=== PATIENT | female | born 1935 | race Caucasian/White ===

== ENCOUNTER 2024-06-08 15:41 | Inpatient (IN) | payer MEDICARE, SELFPAY ==
[2024-06-08] VITALS (7 sets, daily range): BP systolic 89–151; BP diastolic 61–70; PULSE 65–142; RESP 18–26; TEMP 36.2–37.3; O2SAT 91–96; BMI 24.5; BMI 26.3
--- NOTE | ~2024-06-08 | CT_ITS ---
CLINICAL HISTORY: tachycardia, fatigue, weakness CT angiography chest with contrast. 3D Postprocessing. Comparison: CR/SR - XR CHEST 2V - 06/08/24 16:29 EST Findings: There is motion artifact within the lungs, limiting evaluation. The heart size is normal. RV/LV ratio is normal. Coronary artery calcifications are present. The thoracic aorta is normal caliber. No pulmonary artery filling defects. The visualized thyroid and mediastinum are unremarkable. There is a background centrilobular emphysema. In the superior segment of the left lower lobe there is a 8 mm pulmonary nodule. Within the right upper lobe right lower lobe there are small foci of ground-glass opacity. There is complete collapse of the right middle lobe with obscuration of the right middle lobe bronchi by soft tissue. There is a masslike structure in the right hilum surrounding the right middle lobe bronchus and extending into the mediastinum measuring 3.5 x 3.5 cm, series 8, image 213. No mediastinal lymphadenopathy or axillary lymphadenopathy. In the upper abdomen is enlargement of the left adrenal gland measuring 1.7 cm in diameter, is indeterminate. Incidentally noted 3 cm cyst in the left kidney. Multiple low-attenuation lesions within the liver, likely cysts. Degenerative changes of the thoracic spine. No lytic or blastic bone lesions. The bones are intact. IMPRESSION: 1. No pulmonary emboli. 2. Right middle lobe mass extending into the mediastinum measuring 3.5 x 3 5 cm, occluding the right middle lobe bronchus. 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 3. 8 mm nodule in the left lower lobe, attention recommended on follow-up. 4. Multiple small ground-glass foci in the right upper lobe. Differential includes areas of infection, inflammation or small pulmonary nodules. This document has been electronically signed by: Omi Woo MD on 06/08/2024 19:55:17
--- NOTE | ~2024-06-08 | XR_ITS ---
EXAMINATION: XR CHEST CLINICAL INFORMATION: cough, shortness of breath COMPARISON: None available. TECHNIQUE: 2 views of the chest were obtained. FINDINGS: The lungs are well-expanded and clear of acute pneumonic process. There is a prominent right hilar soft tissue density. Heart size and pulmonary vascularity is normal. There is mild dextroscoliosis no aggressive lytic or sclerotic process seen. XR/XR chest 2V IMPRESSION: Mild prominent right hilar density question enlarged ovary artery versus parahilar lesion. There are no previous exam available for comparison. Mild dextroscoliosis mid dorsal spine. Electronically signed by: Vahid Moreno MD 06/08/2024 05:06 PM EST
--- NOTE | 2024-06-08 15:48 | ED.GENADULT ---
HPI - General Adult General Chief complaint: Arrhythmia/Palpitations Stated complaint: Weakness Time Seen by Provider: 06/08/24 16:47 Source: patient and family Mode of arrival: ambulatory Limitations: no limitations History of Present Illness ED Provider: ALEXA HERZOG narrative: 88 yo female not any medications has not seen a doctor in 30+ years notes URI that seemed to improve starting last week but now very tired, sob, poor eating, gets sweaty at times. She is with family who notes she has not wanted to come. Family member was around her and ill. She denies n/v/d, travel/procedures/fevers, GIB symptoms. She is not happy she is here and tells me she is not staying. She does get fully vaccinated at [facility] complaint: weakness, fatigue Onset (ago): week(s) (1) Severity: moderate Quality: dull Pain Consistency: constant Relieving factors: rest Associated symptoms: cough, loss of appetite, malaise, weakness and other (sweats) Treatments prior to arrival: none Related Data Allergies Allergy/AdvReac Type Severity Reaction Status Date / Time No Known Allergies Allergy Verified 06/08/24 15:52 Review of Systems Review of Systems: Constitutional : No Fever, No Chills, pos Fatigue, pos sweats ENT/Mouth : No sore throat, No Rhinorrhea Eyes: No Eye Pain, No Swelling, No Redness Cardiovascular : No Chest Pain, No SOB, No Dyspnea on Exertion Respiratory : pos Cough, No Sputum Gastrointestinal : No Nausea, No Vomiting, No Diarrhea, No abdominal Pain Genitourinary : No Dysuria, No Urinary Frequency, No Hematuria, Musculoskeletal : No joint pain, No Myalgias, No Joint Swelling Skin : No Skin Lesions, No rash Neuro : pos Weakness, No Numbness, No Dizziness, no Headache Psych : No Anxiety/Panic, No Depression Heme/Lymph: No Bruising, No Bleeding,No Lymphadenopathy Endocrine : No Polyuria, No Polydipsia All other systems reviewed and are negative [facility] Past Medical History Attestation statement: The following information was validated with the patient. Source: old records reviewed Medical History No pertinent past medical history Social History Social History (Updated 06/08/24 @ 19:50 by Andie Fairchild DO) Patient Tobacco Use Status: Current everyday Tobacco user Advance Directives: No Advance Directives Information Provided: Yes Do you have a plan to hurt others: No Plan Physical Exam ED Vital Signs: Vital Signs - 24 hr 06/08/24 15:51 06/08/24 17:09 06/08/24 19:03 Temperature 97.1 F 98.0 F Pulse Rate 142 H 142 H 89 Respiratory Rate 18 18 23 H Blood Pressure 89/65 L 136/70 Pulse Oximetry 96 94 Oxygen Delivery Method Room Air Room Air 06/08/24 19:51 06/08/24 20:13 Temperature 99.1 F 98.2 F Pulse Rate 84 81 Respiratory Rate 24 H 26 H Blood Pressure 151/61 H 146/70 H Pulse Oximetry 91 L 92 Oxygen Delivery Method Room Air Room Air BMI result Body Mass Index 24.5 Appearance: Alert. Oriented X3. No acute distress. Eyes: Pupils equal, round and reactive to light. ENT: Pharynx dry MM. Neck: Normal inspection. Neck supple. CVS: tachycardic heart rate and rhythm. Pulses normal. Respiratory: No respiratory distress. Breath sounds crackles and diminished RLL Abdomen: Soft and nontender. Skin: Skin warm and dry. Normal skin color. Extremities: No lower extremity edema. Neuro: Oriented X 3. No motor deficit. No sensory deficit. Course Course Course Narrative: This is a rapid medical exam performed by Raisa Driver NP: Additional HPI, ROS, PE not included below will be deferred to primary provider. Patient is an 88-year-old female presenting to the ED with complaint of cough, shortness of breath, diaphoresis, wheezing. Nausea without vomiting. Decreased appetite. Has not smoked in two weeks, typically smokes a pack per day. Patient tachycardic and hypotensive in triage. Family states patient has not seen a PCP in 30 years. Plan: EKG, labs including cultures and lactic, CXR Reevaluation(s) Reevaluation #1: HR still up at this time I am going to give very low dose lopressor BP has come up she is on fluids Reevaluation #2: HR broke P waves noted Reevaluation #3: no CP/SOB suspect demand will admit for further workup Additional Reevaluation(s): focused exam for sepsis performed at 802pm Medications Administered Discontinued Medications Generic Name Dose Route Start Last Admin Trade Name Freq PRN Reason Stop Dose Admin Ceftriaxone Sodium 1 gm 06/08/24 16:48 06/08/24 17:50 Ceftriaxone Sodium 1 Gm Vial IVPUSH 06/08/24 16:49 1 gm ONCE ONE Administration Levalbuterol HCl 2.5 mg/ 0 mg 06/08/24 17:09 06/08/24 17:10 Ipratropium [place] 0.5 mg INHALE 06/08/24 17:10 1 dose ONCE ONE Administration Lactated Ringer's 1,000 mls @ 999 mls/hr 06/08/24 16:48 06/08/24 19:03 Lr IV 06/08/24 17:48 Infused .Q1H1M ONE Infusion Albumin Human 100 mls @ 133.333 mls/hr 06/08/24 17:00 06/08/24 19:06 Kedbumin 25 % IV 06/08/24 18:44 133.33 mls/hr Q1H JAYSHREE Administration Acetaminophen 1,000 mg in 100 mls @ 400 mls/hr 06/08/24 16:58 06/08/24 19:07 Ofirmev IV 06/08/24 17:12 Infused ONCE ONE Infusion Iohexol 65 ml 06/08/24 18:55 06/08/24 18:55 Iohexol 350 Mg/Ml 100 Ml Infus..Btl IV 06/08/24 18:56 65 ml ONCE ONE Administration Procedures EJ/Peripheral Line Arm R: Time Out Performed: Yes Skin Cleansed in Sterile Fashion: Yes Size (gauge): 20 IV Secured and Dressing Applied: Yes Patient Tolerated Procedure: well and no complications Medical Decision Making Medical Decision Making MDM Narrative: 88 yo female with no PMH and doesn't see a doctor for 30 years at this time basic labs, cultures, CXR, possible CTA given tachycardia, IVF and start on empiric abx. She has mild JVD but no rales on exam and has no peripheral edema will be careful with the IVF given concern for possible fluid overload. Anticipate admit though she seems hesitant. Differential Diagnosis Differential Diagnoses: The differential diagnosis associated with the presentation includes URI, viral syndrome, tachycardia Admission/Observation Consideration of admission/observation: Escalation of care including admission/observation considered admit for further work up Consult Healthcare Provider Management of the patient was discussed with: Hospitalist (will admit) and [employer] message sent to Cardiology reccs pending hospitalist aware Lab Data MDM Lab Attestation statement: I reviewed the patient's lab results. 06/08/24 16:40 06/08/24 16:06 Labs: Lab Results 06/08/24 06/08/24 06/08/24 Range/Units 16:06 16:40 18:29 WBC 11.4 H (4.8-10.8) X10*3/uL RBC 5.56 H (4.20-5.50) X10*6/uL Hgb 15.6 (12.0-16.0) g/dl Hct 47.5 H (37.0-47.0) % MCV 85.4 (80.0-98.0) fL MCH 28.1 (27.0-33.0) pg MCHC 32.8 (31.0-35.0) g/dl RDW 13.4 (11.0-16.0) % Plt Count 304 (160-400) X10*3/uL MPV 10.9 (9.4-12.3) fL Immature Gran % (Auto) 0.6 H (0.0-0.4) % Neut % (Auto) 71.2 (45-73) % Lymph % (Auto) 19.7 L (20-40) % [place] % (Auto) 7.6 (2-11) % Eos % (Auto) 0.6 (0-4) % Baso % (Auto) 0.3 (0-2) % Lymph # (Auto) 2.3 (1.2-4.9) X10*3/uL [place] # (Auto) 0.9 (0.1-1.2) X10*3/uL Eos # (Auto) 0.1 (0.0-0.4) X10*3/uL Baso # (Auto) 0.0 (0.0-0.2) X10*3/uL Abs Immat Gran (auto) 0.07 H (0.00-0.03) X10*3/uL Absolute Neuts (auto) 8.1 (2.0-8.3) x10*3/uL Absolute Nucleated RBC 0.000 (0.0-0.012) X10*3/uL Nucleated RBC % (auto) 0.0 (0.0-0.2) /100WBC PT 11.3 (10.9-12.4) SEC INR 1.0 (0.9-1.1) Sodium 141 (135-145) mmol/L Potassium 4.3 (3.3-5.1) mmol/L Chloride 108 (96-108) mmol/L Carbon Dioxide 26 (22-29) mmol/L Anion Gap 11 L (12-20) BUN 22 H (9-16) mg/dL Creatinine 0.94 (0.5-1.4) mg/dL Estim Creat Clear Calc 33.9 Estimated GFR 56 Random Glucose 115 (60-115) mg/dL Lactic Acid 2.4 H* (0.5-2.0) mmol/L Lactic Acid F/U @ 2Hr (0.5-2.0) mmol/L Calcium 9.6 (8.4-10.2) mg/dL Magnesium 2.1 (1.6-2.6) mg/dL Total Bilirubin 0.4 (0.0-1.0) mg/dL Direct Bilirubin 0.1 (0.0-0.5) mg/dL AST 27 (5-31) U/L ALT 17 (0-31) U/L Alkaline Phosphatase 93 (39-117) U/L Troponin I High Sens 35.7 H 66.1 H* D (<3.5-17.0) ng/L B-Natriuretic Peptide 593 H (<100) pg/mL Total Protein 8.0 (6.5-8.0) g/dL Albumin 3.9 (3.5-5.0) g/dL TSH 0.73 (0.32-4.0) uIU/mL Influenza Type A (PCR) POSITIVE A (Negative) Influenza Type B (PCR) NEGATIVE (Negative) RSV RNA Qual (PCR) NEGATIVE (Negative) SARS-CoV-2 RNA (RT-PCR) NEGATIVE (Negative) 06/08/24 Range/Units 19:53 WBC (4.8-10.8) X10*3/uL RBC (4.20-5.50) X10*6/uL Hgb (12.0-16.0) g/dl Hct (37.0-47.0) % MCV (80.0-98.0) fL MCH (27.0-33.0) pg MCHC (31.0-35.0) g/dl RDW (11.0-16.0) % Plt Count (160-400) X10*3/uL MPV (9.4-12.3) fL Immature Gran % (Auto) (0.0-0.4) % Neut % (Auto) (45-73) % Lymph % (Auto) (20-40) % [place] % (Auto) (2-11) % Eos % (Auto) (0-4) % Baso % (Auto) (0-2) % Lymph # (Auto) (1.2-4.9) X10*3/uL [place] # (Auto) (0.1-1.2) X10*3/uL Eos # (Auto) (0.0-0.4) X10*3/uL Baso # (Auto) (0.0-0.2) X10*3/uL Abs Immat Gran (auto) (0.00-0.03) X10*3/uL Absolute Neuts (auto) (2.0-8.3) x10*3/uL Absolute Nucleated RBC (0.0-0.012) X10*3/uL Nucleated RBC % (auto) (0.0-0.2) /100WBC PT (10.9-12.4) SEC INR (0.9-1.1) Sodium (135-145) mmol/L Potassium (3.3-5.1) mmol/L Chloride (96-108) mmol/L Carbon Dioxide (22-29) mmol/L Anion Gap (12-20) BUN (9-16) mg/dL Creatinine (0.5-1.4) mg/dL Estim Creat Clear Calc Estimated GFR Random Glucose (60-115) mg/dL Lactic Acid (0.5-2.0) mmol/L Lactic Acid F/U @ 2Hr 1.9 (0.5-2.0) mmol/L Calcium (8.4-10.2) mg/dL Magnesium (1.6-2.6) mg/dL Total Bilirubin (0.0-1.0) mg/dL Direct Bilirubin (0.0-0.5) mg/dL AST (5-31) U/L ALT (0-31) U/L Alkaline Phosphatase (39-117) U/L Troponin I High Sens (<3.5-17.0) ng/L B-Natriuretic Peptide (<100) pg/mL Total Protein (6.5-8.0) g/dL Albumin (3.5-5.0) g/dL TSH (0.32-4.0) uIU/mL Influenza Type A (PCR) (Negative) Influenza Type B (PCR) (Negative) RSV RNA Qual (PCR) (Negative) SARS-CoV-2 RNA (RT-PCR) (Negative) Independent Interpretation I performed an independent interpretation of an: EKG, Plain X-Ray (RLL opacity) and CT Scan (r lung mass) Interpretation: Rate: 137 Rhythm: regular tachycardic [place]: normal Normal QRS complex. ST T wave : inverted t waves II, III, aVF, I, V3-V6, no LUIS qTC: 492 prior studies: no prior The study has been interpreted contemporaneously by me. Rate: 128 Rhythm: tachycardic and slightly more irregular [place]: normal , LVH Normal QRS complex. ST T wave : inverted t waves II, III, aVF, I, V3-V6, no LUIS qTC: 499 prior studies: no prior The study has been interpreted contemporaneously by me. Rate: 81 Rhythm: NSR [place]: normal Normal P waves. Normal DILIA. Normal QRS complex. ST T wave : inverted t waves II, III, aVF, I, V3-V6, no LUIS qTC: 480 prior studies: no sig change ?wellens syndrome The study has been interpreted contemporaneously by me. . Radiology Impression Discussion of test interpretation with radiology: I have reviewed the radiologist's reading. Independent Historian Clinical information obtained from an independent historian. History obtained from or confirmed by: Other (family) Critical Care Time Critical Care Time Critical Care Time: Yes Total Critical Care Time: 60 Attestation: repeat labs, IVF resuscitation, consult, admission, family discussions I attest to this time spent taking care of the patient Discharge Plan Discharge Clinical Impression: Influenza A, Tachycardia, Acute hypotension, Elevated troponin, Mass of lung, Abnormal ECG Patient Disposition: Admitted As Inpatient Print Language: [place] Sepsis Bolus Exclusion Sepsis Bolus Exclusion CHF/Renal Failure This patient met severe sepsis criteria due to the following condition(s):: Hypotension In my clinical judgement the administration of 30 ml/kg of crystalloid would be detrimental to this patient due to the patient's following conditions:: Concern for fluid overload Replace the 30 mls/kg with (Zero amount not acceptable and all fluids for severe sepsis must be given at GREATER than 125 mls/hr) Crystalloids amount given in mls: (rate must be at least 150cc/hr): 1,000 Colloids amount given in mls:: 200
--- NOTE | 2024-06-08 15:50 | ECG_ITS ---
Test Reason : TACHY Blood Pressure : / mmHG Vent. Rate : 137 BPM Atrial Rate : 137 BPM P-R Int : 148 ms QRS Dur : 110 ms QT Int : 326 ms P-R-T Axes : 057 053 223 degrees QTc Int : [address] & T wave abnormality, consider inferior ischemia ST & T wave abnormality, consider anterolateral ischemia Abnormal ECG No previous ECGs available Referred By: Radha Driver Electronically Signed By:JULIO CÉSAR OCHOA MD
[2024-06-08 16:21] LABS: Prothrombin Time 11.3 SEC (10.9-12.4)
[2024-06-08 16:32] LABS: Alanine Aminotransferase 17 U/L (0-31); Albumin Level 3.9 g/dL (3.5-5.0); Alkaline Phosphatase 93 U/L (39-117); Anion Gap 11 (12-20); Aspartate Amino Transferase 27 U/L (5-31); Bilirubin Total 0.4 mg/dL (0.0-1.0); Blood Urea Nitrogen 22 mg/dL (9-16); Calcium 9.6 mg/dL (8.4-10.2); Carbon Dioxide 26 mmol/L (22-29); Chloride 108 mmol/L (96-108); Creatinine Clr Calc Pharmacy 33.9; Estimated Glomerular Filt Rate 56; Glucose Random 115 mg/dL (60-115); Magnesium 2.1 mg/dL (1.6-2.6); Potassium 4.3 mmol/L (3.3-5.1); Sodium 141 mmol/L (135-145)
[2024-06-08 16:37] LABS: B Type Natriuretic Peptide 593 pg/mL (<100); Troponin-I High Sensitivity 35.7 ng/L (<3.5-17.0)
[2024-06-08 16:53] LABS: Influenza A PCR POSITIVE (Negative); Influenza B PCR NEGATIVE (Negative); Resp Syncy Virus RNA Qual PCR NEGATIVE (Negative); SARS COV2 PCR INHOUSE NEGATIVE (Negative)
[2024-06-08 17:01] LABS: Basophils Percent Auto 0.3 % (0-2); Eosinophils Absolute Auto 0.1 X10*3/uL (0.0-0.4); Eosinophils Percent Auto 0.6 % (0-4); Hematocrit 47.5 % (37.0-47.0); Hemoglobin 15.6 g/dl (12.0-16.0); Imm Gran Abs Auto 0.07 X10*3/uL (0.00-0.03); Imm Gran Pct Auto 0.6 % (0.0-0.4); Lymphocytes Absolute Auto 2.3 X10*3/uL (1.2-4.9); Lymphocytes Percent Auto 19.7 % (20-40); Mean Corpuscular HGB Conc 32.8 g/dl (31.0-35.0); Mean Corpuscular Hemoglobin 28.1 pg (27.0-33.0); Mean Corpuscular Volume 85.4 fL (80.0-98.0); Mean Platelet Volume 10.9 fL (9.4-12.3); Monocytes Absolute Auto 0.9 X10*3/uL (0.1-1.2); Monocytes Percent Auto 7.6 % (2-11); Neutrophils Absolute Auto 8.1 x10*3/uL (2.0-8.3); Neutrophils Percent Auto 71.2 % (45-73); Platelet Count 304 X10*3/uL (160-400); Red Blood Count 5.56 X10*6/uL (4.20-5.50); Red Cell Distribution Width 13.4 % (11.0-16.0); White Blood Count 11.4 X10*3/uL (4.8-10.8)
[2024-06-08] MEDS: levalbuterol HCL 2.5 MG, Ipratropium Bromide 0.5 MG INHALE (17:10)
[2024-06-08 17:39] LABS: Lactic Acid 2.4 mmol/L (0.5-2.0)
[2024-06-08 17:42] LABS: Bilirubin Direct 0.1 mg/dL (0.0-0.5)
[2024-06-08] MEDS: Lactated Ringers 1,000 ML 999 ML IV (17:50)
[2024-06-08] MEDS: cefTRIAXone sodium 1 GM VIAL IVPUSH (17:50)
[2024-06-08] MEDS: Acetaminophen 1,000 MG/100 ML PIGGYBACK 400 MG IV (17:54)
--- NOTE | 2024-06-08 18:08 | ECG_ITS ---
Test Reason : tachycardia Blood Pressure : / mmHG Vent. Rate : 128 BPM Atrial Rate : 000 BPM P-R Int : 000 ms QRS Dur : 102 ms QT Int : 342 ms P-R-T Axes : 000 037 218 degrees QTc Int : 499 ms Accelerated Junctional rhythm with retrograde conduction ST & T wave abnormality, consider inferior ischemia ST & T wave abnormality, consider anterolateral ischemia Abnormal ECG When compared with ECG of 08-JUN-2024 15:59, Junctional rhythm has replaced Sinus rhythm Referred By: Andie Fairchild Electronically Signed By:JULIO CÉSAR OCHOA MD
[2024-06-08] MEDS: Albumin Human 25 % 100 ML 133.33 ML IV ×2 (18:14→19:06)
[2024-06-08 18:20] LABS: TSH reflex Free T4 0.73 uIU/mL (0.32-4.0)
[2024-06-08] MEDS: iohexoL 350 MG/ML 100 ML INFUS..BTL 65 ML IV (18:55)
[2024-06-08 18:58] LABS: Reflex Lactate? Lactic Acid Added
[2024-06-08 19:19] LABS: Troponin-I High Sensitivity 66.1 ng/L (<3.5-17.0)
[2024-06-08 19:50] LABS: MANUAL DIFF FLAG NO
--- NOTE | 2024-06-08 19:52 | ECG_ITS ---
Test Reason : ELEVATED TROP Blood Pressure : / mmHG Vent. Rate : 081 BPM Atrial Rate : 081 BPM P-R Int : 132 ms QRS Dur : 098 ms QT Int : 414 ms P-R-T Axes : 072 029 173 degrees QTc Int : 480 ms Normal sinus rhythm Possible Left atrial enlargement ST & Marked T wave abnormality, consider anterolateral ischemia Prolonged QT Abnormal ECG When compared with ECG of 08-JUN-2024 18:20, Sinus rhythm has replaced Junctional rhythm Vent. rate has decreased BY 47 BPM T wave inversion less evident in Inferior leads Referred By: Andie Fairchild Electronically Signed By:JULIO CÉSAR OCHOA MD
--- NOTE | 2024-06-08 19:58 | MHC.EDTECH ---
This tech took over care of patient at 1935,rounded and introduced self to pt,vitals taken,repeat lactic drawn at this time,patient is sitting up watching TV,eating soup,family at bedside,pt appears comfortable ,call sarmiento in reach
[2024-06-08 20:20] LABS: ~Lactic Acid-LAB USE ONLY 1.9 mmol/L (0.5-2.0)
--- NOTE | 2024-06-08 20:20 | MHC.EDTECH ---
EKG completed per order and signed by provider,vitals taken,patient ambulated to the bathroom with a steady gait,
--- NOTE | 2024-06-08 20:25 | MHC.EDTECH ---
Patient gave a urine sample,collected and sent to lab
[2024-06-08 20:33] LABS: Appearance Urine Clear; Color Urine Yellow; Glucose Urine UA Negative (Negative); Leukocyte Esterase Urine Negative (Negative); Nitrite Urine Negative (Negative); PH 5.5 (5.0-9.0); Specific Gravity - Urine >= 1.030 (1.005-1.025); UMIC TRIGGER UACC YES; Urine Blood Moderate (2+) (Negative); Urine Ketones Negative (Negative); Urine Protein Negative (Neg-Trace)
[2024-06-08 20:38] LABS: Bacteria Urine None Seen (None Seen); Hyaline Casts Urine 0-2 /LPF (0-2); RBC Urine >20 /HPF (0-2); Squamous Epithelial Cell Urine 0-2 /HPF (0-2); WBC Urine 0-5 /HPF (0-5)
--- NOTE | 2024-06-08 20:38 | PHA.MEDREC ---
Pharmacy Consult ? Medication Reconciliation Pharmacy has completed the medication reconciliation.
--- NOTE | 2024-06-08 20:55 | PM.IMHP ---
History of Present Illness Date of Service: 06/08/24 Chief Complaint: Dyspnea, malaise, cough This is a 88-year-old female with pertinent history of tobacco use disorder who presents to the emergency department for evaluation of malaise, dyspnea and nonproductive cough. Patient states her daughter prompted her to come to the ER. As per the daughter at bedside, patient has been unwell for the last 1 week. She has been having malaise, easy fatigability and dyspnea on exertion. Also has been having nonproductive cough and upper respiratory symptoms. No sick contacts. No pertinent known past medical history as patient has not seen a PCP in over 40 years. Patient has more than 40 pack-year smoking history but did not smoke for the last 1 week. Denies orthopnea or PND. No chest pain, palpitations, fever, chills, abdominal pain, changes in urinary or bowel habits. In the emergency department, troponin found to be elevated. Imaging with right middle lobe mass and patient tested positive for influenza A. Review of Systems Constitutional: Constitutional: Reports fatigue, Reports lethargy, Reports malaise and Reports weakness Cardiovascular: Cardiovascular: Reports dyspnea on exertion Respiratory: Respiratory: Reports cough and Reports dyspnea on exertion Gastrointestinal: Gastrointestinal: Reports no additional gastrointestinal complaints Genitourinary: Genitourinary: Reports no additional female genitourinary complaints Neurologic: Reports weakness Endocrine: Endocrine: Reports fatigue [facility] Medical History No pertinent past medical history Pertinent family history: No family history of lung cancer Social History Patient Tobacco Use Status: Current everyday Tobacco user Advance Directives: No Advance Directives Information Provided: Yes Do you have a plan to hurt others: No Plan Meds Allergies Allergy/AdvReac Type Severity Reaction Status Date / Time No Known Allergies Allergy Verified 06/08/24 15:52 Active Medications: Current Medications Acetaminophen (Acetaminophen 325 Mg Tablet) 650 mg PO Q6H PRN PRN Reason: Pain, Mild 1-3,fever,headache Albuterol/Ipratropium (Albuterol/Iprat 2.5/0.5mg 3 Ml Ampul.Neb) 3 ml INHALE Q4H PRN PRN Reason: Shortness of Breath/Wheezing Benzonatate (Benzonatate 100 Mg Capsule) 100 mg PO TID PRN PRN Reason: Cough Calcium Carbonate (Calcium Carbonate 750 Mg Tab.Chew) 750 mg PO Q4H PRN PRN Reason: Heartburn Enoxaparin Sodium (Enoxaparin Sodium 40 Mg/0.4 Ml Syringe) 40 mg SUBCUT Q24H JAYSHREE Magnesium Hydroxide (Milk Of Magnesia 30 Ml Oral.Susp) 30 ml PO DAILY PRN PRN Reason: Constipation Melatonin (Melatonin 3 Mg Tablet) 6 mg PO BEDTIME PRN PRN Reason: Insomnia Ondansetron HCl (Ondansetron Hcl 4 Mg/2 Ml Vial) 4 mg IVPUSH Q8H PRN PRN Reason: Nausea and Vomiting Sodium Chloride (0.9 % Sodium Chloride Flush 3 Ml Syringe) 3 ml IVFLUSH QSHIFT [facility] Home Medications ?Medication ?Instructions ?Recorded ?Confirmed ?Last Taken ?Type No Known Home Meds 06/08/24 06/08/24 Unknown History Physical Exam Vital Signs and Narrative: Vital Signs: Last Vital Signs Temp 98.2 F 06/08/24 20:13 Pulse 81 06/08/24 20:13 Resp 26 H 06/08/24 20:13 BP 146/70 H 06/08/24 20:13 Pulse Ox 92 06/08/24 20:13 O2 Del Method Room Air 06/08/24 20:13 BMI result Body Mass Index 24.5 Middle-aged female lying in bed in no distress Neck supple, no JVD Regular rate and rhythm, S1-S2 heard Tachypnea with right-sided crackles Abdomen soft nontender, no guarding, no rigidity Patient is awake, alert and oriented to self, place, time and person ; no focal motor deficit Psych: Normal mood No pedal edema Results Labs 06/08/24 16:40 06/08/24 16:06 Labs: Laboratory Results - last 24 hr 06/08/24 06/08/24 06/08/24 16:06 16:40 18:29 MCV 85.4 MCH 28.1 MCHC 32.8 RDW 13.4 Plt Count 304 MPV 10.9 Immature Gran % (Auto) 0.6 H Neut % (Auto) 71.2 Lymph % (Auto) 19.7 L [place] % (Auto) 7.6 Eos % (Auto) 0.6 Baso % (Auto) 0.3 Lymph # (Auto) 2.3 [place] # (Auto) 0.9 Eos # (Auto) 0.1 Baso # (Auto) 0.0 Abs Immat Gran (auto) 0.07 H Absolute Neuts (auto) 8.1 Absolute Nucleated RBC 0.000 Nucleated RBC % (auto) 0.0 PT 11.3 INR 1.0 Anion Gap 11 L Estim Creat Clear Calc 33.9 Estimated GFR 56 Random Glucose 115 Lactic Acid 2.4 H* Lactic Acid F/U @ 2Hr Calcium 9.6 Magnesium 2.1 Total Bilirubin 0.4 Direct Bilirubin 0.1 AST 27 ALT 17 Alkaline Phosphatase 93 Troponin I High Sens 35.7 H 66.1 H* D B-Natriuretic Peptide 593 H Total Protein 8.0 Albumin 3.9 TSH 0.73 Urine Color Urine Appearance Urine pH Ur Specific [place] Urine Protein Urine Glucose (UA) Urine Ketones Urine Blood Urine Nitrite Ur Leukocyte Esterase Urine RBC Urine WBC Ur Squamous Epith Cells Urine Bacteria Hyaline Casts Influenza Type A (PCR) POSITIVE A Influenza Type B (PCR) NEGATIVE RSV RNA Qual (PCR) NEGATIVE SARS-CoV-2 RNA (RT-PCR) NEGATIVE 06/08/24 06/08/24 19:53 20:26 MCV MCH MCHC RDW Plt Count MPV Immature Gran % (Auto) Neut % (Auto) Lymph % (Auto) [place] % (Auto) Eos % (Auto) Baso % (Auto) Lymph # (Auto) [place] # (Auto) Eos # (Auto) Baso # (Auto) Abs Immat Gran (auto) Absolute Neuts (auto) Absolute Nucleated RBC Nucleated RBC % (auto) PT INR Anion Gap Estim Creat Clear Calc Estimated GFR Random Glucose Lactic Acid Lactic Acid F/U @ 2Hr 1.9 Calcium Magnesium Total Bilirubin Direct Bilirubin AST ALT Alkaline Phosphatase Troponin I High Sens B-Natriuretic Peptide Total Protein Albumin TSH Urine Color Yellow Urine Appearance Clear Urine pH 5.5 Ur Specific [place] >= 1.030 H Urine Protein Negative Urine Glucose (UA) Negative Urine Ketones Negative Urine Blood Moderate (2+) H Urine Nitrite Negative Ur Leukocyte Esterase Negative Urine RBC >20 H Urine WBC 0-5 Ur Squamous Epith Cells 0-2 Urine Bacteria None Seen Hyaline Casts 0-2 Influenza Type A (PCR) Influenza Type B (PCR) RSV RNA Qual (PCR) SARS-CoV-2 RNA (RT-PCR) Imaging Radiologist's Impressions: Impressions Chest X-Ray 06/08/24 16:15 IMPRESSION: Mild prominent right hilar density question enlarged ovary artery versus parahilar lesion. There are no previous exam available for comparison. Mild dextroscoliosis mid dorsal spine. Electronically signed by: Vahid Moreno MD 06/08/2024 05:06 PM [facility] [place] Assessment and Plan (1) Mass of lung: Status: Acute (2) Elevated troponin: Status: Acute (3) Influenza A: Status: Acute Plan This is a 88-year-old female with pertinent history of tobacco use disorder who presents to the emergency department for evaluation of malaise, dyspnea and nonproductive cough. #. 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 Consulting pulmonology and Oncology. #. Influenza a infection: Defer Tamiflu as symptom onset more than a week ago and no severe symptoms #. Elevated troponin likely type 2 in the setting of above. Patient without chest pain. Repeat troponin. Obtaining echocardiogram #. Tobacco use disorder: Refused nicotine patch in the hospital. Counseled regarding cessation #. Acute lactic acidosis due to albuterol use. No sepsis DVT prophylaxis: Lovenox Full code Quality Stroke Does the patient have a stroke diagnosis?: No VTE Prior VTE?: No VTE Risk Level:: Medical - moderate - high VTE Device Contraindication: Treatment Not Indicated VTE Drug Contraindication: N/A - Med Ordered
[2024-06-08] MEDS: Enoxaparin Sodium 40 MG/0.4 ML SYRINGE SUBCUT (21:32)
--- NOTE | 2024-06-08 21:37 | MHC.EDTECH ---
Rounds and vitals completed,belongings list completed,copy placed in chart,call sarmiento in reach
[2024-06-08] MEDS: 0.9 % Sodium Chloride Flush 3 ML SYRINGE IVFLUSH (23:28)
[2024-06-09] VITALS (8 sets, daily range): BP systolic 137–166; BP diastolic 60–73; PULSE 52–73; RESP 14–20; TEMP 36.3–37.1; O2SAT 91–95
[2024-06-09 08:19] LABS: MANUAL DIFF FLAG NO
[2024-06-09 08:21] LABS: Basophils Percent Auto 0.2 % (0-2); Eosinophils Absolute Auto 0.1 X10*3/uL (0.0-0.4); Hematocrit 37.7 % (37.0-47.0); Hemoglobin 12.7 g/dl (12.0-16.0); Imm Gran Abs Auto 0.04 X10*3/uL (0.00-0.03); Imm Gran Pct Auto 0.4 % (0.0-0.4); Lymphocytes Percent Auto 29.1 % (20-40); Mean Corpuscular HGB Conc 33.7 g/dl (31.0-35.0); Mean Corpuscular Hemoglobin 28.2 pg (27.0-33.0); Mean Corpuscular Volume 83.6 fL (80.0-98.0); Mean Platelet Volume 10.7 fL (9.4-12.3); Monocytes Absolute Auto 0.9 X10*3/uL (0.1-1.2); Monocytes Percent Auto 8.4 % (2-11); Neutrophils Absolute Auto 6.2 x10*3/uL (2.0-8.3); Neutrophils Percent Auto 60.9 % (45-73); Platelet Count 283 X10*3/uL (160-400); Red Blood Count 4.51 X10*6/uL (4.20-5.50); Red Cell Distribution Width 13.4 % (11.0-16.0); White Blood Count 10.2 X10*3/uL (4.8-10.8)
[2024-06-09 08:35] LABS: Anion Gap 14 (12-20); Blood Urea Nitrogen 16 mg/dL (9-16); Calcium 9.4 mg/dL (8.4-10.2); Carbon Dioxide 24 mmol/L (22-29); Chloride 109 mmol/L (96-108); Creatinine Clr Calc Pharmacy 42.2; Estimated Glomerular Filt Rate > 60; Glucose Random 96 mg/dL (60-115); Potassium 4.5 mmol/L (3.3-5.1); Sodium 142 mmol/L (135-145)
[2024-06-09 08:48] LABS: Troponin-I High Sensitivity 412.3 ng/L (<3.5-17.0)
[2024-06-09] MEDS: Enoxaparin Sodium 40 MG/0.4 ML SYRINGE 60 MG SUBCUT ×2 (09:25→20:30)
[2024-06-09] MEDS: 0.9 % Sodium Chloride Flush 3 ML SYRINGE IVFLUSH ×3 (09:25→23:44)
[2024-06-09] MEDS: Aspirin Enteric Coated 81 MG TABLET.DR PO (09:25)
--- NOTE | 2024-06-09 10:57 | P.CONCA_ITS ---
History of Present Illness History of Present Illness Date of Service: 06/09/24 Requesting physician: Dc Pratt Consult reason: myocardial infarction Chief complaint: Dyspnea Narrative: I was consulted to see Darek in cardiology consultation today for elevated troponins. Patient was 88-year-old female who has not seen a primary care physician in over 40 years. Chronic smoker for many years. Patient present hospital with progressive fatigue and weakness and cough productive of phlegm. She says she had all her vaccinations done. She came to the hospital initially EKGs abnormal showing diffuse T-wave inversion in the anterior precordial leads with mildly elevated troponins. Subsequent troponins were further elevated and 3rd troponins elevated and 400 range. Patient denies any chest pain. EKG remains showing ischemic anterior T-wave changes. No prior EKG to compare. Patient says prior to this she was very active and functional at home. She has no symptoms of exertional chest pain or shortness of breath. She denies any lightheadedness, palpitations. Overnight has remained hemodynamically stable with blood pressure being elevated. Cardiology consult was sought for further management plan. 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 Review of Systems 2 Constitutional: Constitutional: Reports fatigue and Reports weakness Eyes: Eyes: Reports no additional eye complaints ENT: Reports system reviewed and no additional complaints, except as documented Cardiovascular: Cardiovascular: Reports no additional cardiovascular complaints Respiratory: Respiratory: Reports cough and Reports excessive phlegm production Gastrointestinal: Gastrointestinal: Reports no additional gastrointestinal complaints Genitourinary: Genitourinary: Reports no additional female genitourinary complaints Musculoskeletal: Musculoskeletal: Reports no additional musculoskeletal complaints Integumentary/Breasts: Skin/Breast: Reports system reviewed and no additional complaints, except as docu Neurologic: Reports system reviewed and no additional complaints, except as documented and Reports weakness Psychiatric: Psychiatric: Reports no additional psychiatric complaints Endocrine: Endocrine: Reports no additional endocrine complaints and Reports fatigue PMFSH Past Medical History Medical History No pertinent past medical history Social History Social History Household Members: Spouse Housing: House Do you presently have visiting nurse or other home services: No Patient Tobacco Use Status: Current everyday Tobacco user Tobacco use type: Cigarette Meds Allergies Allergy/AdvReac Type Severity Reaction Status Date / Time No Known Allergies Allergy Verified 06/08/24 15:52 Active Medications: Current Medications Acetaminophen (Acetaminophen 325 Mg Tablet) 650 mg PO Q6H PRN PRN Reason: Pain, Mild 1-3,fever,headache Albuterol/Ipratropium (Albuterol/Iprat 2.5/0.5mg 3 Ml Ampul.Neb) 3 ml INHALE Q4H PRN PRN Reason: Shortness of Breath/Wheezing Aspirin (Aspirin Enteric Coated 81 Mg Tablet.Dr) 81 mg PO DAILY [facility] Last Admin: 06/09/24 09:25 Dose: 81 mg Atorvastatin Calcium (Atorvastatin Calcium 80 Mg Tablet) 80 mg PO BEDTIME [facility] Benzonatate (Benzonatate 100 Mg Capsule) 100 mg PO TID PRN PRN Reason: Cough Calcium Carbonate (Calcium Carbonate 750 Mg Tab.Chew) 750 mg PO Q4H PRN PRN Reason: Heartburn Enoxaparin Sodium (Enoxaparin Sodium 40 Mg/0.4 Ml Syringe) 60 mg SUBCUT Q12H [facility] Last Admin: 06/09/24 09:25 Dose: 60 mg Magnesium Hydroxide (Milk Of Magnesia 30 Ml Oral.Susp) 30 ml PO DAILY PRN PRN Reason: Constipation Melatonin (Melatonin 3 Mg Tablet) 6 mg PO BEDTIME PRN PRN Reason: Insomnia Ondansetron HCl (Ondansetron Hcl 4 Mg/2 Ml Vial) 4 mg IVPUSH Q8H PRN PRN Reason: Nausea and Vomiting Sodium Chloride (0.9 % Sodium Chloride Flush 3 Ml Syringe) 3 ml IVFLUSH QSHIFT [facility] Last Admin: 06/09/24 09:25 Dose: 3 ml Home Medications ?Medication ?Instructions ?Recorded ?Confirmed ?Last Taken ?Type No Known Home Meds 06/08/24 06/08/24 Unknown History Physical Exam 2 Vital Signs: Vital Signs: Last Vital Signs Temp 98.8 F 06/09/24 07:51 Pulse 61 06/09/24 07:51 Resp 20 06/09/24 07:51 BP 150/70 H 06/09/24 07:51 Pulse Ox 94 06/09/24 07:51 O2 Del Method Room Air 06/09/24 07:51 BMI result Body Mass Index 26.3 Const: General: cooperative, comfortable, no acute distress, alert and awake Nutritional Appearance: average body habitus Orientation/consciousness: p atient oriented x3 Limitations: no limitations HEENT: Head: Yes normocephalic and Yes atraumatic Neck: Neck: Yes trachea midline, Yes supple and Yes no JVD Resp: Effort & Inspection: normal respiratory effort Auscultation: no rales, no wheezes and diminished lung sounds Cardio: Jugular venous distension: no JVD Palpation: normal PMI Rate: r egular rate Rhythm: regular rhythm Heart sounds: S1 normal heart sound present, S2 normal heart sound present, no click, no gallops, no murmurs and no rubs GI: Auscultation: normal bowel sounds Skin: General skin exam: no rashes or lesions noted Neuro: General: patient oriented x3 and no focal motor deficits Extrem: General: Yes no clubbing, cyanosis or edema Objective Labs and Meds 06/09/24 08:11 06/09/24 08:11 Lab results: Laboratory Results - last 24 hr 06/08/24 06/08/24 06/08/24 16:06 16:40 18:29 WBC 11.4 H RBC 5.56 H Hgb 15.6 Hct 47.5 H MCV 85.4 MCH 28.1 MCHC 32.8 RDW 13.4 Plt Count 304 MPV 10.9 Immature Gran % (Auto) 0.6 H Neut % (Auto) 71.2 Lymph % (Auto) 19.7 L [facility] % (Auto) 7.6 Eos % (Auto) 0.6 Baso % (Auto) 0.3 Lymph # (Auto) 2.3 [place] # (Auto) 0.9 Eos # (Auto) 0.1 Baso # (Auto) 0.0 Abs Immat Gran (auto) 0.07 H Absolute Neuts (auto) 8.1 Absolute Nucleated RBC 0.000 Nucleated RBC % (auto) 0.0 PT 11.3 INR 1.0 Sodium 141 Potassium 4.3 Chloride 108 Carbon Dioxide 26 Anion Gap 11 L BUN 22 H Creatinine 0.94 Estim Creat Clear Calc 33.9 Estimated GFR 56 Random Glucose 115 Lactic Acid 2.4 H* Lactic Acid F/U @ 2Hr Calcium 9.6 Magnesium 2.1 Total Bilirubin 0.4 Direct Bilirubin 0.1 AST 27 ALT 17 Alkaline Phosphatase 93 Troponin I High Sens 35.7 H 66.1 H* D B-Natriuretic Peptide 593 H Total Protein 8.0 Albumin 3.9 TSH 0.73 Urine Color Urine Appearance Urine pH Ur Specific [place] Urine Protein Urine Glucose (UA) Urine Ketones Urine Blood Urine Nitrite Ur Leukocyte Esterase Urine RBC Urine WBC Ur Squamous Epith Cells Urine Bacteria Hyaline Casts Influenza Type A (PCR) POSITIVE A Influenza Type B (PCR) NEGATIVE RSV RNA Qual (PCR) NEGATIVE SARS-CoV-2 RNA (RT-PCR) NEGATIVE 06/08/24 06/08/24 06/09/24 19:53 20:26 08:11 WBC 10.2 RBC 4.51 Hgb 12.7 Hct 37.7 D MCV 83.6 MCH 28.2 MCHC 33.7 RDW 13.4 Plt Count 283 MPV 10.7 Immature Gran % (Auto) 0.4 Neut % (Auto) 60.9 Lymph % (Auto) 29.1 [place] % (Auto) 8.4 Eos % (Auto) 1.0 Baso % (Auto) 0.2 Lymph # (Auto) 3.0 [place] # (Auto) 0.9 Eos # (Auto) 0.1 Baso # (Auto) 0.0 Abs Immat Gran (auto) 0.04 H Absolute Neuts (auto) 6.2 Absolute Nucleated RBC 0.000 Nucleated RBC % (auto) 0.0 PT INR Sodium 142 Potassium 4.5 Chloride 109 H Carbon Dioxide 24 Anion Gap 14 BUN 16 Creatinine 0.78 Estim Creat Clear Calc 42.2 Estimated GFR > 60 Random Glucose 96 Lactic Acid Lactic Acid F/U @ 2Hr 1.9 Calcium 9.4 Magnesium Total Bilirubin Direct Bilirubin AST ALT Alkaline Phosphatase Troponin I High Sens 412.3 H* D B-Natriuretic Peptide Total Protein Albumin TSH Urine Color Yellow Urine Appearance Clear Urine pH 5.5 Ur Specific [place] >= 1.030 H Urine Protein Negative Urine Glucose (UA) Negative Urine Ketones Negative Urine Blood Moderate (2+) H Urine Nitrite Negative Ur Leukocyte Esterase Negative Urine RBC >20 H Urine WBC 0-5 Ur Squamous Epith Cells 0-2 Urine Bacteria None Seen Hyaline Casts 0-2 Influenza Type A (PCR) Influenza Type B (PCR) RSV RNA Qual (PCR) SARS-CoV-2 RNA (RT-PCR) Imaging Radiologist's impression: Impressions Chest X-Ray 06/08/24 16:15 IMPRESSION: Mild prominent right hilar density question enlarged ovary artery versus parahilar lesion. There are no previous exam available for comparison. Mild dextroscoliosis mid dorsal spine. Electronically signed by: Vahid Moreno MD 06/08/2024 05:06 PM [facility] Assessment and Plan (1) NSTEMI (non-ST elevated myocardial infarction): Status: Acute Elevated troponin EKG findings without any symptoms consistent with NSTEMI, appears to be secondary to acute systemic illness with flu and pneumonia. 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 Other possibility includes stress-induced cardiomyopathy AKA takotsubo cardiomyopathy. For now I will treat her with Lovenox for at least 48 hours. Agree with aspirin and statins. Would also start her on beta-blockers, metoprolol 25 mg b.i.d.. Continue with blood pressure control. Abnormal EKG could be related to LAD territory ischemia versus takotsubo cardiomyopathy versus hypertensive heart disease related to longstanding untreated hypertension versus RV strain from underlying lung disease. Obtain echocardiogram tomorrow to further assess and management plan. She was significant wall motion abnormality and significant LV systolic dysfunction possibility of cardiac catheterization exist. However I would get a pulmonary consult to evaluate for the pulmonary mass that has been detected on CT scan for further guidance as to treatment and prognosis. Findings were discussed with patient and her daughter at bedside. Will follow with you. Procedures Date of Service Date of Service: 06/09/24
--- NOTE | 2024-06-09 12:02 | P.CONPL_ITS ---
History of Present Illness History of Present Illness Consult date: 06/09/24 Chief complaint: Dyspnea Narrative: This is an inpatient pulmonary consultation. The patient is an 88-year-old female with pertinent history of tobacco use disorder who presents to the emergency department for evaluation of malaise, dyspnea and nonproductive cough. Patient states her daughter prompted her to come to the ER. As per the daughter at bedside, patient has been unwell for the last 1 week. She has been having malaise, easy fatigability and dyspnea on exertion. Also has been having nonproductive cough and upper respiratory symptoms. No sick contacts. No pertinent known past medical history as patient has not seen a PCP in over 40 years. Patient has more than 40 pack-year smoking history but did not smoke for the last 1 week. Denies orthopnea or PND. No chest pain, palpitations, fever, chills, abdominal pain, changes in urinary or bowel habits. In the emergency department, troponin found to be elevated. Imaging with right middle lobe mass and patient tested positive for influenza A. Had a CTA which I personally reviewed with the patients family, demonstrating a RML medial mass with obstruction of the RML airways resulting in atelectasis. Also has moderate emphysema and another ELSY nodule. ALso cardiac enzymes were significantly elevated and cardiology is following. Review of Systems 2 Constitutional: Constitutional: Reports fatigue and Reports weakness Eyes: Eyes: Reports no additional eye complaints ENT: Reports system reviewed and no additional complaints, except as documented Cardiovascular: Cardiovascular: Reports no additional cardiovascular complaints Respiratory: Respiratory: Reports cough and Reports excessive phlegm production Gastrointestinal: Gastrointestinal: Reports no additional gastrointestinal complaints Genitourinary: Genitourinary: Reports no additional female genitourinary complaints Musculoskeletal: Musculoskeletal: Reports no additional musculoskeletal complaints Integumentary/Breasts: Skin/Breast: Reports system reviewed and no additional complaints, except as docu Neurologic: Reports system reviewed and no additional complaints, except as documented and Reports weakness Psychiatric: Psychiatric: Reports no additional psychiatric complaints Endocrine: Endocrine: Reports no additional endocrine complaints and Reports fatigue PMFSH Past Medical History Medical History No pertinent past medical history Social History Social History Household Members: Spouse Housing: House Do you presently have visiting nurse or other home services: No Patient Tobacco Use Status: Current everyday Tobacco user Tobacco use type: Cigarette service: No Meds Allergies Allergy/AdvReac Type Severity Reaction Status Date / Time No Known Allergies Allergy Verified 06/08/24 15:52 Active Medications: Current Medications Acetaminophen (Acetaminophen 325 Mg Tablet) 650 mg PO Q6H PRN PRN Reason: Pain, Mild 1-3,fever,headache Albuterol/Ipratropium (Albuterol/Iprat 2.5/0.5mg 3 Ml Ampul.Neb) 3 ml INHALE Q4H PRN PRN Reason: Shortness of Breath/Wheezing Aspirin (Aspirin Enteric Coated 81 Mg Tablet.Dr) 81 mg PO DAILY [facility] Last Admin: 06/09/24 09:25 Dose: 81 mg Atorvastatin Calcium (Atorvastatin Calcium 80 Mg Tablet) 80 mg PO BEDTIME [facility] Benzonatate (Benzonatate 100 Mg Capsule) 100 mg PO TID PRN PRN Reason: Cough Calcium Carbonate (Calcium Carbonate 750 Mg Tab.Chew) 750 mg PO Q4H PRN PRN Reason: Heartburn Enoxaparin Sodium (Enoxaparin Sodium 40 Mg/0.4 Ml Syringe) 60 mg SUBCUT Q12H [facility] Last Admin: 06/09/24 09:25 Dose: 60 mg Magnesium Hydroxide (Milk Of Magnesia 30 Ml Oral.Susp) 30 ml PO DAILY PRN PRN Reason: Constipation Melatonin (Melatonin 3 Mg Tablet) 6 mg PO BEDTIME PRN PRN Reason: Insomnia Ondansetron HCl (Ondansetron Hcl 4 Mg/2 Ml Vial) 4 mg IVPUSH Q8H PRN PRN Reason: Nausea and Vomiting Sodium Chloride (0.9 % Sodium Chloride Flush 3 Ml Syringe) 3 ml IVFLUSH QSHIFT [facility] Last Admin: 06/09/24 09:25 Dose: 3 ml Home Medications ?Medication ?Instructions ?Recorded ?Confirmed ?Last Taken ?Type No Known Home Meds 06/08/24 06/08/24 Unknown History Physical Exam 2 Vital Signs: Vital Signs: Last Vital Signs Temp 98.8 F 06/09/24 07:51 Pulse 61 06/09/24 07:51 Resp 20 06/09/24 07:51 BP 150/70 H 06/09/24 07:51 Pulse Ox 94 06/09/24 07:51 O2 Del Method Room Air 06/09/24 07:51 BMI result Body Mass Index 26.3 Const: General: cooperative, comfortable, no acute distress, alert and awake Nutritional Appearance: average body habitus Orientation/consciousness: p atient oriented x3 Limitations: no limitations HEENT: Head: Yes normocephalic and Yes atraumatic Neck: Neck: Yes trachea midline, Yes supple and Yes no JVD Chest: Chest palpation & inspection: normal inspection of the chest Resp: Effort & Inspection: normal respiratory effort Auscultation: no rales, no wheezes and diminished lung sounds Cardio: Jugular venous distension: no JVD Palpation: normal PMI Rate: r egular rate Rhythm: regular rhythm Heart sounds: S1 normal heart sound present, S2 normal heart sound present, no click, no gallops, no murmurs and no rubs GI: Auscultation: normal bowel sounds Skin: General skin exam: no rashes or lesions noted Neuro: General: patient oriented x3 and no focal motor deficits Extrem: General: Yes no clubbing, cyanosis or edema Results Laboratory Findings 06/09/24 08:11 06/09/24 08:11 ABG, PT/INR, D-dimer: PT/INR, D-dimer PT 11.3 SEC (10.9-12.4) 06/08/24 16:06 INR 1.0 (0.9-1.1) 06/08/24 16:06 Abnormal lab findings: Abnormal Labs 06/08/24 06/08/24 06/08/24 16:06 16:40 18:29 WBC 11.4 H RBC 5.56 H Hct 47.5 H Immature Gran % (Auto) 0.6 H Lymph % (Auto) 19.7 L Abs Immat Gran (auto) 0.07 H Chloride Anion Gap 11 L BUN 22 H Lactic Acid 2.4 H* Troponin I High Sens 35.7 H 66.1 H* D B-Natriuretic Peptide 593 H Ur Specific [place] Urine Blood Urine RBC Influenza Type A (PCR) POSITIVE A 06/08/24 06/09/24 20:26 08:11 WBC RBC Hct Immature Gran % (Auto) Lymph % (Auto) Abs Immat Gran (auto) 0.04 H Chloride 109 H Anion Gap BUN Lactic Acid Troponin I High Sens 412.3 H* D B-Natriuretic Peptide Ur Specific [place] >= 1.030 H Urine Blood Moderate (2+) H Urine RBC >20 H Influenza Type A (PCR) Assessment and Plan (1) Influenza A: Status: Acute (2) Mass of lung: Status: Acute (3) NSTEMI (non-ST elevated myocardial infarction): Status: Acute Plan Has 3cm concerning mass in the RML and significant nodule in the ELSY. Recommend a PET scan as an outpt complete 8 days of antibiotics respiratory therapy outpt PFTs Will need to follow up with outpt pulmonary Procedures Date of Service Date of Service: 06/09/24
--- NOTE | 2024-06-09 12:12 | MHC.CM.PN ---
Addendum entered by Radha Daniel RN 06/09/24 12:33: Patient completed HCP naming her daughter, Rosa Maria, as HCA. Original Note: IMM DELIVERED. PATIENT LIVES IN A HOME W/ HER . FUNCTIONALLY INDEPENDENT. DENIES USE OF DME OR SERVICES. NO PCP. [facility] BROCHURE PROVIDED. DAUGHTER WILL ASSIST PATIENT W/ THIS. NO HCP. CM PROVIDED EDUCATION AND OFFERED ASSISTANCE. PATIENT DECLINED AT THIS TIME. DP: GOAL IS HOME SELF CARE. DAUGHTER TO TRANSPORT. CM WILL CONTINUE TO FOLLOW.
--- NOTE | 2024-06-09 12:34 | P.PNIM_ITS ---
Subjective Subjective Date of Service: 06/09/24 Interval History: no complaints Physical Exam 2 Vital Signs: Vital Signs: Last Vital Signs Temp 98.6 F 06/09/24 12:00 Pulse 62 06/09/24 12:00 Resp 16 06/09/24 12:00 BP 162/64 H 06/09/24 12:00 Pulse Ox 95 06/09/24 12:00 O2 Del Method Room Air 06/09/24 12:00 BMI result Body Mass Index 26.3 General: AO X 3, no acute distress Resp: CTA bilateral, no accessory muscles used CVS: S1,S2,RRR GI: soft, non tender, non distended Neuro: motor grossly intact, alert Psych: appropriate affect, appropriate insight Objective Data Active Medications Acetaminophen (Acetaminophen 325 Mg Tablet) 650 mg PO Q6H PRN PRN Reason: Pain, Mild 1-3,fever,headache Albuterol/Ipratropium (Albuterol/Iprat 2.5/0.5mg 3 Ml Ampul.Neb) 3 ml INHALE Q4H PRN PRN Reason: Shortness of Breath/Wheezing Aspirin (Aspirin Enteric Coated 81 Mg Tablet.Dr) 81 mg PO DAILY [facility] Last Admin: 06/09/24 09:25 Dose: 81 mg Documented By: JUAN Atorvastatin Calcium (Atorvastatin Calcium 80 Mg Tablet) 80 mg PO BEDTIME [facility] Benzonatate (Benzonatate 100 Mg Capsule) 100 mg PO TID PRN PRN Reason: Cough Calcium Carbonate (Calcium Carbonate 750 Mg Tab.Chew) 750 mg PO Q4H PRN PRN Reason: Heartburn Enoxaparin Sodium (Enoxaparin Sodium 40 Mg/0.4 Ml Syringe) 60 mg SUBCUT Q12H [facility] Last Admin: 06/09/24 09:25 Dose: 60 mg Documented By: JUAN Magnesium Hydroxide (Milk Of Magnesia 30 Ml Oral.Susp) 30 ml PO DAILY PRN PRN Reason: Constipation Melatonin (Melatonin 3 Mg Tablet) 6 mg PO BEDTIME PRN PRN Reason: Insomnia Ondansetron HCl (Ondansetron Hcl 4 Mg/2 Ml Vial) 4 mg IVPUSH Q8H PRN PRN Reason: Nausea and Vomiting Sodium Chloride (0.9 % Sodium Chloride Flush 3 Ml Syringe) 3 ml IVFLUSH QSHIFT [facility] Last Admin: 06/09/24 09:25 Dose: 3 ml Documented By: JUAN Labs 06/09/24 08:11 06/09/24 08:11 Labs: Laboratory Results - last 24 hr 06/08/24 06/08/24 06/08/24 16:06 16:40 18:29 MCV 85.4 MCH 28.1 MCHC 32.8 RDW 13.4 Plt Count 304 MPV 10.9 Immature Gran % (Auto) 0.6 H Neut % (Auto) 71.2 Lymph % (Auto) 19.7 L [place] % (Auto) 7.6 Eos % (Auto) 0.6 Baso % (Auto) 0.3 Lymph # (Auto) 2.3 [place] # (Auto) 0.9 Eos # (Auto) 0.1 Baso # (Auto) 0.0 Abs Immat Gran (auto) 0.07 H Absolute Neuts (auto) 8.1 Absolute Nucleated RBC 0.000 Nucleated RBC % (auto) 0.0 PT 11.3 INR 1.0 Anion Gap 11 L Estim Creat Clear Calc 33.9 Estimated GFR 56 Random Glucose 115 Lactic Acid 2.4 H* Lactic Acid F/U @ 2Hr Calcium 9.6 Magnesium 2.1 Total Bilirubin 0.4 Direct Bilirubin 0.1 AST 27 ALT 17 Alkaline Phosphatase 93 Troponin I High Sens 35.7 H 66.1 H* D B-Natriuretic Peptide 593 H Total Protein 8.0 Albumin 3.9 TSH 0.73 Urine Color Urine Appearance Urine pH Ur Specific [place] Urine Protein Urine Glucose (UA) Urine Ketones Urine Blood Urine Nitrite Ur Leukocyte Esterase Urine RBC Urine WBC Ur Squamous Epith Cells Urine Bacteria Hyaline Casts Influenza Type A (PCR) POSITIVE A Influenza Type B (PCR) NEGATIVE RSV RNA Qual (PCR) NEGATIVE SARS-CoV-2 RNA (RT-PCR) NEGATIVE 06/08/24 06/08/24 06/09/24 19:53 20:26 08:11 MCV 83.6 MCH 28.2 MCHC 33.7 RDW 13.4 Plt Count 283 MPV 10.7 Immature Gran % (Auto) 0.4 Neut % (Auto) 60.9 Lymph % (Auto) 29.1 [place] % (Auto) 8.4 Eos % (Auto) 1.0 Baso % (Auto) 0.2 Lymph # (Auto) 3.0 [place] # (Auto) 0.9 Eos # (Auto) 0.1 Baso # (Auto) 0.0 Abs Immat Gran (auto) 0.04 H Absolute Neuts (auto) 6.2 Absolute Nucleated RBC 0.000 Nucleated RBC % (auto) 0.0 PT INR Anion Gap 14 Estim Creat Clear Calc 42.2 Estimated GFR > 60 Random Glucose 96 Lactic Acid Lactic Acid F/U @ 2Hr 1.9 Calcium 9.4 Magnesium Total Bilirubin Direct Bilirubin AST ALT Alkaline Phosphatase Troponin I High Sens 412.3 H* D B-Natriuretic Peptide Total Protein Albumin TSH Urine Color Yellow Urine Appearance Clear Urine pH 5.5 Ur Specific [place] >= 1.030 H Urine Protein Negative Urine Glucose (UA) Negative Urine Ketones Negative Urine Blood Moderate (2+) H Urine Nitrite Negative Ur Leukocyte Esterase Negative Urine RBC >20 H Urine WBC 0-5 Ur Squamous Epith Cells 0-2 Urine Bacteria None Seen Hyaline Casts 0-2 Influenza Type A (PCR) Influenza Type B (PCR) RSV RNA Qual (PCR) SARS-CoV-2 RNA (RT-PCR) Assessment and Plan (1) NSTEMI (non-ST elevated myocardial infarction): Status: Acute Plan 88F no significant history presented with flu symtpoms, found to have abnormal EKG, elevated troponin, lung mass NSTEMI Cardio appreciated -48 hours therapeutic Lovenox, beta-digna, aspirin, statin Check echo Lung mass Pulm eval Flu Symptomatic management DVT prophylaxis on therapeutic Lovenox Full Code reason for continued hospitalization: Treating NSTEMI Quality Stroke Does the patient have a stroke diagnosis?: No VTE Prior VTE?: No VTE Risk Level:: Medical - moderate - high VTE Device Contraindication: Treatment Not Indicated VTE Drug Contraindication: N/A - Med Ordered
[2024-06-09] MEDS: Metoprolol Tartrate 25 MG TABLET PO ×2 (13:09→20:30)
[2024-06-09] MEDS: Atorvastatin Calcium 80 MG TABLET PO (20:30)
[2024-06-10] VITALS (7 sets, daily range): BP systolic 140–172; BP diastolic 64–81; PULSE 50–62; RESP 18–20; TEMP 36.3–37.5; O2SAT 91–98
--- NOTE | 2024-06-10 07:00 | CA_ITS ---
Transthoracic Echocardiogram Patient (Last, First, Middle): Darek Melendez, Gender: Female Date of : 1935 Age: 88 Procedure Date: 06/10/2024 Procedure Type: Transthoracic Echocardiogram [place] [facility] [place]: 152.4 cm Weight: 60.78 kg BSA: 1.57 m2 Heart Rate: 57 bpm BP: 165 / 68 mmHg [place] Roofer Helper: MARVIN Goode MD: Ben Mcrae MD Metal Hardener: Remigio Ríos MD Symptoms: elevated troponin Study Quality: Fair ECG Rhythm: Bradycardia Conclusions: - 1. Normal LV ejection fraction of 60-65% with impaired relaxation filling pattern with apical dyskinetic segment 2. Cardiac valvular Dopplers within normal limits 3. Normal RV systolic pressure 4. No gross pericardial effusion Findings Procedure Information Contrast agent, definity, is being given per protocol without apparent complications. Left Ventricle Normal left ventricular size, thickness, and systolic function. The visually estimated ejection fraction is between 60-65%. Spectral Doppler is indicative of an impaired relaxation filling pattern. Wall Motion Rest Echo Findings The apex segment is dyskinetic. The apical anterior, apical inferior, apical lateral, and apical septum segments are hyperkinetic. All other scored wall segments showed normal motion. Right Ventricle Normal right ventricular cavity size and systolic function. Atria The left atrium is likely dilated. Interatrial shunt cannot be excluded. The right atrium is normal in size. Aortic Valve The aortic valve was not well visualized. There is no aortic valve stenosis. There is no aortic valve regurgitation. Mitral Valve There is mild anterior and posterior mitral leaflet thickening. There is mild mitral annular calcification. There is trace mitral valve regurgitation. There is no mitral valve stenosis. Pulmonic Valve The pulmonic valve was not well visualized. Tricuspid Valve Likely normal tricuspid valve structure and function. There is trace tricuspid valve regurgitation. The right ventricular systolic pressure is normal. The right ventricular systolic pressure is 29 mmHg. Normal right atrial pressure. There is no evidence of pulmonary hypertension. Great Vessels The pulmonary artery was not well visualized. There is no dilatation of the ascending aorta measuring 3.20 cm. Venous The inferior vena cava is normal in size and collapses greater than 50% with inspiration. Pericardium/Pleural There is no evidence of pericardial effusion. Prior Study Comparison No prior study available for comparison. Measurements 2D Linear Measurements IVSd: 1.00 0.6-0.9/0.6-1.0 cm LVIDd: 4.17 3.9-5.3/4.2-5.9 cm LVIDd Index: 2.66 2.4-3.2/2.2-3.1 cm/m2 LVIDs: 3.06 2.0-3.6 cm LVPWd: 0.92 0.7-1.1 cm LA Diam: 2.70 2.7-3.8/3.0-4.0 cm LAIDs Index: 1.72 1.5-2.3 cm/m2 LV Mass: 158.68 67-162/88-224 g LV Mass Index: 101.07 43-95/49-115 g/m2 LVOT Diam: 1.70 3.0+(-)1.3 cm 2D Systolic Function EF 4C: 61.50 >55% EF 2C: 67.80 >55% EF BiP: 66.20 >55% Mitral Valve MV Pk E: 0.41 MV PK A: 0.71 MV Decel Time: 309.00 E/A: 0.60 E'Lateral: 4.35 E'Medial: 3.70 E/E' Med: 11.10 E/E' Lat: 9.40 PHT: 91.00 MVA PHT: 2.42 Decel [place]: 1.33 Aortic Valve AoV Pk Tony: 1.26 AoV Mn Tony: 0.89 AoV VTI: 0.33 AoV Pk Grad: 6.00 Aov Mn Grad: 4.00 JAZLYN Cont.VTI: 2.03 LVOT LVOT Pk Tony: 1.14 LVOT Mn Tony: 0.77 LVOT VTI: 0.29 LVOT Pk Grad: 5.00 LVOT Mn Grad: 3.00 LVOT Diam: 1.70 LVOT Area: 2.27 Diastolic Function MV Pk E: 0.41 MV Pk A: 0.71 E/A: 0.60 E'Medial: 3.70 E/E' Med: 11.10 E' Laterial: 4.35 E/E' Lat: 9.40 Right Ventricle TAPSE (mm): 19.20 TVS' Tony: 9.03 Tricuspid Valve TR Pk Tony: 2.57 TR Pk Grad: 26.00 RA Press: 3.00 RVSP: 29.00 Great Vessels Aorta Sinus of Valsalva: 2.90 2.0-3.5 cm Ao Asc: 3.20 2.1-3.4 cm Pulmonary Valve PV Pk Tony: 0.97 Peak PV Grad: 4.00 Updated in Other Vendor System with Status of Final Remigio Ríos MD electronically signed on 06/10/2024 11:56:08 AM with status of Final
[2024-06-10 07:34] LABS: Hematocrit 38.3 % (37.0-47.0); Mean Corpuscular HGB Conc 33.9 g/dl (31.0-35.0); Mean Corpuscular Hemoglobin 28.3 pg (27.0-33.0); Mean Corpuscular Volume 83.4 fL (80.0-98.0); Mean Platelet Volume 11.3 fL (9.4-12.3); Platelet Count 279 X10*3/uL (160-400); Red Blood Count 4.59 X10*6/uL (4.20-5.50); Red Cell Distribution Width 13.4 % (11.0-16.0); White Blood Count 9.3 X10*3/uL (4.8-10.8)
[2024-06-10 07:47] LABS: Anion Gap 13 (12-20); Blood Urea Nitrogen 12 mg/dL (9-16); Calcium 9.2 mg/dL (8.4-10.2); Carbon Dioxide 22 mmol/L (22-29); Chloride 108 mmol/L (96-108); Creatinine Clr Calc Pharmacy 41.2; Estimated Glomerular Filt Rate > 60; Glucose Random 89 mg/dL (60-115); Magnesium 1.9 mg/dL (1.6-2.6); Potassium 3.9 mmol/L (3.3-5.1); Sodium 139 mmol/L (135-145)
[2024-06-10] MEDS: Enoxaparin Sodium 40 MG/0.4 ML SYRINGE 60 MG SUBCUT (08:07)
[2024-06-10] MEDS: Aspirin Enteric Coated 81 MG TABLET.DR PO (08:08)
--- NOTE | 2024-06-10 09:04 | P.PNIM_ITS ---
Subjective Subjective Date of Service: 06/10/24 Interval History: no complaints Physical Exam 2 Vital Signs: Vital Signs: Last Vital Signs Temp 99.5 F 06/10/24 07:28 Pulse 57 06/10/24 07:28 Resp 18 06/10/24 07:28 BP 165/68 H 06/10/24 07:28 Pulse Ox 93 06/10/24 07:28 O2 Del Method Room Air 06/10/24 07:28 BMI result Body Mass Index 26.3 General: AO X 3, no acute distress Resp: CTA bilateral, no accessory muscles used CVS: S1,S2,RRR GI: soft, non tender, non distended Neuro: motor grossly intact, alert Psych: appropriate affect, appropriate insight Objective Data Active Medications Acetaminophen (Acetaminophen 325 Mg Tablet) 650 mg PO Q6H PRN PRN Reason: Pain, Mild 1-3,fever,headache Albuterol/Ipratropium (Albuterol/Iprat 2.5/0.5mg 3 Ml Ampul.Neb) 3 ml INHALE Q4H PRN PRN Reason: Shortness of Breath/Wheezing Aspirin (Aspirin Enteric Coated 81 Mg Tablet.Dr) 81 mg PO DAILY [facility] Last Admin: 06/10/24 08:08 Dose: 81 mg Documented By: CHAYA Atorvastatin Calcium (Atorvastatin Calcium 80 Mg Tablet) 80 mg PO BEDTIME [facility] Last Admin: 06/09/24 20:30 Dose: 80 mg Documented By: WILMER Benzonatate (Benzonatate 100 Mg Capsule) 100 mg PO TID PRN PRN Reason: Cough Calcium Carbonate (Calcium Carbonate 750 Mg Tab.Chew) 750 mg PO Q4H PRN PRN Reason: Heartburn Enoxaparin Sodium (Enoxaparin Sodium 40 Mg/0.4 Ml Syringe) 60 mg SUBCUT Q12H [facility] Last Admin: 06/10/24 08:07 Dose: 60 mg Documented By: CHAYA Magnesium Hydroxide (Milk Of Magnesia 30 Ml Oral.Susp) 30 ml PO DAILY PRN PRN Reason: Constipation Melatonin (Melatonin 3 Mg Tablet) 6 mg PO BEDTIME PRN PRN Reason: Insomnia Metoprolol Tartrate (Metoprolol Tartrate 25 Mg Tablet) 25 mg PO BID [facility]; Protocol Last Admin: 06/10/24 08:17 Dose: Not Given Documented By: HO.[email or web address] Non-Admin Reason: HR too low Ondansetron HCl (Ondansetron Hcl 4 Mg/2 Ml Vial) 4 mg IVPUSH Q8H PRN PRN Reason: Nausea and Vomiting Sodium Chloride (0.9 % Sodium Chloride Flush 3 Ml Syringe) 3 ml IVFLUSH QSHIFT [facility] Last Admin: 06/10/24 08:17 Dose: Not Given Documented By: CHAYA Non-Admin Reason: Previously Administered Labs 06/10/24 06:23 06/10/24 06:23 Labs: Laboratory Results - last 24 hr 06/10/24 06:23 MCV 83.4 MCH 28.3 MCHC 33.9 RDW 13.4 Plt Count 279 MPV 11.3 Absolute Nucleated RBC 0.000 Nucleated RBC % (auto) 0.0 Anion Gap 13 Estim Creat Clear Calc 41.2 Estimated GFR > 60 Random Glucose 89 Calcium 9.2 Magnesium 1.9 Microbiology Microbiology Results: Microbiology 06/08/24 16:40 Blood Culture - Preliminary Blood - Venous No growth after 24 hours. 06/08/24 16:06 Blood Culture - Preliminary Blood - Venous No growth after 24 hours. Assessment and Plan (1) NSTEMI (non-ST elevated myocardial infarction): Status: Acute Plan 88F no significant history presented with flu symtpoms, found to have abnormal EKG, elevated troponin, lung mass NSTEMI Cardio appreciated -48 hours therapeutic Lovenox, beta-digna, aspirin, statin Follow up echo Lung mass Pulm appreciated plan for outpatient PET scan if patient interested Flu Symptomatic management DVT prophylaxis on therapeutic Lovenox Full Code reason for continued hospitalization: Treating NSTEMI Quality Stroke Does the patient have a stroke diagnosis?: No VTE Prior VTE?: No VTE Risk Level:: Medical - moderate - high VTE Device Contraindication: Treatment Not Indicated VTE Drug Contraindication: N/A - Med Ordered
--- NOTE | 2024-06-10 10:40 | PM.PNCARD ---
Subjective Subjective Date of Service: 06/10/24 Principal diagnosis: NSTEMI, flu. Interval history: Patient continues to have no cardiac symptoms. Feels better. Feels stronger. Overnight had junctional tachycardia. This has resolved. Patient blood pressure remains elevated. Bedside echocardiogram shows apical akinetic segment. 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 Seen by Pulmonary and workup for pulmonary mass will be pursued. Currently still on Lovenox. Patient was adamant in going home. Review of Systems Constitutional: Reports fatigue Cardiovascular: Reports no additional cardiovascular complaints Respiratory: Reports cough Gastrointestinal: Reports no additional gastrointestinal complaints Musculoskeletal: Reports no additional musculoskeletal complaints Psychiatric: Reports no additional psychiatric complaints Endocrine: Reports fatigue Physical Exam Vital Signs: Last Vital Signs Temp 99.5 F 06/10/24 07:28 Pulse 57 06/10/24 07:28 Resp 18 06/10/24 07:28 BP 165/68 H 06/10/24 07:28 Pulse Ox 93 06/10/24 07:28 O2 Del Method Room Air 06/10/24 07:28 BMI result Body Mass Index 26.3 Const General: cooperative, comfortable, no acute distress, alert and awake Nutritional Appearance: average body habitus Orientation/consciousness: patient oriented x3 Limitations: no limitations HEENT Head: Yes normocephalic and Yes atraumatic Neck Neck: Yes trachea midline, Yes supple and Yes no JVD Resp Effort & Inspection: normal respiratory effort Auscultation: no rales, no wheezes and diminished lung sounds Cardio Jugular venous distension: no JVD Palpation: normal PMI Rate: regular rate Rhythm: regular rhythm Heart sounds: S1 normal heart sound present, S2 normal heart sound present, no click, no gallops, no murmurs and no rubs GI Auscultation: normal bowel sounds Skin General skin exam: no rashes or lesions noted Neuro General: patient oriented x3 and no focal motor deficits Extrem General: Yes no clubbing, cyanosis or edema Objective Labs and Meds 06/10/24 06:23 06/10/24 06:23 Lab results: Laboratory Results - last 24 hr 06/10/24 06:23 WBC 9.3 RBC 4.59 Hgb 13.0 Hct 38.3 MCV 83.4 MCH 28.3 MCHC 33.9 RDW 13.4 Plt Count 279 MPV 11.3 Absolute Nucleated RBC 0.000 Nucleated RBC % (auto) 0.0 Sodium 139 Potassium 3.9 Chloride 108 Carbon Dioxide 22 Anion Gap 13 BUN 12 Creatinine 0.80 Estim Creat Clear Calc 41.2 Estimated GFR > 60 Random Glucose 89 Calcium 9.2 Magnesium 1.9 Progress Note: A&P Assessment and plan (1) NSTEMI (non-ST elevated myocardial infarction): Status: Acute Assessment and Plan: Patient was elevated troponin suggestive of NSTEMI which could be related to still takotsubo cardiomyopathy which is a diagnose of exclusion versus CAD in the LAD territory with apical wall motion abnormality. Overall LV systolic function appears preserved. Discussed with patient and patient's daughter about management. Patient prefers conservative management. Discussed that she has multiple issues including lung mass which is suspected to be malignancy which may need workup. At this point time management from cardiac perspective will be conservative and with medications. Would continue aspirin, statins. Lovenox for 1 more day. Start on beta-blockers and maximize as tolerated. Blood pressure needs better control. Consider addition of valsartan for her regimen for blood pressure control. Continue supportive care. Patient prefers to go home at this point time. Will follow with you Time Spent With Patient Time: Total time managing care of this patient today ____ minutes. Progress Note: Quality Stroke Does the patient have a stroke diagnosis?: No Procedures Date of Service Date of Service: 06/10/24
[2024-06-10] MEDS: 0.9 % Sodium Chloride Flush 3 ML SYRINGE IVFLUSH (16:32)
--- NOTE | 2024-06-10 20:12 | P.CNHO_ITS ---
Subjective - Subjective Chief complaint: Consult for: Right Lung Mass. Patient: new to practice Consult date: 06/10/24 Requesting Physician: Terence. Primary Care Provider: None Physician Medical Summary: DIAGNOSIS: R LUNG MASS. HPI - Consult Narrative Reason for consult: Consult for: Right Lung Mass. Narrative: Darek Melendez is a 88 year old lady, admitted on 06/08 on account of SOB, cough and easy fatigueability. 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 She has a history of tobacco use disorder. She presented to the emergency department for evaluation of malaise, dyspnea and nonproductive cough. Her daughter prompted her to come to the ER. Darek has been unwell for the last week. She has had malaise, easy fatigability and dyspnea on exertion. Has also had nonproductive cough and upper respiratory symptoms. No sick contacts. No pertinent known past medical history as patient has not seen a PCP in over 40 years. Patient has more than 40 pack-year smoking history but did not smoke for the last 1 week. Denies orthopnea or PND. No chest pain, palpitations, fever, chills, abdominal pain, changes in urinary or bowel habits. Here, her troponin was elevated. Imaging with right middle lobe mass. She tested positive for influenza A. [facility] Medical History: No pertinent past medical history FAMILY HISTORY: Her mom of metastatic breast cancer. 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 Had 3 kids. One . She was a smoker. Drinks socially. Review of Systems 2 Constitutional: Constitutional: Reports fatigue, Reports lethargy, Reports malaise and Reports weakness Cardiovascular: Cardiovascular: Reports dyspnea on exertion Respiratory: Respiratory: Reports cough and Reports dyspnea on exertion Gastrointestinal: Gastrointestinal: Reports no additional gastrointestinal complaints Genitourinary: Genitourinary: Reports no additional female genitourinary complaints Neurologic: Reports weakness Endocrine: Endocrine: Reports fatigue Review of Systems - Constitutional Reports system reviewed and no additional complaints, except as documented, Reports fatigue, Reports lack of energy, Reports weakness - Eyes Reports system reviewed and no additional complaints, except as documented - ENT Reports system reviewed and no additional complaints, except as documented - Cardiovascular Reports system reviewed and no additional complaints, except as documented - Respiratory Reports no additional respiratory complaints - Gastrointestinal Reports system reviewed and no additional complaints, except as documented - Genitourinary Reports no additional female genitourinary complaints - Musculoskeletal Reports system reviewed and no additional complaints, except as documented - Integumentary/Breasts Skin/Breast: Reports no additional skin complaints - Neurologic Reports system reviewed and no additional complaints, except as documented, Reports weakness - Psychiatric Reports system reviewed and no additional complaints, except as documented - Endocrine Reports no additional endocrine complaints - Hematologic/Lymphatic Reports system reviewed and no additional complaints, except as documented - Allergic/Immunologic Reports system reviewed and no additional complaints, except as documented Oncology Screenings - ECOG Performance Status ECOG Performance Status: 0 [facility] Medical History: Medical History (Last Reviewed 06/09/24 @ 11:02 by Remigio Ríos MD) No pertinent past medical history Functional capacity: independent ambulation Patient : No Social History: Social History (Last Reviewed 06/09/24 @ 11:02 by Remigio Ríos MD) Living Situation History: Household Members: Spouse Housing: House Do you presently have visiting nurse or other home services: No Tobacco History: Patient Tobacco Use Status: Current everyday Tobacco Tobacco use type: Cigarette Occupation Assessmet: service: No Home Medications and Allergies Current Medications: Current Medications Acetaminophen (Acetaminophen 325 Mg Tablet) 650 mg PO Q6H PRN PRN Reason: Pain, Mild 1-3,fever,headache Albuterol/Ipratropium (Albuterol/Iprat 2.5/0.5mg 3 Ml Ampul.Neb) 3 ml INHALE Q4H PRN PRN Reason: Shortness of Breath/Wheezing Aspirin (Aspirin Enteric Coated 81 Mg Tablet.Dr) 81 mg PO DAILY [facility] Last Admin: 06/10/24 08:08 Dose: 81 mg Atorvastatin Calcium (Atorvastatin Calcium 80 Mg Tablet) 80 mg PO BEDTIME [facility] Last Admin: 06/09/24 20:30 Dose: 80 mg Benzonatate (Benzonatate 100 Mg Capsule) 100 mg PO TID PRN PRN Reason: Cough Calcium Carbonate (Calcium Carbonate 750 Mg Tab.Chew) 750 mg PO Q4H PRN PRN Reason: Heartburn Enoxaparin Sodium (Enoxaparin Sodium 40 Mg/0.4 Ml Syringe) 60 mg SUBCUT Q12H [facility] Last Admin: 06/10/24 08:07 Dose: 60 mg Magnesium Hydroxide (Milk Of Magnesia 30 Ml Oral.Susp) 30 ml PO DAILY PRN PRN Reason: Constipation Melatonin (Melatonin 3 Mg Tablet) 6 mg PO BEDTIME PRN PRN Reason: Insomnia Metoprolol Tartrate (Metoprolol Tartrate 25 Mg Tablet) 25 mg PO BID [facility]; Protocol Last Admin: 06/10/24 08:17 Dose: Not Given Ondansetron HCl (Ondansetron Hcl 4 Mg/2 Ml Vial) 4 mg IVPUSH Q8H PRN PRN Reason: Nausea and Vomiting Sodium Chloride (0.9 % Sodium Chloride Flush 3 Ml Syringe) 3 ml IVFLUSH QSHIFT [facility] Last Admin: 06/10/24 16:32 Dose: 3 ml Valsartan (Valsartan 40 Mg Tablet) 40 mg PO DAILY [facility]; Protocol Allergies Allergy/AdvReac Type Severity Reaction Status Date / Time No Known Allergies Allergy Verified 06/08/24 15:52 Physical Exam Vital signs: Vital Signs Temp 98.6 F 06/10/24 19:43 Pulse 58 06/10/24 19:43 Resp 20 06/10/24 19:43 BP 154/73 H 06/10/24 19:43 Pulse Ox 95 06/10/24 19:43 O2 Del Method Room Air 06/10/24 19:43 Intake & Output 06/10/24 06/10/24 06/11/24 06:59 18:59 06:59 Intake Total 240 / 720 360 / 360 Output Total 200 / 200 Balance 40 / 520 360 / 360 Urine Output (Average ml/kg/hr) 0.27 0.27 Intake: Intake, Oral Amount 240 / 720 360 / 360 Output: Output, Urine Amount 200 / 200 Other: Number of Unmeasured Voids 1 2 Urine Bathroom Urine Color Yellow Weight 61.1 kg - Constitutional Present: mild distress - Routine HEENT Exam Head: Present: normal inspection, normocephalic Eye: Present: normal appearance ENT: Present: mucous membranes moist - Routine Neck Exam Present: supple - Routine Respiratory Exam Present: decreased breath sounds, CTAB - Routine Cardiovascular Exam Cardiovascular: Present: RRR, S1, S2 - Routine Abdominal Exam Present: soft, nontender - Routine Extremities Exam Present: nontender - Routine Skin Exam Present: intact, normal turgor - Routine Neurological Exam Present: alert, oriented X3 - Detailed Neurological Exam: Coma Scale Eye Opening: Spontaneous (4) Verbal Response: Oriented (5) - Routine Psychiatric Exam Present: normal affect Hem/Onc Consult Result - Labs CBC & Chem 7: 06/10/24 06:23 06/10/24 06:23 Labs: Short CBC 06/10/24 Range/Units 06:23 WBC 9.3 (4.8-10.8) X10*3/uL Hgb 13.0 (12.0-16.0) g/dl Hct 38.3 (37.0-47.0) % Plt Count 279 (160-400) X10*3/uL BMP 06/10/24 06:23 Sodium 139 Potassium 3.9 Chloride 108 Carbon Dioxide 22 BUN 12 Creatinine 0.80 Calcium 9.2 Assessment and Plan Patient Active problem list reviewed?: Yes (1) Mass of lung Status: Acute Assessment and plan: 88 year old lady with a H/O smoking presented with generalized malaise, cough and SOB. I discussed the diagnosis, work up and and possible treatment options, with her and her daughter. She is not willing to have chemotherapy. She is not opposed to radiation. However, she needs time to think, she wants time to process the recent developments. Would like to go home. PLAN: To have a PET Scan as an out patient. She will then decide if she wishes to proceed with a biopsy. I will see her as an outpatient. Thanks, CC: Dr. Bari Goff. - Time Spent With Patient Time Spent with Patient (in minutes): 30
[2024-06-10] MEDS: Atorvastatin Calcium 80 MG TABLET PO (21:43)
[2024-06-11] MEDS: Enoxaparin Sodium 40 MG/0.4 ML SYRINGE 60 MG SUBCUT ×2 (00:14→08:04)
[2024-06-11 04:00] VITALS: BP 141/64; PULSE 50; RESP 18; TEMP 36.6; O2SAT 93
[2024-06-11] MEDS: 0.9 % Sodium Chloride Flush 3 ML SYRINGE IVFLUSH ×2 (06:52→08:13)
[2024-06-11 07:05] VITALS: BP 142/65; PULSE 52; RESP 18; TEMP 36.4; O2SAT 93
[2024-06-11] MEDS: Aspirin Enteric Coated 81 MG TABLET.DR PO (08:04)
[2024-06-11] MEDS: Valsartan 40 MG TABLET PO (08:04)
[2024-06-11] MEDS: Metoprolol Tartrate 25 MG TABLET PO (08:04)
[2024-06-11 08:08] LABS: Troponin-I High Sensitivity 178.1 ng/L (<3.5-17.0)
--- NOTE | 2024-06-11 08:58 | P.DS_ITS ---
DS: Providers Provider Date of Service: 06/11/24 Date of admission: 06/08/24 20:50 Date of discharge: 06/11/24 Primary care physician: None Physician Consults: 06/08/24 20:52 Consult to Hematology / Oncology Routine Consulting Provider: [facility]/Hematology Reason for consultation: right middle lobe mass Consult to Pulmonology Routine Consulting Provider: [facility] [place] [place] [facility] Reason for consultation: right middle lobe mass 06/09/24 08:49 Consult to Cardiology Routine Consulting Provider: [facility] [facility] Reason for consultation: ekg changes, trops DS: Diagnosis Discharge Diagnosis (1) Mass of lung: Status: Acute DS: Summary Hospital Course Hospital Course: from initial hpi: 88-year-old female with pertinent history of tobacco use disorder who presents to the emergency department for evaluation of malaise, dyspnea and nonproductive cough. Patient states her daughter prompted her to come to the ER. As per the daughter at bedside, patient has been unwell for the last 1 week. She has been having malaise, easy fatigability and dyspnea on exertion. Also has been having nonproductive cough and upper respiratory symptoms. No sick contacts. No pertinent known past medical history as patient has not seen a PCP in over 40 years. Patient has more than 40 pack-year smoking history but did not smoke for the last 1 week. Denies orthopnea or PND. No chest pain, palpitations, fever, chills, abdominal pain, changes in urinary or bowel habits. In the emergency department, troponin found to be elevated. Imaging with right middle lobe mass and patient tested positive for influenza A. hospital course: Patient was admitted for NSTEMI. Etiology either takotsubo related to influenza a versus coronary disease. Was seen by Cardiology recommended 48 hours of therapeutic Lovenox, beta-digna, aspirin, statin, valsartan. Echo showed EF of 60 65% with impaired relaxation filling pattern with apical dyskinetic segment. Patient was also incidentally noted to have lung mass suspicious for malignancy. Was seen by Pulmonary and Oncology recommended outpatient PET scan. At this time patient is unclear of how much workup/treatment she would want, will follow up with Oncology as outpatient. For flu patient was not particularly symptomatic. Was outside of window for benefit for Tamiflu. Patient completed 48 hours of therapeutic Lovenox and will be discharged home. Time Attestation Discharge Coordination Time (in mins): 34 Quality: Safe Use of Opioids Does Pt have an Active Cancer Diagnosis on the Problem List?: Yes Opioid Measure Date for [facility] Report: 05/12/24 Opioid Measure Time for [facility] Report: 08:59 Quality: Stroke Does the patient have a stroke diagnosis?: No Physical Exam Vital Signs: Vital Signs: Last Vital Signs Temp 97.6 F 06/11/24 07:05 Pulse 52 06/11/24 07:05 Resp 18 06/11/24 07:05 BP 142/65 H 06/11/24 07:05 Pulse Ox 93 06/11/24 07:05 O2 Del Method Room Air 06/11/24 07:05 BMI result Body Mass Index 26.3 Const: General: cooperative, comfortable, no acute distress, alert and awake Nutritional Appearance: average body habitus Orientation/consciousness: patient oriented x3 Limitations: no limitations HEENT: Head: Yes normocephalic and Yes atraumatic Neck: Neck: Yes trachea midline, Yes supple and Yes no JVD Resp: Effort & Inspection: normal respiratory effort Auscultation: no rales, no wheezes and diminished lung sounds Cardio: Jugular venous distension: no JVD Palpation: normal PMI Rate: regular rate Rhythm: regular rhythm Heart sounds: S1 normal heart sound present, S2 normal heart sound present, no click, no gallops, no murmurs and no rubs GI: Auscultation: normal bowel sounds Skin: General skin exam: no rashes or lesions noted Neuro: General: patient oriented x3 and no focal motor deficits Extrem: General: Yes no clubbing, cyanosis or edema DS: Data Data Completed and Pending Labs on day of discharge: Laboratory Results - last 24 hr 06/11/24 06:51 Hold Purple Top SEE NOTE Troponin I High Sens 178.1 H* D Preliminary micro results at discharge 06/08/24 16:40 Blood Culture - Preliminary Blood - Venous No growth after 48 hours. 06/08/24 16:06 Blood Culture - Preliminary Blood - Venous No growth after 48 hours. Discharge Plan Discharge Anticipated Discharge Date/Time: 06/11/24 08:56 Patient Disposition: Home, Self-Care Discharge Diagnosis: nstemi Referrals: Radha Rodriguez MD [Physician] - 1 Week Physician,None [Primary Care Provider] - 1 Week Discharge Medications: New atorvastatin 80 mg Tablet 80 mg PO BEDTIME Qty: 90 0RF aspirin 81 mg Tablet,Delayed Release (Dr/Ec) 81 mg PO DAILY Qty: 90 0RF valsartan 40 mg Tablet 40 mg PO DAILY Qty: 90 0RF Protocol: Hold for SBP< HOLD for SBP < : 90 metoprolol tartrate 25 mg Tablet 12.5 mg PO BID Qty: 90 0RF Protocol: Hold for SBP/HR < HOLD for SBP < : 90 HOLD for HR < : 60 Discharge Orders: Discharge Order (Routine); Ordered 06/11/24 Ordered By: Dc Pratt Diet: Advance to usual diet Activity on Discharge: As tolerated Stand Alone Forms: Patient Portal Discharge page Print Language: Nepali Care Plan Goals: Recovery Health Concerns: Lung mass and NSTEMI Plan of Treatment: Aspirin, statin, metoprolol, valsartan Follow up with Oncology and Cardiology Assessment: See above
[2024-06-11] MEDS: Metoprolol Tartrate 12.5 MG HALFTAB PO (09:26)
--- NOTE | 2024-06-11 09:36 | MHC.CM.PN ---
Pt has been medically cleared for DC, she will go home via family transport, plan is home, self care.
--- NOTE | 2024-06-11 10:53 | PM.PNCARD ---
Subjective Subjective Date of Service: 06/11/24 Principal diagnosis: NSTEMI, flu. Interval history: Patient having no cardiac symptoms. Echocardiogram showed normal LV ejection fraction with apical dyskinetic segment Review of Systems Review of Systems Yes all other systems are reviewed and are negative Physical Exam Vital Signs: Last Vital Signs Temp 97.6 F 06/11/24 07:05 Pulse 52 06/11/24 07:05 Resp 18 06/11/24 07:05 BP 142/65 H 06/11/24 07:05 Pulse Ox 93 06/11/24 07:05 O2 Del Method Room Air 06/11/24 07:05 BMI result Body Mass Index 26.3 Const General: cooperative, comfortable, no acute distress, alert and awake Nutritional Appearance: average body habitus Orientation/consciousness: patient oriented x3 Limitations: no limitations HEENT Head: Yes normocephalic and Yes atraumatic Neck Neck: Yes trachea midline, Yes supple and Yes no JVD Resp Effort & Inspection: normal respiratory effort Auscultation: no rales, no wheezes and diminished lung sounds Cardio Jugular venous distension: no JVD Palpation: normal PMI Rate: regular rate Rhythm: regular rhythm Heart sounds: S1 normal heart sound present, S2 normal heart sound present, no click, no gallops, no murmurs and no rubs GI Auscultation: normal bowel sounds Skin General skin exam: no rashes or lesions noted Neuro General: patient oriented x3 and no focal motor deficits Extrem General: Yes no clubbing, cyanosis or edema Objective Labs and Meds 06/10/24 06:23 06/10/24 06:23 Lab results: Laboratory Results - last 24 hr 06/11/24 06:51 Hold Purple Top SEE NOTE Troponin I High Sens 178.1 H* D Progress Note: A&P Assessment and plan (1) NSTEMI (non-ST elevated myocardial infarction): Status: Acute Assessment and Plan: NSTEMI with apical wall motion abnormality which 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 Clinically having currently no symptoms of angina appears most likely secondary to underlying systemic issue with flu and viral sepsis. Also noted to have pulmonary mass which appears to be malignant and requires workup. For now would continue with conservative management and discussed with the patient and she is agreeable. Will schedule her for outpatient myocardial perfusion imaging in 2 weeks time, simultaneously with pulmonary workup being pursued. Continue aspirin, statins and beta-digna therapy. If blood pressure remains elevated can add amlodipine to her regimen. Will follow-up as outpatient. Time Spent With Patient Time: Total time managing care of this patient today ____ minutes. Progress Note: Quality Stroke Does the patient have a stroke diagnosis?: No Procedures Date of Service Date of Service: 06/11/24
== END 2024-06-11 11:14 | disposition home or self-care (01) | DRG 281 ==
LOC: HO.ED 18:14 → HO.IMC 21:58 → HO.EDOVER 06-09 10:22
PROVIDERS: Registered Nurse Emergency; Admitting Provider Student in an Organized Health Care Education/Training Program; Emergency Provider Emergency Medicine; Visit Provider Internal Medicine
DX: I21.4 Non-ST elevation (NSTEMI) myocardial infarction (principal); C34.2 Malignant neoplasm of middle lobe, bronchus or lung; E87.21 Acute metabolic acidosis; I47.19 Other supraventricular tachycardia; I51.81 Takotsubo syndrome; J98.11 Atelectasis; J10.1 Influenza due to other identified influenza virus with other respiratory manifestations; I95.9 Hypotension, unspecified; F17.210 Nicotine dependence, cigarettes, uncomplicated; Z71.6 Tobacco abuse counseling
CPT/HCPCS: 0241U; 36415; 71046; 71275; 80048; 80053; 81001; 82248; 83605; 83735; 83880; 84443; 84484; 85025; 85027; 85610; 87040; 93005; 93306; 94640; 99285; J0131; J0696; J1650; J7120; P9047; Q9957; Q9967

== ENCOUNTER → 2024-06-08 15:51 | Outpatient (BNV) | payer MEDICARE, SELFPAY | PROVIDERS: Emergency Provider Emergency Medicine; Visit Provider Radiology Diagnostic Radiology | DX: R06.02 Shortness of breath (principal); M41.9 Scoliosis, unspecified; D14.31 Benign neoplasm of right bronchus and lung; R91.1 Solitary pulmonary nodule | CPT/HCPCS: 71046; 71275 ==

== ENCOUNTER 2024-06-08 20:50 | Outpatient (BNV) | payer MEDICARE, SELFPAY | END 2024-06-10 07:00 | PROVIDERS: Admitting Provider Student in an Organized Health Care Education/Training Program; Emergency Provider Emergency Medicine; Visit Provider Internal Medicine Cardiovascular Disease | DX: I34.81 Nonrheumatic mitral (valve) annulus calcification (principal); R93.1 Abnormal findings on diagnostic imaging of heart and coronary circulation | CPT/HCPCS: 93306 ==

== ENCOUNTER → 2024-06-08 20:50 | Outpatient (BNV) | payer MEDICARE, SELFPAY | PROVIDERS: Admitting Provider Student in an Organized Health Care Education/Training Program; Emergency Provider Emergency Medicine; Visit Provider Hospitalist | DX: J10.1 Influenza due to other identified influenza virus with other respiratory manifestations (principal); R91.8 Other nonspecific abnormal finding of lung field; I21.4 Non-ST elevation (NSTEMI) myocardial infarction | CPT/HCPCS: 99223 ==

== ENCOUNTER → 2024-06-08 20:50 | Outpatient (BNV) | payer MEDICARE, SELFPAY | PROVIDERS: Admitting Provider Student in an Organized Health Care Education/Training Program; Emergency Provider Emergency Medicine; Visit Provider Internal Medicine Cardiovascular Disease | DX: I21.4 Non-ST elevation (NSTEMI) myocardial infarction (principal) | CPT/HCPCS: 99222 ==

== ENCOUNTER → 2024-06-08 20:50 | Outpatient (BNV) | payer MEDICARE, SELFPAY | PROVIDERS: Admitting Provider Student in an Organized Health Care Education/Training Program; Emergency Provider Emergency Medicine; Visit Provider Student in an Organized Health Care Education/Training Program | DX: I21.4 Non-ST elevation (NSTEMI) myocardial infarction (principal) | CPT/HCPCS: 99223; 99232 ==

== ENCOUNTER → 2024-06-08 20:50 | Outpatient (BNV) | payer MEDICARE, SELFPAY | PROVIDERS: Admitting Provider Student in an Organized Health Care Education/Training Program; Emergency Provider Emergency Medicine; Visit Provider Internal Medicine Medical Oncology | DX: R91.8 Other nonspecific abnormal finding of lung field (principal) | CPT/HCPCS: 99222 ==

== ENCOUNTER 2024-06-22 09:22 | Outpatient (REF) | payer MEDICARE, SELFPAY ==
--- NOTE | ~2024-06-22 | PE_ITS ---
EXAMINATION: FLUORINE-18 FDG PET/CT SCAN CLINICAL INFORMATION: Right middle lobe lung mass. TECHNIQUE: 60 minutes following the intravenous administration of 16.3 mCi of fluorine 18 FDG, images from the skull base to mid thigh were obtained using a combined PET/CT scanner with CT scan based attenuation correction. No intravenous contrast was administered. Transverse, coronal, sagittal, and volume reconstruction projections were obtained. The patient's blood glucose as determined by a finger stick, was 80 mg/dL immediately prior to injection. The radiotracer was injected intravenously through left antecubital vein, without any complications. Total CT exam dose-length product 488 mGy-cm. * These CT images were obtained using dose optimization techniques as appropriate, variously including the following: Automated exposure control * Adjustment of mA and/or kV according to patient size (this includes techniques or standardized protocols for targeted exams where dose is matched to indication/reason for exam; i.e. extremities or head) * Use of iterative reconstruction technique COMPARISON: CT chest 06/08/2024 FINDINGS: HEAD AND NECK: No abnormal radiotracer uptake. No large intracranial hemorrhage, acute territorial infarct or significant shift of midline structures. CHEST: Ports and Devices: None Lungs: A large area of FDG activity in the right middle lobe close to the hilum and pericardium consistent with a primary mass. Based on FDG activity mass measures approximately 2.7 cm in AP and 2.4 cm thickness on axial slice 181/2. There is a small focus of abnormal FDG activity in the superior segment of left lower lobe corresponding to the ill-defined nodule adjacent to the major fissure on axial CT slice 203/2. Concordant with previous CT finding there There is a third area of focal increased activity seen an outpouching of left lateral ventricle likely an aneurysm with increased metabolic activity likely strain. It is unchanged the previous CT chest finding Pleura: No significant pleural effusion. Lymph Nodes: No tracer-avid mediastinal, hilar or internal mammary or axillary lymphadenopathy. Mediastinum: There is no significant pericardial effusion/thickening. No isotope activity seen in the mediastinum to suspect any lymph nodes at this time. Breasts/Chest Wall: No abnormal radiotracer uptake. ABDOMEN/PELVIS: Liver/Biliary System: No focal tracer-avid liver lesion. There is a 2 cm hypodensity left hepatic lobe measuring cyst density. No FDG activity seen symmetrically there is a second smaller hypodensity probably cysts in the lateral segment left lobe. The gallbladder appears unremarkable. Pancreas: Normal. Spleen: No abnormal radiotracer uptake. No evidence of splenomegaly. Adrenal Glands: No abnormal radiotracer uptake. Kidneys: There is a nonenhancing area 3.3 cm cyst left kidney. There is a likely non obstructive small 1 cm radiopaque calculi left renal pelvis. No hydronephrosis Bowel: There is diffuse colonic diverticulosis and mild constipation with increased activity in the right cecum and ileocecal junction likely related to bacterial fluoroscopy up. On CT there is no obvious mass seen Lymph Nodes: No tracer avid retroperitoneal, mesenteric or pelvic and/or groin lymphadenopathy. Pelvic Organs: The urinary bladder is underdistended. There is enlarged uterus likely fibroid disease which is not metabolically active. No free fluid. MUSCULOSKELETAL: Unremarkable VASCULAR: No evidence of aneurysm except for mild atherosclerosis. PET/PET CT fusion skull to thigh IMPRESSION: Intense metabolic activity in the primary mass right middle lobe adjacent to the hilum and the pericardium. There is a second nodule in the superior segment left upper lobe which is metabolically active as well suggestive of secondary site or metastasis. However there is no abnormal metastatic lymphadenopathy in the hilum, mediastinum, axilla or the neck. 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 Correlate with echo ultrasound . Benign cyst left hepatic lobe and left kidney. Nonobstructive 1 cm radiopaque calculi left kidney pelvis and correlated with ultrasound Moderate constipation with increased activity cecum and sigmoid colon likely related to diverticulosis or bacterial dany. No mural thickening or mass visualized. Electronically signed by: Vahid Moreno MD 06/22/2024 05:45 PM EST
== END 2024-06-22 09:23 | disposition home or self-care (01) ==
LOC: HO.PET 09:22
PROVIDERS: Visit Provider Internal Medicine Medical Oncology
DX: Z13.89 Encounter for screening for other disorder (principal)

== ENCOUNTER → 2024-06-25 13:54 | Outpatient (BNV) | payer MEDICARE, SELFPAY | PROVIDERS: PCP Hospitalist; Visit Provider Internal Medicine Medical Oncology | DX: R91.8 Other nonspecific abnormal finding of lung field (principal) | CPT/HCPCS: 99203 ==

== ENCOUNTER 2024-06-29 17:46 | Inpatient (IN) | payer MEDICARE, SELFPAY ==
--- NOTE | ~2024-06-29 | CT_ITS ---
CLINICAL HISTORY: left flank pain CT abdomen and pelvis without contrast Comparison: None Findings: No consolidation or effusion. Multiple cystic lesions are noted within the left hepatic lobe measuring simple fluid density up to 2 cm. The gallbladder is within normal limits. Moderate left hydro nephro ureter with an obstructing 4 mm stone at the ureterovesicular junction. Additional 2 mm stone is also noted at the ureterovesicular junction. Multiple nonobstructing stones are noted within the left kidney measuring up to 1.3 cm. A 4 cm left kidney upper pole cyst measuring simple fluid density. Reminder of the solid organs are unremarkable. No bowel obstruction, pneumoperitoneum, or pneumatosis. Retroverted uterus with globus appearing uterine fundus likely represent fibroid uterus. No acute fracture. IMPRESSION: Moderate left hydronephro ureter with a 4 mm obstructing stone at the ureterovesicular junction. Additional 2 mm stone is also noted at the ureterovesicular junction. Multiple left nonobstructing renal stones measuring up to 1.3 cm. Multiple cystic lesions within the left hepatic lobe measuring up to 2 cm of simple fluid density, most likely represent hepatic cysts. A 4 cm left kidney upper pole cysts measuring simple fluid density. No further follow-up is required of this cyst. Retroverted uterus with a globus appearing fundus, likely represent fibroid uterus. This document has been electronically signed by: Elieser Rosado MD on 06/29/2024 19:53:37
--- NOTE | ~2024-06-29 | FL_ITS ---
EXAMINATION: FL GUIDANCE ONLY HISTORY: Left ureteral stone COMPARISON: Correlation is made with a CT of the abdomen and pelvis without contrast dated 06/29/2024. TECHNIQUE: Fluoroscopy time: 3.7 seconds. Cumulative Dose: 0.79 mGy. Images: 2. FINDINGS: Images were obtained during placement of a left nephroureteral stent. A small amount of contrast is noted in the left intrarenal collecting system and distal ureter. FL/FL guidance in OR IMPRESSION: Fluoroscopy during procedure. Please see procedure report for additional information. Electronically signed by: Ten Najera MD 07/01/2024 08:46 AM EST
[2024-06-29 18:36] LABS: MANUAL DIFF FLAG NO
[2024-06-29 18:45] LABS: Basophils Percent Auto 0.2 % (0-2); Eosinophils Percent Auto 0.1 % (0-4); Hematocrit 42.5 % (37.0-47.0); Hemoglobin 14.4 g/dl (12.0-16.0); Imm Gran Pct Auto 0.5 % (0.0-0.4); Lymphocytes Absolute Auto 1.2 X10*3/uL (1.2-4.9); Mean Corpuscular HGB Conc 33.9 g/dl (31.0-35.0); Mean Corpuscular Hemoglobin 28.5 pg (27.0-33.0); Mean Corpuscular Volume 84.2 fL (80.0-98.0); Mean Platelet Volume 11.4 fL (9.4-12.3); Monocytes Absolute Auto 1.2 X10*3/uL (0.1-1.2); Monocytes Percent Auto 6.2 % (2-11); Platelet Count 263 X10*3/uL (160-400); Red Blood Count 5.05 X10*6/uL (4.20-5.50); White Blood Count 19.6 X10*3/uL (4.8-10.8)
--- NOTE | 2024-06-29 18:45 | ED_ITS ---
HPI - Abdominal Pain General Chief Complaint: Abdominal Pain Stated Complaint: left flank pain/urgent care sent her in Time Seen by Provider: 06/30/24 00:04 Source: patient and family Mode of arrival: ambulatory Limitations: no limitations History of Present Illness ED Provider: HPI narrative: Patient comes here will left flank pain radiating to left lower abdomen for last 5 days pain is off and on gets worse in between with nausea no urinary symptoms no history of kidney stone no fever no chills normal bowel movements Related Data Previous Rx's ?Medication ?Instructions ?Recorded aspirin 81 mg tablet,delayed 81 mg PO DAILY #90 tabs 06/11/24 release atorvastatin 80 mg tablet 80 mg PO BEDTIME #90 tabs 06/11/24 metoprolol tartrate 25 mg tablet 12.5 mg PO BID #90 tabs 06/11/24 valsartan 40 mg tablet 40 mg PO DAILY #90 tabs 06/11/24 Allergies Allergy/AdvReac Type Severity Reaction Status Date / Time No Known Allergies Allergy Verified 06/29/24 18:48 Review of Systems Review of Systems Yes all other systems are reviewed and are negative [facility] Past Medical History Medical History No pertinent past medical history Social History Social History Household Members: Spouse Housing: House Do you presently have visiting nurse or other home services: No Comment: refused alarms Patient Tobacco Use Status: Current everyday Tobacco user Tobacco use type: Cigarette Advance Directives: No Advance Directives Information Provided: Yes service: No Physical Exam ED Vital Signs: Vital Signs - 24 hr 06/29/24 18:46 06/29/24 22:40 06/30/24 01:06 Temperature 97.7 F 97.9 F 97.3 F Pulse Rate 60 60 79 Respiratory Rate 18 18 18 Blood Pressure 132/62 143/58 H 192/79 H Pulse Oximetry 98 97 92 Oxygen Delivery Method Room Air Room Air Room Air BMI result Body Mass Index 25.4 Appearance: Alert. Oriented X3. No acute distress. Eyes: No pallor or icterus ENT: Pharynx normal. Oral Mucosa moist Neck: Normal inspection. Neck supple. CVS: Normal heart rate and rhythm. Pulses normal. Respiratory: No respiratory distress. Equal air entry bilateral, no wheezing/rales/rhonchi Abdomen: Soft and nontender. Bowel sounds are present, no mass palpable, L CVA tenderness++ Skin: Skin warm and dry. Normal skin color. Normal skin turgor. Extremities: No lower extremity edema. No calf tenderness Neuro: Oriented X 3. No motor deficit. Course Course Course Narrative: This is a Rapid Medical Examination (RME) performed by Kim Eduardo PA-C in triage. Full HPI, ROS, assessment and treatment plan per primary provider in the Main ED. 88 yo female presents to the ER for evaluation of severe sided flank pain for the last several days. has had constipation with pain coming in waves. went to urgent care and had XR showing stool burden. she has been nauseated but not vomiting. no fevers, no urinary symptoms. last BM 2 days ago that was hard and small after a fleet emena. reports pain is 10/10. Plan: labs, UA, CT scan abd/pelvis Medical Decision Making Medical Decision Making [facility] Narrative: Patient with right renal colic with obstructive kidney stone noted to have elevated WBC count likely from stress released urine is not infected is mostly contaminated will give prophylactic Rocephin pending blood culture urine culture admit to hospitalist service pain control urologist to follow in a.m. if pain continues Differential Diagnosis Differential Diagnoses: The differential diagnosis associated with the presentation includes Admission/Observation Consideration of admission/observation: Escalation of care including admission/observation considered Consult Healthcare Provider Management of the patient was discussed with: Hospitalist Lab Data [facility] Lab Attestation statement: I reviewed the patient's lab results. 06/29/24 18:32 06/29/24 18:32 Labs: Lab Results 06/29/24 06/29/24 Range/Units 18:32 20:14 WBC 19.6 H (4.8-10.8) X10*3/uL RBC 5.05 (4.20-5.50) X10*6/uL Hgb 14.4 (12.0-16.0) g/dl Hct 42.5 (37.0-47.0) % MCV 84.2 (80.0-98.0) fL MCH 28.5 (27.0-33.0) pg MCHC 33.9 (31.0-35.0) g/dl RDW 14.0 (11.0-16.0) % Plt Count 263 (160-400) X10*3/uL MPV 11.4 (9.4-12.3) fL Immature Gran % (Auto) 0.5 H (0.0-0.4) % Neut % (Auto) 87.0 H (45-73) % Lymph % (Auto) 6.0 L (20-40) % [place] % (Auto) 6.2 (2-11) % Eos % (Auto) 0.1 (0-4) % Baso % (Auto) 0.2 (0-2) % Lymph # (Auto) 1.2 (1.2-4.9) X10*3/uL [place] # (Auto) 1.2 (0.1-1.2) X10*3/uL Eos # (Auto) 0.0 (0.0-0.4) X10*3/uL Baso # (Auto) 0.0 (0.0-0.2) X10*3/uL Abs Immat Gran (auto) 0.10 H (0.00-0.03) X10*3/uL Absolute Neuts (auto) 17.0 H (2.0-8.3) x10*3/uL Absolute Nucleated RBC 0.000 (0.0-0.012) X10*3/uL Nucleated RBC % (auto) 0.0 (0.0-0.2) /100WBC Sodium 134 L (135-145) mmol/L Potassium 4.7 D (3.3-5.1) mmol/L Chloride 100 (96-108) mmol/L Carbon Dioxide 24 (22-29) mmol/L Anion Gap 15 (12-20) BUN 31 H (9-16) mg/dL Creatinine 1.36 (0.5-1.4) mg/dL Estim Creat Clear Calc 23.8 Estimated GFR 37 Random Glucose 110 (60-115) mg/dL Calcium 9.0 (8.4-10.2) mg/dL Magnesium 2.4 (1.6-2.6) mg/dL Total Bilirubin 0.7 (0.0-1.0) mg/dL Direct Bilirubin 0.3 (0.0-0.5) mg/dL AST 32 H (5-31) U/L ALT 28 (0-31) U/L Alkaline Phosphatase 94 (39-117) U/L Total Protein 8.4 H (6.5-8.0) g/dL Albumin 4.1 (3.5-5.0) g/dL Urine Color Yellow Urine Appearance Cloudy Urine pH 5.0 (5.0-9.0) Ur Specific [place] >= 1.030 H (1.005-1.025) Urine Protein 30 (1+) H (Neg-Trace) mg/dL Urine Glucose (UA) Negative (Negative) mg/dL Urine Ketones Trace (Negative) mg/dL Urine Blood Small (1+) H (Negative) Urine Nitrite Negative (Negative) Ur Leukocyte Esterase Small (1+) H (Negative) Urine RBC 3-5 H (0-2) /HPF Urine WBC 6-10 H (0-5) /HPF Ur Squamous Epith Cells 11-20 (0-2) /HPF Urine Bacteria 4+ (None Seen) Hyaline Casts 0-2 (0-2) /LPF Independent Interpretation I performed an independent interpretation of an: CT Scan Radiology Impression Discussion of test interpretation with radiology: I have reviewed the radiologist's reading. Radiologist Impression: IMPRESSION: Moderate left hydronephro ureter with a 4 mm obstructing stone at the ureterovesicular junction. Additional 2 mm stone is also noted at the ureterovesicular junction. Multiple left nonobstructing renal stones measuring up to 1.3 cm. Multiple cystic lesions within the left hepatic lobe measuring up to 2 cm of simple fluid density, most likely represent hepatic cysts. A 4 cm left kidney upper pole cysts measuring simple fluid density. No further follow-up is required of this cyst. Retroverted uterus with a globus appearing fundus, likely represent fibroid uterus. This document has been electronically signed by: Elieser Rosado MD on 06/29/2024 19:53:37 Medications Administered Discontinued Medications Generic Name Dose Route Start Last Admin Trade Name Freq PRN Reason Stop Dose Admin Acetaminophen 650 mg 06/29/24 22:40 06/29/24 22:43 Acetaminophen 325 Mg Tablet PO 06/29/24 22:41 650 mg ONCE ONE Administration Hydromorphone HCl 1 mg 06/30/24 01:00 06/30/24 01:04 Hydromorphone Hcl 1 Mg/Ml Syringe IVPUSH 06/30/24 01:01 1 mg ONCE ONE Administration Protocol Sodium Chloride 1,000 mls @ 999 mls/hr 06/30/24 00:06 06/30/24 00:44 Ns IV 06/30/24 01:06 999 mls/hr .Q1H1M ONE Administration Ketorolac Tromethamine 30 mg 06/30/24 01:00 06/30/24 01:04 Ketorolac Tromethamine 30 Mg/Ml Vial IVPUSH 06/30/24 01:01 30 mg ONCE ONE Administration Morphine Sulfate 4 mg 06/30/24 00:06 06/30/24 00:33 Morphine Sulfate 4 Mg/Ml Cartridge IVPUSH 06/30/24 00:07 4 mg ONCE ONE Administration Protocol Ondansetron HCl 4 mg 06/30/24 00:06 06/30/24 00:33 Ondansetron Hcl 4 Mg/2 Ml Vial IVPUSH 06/30/24 00:07 4 mg ONCE ONE Administration Tamsulosin HCl 0.4 mg 06/30/24 00:14 06/30/24 00:44 Tamsulosin Hcl 0.4 Mg Capsule PO 06/30/24 00:15 0.4 mg ONCE ONE Administration Discharge Plan Discharge Clinical Impression: Calculus of kidney, Nephropathy, obstructive Patient Disposition: Admitted As Inpatient Print Language: Czech
[2024-06-29 18:46] VITALS: BP 132/62; PULSE 60; RESP 18; TEMP 36.5; O2SAT 98; BMI 25.4
[2024-06-29 18:51] LABS: Alanine Aminotransferase 28 U/L (0-31); Albumin Level 4.1 g/dL (3.5-5.0); Alkaline Phosphatase 94 U/L (39-117); Anion Gap 15 (12-20); Aspartate Amino Transferase 32 U/L (5-31); Bilirubin Direct 0.3 mg/dL (0.0-0.5); Bilirubin Total 0.7 mg/dL (0.0-1.0); Blood Urea Nitrogen 31 mg/dL (9-16); Carbon Dioxide 24 mmol/L (22-29); Chloride 100 mmol/L (96-108); Creatinine Clr Calc Pharmacy 23.8; Estimated Glomerular Filt Rate 37; Glucose Random 110 mg/dL (60-115); Magnesium 2.4 mg/dL (1.6-2.6); Potassium 4.7 mmol/L (3.3-5.1); Sodium 134 mmol/L (135-145); Total Protein 8.4 g/dL (6.5-8.0)
[2024-06-29 20:22] LABS: Appearance Urine Cloudy; Color Urine Yellow; Glucose Urine UA Negative (Negative); Leukocyte Esterase Urine Small (1+) (Negative); Nitrite Urine Negative (Negative); Specific Gravity - Urine >= 1.030 (1.005-1.025); UMIC TRIGGER UACC YES; Urine Blood Small (1+) (Negative); Urine Ketones Trace mg/dL (Negative); Urine Protein 30 (1+) mg/dL (Neg-Trace)
[2024-06-29 20:36] LABS: Bacteria Urine 4+ (None Seen); Hyaline Casts Urine 0-2 /LPF (0-2); UACC Culture Trigger YES
[2024-06-29 22:40] VITALS: BP 143/58; PULSE 60; RESP 18; TEMP 36.6; O2SAT 97
[2024-06-29] MEDS: Acetaminophen 325 MG TABLET 650 MG PO (22:43)
[2024-06-30] VITALS (11 sets, daily range): BP systolic 96–192; BP diastolic 49–79; PULSE 64–82; RESP 11–20; TEMP 36–36.8; O2SAT 92–98
--- OUTSIDE RECORDS SUMMARY | 2024-06-30 00:07 | XMS_ITS | Encounter Summary ---
Author Organization [facility] Address [id number] [place] [id number] Care Team Providers Care Gum Rolling Machine Tender Name Role Phone Preet Horan MD Primary Care Provider [phone] Reason for Visit * Reason Comments Constipation Abdominal pain. Encounter Details Date Type Department Care Team (Late st Contact Info) Description 06/29/2024 4:00 PM EST Office Visit [facility] - [place] [address] [place] [address] Kitty Thompson NP [address] [place], [place] [id number] Flank pain (Primary Dx); Constipation, unspecified constipation type Social History Tobacco Use Types Packs/Day Years Used Date Smoking Tobacco: Never Assessed Sex and Gender Information Value Date Recorded Sex Assigned at Not on file Gender Identity Not on file Sexual Orientation Not on file Job Start Date Occupation Industry Not on file Not on file Not on file documented as of this encounter Last Filed Vital Signs Vital Sign Reading Time Taken Comments Blood Pressure 136/60 06/29/2024 4:16 PM EST Pulse 56 06/29/2024 4:16 PM EST Temperature 36.9 ??C (98.4 ??F) 06/29/2024 4:16 PM ES T Respiratory Rate - - Oxygen Saturation 97% 06/29/2024 4:16 PM EST Inhaled Oxygen Concentration - - Weight - - Height - - Body Mass Index - - documented in this encounter Progress Notes * Kitty Thompson NP - 06/29/2024 4:00 PM EST CHIEF COMPLAINT: Constipation (Abdominal pain.) HPI: Darek Melendez is a 88 y.o. old female who presents with left flank pain. Family notes history of constipation ROS: Remainder of the 12 point review of symptoms unremarkable except for those idenitified in the HPI. PAST MEDICAL HISTORY: There are no problems to display for this patient. No past surgical history on file. SOCIAL HISTORY: Social History Tobacco Use Smoking status: Not on file Smokeless tobacco: Not on file Substance Use Topics Alcohol use: Not on file FAMILY HISTORY: No family history on file. No family status information on file. MEDICATIONS DISCONTINUED/REORDERED: There are no discontinued medications. ACTIVE MEDICATIONS: Outpatient Medications Marked as Taking for the 06/29/24 encounter (Office Visit) with Kitty Thompson NP Medication Sig Dispense Refill aspirin 81 mg EC tablet Take 1 tablet (81 mg total) by mouth 1 (one) time each day. atorvastatin (LIPITOR) 80 mg tablet 80 MG ORALLY BEDTIME metoprolol tartrate (LOPRESSOR) 25 mg tablet TAKE 1/2 A TABLET BY MOUTH TWICE A DAY valsartan (DIOVAN) 40 mg tablet 40 mg orally daily ALLERGIES: No Known Allergies PHYSICAL EXAM: Vitals: 06/29/24 1616 BP: 136/60 Pulse: 56 Temp: 36.9 ??C (98.4 ??F) SpO2: 97% CONSTITUTIONAL: alert, calm, cooperative, ill-appearing female in moderate distress SKIN: warm and dry HEART: S1, S2 normal, regular rate and rhythm, no murmurs, rubs, gallops LUNGS: clear to auscultation bilaterally, no wheezes, rales, rhonchi ABDOMEN: soft, nontender, nondistended, bowel sounds present, no guarding or rigidity, no hepatosplenomegaly positive tenderness to light palpation over left flank PSYCH: mood/affect full range, speech clear, good eye contact, cooperative with exam LABS/IMAGING: KUB moderate stool IMPRESSION: Left flank pain PLAN: The patient's PMH, problem list and medications were reviewed in reference to the above diagnosis/diagnoses. X-ray reviewed with patient and family Concerns for possible kidney stone Discussed outpatient ultrasound versus going to the ED for further workup and pain management Patient opted to go to the ED family to transport to [facility] Advised to follow up with PCP if symptoms do not improve. Advised to follow up with UC or PCP immediately for new or worsening symptoms. Educated on red flags symptoms. Advised to go to the ER or call 911 for these symptoms. Patient understands the plan. Patient verbalizes agreement with the plan. No orders of the defined types were placed in this encounter. Kitty Thompson NP on 06/29/2024 at 4:35 PM EST Today's documentation was made using voice recognition software. This note may contain grammatical errors secondary to this software. documented in this encounter Plan of Treatment Pending Results Name Type Priority Associated Diagnoses Date /Time XR Abdomen 1 View Imaging STAT Constipation, unspecified constipation type 06/29/2024 5:00 PM EST Scheduled Orders Name Type Priority Associated Diagnoses Orde r Schedule XR Abdomen 1 View Imaging STAT Constipation, unspecified constipation type Expected: 06/29/2024, Expires: 06/29/2025 documented as of this encounter Visit Diagnoses Diagnosis Flank pain- Primary Abdominal pain, unspecified site Constipation, unspecified constipation type documented in this encounter Historical Medications * This list may reflect changes made after this encounter. Medication Sig Dispensed Refills Start Date End Date valsartan (DIOVAN) 40 mg tablet 40 mg orally daily 06/11/2024 metoprolol tartrate (LOPRESSOR) 25 mg tablet TAKE 1/2 A TABLET BY MOUTH TWICE A DAY 06/11/2024 atorvastatin (LIPITOR) 80 mg tablet 80 MG ORALLY BEDTIME 06/11/2024 aspirin 81 mg EC tablet Take 1 tablet (81 mg total) by mouth 1 (one) time each day. 06/14/2024 added in this encounter Care Teams Gum Rolling Machine Tender Relationship Specialty Start Date End Date Preet Horan MD [address] [place] [address] PCP - General Internal Medicine 03/31/21 documented as of this encounter
--- OUTSIDE RECORDS SUMMARY | 2024-06-30 00:07 | XMS_ITS | Encounter Summary ---
Author Organization [facility] Address [address] [place] [address] Care Team Providers Care Funeral Pre Arrangement Specialist Name Role Phone Preet Horan MD Primary Care Provider [phone] Encounter Details Date Type Department Care Team (Latest Contact Info) Description 06/29/2024 4:52 PM EST Hospital Encounter [facility] Clinic [address] [id number] Constipation, unspecified constipation type Social History Tobacco Use Types Packs/Day Years Used Date Smoking Tobacco: Never Assessed Sex and Gender Information Value Date Recorded Sex Assigned at Not on file Gender Identity Not on file Sexual Orientation Not on file Job Start Date Occupation Industry Not on file Not on file Not on file documented as of this encounter Plan of Treatment Pending Results Name Type Priority Associated Diagnoses Date /Time XR Abdomen 1 View Imaging STAT Constipation, unspecified constipation type 06/29/2024 5:00 PM EST Scheduled Orders Name Type Priority Associated Diagnoses Orde r Schedule XR Abdomen 1 View Imaging STAT Constipation, unspecified constipation type Once for 1 Occurrences starting 06/29/2024 until 06/29/2024 documented as of this encounter Visit Diagnoses Diagnosis Constipation, unspecified constipation type documented in this encounter Care Teams Funeral Pre Arrangement Specialist Relationship Specialty Start Date End Date Preet Horan MD [address] [place] [id number] PCP - General Internal Medicine 03/31/21 documented as of this encounter
[2024-06-30] MEDS: ondansetron HCL 4 MG/2 ML VIAL IVPUSH (00:33)
[2024-06-30] MEDS: Morphine Sulfate 4 MG/ML CARTRIDGE IVPUSH (00:33)
[2024-06-30] MEDS: Tamsulosin HCL 0.4 MG CAPSULE PO (00:44)
[2024-06-30] MEDS: 0.9 % Sodium Chloride 1,000 ML 999 ML IV (00:44)
[2024-06-30] MEDS: Ketorolac Tromethamine 30 MG/ML VIAL IVPUSH (01:04)
[2024-06-30] MEDS: HYDROmorphone HCl 1 MG/ML SYRINGE IVPUSH (01:04)
--- NOTE | 2024-06-30 02:09 | P.HPHOSP_ITS ---
History of Present Illness Date of Service: 06/30/24 Chief Complaint: FLank pain This is a 88-year-old female with pertinent history of tobacco use disorder, coronary artery disease, lung mass who presents to the emergency department for left-sided abdominal pain. Patient states his symptoms began about a week ago but got worse over the last 24 hours. Left-sided pain is constant, progressive and associated with nausea. No relieving factors. No history of kidney stones that she knows of. Denies fever, chills, chest pain, palpitations, shortness of breath, changes in urinary or bowel habits. Is followed by Dr. Rodriguez for lung mass. Decreased p.o. intake due to abdominal pain. In the emergency department, imaging with moderate left hydronephro ureter with 4 mm obstructing stone at the ureterovesical junction. Also found to have leukocytosis Review of Systems 2 Constitutional: Constitutional: Reports malaise and Reports poor appetite Cardiovascular: Cardiovascular: Reports no additional cardiovascular complaints Respiratory: Respiratory: Reports no additional respiratory complaints Gastrointestinal: Gastrointestinal: Reports abdominal pain and Reports nausea Genitourinary: Genitourinary: Reports no additional female genitourinary complaints [facility] Medical History Mass of lung Coronary artery disease Pertinent family history: No family history of early CAD Social History Household Members: Spouse Housing: House Do you presently have visiting nurse or other home services: No Comment: refused alarms Patient Tobacco Use Status: Current everyday Tobacco user Tobacco use type: Cigarette Smoked in Last 30 Days: No Use of substances other than those prescribed or required for medical reasons: No Advance Directives: No Advance Directives Information Provided: Yes Do you have a plan to hurt others: No Plan service: No Meds Allergies Allergy/AdvReac Type Severity Reaction Status Date / Time No Known Allergies Allergy Verified 06/29/24 18:48 Physical Exam 2 Vital Signs and Narrative: Vital Signs: Last Vital Signs Temp 97.3 F 06/30/24 01:06 Pulse 79 06/30/24 01:06 Resp 18 06/30/24 01:06 BP 192/79 H 06/30/24 01:06 Pulse Ox 92 06/30/24 01:06 O2 Del Method Room Air 06/30/24 01:06 BMI result Body Mass Index 25.4 Middle-aged female lying in bed in no distress Neck supple, no JVD Regular rate and rhythm, S1-S2 heard No crackles or wheezing Abdomen with left flank tenderness, no guarding, no rigidity Patient is awake, alert and oriented to self, place, time and person ; no focal motor deficit Psych: Normal mood No pedal edema Results Labs 06/30/24 05:35 06/29/24 18:32 Labs: Laboratory Results - last 24 hr 06/29/24 06/29/24 18:32 20:14 MCV 84.2 MCH 28.5 MCHC 33.9 RDW 14.0 Plt Count 263 MPV 11.4 Immature Gran % (Auto) 0.5 H Neut % (Auto) 87.0 H Lymph % (Auto) 6.0 L [place] % (Auto) 6.2 Eos % (Auto) 0.1 Baso % (Auto) 0.2 Lymph # (Auto) 1.2 [place] # (Auto) 1.2 Eos # (Auto) 0.0 Baso # (Auto) 0.0 Abs Immat Gran (auto) 0.10 H Absolute Neuts (auto) 17.0 H Absolute Nucleated RBC 0.000 Nucleated RBC % (auto) 0.0 Anion Gap 15 Estim Creat Clear Calc 23.8 Estimated GFR 37 Random Glucose 110 Calcium 9.0 Magnesium 2.4 Total Bilirubin 0.7 Direct Bilirubin 0.3 AST 32 H ALT 28 Alkaline Phosphatase 94 Total Protein 8.4 H Albumin 4.1 Urine Color Yellow Urine Appearance Cloudy Urine pH 5.0 Ur Specific [place] >= 1.030 H Urine Protein 30 (1+) H Urine Glucose (UA) Negative Urine Ketones Trace Urine Blood Small (1+) H Urine Nitrite Negative Ur Leukocyte Esterase Small (1+) H Urine RBC 3-5 H Urine WBC 6-10 H Ur Squamous Epith Cells 11-20 Urine Bacteria 4+ Hyaline Casts 0-2 Assessment and Plan (1) Calculus of kidney: Status: Acute (2) Nephropathy, obstructive: Status: Acute Plan This is a 88-year-old female with pertinent history of tobacco use disorder, coronary artery disease, lung mass who presents to the emergency department for left-sided abdominal pain. #. Obstructive uropathy with infection: Left hydronephroureter with obstructing stone at the ureterovesical junction noted on imaging. Will admit patient with IV ceftriaxone and IV opioids p.r.n. for analgesia. Consulted Urology, appreciate assistance. Will keep patient NPO. #. 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 Coronary artery disease: On aspirin, high-intensity statin and beta-digna Med rec pending DVT prophylaxis: Defer Lovenox until urological evaluation Full code Admit as inpatient and will require two night minimum hospital stay for IV antibiotics, IV opiates p.r.n. (as above), which is not possible in a lesser acute setting. Urology consult pending Quality Stroke Does the patient have a stroke diagnosis?: No VTE Prior VTE?: No VTE Risk Level:: Medical - moderate - high VTE Device Contraindication: N/A - Device Ordered VTE Drug Contraindication: Treatment Not Indicated
[2024-06-30 03:10] LABS: Lactic Acid 0.7 mmol/L (0.5-2.0)
[2024-06-30] MEDS: cefTRIAXone sodium 1 GM VIAL IVPUSH ×2 (03:34→19:42)
[2024-06-30 05:41] LABS: Basophils Percent Auto 0.2 % (0-2); Eosinophils Percent Auto 0.1 % (0-4); Hematocrit 34.8 % (37.0-47.0); Hemoglobin 11.9 g/dl (12.0-16.0); Imm Gran Abs Auto 0.05 X10*3/uL (0.00-0.03); Imm Gran Pct Auto 0.4 % (0.0-0.4); Lymphocytes Percent Auto 14.4 % (20-40); MANUAL DIFF FLAG NO; Mean Corpuscular HGB Conc 34.2 g/dl (31.0-35.0); Mean Corpuscular Hemoglobin 28.7 pg (27.0-33.0); Mean Corpuscular Volume 84.1 fL (80.0-98.0); Mean Platelet Volume 11.1 fL (9.4-12.3); Monocytes Absolute Auto 1.2 X10*3/uL (0.1-1.2); Monocytes Percent Auto 8.8 % (2-11); Neutrophils Absolute Auto 10.4 x10*3/uL (2.0-8.3); Neutrophils Percent Auto 76.1 % (45-73); Platelet Count 208 X10*3/uL (160-400); Red Blood Count 4.14 X10*6/uL (4.20-5.50); White Blood Count 13.7 X10*3/uL (4.8-10.8)
--- NOTE | 2024-06-30 05:41 | PC.NURSE ---
Took over care from OLAF Lovelace, pt is resting at this time with no sign of distress.
[2024-06-30 06:00] LABS: Anion Gap 14 (12-20); Blood Urea Nitrogen 32 mg/dL (9-16); Calcium 8.3 mg/dL (8.4-10.2); Carbon Dioxide 18 mmol/L (22-29); Chloride 105 mmol/L (96-108); Estimated Glomerular Filt Rate 37; Glucose Random 91 mg/dL (60-115); Potassium 4.5 mmol/L (3.3-5.1); Sodium 132 mmol/L (135-145)
[2024-06-30] MEDS: Lactated Ringers 1,000 ML 999 ML IV (06:27)
--- NOTE | 2024-06-30 06:30 | PC.NURSE ---
no pain at this time, medicated per mar.
--- NOTE | 2024-06-30 07:56 | PHA.MEDREC ---
Pharmacy Consult ? Medication Reconciliation Pharmacy has completed the medication reconciliation.
--- NOTE | 2024-06-30 08:54 | MHC.CM.PN ---
IMM 06/30/24 She lives with her spouse. She is independent with all functional mobility. DX L flank pain. A consult with Dr George is pending, Patient has an appointment scheduled with her new PCP in July, Dr Rupali Bustos. HCP is on file. DP Home self care. Pts dtr/HCP will provide transport home.
[2024-06-30] MEDS: Acetaminophen 325 MG TABLET 650 MG PO (09:38)
[2024-06-30] MEDS: 0.9 % Sodium Chloride Flush 3 ML SYRINGE IVFLUSH ×2 (09:39→19:43)
--- NOTE | 2024-06-30 11:05 | PM.EVENT ---
Event Note Date of Service: 06/30/24 Event Note: This is a 88-year-old female with pertinent history of tobacco use disorder, coronary artery disease, lung mass who presents to the emergency department for left-sided abdominal pain. Obstructive uropathy with infection Left hydronephroureter with obstructing stone at the ureterovesical junction noted on imaging. IV ceftriaxone and IV opioids p.r.n. for analgesia. Consulted Urology> plan for surgical intervention today Right middle lobe mass Follows with Dr. Rodriguez, oncology as an outpatient Coronary artery disease On aspirin, high-intensity statin and beta-digna DVT prophylaxis: Defer Lovenox until urological evaluation Attending Dr. Pratt Full code Time Spent With Patient Time: Total time managing care of this patient today ____ minutes.
--- NOTE | 2024-06-30 14:09 | PM.UROCN ---
History of Present Illness Consult details Consult date: 06/30/24 Narrative: CC: Distal left ureteric stone 88-year-old female Followed with Oncology for lung mass Presents to emergency room with left-sided abdominal pain Has been present intermittently over past 7 days. Over past 24 hours has become constant 8/10 Associated with nausea, no relieving factors noted No prior history of renal stones, hematuria, changes in urinary frequency Labs - creatinine 1.3 baseline 0.8, WBC 13.7, calcium 8.3, UA negative nitrites, positive blood, positive leukocytes Imaging - CT Moderate left hydronephro ureter with a 4 mm obstructing stone at the ureterovesicular junction. Additional 2 mm stone is also noted at the ureterovesicular junction. Multiple left nonobstructing renal stones measuring up to 1.3 cm Plan for cystoscopy, left retrograde, left stent placement Outpatient ESWL Procedure discussed with patient and daughter Review of Systems Constitutional: Constitutional: Reports as per HPI and Reports no additional constitutional complaints Cardiovascular: Cardiovascular: Reports as per HPI and Reports no additional cardiovascular complaints Respiratory: Respiratory: Reports as per HPI and Reports no additional respiratory complaints Gastrointestinal: Gastrointestinal: Reports as per HPI and Reports no additional gastrointestinal complaints Genitourinary: Genitourinary: Reports as per HPI Musculoskeletal: Musculoskeletal: Reports no additional musculoskeletal complaints and Reports as per HPI Neurologic: Reports system reviewed and no additional complaints, except as documented and Reports as per HPI [facility] Past Medical History Medical History Mass of lung Coronary artery disease Social History Social History Household Members: Spouse Housing: House Do you presently have visiting nurse or other home services: No Comment: refused alarms Patient Tobacco Use Status: Former Tobacco user Tobacco use type: Cigarette service: No Meds Allergies Allergy/AdvReac Type Severity Reaction Status Date / Time No Known Allergies Allergy Verified 06/29/24 18:48 Active Medications: Current Medications Acetaminophen (Acetaminophen 325 Mg Tablet) 650 mg PO Q6H PRN PRN Reason: Pain, Mild 1-3,fever,headache Last Admin: 06/30/24 09:38 Dose: 650 mg Atorvastatin Calcium (Atorvastatin Calcium 80 Mg Tablet) 80 mg PO BEDTIME JAYSHREE Calcium Carbonate (Calcium Carbonate 750 Mg Tab.Chew) 750 mg PO Q4H PRN PRN Reason: Heartburn Ceftriaxone Sodium (Ceftriaxone Sodium 1 Gm Vial) 1 gm IVPUSH Q24H JAYSHREE Hydromorphone HCl (Hydromorphone Hcl 1 Mg/Ml Syringe) 1 mg IVPUSH Q4H PRN; Protocol PRN Reason: Pain, Severe (Pain Scale 7-10) Magnesium Hydroxide (Milk Of Magnesia 30 Ml Oral.Susp) 30 ml PO DAILY PRN PRN Reason: Constipation Melatonin (Melatonin 3 Mg Tablet) 6 mg PO BEDTIME PRN PRN Reason: Insomnia Metoprolol Tartrate (Metoprolol Tartrate 12.5 Mg Halftab) 12.5 mg PO BID [facility]; Protocol Ondansetron HCl (Ondansetron Hcl 4 Mg/2 Ml Vial) 4 mg IVPUSH Q8H PRN PRN Reason: Nausea and Vomiting Sodium Chloride (0.9 % Sodium Chloride Flush 3 Ml Syringe) 3 ml IVFLUSH QSHIFT [facility] Last Admin: 06/30/24 09:39 Dose: 3 ml Valsartan (Valsartan 40 Mg Tablet) 40 mg PO DAILY [facility]; Protocol Physical Exam Vital Signs: Vital Signs: Last Vital Signs Temp 96.9 F 06/30/24 08:00 Pulse 80 06/30/24 08:00 Resp 16 06/30/24 08:00 BP 163/73 H 06/30/24 08:00 Pulse Ox 98 06/30/24 08:00 O2 Del Method Room Air 06/30/24 08:00 BMI result Body Mass Index 25.4 Const: General: cooperative, healthy appearing, comfortable and no acute distress Orientation/consciousness: patient oriented x3 HEENT: Face and sinus: Yes normal facial exam Mouth: moist mucous membranes Neck: Neck: Yes normal visual inspection, Yes full ROM and Yes trachea midline Chest: Chest palpation & inspection: normal inspection of the chest Resp: Effort & Inspection: normal respiratory effort, able to speak in complete sentences and no respiratory distress GI: Inspection: Yes normal to inspection Back/Spine/Pelvis: Cervical Spine: normal cervical lordosis Thoracic/Lumbar Spine: thoracic and lumbar spine normal to inspection Skin: General skin exam: no rashes or lesions noted Neuro: General: patient oriented x3, tone normal and moves all extremities Extrem: General: Yes normal to inspection and Yes capillary refill normal Results Labs 06/30/24 05:35 06/30/24 05:35 Labs: Abnormal lab results 06/29/24 06/29/24 06/30/24 Range/Units 18:32 20:14 05:35 WBC 19.6 H 13.7 H (4.8-10.8) X10*3/uL RBC 4.14 L (4.20-5.50) X10*6/uL Hgb 11.9 L (12.0-16.0) g/dl Hct 34.8 L (37.0-47.0) % Immature Gran % (Auto) 0.5 H (0.0-0.4) % Neut % (Auto) 87.0 H 76.1 H (45-73) % Lymph % (Auto) 6.0 L 14.4 L (20-40) % Abs Immat Gran (auto) 0.10 H 0.05 H (0.00-0.03) X10*3/uL Absolute Neuts (auto) 17.0 H 10.4 H (2.0-8.3) x10*3/uL Sodium 134 L 132 L (135-145) mmol/L Carbon Dioxide 18 L (22-29) mmol/L BUN 31 H 32 H (9-16) mg/dL Calcium 8.3 L D (8.4-10.2) mg/dL AST 32 H (5-31) U/L Total Protein 8.4 H (6.5-8.0) g/dL Ur Specific [place] >= 1.030 H (1.005-1.025) Urine Protein 30 (1+) H (Neg-Trace) mg/dL Urine Blood Small (1+) H (Negative) Ur Leukocyte Esterase Small (1+) H (Negative) Urine RBC 3-5 H (0-2) /HPF Urine WBC 6-10 H (0-5) /HPF Short CBC 06/29/24 06/30/24 Range/Units 18:32 05:35 WBC 19.6 H 13.7 H (4.8-10.8) X10*3/uL Hgb 14.4 11.9 L (12.0-16.0) g/dl Hct 42.5 34.8 L (37.0-47.0) % Plt Count 263 208 (160-400) X10*3/uL BMP 06/29/24 06/30/24 18:32 05:35 Sodium 134 L 132 L Potassium 4.7 D 4.5 Chloride 100 105 Carbon Dioxide 24 18 L BUN 31 H 32 H Creatinine 1.36 1.35 Calcium 9.0 8.3 L D Liver Function 06/29/24 Range/Units 18:32 Total Bilirubin 0.7 (0.0-1.0) mg/dL Direct Bilirubin 0.3 (0.0-0.5) mg/dL AST 32 H (5-31) U/L ALT 28 (0-31) U/L Alkaline Phosphatase 94 (39-117) U/L Albumin 4.1 (3.5-5.0) g/dL Urine 06/29/24 Range/Units 20:14 Urine Color Yellow Urine Appearance Cloudy Urine pH 5.0 (5.0-9.0) Ur Specific [place] >= 1.030 H (1.005-1.025) Urine Protein 30 (1+) H (Neg-Trace) mg/dL Urine Glucose (UA) Negative (Negative) mg/dL All other labs normal. Assessment and Plan (1) Ureteric calculus: Status: Acute (2) Hydronephrosis: Status: Acute (3) Acute kidney injury: Status: Acute Plan Risks, benefits and alternatives to therapy were discussed. These include but are not limited to infection, bleeding, damage to local organs and tissues, need for further interventions. Anesthetic risks regarding cardiac arrhythmia, blood clots, and potential mortality were discussed. The patient understands the typical recovery time and the outpatient nature of the procedure. After consideration of these risks the patient gives full informed consent and they wish to move ahead with the procedure. Cystoscopy, left retrograde, left stent placement Procedures Date of Service Date of Service: 06/30/24
--- NOTE | 2024-06-30 18:07 | HO.ANESPROP2 ---
HPI - Anesthesia Eval Consult details Narrative: Left ureter stones PMFSH Active Problems Active Problems: All Active Problems Acute kidney injury (Acute) Hydronephrosis (Acute) Ureteric calculus (Acute) Coronary artery disease (Acute) Nephropathy, obstructive (Acute) Calculus of kidney (Acute) NSTEMI (non-ST elevated myocardial infarction) (Acute) Abnormal ECG (Acute) Mass of lung (Acute) Elevated troponin (Acute) Influenza A (Acute) Past Medical History Medical History Mass of lung Coronary artery disease Family History Family history of problems with anesthesia: No Surgical History History of Problems with Anesthesia: No Social History Social History Household Members: Spouse Housing: House Do you presently have visiting nurse or other home services: No Comment: refused alarms Patient Tobacco Use Status: Former Tobacco user Tobacco use type: Cigarette service: No Meds Allergies Allergy/AdvReac Type Severity Reaction Status Date / Time No Known Allergies Allergy Verified 06/29/24 18:48 Active Medications: Current Medications Acetaminophen (Acetaminophen 325 Mg Tablet) 650 mg PO Q6H PRN PRN Reason: Pain, Mild 1-3,fever,headache Last Admin: 06/30/24 09:38 Dose: 650 mg Atorvastatin Calcium (Atorvastatin Calcium 80 Mg Tablet) 80 mg PO BEDTIME JAYSHREE Calcium Carbonate (Calcium Carbonate 750 Mg Tab.Chew) 750 mg PO Q4H PRN PRN Reason: Heartburn Ceftriaxone Sodium (Ceftriaxone Sodium 1 Gm Vial) 1 gm IVPUSH Q24H JAYSHREE Hydromorphone HCl (Hydromorphone Hcl 1 Mg/Ml Syringe) 1 mg IVPUSH Q4H PRN; Protocol PRN Reason: Pain, Severe (Pain Scale 7-10) Magnesium Hydroxide (Milk Of Magnesia 30 Ml Oral.Susp) 30 ml PO DAILY PRN PRN Reason: Constipation Melatonin (Melatonin 3 Mg Tablet) 6 mg PO BEDTIME PRN PRN Reason: Insomnia Metoprolol Tartrate (Metoprolol Tartrate 12.5 Mg Halftab) 12.5 mg PO BID JAYSHREE; Protocol Ondansetron HCl (Ondansetron Hcl 4 Mg/2 Ml Vial) 4 mg IVPUSH Q8H PRN PRN Reason: Nausea and Vomiting Sodium Chloride (0.9 % Sodium Chloride Flush 3 Ml Syringe) 3 ml IVFLUSH QSHIFT [facility] Last Admin: 06/30/24 09:39 Dose: 3 ml Valsartan (Valsartan 40 Mg Tablet) 40 mg PO DAILY [facility]; Protocol Exam Height,Weight and Vital Signs: Height 5 ft Weight 58.967 kg Last Vital Signs Temp 98.2 F 06/30/24 17:39 Pulse 78 06/30/24 17:39 Resp 20 06/30/24 17:39 BP 133/55 L 06/30/24 17:39 Pulse Ox 95 06/30/24 17:39 O2 Del Method Room Air 06/30/24 17:39 Pertinent Lab Results Pertinent Lab Results: Laboratory Tests 06/29/24 06/29/24 06/30/24 18:32 20:14 02:32 WBC 19.6 H RBC 5.05 Hgb 14.4 Hct 42.5 MCV 84.2 MCH 28.5 MCHC 33.9 RDW 14.0 Plt Count 263 MPV 11.4 Immature Gran % (Auto) 0.5 H Neut % (Auto) 87.0 H Lymph % (Auto) 6.[address] % (Auto) 6.2 Eos % (Auto) 0.1 Baso % (Auto) 0.2 Lymph # (Auto) 1.2 Lane # (Auto) 1.2 Eos # (Auto) 0.0 Baso # (Auto) 0.0 Abs Immat Gran (auto) 0.10 H Absolute Neuts (auto) 17.0 H Absolute Nucleated RBC 0.000 Nucleated RBC % (auto) 0.0 Sodium 134 L Potassium 4.7 D Chloride 100 Carbon Dioxide 24 Anion Gap 15 BUN 31 H Creatinine 1.36 Estim Creat Clear Calc 23.8 Estimated GFR 37 Random Glucose 110 Lactic Acid 0.7 Calcium 9.0 Magnesium 2.4 Total Bilirubin 0.7 Direct Bilirubin 0.3 AST 32 H ALT 28 Alkaline Phosphatase 94 Total Protein 8.4 H Albumin 4.1 Urine Color Yellow Urine Appearance Cloudy Urine pH 5.0 Ur Specific Lookout >= 1.030 H Urine Protein 30 (1+) H Urine Glucose (UA) Negative Urine Ketones Trace Urine Blood Small (1+) H Urine Nitrite Negative Ur Leukocyte Esterase Small (1+) H Urine RBC 3-5 H Urine WBC 6-10 H Ur Squamous Epith Cells 11-20 Urine Bacteria 4+ Hyaline Casts 0-2 06/30/24 05:35 WBC 13.7 H RBC 4.14 L Hgb 11.9 L Hct 34.8 L MCV 84.1 MCH 28.7 MCHC 34.2 RDW 14.0 Plt Count 208 MPV 11.1 Immature Gran % (Auto) 0.4 Neut % (Auto) 76.1 H Lymph % (Auto) 14.[address] % (Auto) 8.8 Eos % (Auto) 0.1 Baso % (Auto) 0.2 Lymph # (Auto) 2.0 Lane # (Auto) 1.2 Eos # (Auto) 0.0 Baso # (Auto) 0.0 Abs Immat Gran (auto) 0.05 H Absolute Neuts (auto) 10.4 H Absolute Nucleated RBC 0.000 Nucleated RBC % (auto) 0.0 Sodium 132 L Potassium 4.5 Chloride 105 Carbon Dioxide 18 L Anion Gap 14 BUN 32 H Creatinine 1.35 Estim Creat Clear Calc 24.0 Estimated GFR 37 Random Glucose 91 Lactic Acid Calcium 8.3 L D Magnesium Total Bilirubin Direct Bilirubin AST ALT Alkaline Phosphatase Total Protein Albumin Urine Color Urine Appearance Urine pH Ur Specific Lookout Urine Protein Urine Glucose (UA) Urine Ketones Urine Blood Urine Nitrite Ur Leukocyte Esterase Urine RBC Urine WBC Ur Squamous Epith Cells Urine Bacteria Hyaline Casts Airway Mallampati Class: II TM Dist: >3cm Neck ROM: Full Loose/Missing/Broken Teeth: No Heart: RRR Lungs: CTA Assessment and Plan Assessment Anesthesia Assessment: Anesthesia Plan Discussed and Chart Reviewed Final Anesthetic Review Family History of Problems with Anesthesia: No History of Problems with Anesthesia: No NPO: Yes ASA Class: III Final Preanesthetic Review: No Changes in Pt Med Stat, Meds/Allgs Chart Reviewed, Consent Obtained/Reviewed and Anes Risks/Benef Reviewed Patient Risk: Intermediate Procedure Risk: Low Anesthetic Plan Anesthetic Plan: MAC: Disposition: Standard PACU
--- NOTE | 2024-06-30 18:09 | MHC.SHP ---
Pre-Procedural Eval Section A - 24 Hr Update-Section A only Date of Service: 06/30/24 The patient is an INPATIENT: Yes Changes since office visit: No Cold of Flu in the past 2 weeks, No New Medical Problems, No Changes in Medication and No Patient answered all questions The patient has been examined within 24 hours of the surgical procedure. The History & Physical has been completed within 30 days and I have reviewed it.: Yes Section B - Complete if H&P > 30 days Chief Complaint: Left Flank Pain Details of Present Illness: Cystoscopy, left retrograde, left stent placement Allergies: Allergies Allergy/AdvReac Type Severity Reaction Status Date / Time No Known Allergies Allergy Verified 06/29/24 18:48 Exam Surgical H&P Exam: Normal: HEENT, Normal: Heart, Normal: Lungs, Normal: Extremities, Normal: Abdomen, Normal: Skin and Normal: Neurological Plan Diagnosis/Plan: Unchanged I have reviewed the history and physical and performed a pertinent physical examination on my patient. No changes have occurred unless specified. Time Spent With Patient Time: Total time managing care of this patient today ____ minutes.
--- NOTE | 2024-06-30 18:49 | W.PM.OPN ---
Operative Note Operative Note Date of Service: 06/30/24 Narrative: PreOperative Diagnosis: Distal left ureteric stone with hydronephrosis and infection Post Operative Diagnosis: 1) above 2) small, less than 2 cm, bladder cancer Procedure: 1) cystoscopy with left retrograde 2) left stent placement 3) bladder biopsy Surgeon: Dr Yosi George Anesthesia: Sedation Indications for procedure: Distal left ureteric stone with pain Procedure: After informed consent was verified the patient was brought to the operating room and placed in a supine position. Anesthesia was administered per protocol. The patient was placed in modified dorsal lithotomy position and prepped and draped in a sterile fashion. A safety pause time-out was performed. Laterality of procedure and antibiotics were confirmed, appropriate imaging was available A 22 Azerbaijani cystoscope was introduced per urethra. No abnormality was noted of urethra or bladder. Both ureteric orifices were seen in a normal position. A small bladder cancer lesion was seen on the left lateral sidewall proximally 3 cm above the left ureteric orifice. The left ureter was cannulated with an open ended catheter and a retrograde examination was performed. Filling defects seen in the distal ureter. Proximal hydro ureteronephrosis. A Sensor guidewire was placed under fluoroscopy and a good coil was seen within the renal pelvis. Post hydrotic drip was seen around the wire. A 6 Azerbaijani x 22 cm double J stent was advanced over the wire and up to the level of the renal pelvis under fluoroscopic and direct visualization. The stent was seen with appropriate coil within the renal pelvis and in the bladder after deployment. After stent placement the sidewall lesion was grasped with bladder biopsy forceps and removed cleanly. The patient tolerated the procedure well and was transferred in a stable condition to the recovery area. Pathology: Bladder sidewall low-grade bladder cancer Drains: Stent as above
[2024-06-30] MEDS: Phenazopyridine HCL 100 MG TABLET PO (19:20)
[2024-06-30] MEDS: Milk of Magnesia 30 ML ORAL.SUSP PO (19:42)
[2024-06-30] MEDS: Metoprolol Tartrate 12.5 MG HALFTAB PO (20:25)
[2024-06-30] MEDS: Atorvastatin Calcium 80 MG TABLET PO (20:25)
[2024-07-01 08:00] VITALS: BP 134/61; PULSE 65; RESP 18; TEMP 36.6; O2SAT 94
[2024-07-01] MEDS: Valsartan 40 MG TABLET PO (08:33)
[2024-07-01] MEDS: Metoprolol Tartrate 12.5 MG HALFTAB PO (08:33)
[2024-07-01] MEDS: 0.9 % Sodium Chloride Flush 3 ML SYRINGE IVFLUSH (08:34)
--- NOTE | 2024-07-01 10:41 | P.DS_ITS ---
DS: Providers Provider Date of Service: 07/01/24 Date of admission: 06/30/24 02:06 Date of discharge: 07/01/24 Primary care physician: Johnathan Bundy MD Consults: 06/30/24 02:06 Consult to Urology Routine Consulting Provider: [facility] Reason for consultation: obstructing nephrolithiasis Attending physician on discharge: [facility] Discharging clinician: Faviola Azul DS: Diagnosis Discharge Diagnosis (1) Ureteric calculus: Status: Acute (2) Hydronephrosis: Status: Acute (3) Acute kidney injury: Status: Acute DS: Summary Hospital Course Hospital Course: From H&P on the day of admission This is a 88-year-old female with pertinent history of tobacco use disorder, coronary artery disease, lung mass who presents to the emergency department for left-sided abdominal pain. Patient states his symptoms began about a week ago but got worse over the last 24 hours. Left- sided pain is constant, progressive and associated with nausea. No relieving factors. No history of kidney stones that she knows of. Denies fever, chills, chest pain, palpitations, shortness of breath, changes in urinary or bowel habits. Is followed by Dr. Rodriguez for lung mass. Decreased p.o. intake due to abdominal pain. In the emergency department, imaging with moderate left hydronephro ureter with 4 mm obstructing stone at the ureterovesical junction. Also found to have leukocytosis Obstructive uropathy CT Moderate left hydronephro ureter with a 4 mm obstructing stone at the ureterovesicular junction. Additional 2 mm stone is also noted at the ureterovesicular junction. Multiple left nonobstructing renal stones measuring u p to 1.3 cm. started on IV ceftriaxone. Seen by Urology and on 06/30 underwent cystoscopy, left retrograde, left stent placement and bladder biopsy. some hematuria following procedure can be expected. abdominal pain resolved. urine culture negative and blood culture negative to date. patient refused follow up labs and requests to be discharged home. She will be discharged with 5 days of antibiotics and has outpatient follow up scheduled with Urology for outpatient ESWL late febrary with stent removal. would recommend outpatient follow up labs if patient agrees. Right middle lobe mass Follows with Dr. Rodriguez, oncology as an outpatient Time Attestation Discharge Coordination Time (in mins): 35 Quality: Safe Use of Opioids Does Pt have an Active Cancer Diagnosis on the Problem List?: No Quality: Stroke Does the patient have a stroke diagnosis?: No Physical Exam Vital Signs: Vital Signs: Last Vital Signs Temp 97.9 F 07/01/24 08:00 Pulse 65 07/01/24 08:00 Resp 18 07/01/24 08:00 BP 134/61 07/01/24 08:00 Pulse Ox 94 07/01/24 08:00 O2 Del Method Room Air 07/01/24 08:00 BMI result Body Mass Index 25.4 Const: General: cooperative, alert and awake Orientation/consciousness: patient oriented x3 Resp: Effort & Inspection: normal respiratory effort, able to speak in complete sentences, no respiratory distress and no use of accessory muscles Neuro: General: patient oriented x3, moves all extremities and CN's II-XI intact bilaterally DS: Data Data Completed and Pending Pending studies at discharge: Pending at discharge 06/30/24 18:43 Surgical [PTH] Routine Labs on day of discharge: Preliminary micro results at discharge 06/30/24 02:31 Blood Culture - Preliminary Blood - Venous No growth after 24 hours. 06/30/24 02:31 Blood Culture - Preliminary Blood - Venous No growth after 24 hours. Discharge Plan Discharge Anticipated Discharge Date/Time: 07/01/24 10:49 Patient Disposition: Home, Self-Care Discharge Diagnosis: obstructive uropathy Referrals: Yosi George MD [Physician] - 1 Month Johnathan Bundy MD [Primary Care Provider] - 1 Week Discharge Medications: New cefuroxime axetil 250 mg tablet 250 mg PO Q12H 5 Days Qty: 10 0RF Continued atorvastatin 80 mg Tablet 80 mg PO BEDTIME Qty: 90 0RF valsartan 40 mg Tablet 40 mg PO DAILY Qty: 90 0RF Protocol: Hold for SBP< HOLD for SBP < : 90 metoprolol tartrate 25 mg Tablet 12.5 mg PO BID Qty: 90 0RF Protocol: Hold for SBP/HR < HOLD for SBP < : 90 HOLD for HR < : 60 Held aspirin 81 mg Tablet,Delayed Release (Dr/Ec) 81 mg PO DAILY Qty: 90 0RF Hold Instructions: hold for 1 week Discharge Orders: Discharge Order (Routine); Ordered 07/01/24 Ordered By: Faviola Azul Activity on Discharge: As tolerated Stand Alone Forms: Patient Portal Discharge page Print Language: Puerto Rican Other Ambulatory Orders: Basic Metabolic Panel (Routine) Timeframe: [id number] Facility: [facility] - Location: Laboratory Ordered By: Faviola Azul Complete Blood Count no Diff (Routine) Timeframe: [id number] Facility: [facility] - Location: Laboratory Ordered By: Faviola Azul Care Plan Goals: see below Health Concerns: obstructive uropathy Plan of Treatment: complete course of antibiotics as prescribed hold aspirin for one week some blood in urine is to be expected after procedure, if it persists call urology office follow up with urology as scheduled for ESWL and stent removal in july would recommend repeat labs as outpatient to assess kidney function and hemaglobin/hematacrit Assessment: see discharge summary
--- NOTE | 2024-07-01 10:41 | PC.NURSE ---
Pt refused sequentials,risks explained,encouraged activity
--- NOTE | 2024-07-01 11:09 | HO.POSTANES ---
Post Anesthesia Evaluation Post Anesthesia Evaluation Date of Service: 07/01/24 Vital Signs: Vital Signs Temp Pulse Resp BP Pulse Ox O2 Del Method 07/01/24 08:00 97.9 F 65 18 134/61 94 Room Air 06/30/24 23:33 96.8 F 72 16 111/53 L 94 Room Air Anesthesia: General Mental Status: Awake Pain Control: Satisfactory Nausea/Vomiting: None Hydration: Adequate Anesthesia-Related Issues: No Anes. Related Issues
--- NOTE | 2024-07-01 11:17 | MHC.CM.PN ---
IMM 06/30/24 S/P procedure w biopsy. Patient is discharged to home today self care. Her daughter will provide transportation home.
== END 2024-07-01 11:42 | disposition home or self-care (01) | DRG 661 ==
LOC: HO.ED 06-30 01:39 → HO.EDOVER 06-30 02:11 → HO.S3 06-30 07:39
PROVIDERS: Physician Assistant; Urology; Admitting Provider Student in an Organized Health Care Education/Training Program; Emergency Provider Internal Medicine; PCP Hospitalist; Visit Provider Physician Assistant Medical
PROC: 0T778DZ Dilation of Left Ureter with Intraluminal Device, Via Natural or Artificial Opening Endoscopic (ICD-10-PCS; principal; 2024-06-30 19:10)
DX: N13.6 Pyonephrosis (principal); C67.2 Malignant neoplasm of lateral wall of bladder; I25.10 Atherosclerotic heart disease of native coronary artery without angina pectoris; Z87.891 Personal history of nicotine dependence; Z79.82 Long term (current) use of aspirin; Z79.899 Other long term (current) drug therapy
CPT/HCPCS: 36415; 74176; 80048; 80076; 81001; 83605; 83735; 85025; 87040; 87086; 88305; 88307; 99285; C1758; C1769; C2617; J0696; J1171; J1885; J2270; J2405; J7120; Q9967

== ENCOUNTER → 2024-06-29 18:18 | Outpatient (BNV) | payer MEDICARE, SELFPAY | PROVIDERS: PCP Hospitalist; Visit Provider Student in an Organized Health Care Education/Training Program | DX: N20.0 Calculus of kidney (principal) | CPT/HCPCS: 74176 ==

== ENCOUNTER → 2024-06-30 02:06 | Outpatient (BNV) | payer MEDICARE, SELFPAY | PROVIDERS: Admitting Provider Student in an Organized Health Care Education/Training Program; Emergency Provider Internal Medicine; PCP Hospitalist; Visit Provider Urology | DX: N13.2 Hydronephrosis with renal and ureteral calculous obstruction (principal); N17.9 Acute kidney failure, unspecified | CPT/HCPCS: 52332; 74420; 99222 ==

== ENCOUNTER → 2024-06-30 02:06 | Outpatient (BNV) | payer MEDICARE, SELFPAY | PROVIDERS: Admitting Provider Student in an Organized Health Care Education/Training Program; Emergency Provider Internal Medicine; PCP Hospitalist; Visit Provider Student in an Organized Health Care Education/Training Program | DX: N20.0 Calculus of kidney (principal); N13.8 Other obstructive and reflux uropathy | CPT/HCPCS: 99222; 99499 ==

== ENCOUNTER 2024-07-06 11:56 | Outpatient (AMB) | payer MEDICARE, SELFPAY ==
--- NOTE | 2024-07-06 11:58 | A.OFFVIS_ITS ---
Intake Visit Reasons: Discuss procedure Intake Note: Patient is present for discuss procedure Urology Medication:none Antibiotic Allergy:none Blood Thinner:none Recreational Sports Director Required: No Allergies No Known Allergies Allergy (Verified 07/06/24 12:00) HPI Comments Details: Darek is a female. She is a patient of Dr. Bundy. She is seen for the following urologic conditions - nephrolithiasis - bladder cancer low-grade Telemedicine Evaluation 15 min Consultation ApplyMap Ariella Video Discussed process of upcoming ESWL with stent removal Confirmed small lesion seen and biopsied at time of stent placement was low- grade bladder cancer - recommend surveillance Nephrolithiasis Emergency room presentation 06/28/2024 Imaging - CT Moderate left hydro nephro ureter with an obstructing 4 mm stone at the ureterovesicular junction. Additional 2 mm stone is also noted at the ureterovesicular junction. Multiple nonobstructing stones are noted within the left kidney measuring up to 1.3 cm. Elevated creatinine on presentation. 1.35. Normal 0.8. Left-sided stent placed Plan for ESWL with stent removal Bladder Cancer - 07/03 - low-grade superficial less than 1 cm Biopsy and fulguration performed at time of stent placement for stones [facility] Medical History Mass of lung Coronary artery disease Social History Household Members: Spouse Housing: House Do you presently have visiting nurse or other home services: No Comment: refused alarms Patient Tobacco Use Status: Former Tobacco user Tobacco use type: Cigarette service: No Review of Systems Const All systems reviewed & are unremarkable except as noted in HPI and below Reports no additional complaints Resp Reports no additional complaints GI Reports no additional complaints Reports as per HPI Musc Reports no additional complaints Physical Exam Telemedicine evaluation Appropriate responses Regular breathing rate and rhythm HEENT Head: Yes normal to inspection Ears: hearing grossly normal bilaterally Eyes General: appearance normal, both eyes and all related structures Neck Neck: Yes normal visual inspection Chest Chest palpation & inspection: normal inspection of the chest Resp Effort & Inspection: normal respiratory effort and able to speak in complete sentences Telehealth Telehealth Location of provider rendering services: practice address Location of patient: address on file Patient Identification confirmed using: Name, : Yes Telehealth method: voice only Patient verbally consented to treatment: Yes Patient verbally consented to billing insurance company: Yes Patient informed of any privacy concerns related to visit: Yes Assessment & Plan Assessment & Plan (1) Hydronephrosis: Code(s): N13.30 - Unspecified hydronephrosis Category: Medical (2) Bladder cancer: Comment: 07/03 Low-grade superficial Code(s): C67.9 - Malignant neoplasm of bladder, unspecified Category: Medical Plan Extracorporeal Shock Wave Lithotripsy We discussed the nature of the decision and reasonable alternatives for performing the above surgery. Interventions include chemical dissolution, ESWL, ureteroscopy with laser lithotripsy and stent placement, PCNL. Options such as medical therapy were discussed. The relative uncertainties and benefits related to each alternate procedure were adequately discussed. General surgical risks including, but not limited to, pain, bleeding, infection, myocardial infarction, pulmonary embolus, deep vein thrombosis and cerebrovascular accident which may result in further hospitalization were discussed. Full disclosure of the procedure as well as all major risks, benefits and complications were discussed including but not limited to risks of bleeding, injury to the kidney with hematoma or daniel-hematoma, failure to fragments stone, potential for ureteric obstruction from stone passage and need for secondary procedures. There is a small long-term risk of hypertension and a question irving of diabetes. Success rate of fragmentation and passage is approximately 70- 75%. This is compared to the risks and benefits for ureteroscopy which has a higher success rate but is a more invasive procedure. The success rate of the procedure was discussed. Success of the procedure in the short-term does not necessarily guarantee that long-term success will be maintained. Suitable follow up will need to be maintained. The patient showed understanding of the discussion as well as the typical recovery time, and the outpatient nature of this procedure. Opportunity was given for questions. Repeat-back protocol used to confirm understanding. They wish to proceed with left ESWL - with cystoscopy stent removal Medications: New tamsulosin 0.4 mg PO BEDTIME 30 days 30 caps 1RF N20.1 - Calculus of ureter, N40.1 - Benign prostatic hyperplasia with lower urinary tract symptoms, R35.1 - Nocturia Patient Instructions: Imaging studies, laboratory and physical exam results were discussed and reviewed in detail. No major barriers to patient understanding were identified. An opportunity to ask questions regarding the treatment plan was provided. All questions were answered. The patient expressed understanding and agreement with the above treatment plan. The patient is aware they should contact our office by phone for worsening of their current condition or the appearance of new urologic symptoms. Compliance is encouraged with any medications and followup testing that is ordered. It is a privilege to participate in the urologic care of your patient. If you have any questions or concerns regarding treatment for the above conditions, or other urologic issues, please do not hesitate to contact me. The office telephone contact is [phone]. This note is constructed using voice recognition software. While every effort has been made to ensure accuracy registered safety engineer errors may have been included. Yours sincerely, Dr Yosi George MD, [facility] - Urology Providers of Expert, Compassionate Care for the Genitourinary System Coding Level of Care Code Tele Est Pt Level 4 (92606) Diagnoses Hydronephrosis N13.30 Bladder cancer C67.9
--- OUTSIDE RECORDS SUMMARY | 2024-07-06 13:02 | XMS_ITS | Encounter Summary ---
Author Organization [facility] Address [id number] [place] [id number] Care Team Providers Care Director Of Volunteer Services Name Role Phone Preet Horan MD Primary Care Provider [phone] Reason for Visit * Reason Comments Constipation Abdominal pain. Encounter Details Date Type Department Care Team (Late st Contact Info) Description 06/29/2024 4:00 PM EST Office Visit [facility] [place] [address] [place] [address] Kitty Thompson NP [address] [place], [place] [id number] Flank pain (Primary Dx); Constipation, unspecified constipation [...] to the ED family to transport to [facility] Advised to follow up with PCP if [...] documented in this encounter Plan of Treatment Not on file documented as of this encounter Results * XR Abdomen 1 View (06/29/2024 5:00 PM EST) Anatomical Region Laterality Modality Body Radiographic Ebonie ging 06/30/2024 9:13 AM EST Impressions 06/30/2024 9:16 AM EST No acute radiographic findings identified. -------- FINAL REPORT -------- Dictated By: Marie Mcgrath Dictated Date: 06/30/2024 09:13 ET Assigned Physician: Marie Mcgrath Reviewed and Electronically Signed By: Marie Mcgrath Signed Date: 06/30/2024 09:16 ET Workstation ID: [id number] Transcribed By: Self Edit Transcribed Date: 06/30/2024 09:13 ET Narrative 06/30/2024 9:16 AM EST XR ABDOMEN 1 VIEW HISTORY: Pain. PRIORS: None. FINDINGS: The kidneys are partially obscured by bowel contents. ??No radiopaque calculi are seen. There is a nonspecific, nonobstructive bowel gas pattern. ??No pneumotosis or pneumoperitoneum is seen. There is mild levoscoliosis of the lumbar spine. There is degenerative change of the visualized spine. Procedure Note Marie Mcgrath MD - 06/30/2024 XR ABDOMEN 1 VIEW HISTORY: Pain. PRIORS: None. FINDINGS: The kidneys are partially obscured by bowel contents. No radiopaque GUcalculi are seen. There is a nonspecific, nonobstructive bowel gas pattern. No pneumotosisor pneumoperitoneum is seen. There is mild levoscoliosis of the lumbar spine. There is degenerativechange of the visualized spine. IMPRESSION: No acute radiographic findings identified. -------- FINAL REPORT -------- Dictated By: Marie Mcgrath Dictated Date: 06/30/2024 09:13 ET Assigned Physician: Marie Mcgrath Reviewed and Electronically Signed By: Marie Mcgrath Signed Date: 06/30/2024 09:16 ET Workstation ID: [id number] Transcribed By: Self Edit Transcribed Date: 06/30/2024 09:13 ET Kitty Thompson CALL CENTER ANALYST IMG XR PROCEDURES documented in this encounter Visit Diagnoses Diagnosis Flank pain- Primary Abdominal pain, unspecified site Constipation, unspecified constipation type Constipation, unspecified constipation type documented in this [...] 06/14/2024 added in this encounter Care Teams Director Of Volunteer Services Relationship Specialty Start Date End Date Preet Horan MD [address] [place] [address] PCP - General Internal Medicine 03/31/21 documented as of this encounter
--- OUTSIDE RECORDS SUMMARY | 2024-07-06 13:02 | XMS_ITS | Clinical Summary ---
Author Organization [address] [place] [address] [place] [phone] Phone Care Team Providers Care Customer Service Officer Name Role Phone Preet Horan MD Primary Care Provider [phone] Allergies No known active allergies Medications Medication Sig Dispensed Refills Start Date End Date Status aspirin 81 mg EC tablet Take 1 tablet (81 mg total) by mouth 1 (one) time each day. 06/14/2024 Active atorvastatin (LIPITOR) 80 mg tablet 80 MG ORALLY BEDTIME 06/11/2024 Active metoprolol tartrate (LOPRESSOR) 25 mg tablet TAKE 1/2 A TABLET BY MOUTH TWICE A DAY 06/11/2024 Active valsartan (DIOVAN) 40 mg tablet 40 mg orally daily 06/11/2024 Active Encounters Date Type Department Care Team Description 06/29/2024 4:52 PM EST - 06/29/2024 11:59 PM EST Hospital Encounter [facility] [address] [phone] Constipation, unspecified constipation type Discharge Disposition: Home or Self Care 06/29/2024 4:00 PM EST Office Visit Walk-In [address] [phone] Kitty Thompson NP Flank pain (Primary Dx); Constipation, unspecified constipation type from Last 3 Months Social History Tobacco Use Types Packs/Day Years Used Date Smoking Tobacco: Never Assessed Sex and Gender Information Value Date Recorded Sex Assigned at Not on file Gender Identity Not on file Sexual Orientation Not on file Job Start Date Occupation Industry Not on file Not on file Not on file Last Filed Vital Signs Vital Sign Reading Time Taken Comments Blood Pressure 136/60 06/29/2024 4:16 PM EST Pulse 56 06/29/2024 4:16 PM EST Temperature 36.9 ??C (98.4 ??F) 06/29/2024 4:16 PM ES T Respiratory Rate - - Oxygen Saturation 97% 06/29/2024 4:16 PM EST Inhaled Oxygen Concentration - - Weight - - Height - - Body Mass Index - - Plan of Treatment Health Maintenance Due Date Last Done Comments DTaP,Tdap,and Td Vaccines (1 - Tdap) 1954 Depression Screening 06/30/2024 Falls Risk Assessment 06/30/2024 Medicare Annual Wellness Visit 06/30/2024 Osteoporosis Screening (Bone Density Screening) 06/30/2024 Social Influencers of Health Screening 06/30/2024 Pneumococcal Vaccine: 65+ Years Completed 02/16/2023, 03/26/2018 RSV Immunization Patients 60+ Years Old Completed 03/02/2023 COVID-19 Vaccine Completed 02/22/2024, , 02/26/2022, Additional history exists Influenza Vaccine Completed 02/22/2024, , 02/26/2022, Additional history exists Zoster Vaccines Completed 03/06/2024, 01/06/2022 HIB Vaccines Aged Out No longer eligi ble based on patient's age to complete this topic HPV Vaccines Aged Out No longer eligi ble based on patient's age to complete this topic Hepatitis A Vaccines Aged Out No long er eligible based on patient's age to complete this topic Hepatitis B Vaccines Aged Out No long er eligible based on patient's age to complete this topic IPV Vaccines Aged Out No longer eligi ble based on patient's age to complete this topic MMR Vaccines Aged Out No longer eligi ble based on patient's age to complete this topic Meningococcal ACWY Vaccine Aged Out N o longer eligible based on patient's age to complete this topic RSV Immunization Patients Under 20 months Aged Out No longer eligible based on patient's age to complete this topic Varicella Vaccines Aged Out No longer eligible based on patient's age to complete this topic Procedures Procedure Name Priority Date/Time Associated Diagnosis Comments XR ABDOMEN 1 VIEW STAT 06/29/2024 5:0 0 PM EST Constipation, unspecified constipation type from Last 3 Months Results * XR Abdomen 1 View (06/29/2024 5:00 PM EST) Anatomical Region Laterality Modality Body Radiographic Ebonie ging 06/30/2024 9:13 AM EST Impressions 06/30/2024 9:16 AM EST No acute radiographic findings identified. -------- FINAL REPORT -------- Dictated By: Marie Mcgrath Dictated Date: 06/30/2024 09:13 ET Assigned Physician: Marie Mcgrath Reviewed and Electronically Signed By: Marie Mcgrath Signed Date: 06/30/2024 09:16 ET Workstation ID: [id number] Transcribed By: Self Edit Transcribed Date: 06/30/2024 [...] Signed Date: 06/30/2024 09:16 ET Workstation ID: [id number] Transcribed By: Self Edit Transcribed Date: 06/30/2024 09:13 ET Kitty Thompson NP IMG XR PROCEDURES from Last 3 Months Care Teams Customer Service Officer Relationship Specialty Start Date End Date Preet Horan MD [address] [place] [id number] PCP - General Internal Medicine 03/31/21
--- OUTSIDE RECORDS SUMMARY | 2024-07-06 13:02 | XMS_ITS | Encounter Summary ---
Author Organization [facility] Address [address] [place] [address] Care Team Providers Care Case Management Social Worker Name Role Phone Preet Horan MD Primary Care Provider [phone] Encounter Details Date Type Department Care Team (Latest Contact Info) Description 06/29/2024 4:52 PM EST - 06/29/2024 11:59 PM EST Hospital Encounter Walk-In Clinic [address] [phone] Constipation, unspecified constipation type Discharge Disposition: Home or Self Care Social History Tobacco Use Types Packs/Day Years Used Date Smoking Tobacco: Never Assessed Sex and Gender Information Value Date Recorded Sex Assigned at Not on file Gender Identity Not on file Sexual Orientation Not on file Job Start Date Occupation Industry Not on file Not on file Not on file documented as of this encounter Medications at Time of Discharge Medication Sig Dispensed Refills Start Date End Date aspirin 81 mg EC tablet Take 1 tablet (81 mg total) by mouth 1 (one) time each day. 06/14/2024 atorvastatin (LIPITOR) 80 mg tablet 80 MG ORALLY BEDTIME 06/11/2024 metoprolol tartrate (LOPRESSOR) 25 mg tablet TAKE 1/2 A TABLET BY MOUTH TWICE A DAY 06/11/2024 valsartan (DIOVAN) 40 mg tablet 40 mg orally daily 06/11/2024 documented as of this encounter Discharge Disposition Disposition Code Departure Means Destination Home or Self Care documented in this encounter Plan of Treatment Not on file documented as of this encounter Procedures Procedure Name Priority Date/Time Associated Diagnosis Comments XR ABDOMEN 1 VIEW STAT 06/29/2024 5:0 0 PM EST Constipation, unspecified constipation type documented in this encounter Results * XR Abdomen 1 View (06/29/2024 5:00 PM EST) Anatomical Region Laterality Modality Body Radiographic Ebonie ging 06/30/2024 9:13 AM EST Impressions 06/30/2024 9:16 AM EST No acute radiographic findings identified. -------- FINAL REPORT -------- Dictated By: Marie Mcgraht Dictated Date: 06/30/2024 09:13 ET Assigned Physician: Marie Mcgrath Reviewed and Electronically Signed By: Marie Mcgrath Signed Date: 06/30/2024 09:16 ET Workstation ID: [id number] Transcribed By: Self Edit Transcribed Date: 06/30/2024 [...] Signed Date: 06/30/2024 09:16 ET Workstation ID: [id number] Transcribed By: Self Edit Transcribed Date: 06/30/2024 09:13 ET Kitty Thompson NP IMG XR PROCEDURES documented in this encounter Visit Diagnoses Diagnosis Constipation, unspecified constipation type documented in this encounter Care Teams Case Management Social Worker Relationship Specialty Start Date End Date Preet Horan MD [address] [place] [id number] PCP - General Internal Medicine 03/31/21 documented as of this encounter
== END 2024-07-06 14:23 | disposition home or self-care (01) ==
LOC: HO.HUSH 11:56
PROVIDERS: PCP Hospitalist; Visit Provider Urology
DX: N13.30 Unspecified hydronephrosis (principal); C67.9 Malignant neoplasm of bladder, unspecified
CPT/HCPCS: 98016

== ENCOUNTER → 2024-07-06 11:56 | Outpatient (BNVA) | payer MEDICARE, SELFPAY | PROVIDERS: PCP Hospitalist; Visit Provider Urology ==

== ENCOUNTER → 2024-07-13 14:50 | Outpatient (BNV) | payer MEDICARE, SELFPAY | PROVIDERS: PCP Hospitalist; Visit Provider Internal Medicine | DX: I21.4 Non-ST elevation (NSTEMI) myocardial infarction (principal); R94.39 Abnormal result of other cardiovascular function study | CPT/HCPCS: 93308 ==

== ENCOUNTER 2024-08-10 15:04 | Outpatient (AMB) | payer MEDICARE, SELFPAY ==
[2024-08-10 15:06] VITALS: BP 120/50; PULSE 60; BMI 24.9
--- NOTE | 2024-08-10 15:06 | A.OFFVIS_ITS ---
Vital Signs 08/10/24 15:06 Height 5 ft Weight 127 lb 6.835 oz BMI 24.9 BP 120/50 L Blood Pressure Location Lt brachial Position Sitting Pulse 60 Pulse Source Pulse Oximeter Intake Visit Reasons: Follow up (declined nuclear stress test) Intake Note: F/U No concerns Lining Caser Required: No Accompanied by: Daughter Allergies No Known Allergies Allergy (Verified 07/06/24 12:00) HPI Comments Details: This is an 88-year-old female patient with a history of tobacco use presenting for hospital discharge follow-up. The patient was recently admitted to the emergency department for exertional shortness of breath and malaise lasting over a week. Patient tested positive for flu a and was admitted due to elevated troponin levels, although she remained asymptomatic regarding this finding. Patient's NSTEMI etiology could be leading to takotsubo cardiomyopathy related to the flu infection or underlying coronary artery disease. During her stay, she was treated with 48 hours of Lovenox and was discharged on regimen of baby aspirin, statin, losartan, and beta digna. Additionally an incidental finding of lung mass was noted and the patient is being followed by Pulmonary and Oncology for this. Patient underwent an echocardiogram that revealed a dyskinetic apical segment during the hospital stay and the plan was for a outpatient evaluation with nuclear perfusion study, however the patient is refusing this test at the time. She expressed a preference for managing her condition medically and does not wish to pursue any testing. The patient's daughter who accompanied her to today's visit also supported this decision. Patient is otherwise denying any exertional chest pain, shortness of breath, palpitation, dizziness, orthopnea, PND, leg edema, presyncope, or syncope. Her main complaint is fatigue which she attributes to poor sleep as she is experiencing discomfort related to kidney stones and has a urethral stent which is to be removed in 2 weeks. [facility] Medical History Mass of lung Coronary artery disease Social History Household Members: Spouse Housing: House Do you presently have visiting nurse or other home services: No Alcohol intake: never Comment: refused alarms Patient Tobacco Use Status: Former Tobacco user Tobacco use type: Cigarette service: No Review of Systems Const Denies chills, Denies fatigue, Denies fever(s), Denies weight gain and Denies weight loss ENT Denies dizziness Card Denies chest pain, Denies leg edema, Denies lightheadedness, Denies palpitations, Denies dyspnea on exertion, Denies orthopnea and Denies other Resp Denies cough and Denies dyspnea on exertion GI Denies hematochezia and Denies change in stool character Musc Denies abnormal gait, Denies muscle weakness, Denies numbness, Denies radiating pain into limb and Denies tingling Neuro Denies abnormal gait, Denies dizziness, Denies numbness and Denies tingling Endo Denies fatigue and Denies palpitations Physical Exam Vital Signs: Last Vital Signs Pulse 60 08/10/24 15:06 BP 120/50 L 08/10/24 15:06 BMI result Body Mass Index 24.9 Const General: cooperative, healthy appearing, comfortable and no acute distress Orientation/consciousness: patient oriented x3 HEENT Head: Yes normal to inspection Neck Neck: Yes normal visual inspection, Yes trachea midline and Yes supple Chest Chest palpation & inspection: normal inspection of the chest Resp Effort & Inspection: normal respiratory effort Auscultation: clear to auscultation bilaterally, no crackles, no rales, no rhonchi and no wheezes Cardio Jugular venous distension: no JVD Palpation: normal PMI Rate: regular rate Rhythm: regular rhythm Heart sounds: S1 normal heart sound present, S2 normal heart sound present, no click, no gallops, no murmurs and no rubs Peripheral pulses: Peripheral pulses 2+ throughout GI Inspection: Yes normal to inspection Palpation (GI): Soft to palpation Auscultation: normal bowel sounds Skin General skin exam: no rashes or lesions noted Neuro General: patient oriented x3 Extrem General: Yes normal to inspection, No no pedal edema and No calf tenderness Psych Appearance: grossly normal Mental Status: mental status grossly normal Speech and movement: Normal speech and movement present Assessment & Plan Assessment & Plan (1) NSTEMI (non-ST elevated myocardial infarction): Code(s): I21.4 - Non-ST elevation (NSTEMI) myocardial infarction Category: Medical Plan: Elevated troponin, EKG with ischemic anterior T-wave changes during hospital stay. This could be type 2 related to underlying systemic issues with influenza infection. Clinically asymptomatic during hospital stay as well as today. (2) Coronary artery disease: Code(s): I25.10 - Atherosclerotic heart disease of [place] coronary artery without angina pectoris Category: Medical Plan: Dyskinetic apical segment could be related to underlying coronary artery disease. Continue with current conservative regimen including aspirin 81 mg daily, atorvastatin 80 mg daily, metoprolol 12.5 mg twice daily, valsartan 40 mg daily. Continue aggressive management vascular risk factors. Blood pressure today is well-controlled. [place] blood pressure goal less than 130/80. No recent LDL, ideal goal for LDL less than 70. (3) Abnormal echocardiogram: Code(s): R93.1 - Abnormal findings on diagnostic imaging of heart and coronary circulation Category: Medical Plan: 07/13/2024- echo study shows a normal ejection fraction of 60-65% and dyskinetic apical segment. Patient refusing myocardial perfusion study. We will continue with conservative management. (4) Hospital discharge follow-up: Code(s): Z09 - Encounter for follow-up examination after completed treatment for conditions other than malignant neoplasm Plan: As above. Advised heart healthy diet, regular exercise, aggressive management of blood pressure, cholesterol. Follow-up in 6 months, sooner if needed. In the interim, patient will call us with any concerns or change of symptoms. Advised patient to seek ER care in case of exertional chest pain not resolved with rest. This note was generated using voice recognition software. While every effort has been made to ensure accuracy and proper development executive, there may be occasional errors that could affect the content or meaning of the described symptoms. Coding Level of Care Code Est Pt Level 4 (83000) Complex EM visit Add On G2211 Diagnoses NSTEMI (non-ST elevated myocardial infarction) I21.4 Coronary artery disease I25.10 Abnormal echocardiogram R93.1 Hospital discharge follow-up Z09 Time Spent (min) 34 Comment Time spent in reviewing the chart, test results, assessment, counseling and documentation.
--- OUTSIDE RECORDS SUMMARY | 2024-08-10 19:06 | XMS_ITS ---
Author Organization [facility] Address [address] [phone] Care Team Providers Care Radiologist Name Role Phone SHELLEY FREED Primary Care Provider REASON FOR VISIT Valsartan (40 MG Tablet) Encounters Encounter Location Date Provider Diagnosis [facility] 294 [facility] [address] [place] [address] 08/10/2024 SHELLEY FREED Plan Of Treatment Next Appt Details Provider Name:Ananth Hoffman, 0 12/07/2024 02:30:00 PM, 294 [facility] [address], [place], [phone], Progress Notes * QUOCRenettaLandonOB:[birth year] (88 yo F)Acc No.[id number]:08/10/2024 Patient:?Darek KUMARI :1935???Age:88 Y???Sex:Female Address:[address] [place] [address], [address] * * Date:?
--- OUTSIDE RECORDS SUMMARY | 2024-08-10 19:06 | XMS_ITS ---
Author Organization [facility] Address [address] [place] [phone] Care Team Providers Care Clinical Psychology Teacher Name Role Phone SHELLEY FREED Primary Care Provider REASON FOR VISIT Metoprolol Script Medications Medication SIG (Take, Route, Frequency, Duration) Notes Start Date End Date Status Metoprolol Tartrate 25 MG 1/2 tablet wit h food Orally Twice a day for 30 days Active Encounters Encounter Location Date Provider Diagnosis [facility] [address] [phone] 08/10/2024 ROSA GUChriss HTN (hypertension), benign I10 Assessments Encounter Date Diagnosis (ICD Code) Assessment Notes Treatment Notes Treatment Clinical Notes Section Notes 08/10/2024 HTN (hypertension), benign (ICD-10 - I10) Plan Of Treatment Medication Medication Name Sig Start Date Stop Date Notes Metoprolol Tartrate 25 MG 1/2 tablet wit h food Orally Twice a day for 30 days Next Appt Details Provider Name:Ananth Hoffman, 0 12/07/2024 02:30:00 PM, [address] [place] [address], [place], [phone], Progress Notes * Renetta KUMARILandonOB:[birth year] (88 yo F)Acc No.[id number]:08/10/2024 Patient:?Darek KUMARI :1935???Age:88 Y???Sex:Female Address:[address] [place] [address], [address] * Refills? Refill Metoprolol Tartrate Tablet, 25 MG, Orally, 30, 1/2 tablet with food, Twice a day, 30 days, Refills=5 * true * Date:? Generated for Rosangela bhakta/Marisabel/Cathy on:?08/10/2024 07:06 PM EST
--- OUTSIDE RECORDS SUMMARY | 2024-08-10 19:06 | XMS_ITS ---
Author Organization [facility] Address [address] [address] Care Team Providers Care Manager Rental Name Role Phone SHELLEY FREED Primary Care Provider [phone] Encounters Encounter Location Date Provider Diagnosis [facility] 294 [facility] [address] [place] [address] 08/09/2024 SHELLEY FREED Plan Of Treatment Next Appt Details Provider Name:Deniaisai Timothymadisyn, 0 12/07/2024 02:30:00 PM, [address] [place] [address] [address], [place], [address], Progress Notes * Renetta KUMARIeDOB:[birth year] (88 yo F)Acc No.[id number]:08/09/2024 Patient:?Darek KUMARI :1935???Age:88 Y???Sex:Female Address:[address] [place] [address], [address] * true * Date:? Generated for Rosangela bhakta/Marisabel/eTransmitting on:?08/10/2024 07:06 PM EST
--- OUTSIDE RECORDS SUMMARY | 2024-08-10 19:06 | XMS_ITS | Patient Health Record ---
Author Organization [facility] Address [address] [place] [address] Care Team Providers Care Dry Room Operator Name Role Phone SHELLEY FREED Primary Care Provider TimothyDenia marsisai Unavailable [phone] Allergies No Known Allergies Reason For Referral No Information Medications Medication SIG (Take, Route, Frequency, Duration) Notes Start Date End Date Status Metoprolol Tartrate 25 MG 1/2 tablet wit h food Orally Twice a day for 30 days Active Aspirin 81 81 MG 1 tab once daily for 30 days Active Atorvastatin Calcium 80 MG 1 tablet Oral ly Once a day for 30 days Active Valsartan 40 MG 1 tablet Orally Twic e a day for 30 days Active Problems Problem Type SNOMED Code ICD Code Onset Dates Problem Status W/U Status Risk Notes Problem Malignant neoplasm of upper lobe, bronchus or lung (094514567) Malignant neoplasm of upper lobe, 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) Active confirmed Problem Acute non-ST segment elevation myocardial infarction (240431193) Non-ST elevation (NSTEMI) myocardial infarction (I21.4) Active confirmed Problem Hydronephrosis with renal and ureteral calculous obstruction (N13.2) Active confirmed Problem Calculus of kidney (57740327) Calculus of kidney (N20.0) Active confirmed Problem Essential hypertension (44182470) HTN (hypertension), benign (I10) Active confirmed Vital Signs Heart Rate 56 /min 08/03/2024 Temperature 97.6 degrees Fahrenheit 08/03/2024 Blood pressure diastolic 82 mm Hg 08/03/2024 Oximetry 95 % 08/03/2024 Height 5'0'' in 08/03/2024 Blood pressure systolic 130 mm Hg 08/03/2024 Weight 126.9 lbs 08/03/2024 BMI 24.78 kg/m2 08/03/2024 Encounters Encounter Location Date Provider Diagnosis [address] [place] [address] 08/03/2024 Aroisai Hoffman HTN (hypertension), benign I10 ; Hyperlipidemia, mixed E78.2 ; Calculus of kidney N20.0 ; Malignant neoplasm of upper lobe, right bronchus or lung C34.11 ; Hydronephrosis with renal and ureteral calculous obstruction N13.2 and Non-ST elevation (NSTEMI) myocardial infarction I21.[address] [place] [address] 08/03/[address] [place] [address] 08/10/[address] [place] [address] 07/22/[address] [place] [address] 08/05/[address] [place] [address] 08/09/[address] [place] [address] 08/10/2024 [facility] HTN (hypertension), benign I10 Assessments Encounter Date Diagnosis (ICD Code) Assessment Notes Treatment Notes Treatment Clinical Notes Section Notes 08/03/2024 HTN (hypertension), benign (ICD-10 - I10) 88-year-old lady with a history of hypertension, recent non-ST elevation HI, obstructive uropathy status post stent placement, right lung mass, bladder tumor papillary carcinoma is here today for a new PCP visit plan as of following Hypertension blood pressure is well controlled today, 130/82 She is on losartan 40 mg twice a day metoprolol 25 mg daily we will check a basic metabolic panel albumin and creatinine ratio. She is active and following healthy diet. Hyperlipidemia we will obtain a lipid profile last lab work was done at [facility] which is unavailable to us today, she is on atorvastatin 80 mg due to history of non-ST elevation HI in June 2024. We will continue t hat for now History of non-ST elevation HI in the setting of sepsis and acute illness in 2024 echocardiogram was reviewed today which was completed at [facility] showed normal LV function 60-65% she follows with Dr. Javed, she was supposed to get a nuclear stress test however patient is not willing to do that she does not want any aggressive therapy including a stent placement she will follow with cardiology for further assessment. Continue with aspirin beta-digna statins History of bladder tumor status post biopsy by Dr. 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 Left-sided hydronephrosis renal stones status post and placement she is supposed to be going in August for stent removal. Right lung mass multiple small masses most likely malignant with previous long history of smoking she has been following Dr. Porter at [facility] appeared she also saw the oncologist Dr. Rodriguez per daughter and patient she wants conservative treatment was to keep an eye and closely follow-up does not want any biopsy chemotherapy or any aggressive treatment. Patient did had a PET scan in June 2024 which confirmed right lung mass. Plan of care was discussed with patient and daughter in detail we will follow-up in 3 months for regular physical after she has completed her urology follow-up. Lab slip was given today 08/10/2024 HTN (hypertension), benign (ICD-10 - I10) 08/03/2024 Hyperlipidemia, mixed (ICD-10 - E78.2) 88-year-old lady with a history of hypertension, recent non-ST elevation HI, obstructive uropathy status post stent placement, right lung mass, bladder tumor papillary carcinoma is here today for a new PCP visit plan as of following Hypertension blood pressure is well controlled today, 130/82 She is on losartan 40 mg twice a day metoprolol 25 mg daily we will check a basic metabolic panel albumin and creatinine ratio. She is active and following healthy diet. Hyperlipidemia we will obtain a lipid profile last lab work was done at [facility] which is unavailable to us today, she is on atorvastatin 80 mg due to history of non-ST elevation HI in June 2024. We will continue t hat for now History of non-ST elevation HI in the setting of sepsis and acute illness in 2024 echocardiogram was reviewed today which was completed at [facility] showed normal LV function 60-65% she follows with Dr. Javed, she was supposed to get a nuclear stress test however patient is not willing to do that she does not want any aggressive therapy including a stent placement she will follow with cardiology for further assessment. Continue with aspirin beta-digna statins History of bladder tumor status post biopsy by Dr. 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 Left-sided hydronephrosis renal stones status post and placement she is supposed to be going in August for stent removal. Right lung mass multiple small masses most likely malignant with previous long history of smoking she has been following Dr. Porter at [facility] appeared she also saw the oncologist Dr. Rodriguez per daughter and patient she wants conservative treatment was to keep an eye and closely follow-up does not want any biopsy chemotherapy or any aggressive treatment. Patient did had a PET scan in June 2024 which confirmed right lung mass. Plan of care was discussed with patient and daughter in detail we will follow-up in 3 months for regular physical after she has completed her urology follow-up. Lab slip was given today 08/03/2024 Calculus of kidney (ICD-10 - N20.0) 88-year-old lady with a history of hypertension, recent non-ST elevation HI, obstructive uropathy status post stent placement, right lung mass, bladder tumor papillary carcinoma is here today for a new PCP visit plan as of following Hypertension blood pressure is well controlled today, 130/82 She is on losartan 40 mg twice a day metoprolol 25 mg daily we will check a basic metabolic panel albumin and creatinine ratio. She is active and following healthy diet. Hyperlipidemia we will obtain a lipid profile last lab work was done at [facility] which is unavailable to us today, she is on atorvastatin 80 mg due to history of non-ST elevation HI in June 2024. We will continue t hat for now History of non-ST elevation HI in the setting of sepsis and acute illness in 2024 echocardiogram was reviewed today which was completed at [facility] showed normal LV function 60-65% she follows with Dr. Javde, she was supposed to get a nuclear stress test however patient is not willing to do that she does not want any aggressive therapy including a stent placement she will follow with cardiology for further assessment. Continue with aspirin beta-digna statins History of bladder tumor status post biopsy by Dr. 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 Left-sided hydronephrosis renal stones status post and placement she is supposed to be going in August for stent removal. Right lung mass multiple small masses most likely malignant with previous long history of smoking she has been following Dr. Porter at [facility] appeared she also saw the oncologist Dr. Rodriguez per daughter and patient she wants conservative treatment was to keep an eye and closely follow-up does not want any biopsy chemotherapy or any aggressive treatment. Patient did had a PET scan in June 2024 which confirmed right lung mass. Plan of care was discussed with patient and daughter in detail we will follow-up in 3 months for regular physical after she has completed her urology follow-up. Lab slip was given today 08/03/2024 Malignant neoplasm of upper lobe, right bronchus or lung (ICD-10 - C34.11) 88-year-old lady with a history of hypertension, recent non-ST elevation HI, obstructive uropathy status post stent placement, right lung mass, bladder tumor papillary carcinoma is here today for a new PCP visit plan as of following Hypertension blood pressure is well controlled today, 130/82 She is on losartan 40 mg twice a day metoprolol 25 mg daily we will check a basic metabolic panel albumin and creatinine ratio. She is active and following healthy diet. Hyperlipidemia we will obtain a lipid profile last lab work was done at [facility] which is unavailable to us today, she is on atorvastatin 80 mg due to history of non-ST elevation HI in June 2024. We will continue t hat for now History of non-ST elevation HI in the setting of sepsis and acute illness in 2024 echocardiogram was reviewed today which was completed at [facility] showed normal LV function 60-65% she follows with Dr. Javed, she was supposed to get a nuclear stress test however patient is not willing to do that she does not want any aggressive therapy including a stent placement she will follow with cardiology for further assessment. Continue with aspirin beta-digna statins History of bladder tumor status post biopsy by Dr. 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 Left-sided hydronephrosis renal stones status post and placement she is supposed to be going in August for stent removal. Right lung mass multiple small masses most likely malignant with previous long history of smoking she has been following Dr. Porter at [facility] [place] appeared she also saw the oncologist Dr. Rodriguez per daughter and patient she wants conservative treatment was to keep an eye and closely follow-up does not want any biopsy chemotherapy or any aggressive treatment. Patient did had a PET scan in June 2024 which confirmed right lung mass. Plan of care was discussed with patient and daughter in detail we will follow-up in 3 months for regular physical after she has completed her urology follow-up. Lab slip was given today 08/03/2024 Hydronephrosis with renal and ureteral calculous obstruction (ICD-10 - N13.2) 88-year-old lady with a history of hypertension, recent non-ST elevation HI, obstructive uropathy status post stent placement, right lung mass, bladder tumor papillary carcinoma is here today for a new PCP visit plan as of following Hypertension blood pressure is well controlled today, 130/82 She is on losartan 40 mg twice a day metoprolol 25 mg daily we will check a basic metabolic panel albumin and creatinine ratio. She is active and following healthy diet. Hyperlipidemia we will obtain a lipid profile last lab work was done at [facility] [place] which is unavailable to us today, she is on atorvastatin 80 mg due to history of non-ST elevation HI in June 2024. We will continue t hat for now History of non-ST elevation HI in the setting of sepsis and acute illness in 2024 echocardiogram was reviewed today which was completed at [facility] showed normal LV function 60-65% she follows with Dr. Javed, she was supposed to get a nuclear stress test however patient is not willing to do that she does not want any aggressive therapy including a stent placement she will follow with cardiology for further assessment. Continue with aspirin beta-digna statins History of bladder tumor status post biopsy by Dr. 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 Left-sided hydronephrosis renal stones status post and placement she is supposed to be going in August for stent removal. Right lung mass multiple small masses most likely malignant with previous long history of smoking she has been following Dr. Porter at [facility] [place] appeared she also saw the oncologist Dr. Rodriguez per daughter and patient she wants conservative treatment was to keep an eye and closely follow-up does not want any biopsy chemotherapy or any aggressive treatment. Patient did had a PET scan in June 2024 which confirmed right lung mass. Plan of care was discussed with patient and daughter in detail we will follow-up in 3 months for regular physical after she has completed her urology follow-up. Lab slip was given today 08/03/2024 Non-ST elevation (NSTEMI) myocardial infarction (ICD-10 - I21.4) 88-year-old lady with a history of hypertension, recent non-ST elevation HI, obstructive uropathy status post stent placement, right lung mass, bladder tumor papillary carcinoma is here today for a new PCP visit plan as of following Hypertension blood pressure is well controlled today, 130/82 She is on losartan 40 mg twice a day metoprolol 25 mg daily we will check a basic metabolic panel albumin and creatinine ratio. She is active and following healthy diet. Hyperlipidemia we will obtain a lipid profile last lab work was done at [facility] [place] which is unavailable to us today, she is on atorvastatin 80 mg due to history of non-ST elevation HI in June 2024. We will continue t hat for now History of non-ST elevation HI in the setting of sepsis and acute illness in 2024 echocardiogram was reviewed today which was completed at [facility] showed normal LV function 60-65% she follows with Dr. Javed, she was supposed to get a nuclear stress test however patient is not willing to do that she does not want any aggressive therapy including a stent placement she will follow with cardiology for further assessment. Continue with aspirin beta-digna statins History of bladder tumor status post biopsy by Dr. 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 Left-sided hydronephrosis renal stones status post and placement she is supposed to be going in August for stent removal. Right lung mass multiple small masses most likely malignant with previous long history of smoking she has been following Dr. Porter at [facility] appeared she also saw the oncologist Dr. Rodriguez per daughter and patient she wants conservative treatment was to keep an eye and closely follow-up does not want any biopsy chemotherapy or any aggressive treatment. Patient did had a PET scan in June 2024 which confirmed right lung mass. Plan of care was discussed with patient and daughter in detail we will follow-up in 3 months for regular physical after she has completed her urology follow-up. Lab slip was given today Plan Of Treatment Pending Test Test Name Order Date CBC with Diff, Platelet, [id number] 07/11 Albumin/Creatinine Ratio,[id number] Lipid Panel With LDL/HDL Ratio-[id number] Comp. Metabolic Panel [id number] 2024 Next Appt Details Provider Name:Ananth Hoffman, 0 12/07/2024 02:30:00 PM, [address] [place] [address], [place], [address], Insurance Providers Payer Name Payer Address Payer Phone Subscriber Number Group Number Insured Name Patient Relationship to Insured Coverage Start Date Coverage End Date Medicare [address] [place] [phone] [id number] Darek Melendez Self - patient is the insured 3 [facility] [address] [place] [address] [phone] [id number] Darek Melendez Self - patient is the insured 4 Medical (General) History Medical History History ICD Code history of non-ST elevation HI followed by Dr. Tello Christian cardiology in 2024/sepsis-induced Right lung mass followed by Dr. Porter pulmonology and Dr. Rodriguez oncology conservative treatment Nephrolithiasis with hydrone phrosis and hydroureter status post stent by Dr. 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 Moore is following from [facility], status post bar biopsy papillary carcinoma appendectomy as a child
--- OUTSIDE RECORDS SUMMARY | 2024-08-10 19:06 | XMS_ITS | Clinical Summary ---
Author Organization [address] [place] [address] [place] [phone] Phone Care Team Providers Care Technician Submarine Cable Equipment Name Role Phone Preet Horan MD Primary Care Provider [phone] Allergies No known active allergies Medications aspirin 81 mg EC tablet Take 1 [...] 11:59 PM EST Hospital Encounter [facility] [address] [address] Constipation, unspecified constipation type Discharge Disposition: Home or Self Care 06/29/2024 4:00 PM EST Office Visit [facility] [address] [address] Kitty Thompson NP Flank pain (Primary Dx); Constipation, unspecified constipation type from Last 3 Months Social History Tobacco Use Types Packs/Day Years Used Date Smoking Tobacco: Never Assessed Comments Unknown Sex and Gender Information Value Date Recorded Sex Assigned at Not on file Legal Sex Female 9:24 PM EST Gender Identity Not on file Sexual Orientation Not on file Last Filed Vital Signs Vital Sign Reading Time Taken Comments Blood Pressure 136/60 06/29/2024 4:16 PM EST Pulse 56 06/29/2024 4:16 PM EST Temperature 36.9 ??C (98.4 ??F) 06/29/2024 4:[address] Respiratory Rate - - Oxygen Saturation 97% [...] Influencers of Health Screening 06/30/2024 Pneumococcal Vaccine: 50+ Years Completed 02/16/2023, 03/26/2018 RSV Immunization Patients [...] patient's age to complete this topic Meningococcal B Vacine Aged Out No lo nger eligible based on patient's age to complete [...] Signed Date: 06/30/2024 09:16 ET Workstation ID: [id number] Transcribed By: Self Edit Transcribed Date: 06/30/2024 [...] Signed Date: 06/30/2024 09:16 ET Workstation ID: [id number] Transcribed By: Self Edit Transcribed Date: 06/30/2024 09:13 ET us Kitty Jay DELIVERY SUPERVISOR IMG XR PROCEDURES Final Result from Last 3 Months Insurance [employer] Care Teams Technician Submarine Cable Equipment Relationship Specialty Start Date End Date Preet Horan MD [address] [place] [address] [id number] PCP - General Internal Medicine 03/31/21
== END 2024-08-10 15:35 | disposition home or self-care (01) ==
PROVIDERS: PCP Hospitalist
DX: I21.4 Non-ST elevation (NSTEMI) myocardial infarction (principal); I25.10 Atherosclerotic heart disease of native coronary artery without angina pectoris; R93.1 Abnormal findings on diagnostic imaging of heart and coronary circulation; Z09 Encounter for follow-up examination after completed treatment for conditions other than malignant neoplasm
CPT/HCPCS: 99214; G2211

== ENCOUNTER → 2024-08-10 15:04 | Outpatient (BNVA) | payer MEDICARE, SELFPAY | PROVIDERS: PCP Hospitalist | DX: Z09 Encounter for follow-up examination after completed treatment for conditions other than malignant neoplasm (principal); I21.4 Non-ST elevation (NSTEMI) myocardial infarction; I25.10 Atherosclerotic heart disease of native coronary artery without angina pectoris; R93.1 Abnormal findings on diagnostic imaging of heart and coronary circulation | CPT/HCPCS: 99212 ==

== ENCOUNTER 2024-08-25 10:54 | Day surgery (SDC) | payer MEDICARE, SELFPAY ==
[2024-08-23 13:35] VITALS: BMI 24.8
--- NOTE | ~2024-08-25 | XR_ITS ---
EXAMINATION: XR ABDOMEN 1 VIEW (KUB) HISTORY: stones COMPARISON: Correlation is made with an unenhanced CT of the abdomen and pelvis dated 06/29/2024. FINDINGS: Two supine views of the abdomen are submitted. The bowel gas pattern is unremarkable, without evidence of mechanical obstruction. The left nephroureteral stent is seen in place. There are calcifications in the left upper quadrant which may be associated with the splenic artery or left kidney. Tiny calcifications in the left hemipelvis adjacent to the stent may represent phleboliths, although exclusion from the urinary tract is not possible on the basis of this examination. There are no abnormal soft tissue masses. There is degenerative disc disease of the spine. XR/XR KUB IMPRESSION: Left nephroureteral stent in place. Tiny calcifications in the left hemipelvis may represent phleboliths. Exclusion from the urinary tract is not possible on the basis of this examination. Electronically signed by: Ten Najera MD 08/26/2024 08:15 AM EDT
[2024-08-25 11:46] VITALS: BMI 24.9
[2024-08-25 11:49] VITALS: BP 163/55; PULSE 48; RESP 16; TEMP 36.9; O2SAT 98
[2024-08-25] MEDS: Lactated Ringers 1,000 ML 999 ML IV (12:05)
[2024-08-25] MEDS: Acetaminophen 1,000 MG/100 ML PIGGYBACK 400 MG IV (12:07)
[2024-08-25] MEDS: levoFLOXacin 500 MG TABLET PO (12:13)
--- NOTE | 2024-08-25 12:20 | HO.ANESPROP2 ---
Documented by User: Julia Baumann NP 08/24/24 13:07 HPI - Anesthesia Eval Consult details Narrative: 88yo F for Left Lithotripsy ESW,with stent removal 06/2024 [facility] inpatient with obstructive uropathy / urosepsis. s/p cysto, stent 06/2024 with MAC During admit: Secondary NSTEMI. Seen by [facility] Cardiology, abnormal wall motion on ECHO, but pt declines Nuc Stress. Also incidental finding of lung mass, but pt declines further work up [facility] Cardiology office visit 08/2024 - continue with conservative management PMFSH Active Problems Active Problems: All Active Problems Abnormal echocardiogram (Acute) Bladder cancer (Acute) Acute kidney injury (Acute) Hydronephrosis (Acute) Ureteric calculus (Acute) Nephropathy, obstructive (Acute) Calculus of kidney (Acute) NSTEMI (non-ST elevated myocardial infarction) (Acute) Abnormal ECG (Acute) Elevated troponin (Acute) Influenza A (Acute) Coronary artery disease (Acute) Mass of lung (Acute) Past Medical History Medical History (Updated 08/23/24 @ 13:32 by Rylee Petit RN) Calculus of kidney Bladder cancer Coronary artery disease Mass of lung Family History Family history of problems with anesthesia: No Surgical History Surgical History (Updated 08/25/24 @ 11:43 by Miranda Zhou RN) Hx of section Hx of appendectomy Hx of cystoscopy History of Problems with Anesthesia: No Social History Social History Household Members: Spouse Housing: House Do you presently have visiting nurse or other home services: No Alcohol intake: never Comment: refused alarms Patient Tobacco Use Status: Former Tobacco user Tobacco use type: Cigarette Use of substances other than those prescribed or required for medical reasons: No Are you DNR?: No Advance Directives: No Advance Directives Information Provided: Yes service: No Meds Allergies Allergy/AdvReac Type Severity Reaction Status Date / Time No Known Allergies Allergy Verified 08/25/24 11:43 Home Medications ?Medication ?Instructions ?Recorded ?Confirmed ?Last Taken ?Type atorvastatin 80 mg tablet 80 mg PO BEDTIME 08/10/24 08/23/24 Unknown History Exam Height,Weight and Vital Signs: Height 5 ft Weight 57.606 kg Pertinent Lab Results Pertinent Lab Results: Laboratory Tests 06/30/24 05:35 WBC 13.7 H Hgb 11.9 L Hct 34.8 L Plt Count 208 Sodium 132 L Potassium 4.5 Chloride 105 Carbon Dioxide 18 L BUN 32 H Creatinine 1.35 Narrative Narrative: ECHO 07/2024 Conclusions: - The left ventricular systolic function is normal. The visually estimated ejection fraction is between 60-65%. - The apex segment is dyskinetic. EKG 05/2024 Vent. Rate : 081 BPM Atrial Rate : 081 BPM P-R Int : 132 ms QRS Dur : 098 ms QT Int : 414 ms P-R-T Axes : 072 029 173 degrees QTc Int : 480 ms Normal sinus rhythm Possible Left atrial enlargement ST & Marked T wave abnormality, consider anterolateral ischemia Prolonged QT Abnormal ECG When compared with ECG of 08-JUN-2024 18:20, Sinus rhythm has replaced Junctional rhythm Vent. rate has decreased BY 47 BPM T wave inversion less evident in Inferior leads Chest CTA 05/2024 IMPRESSION: 1. No pulmonary emboli. 2. Right middle lobe mass extending into the mediastinum measuring 3.5 x 3 5 cm, occluding the right middle lobe bronchus. 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 3. 8 mm nodule in the left lower lobe, attention recommended on follow-up. 4. Multiple small ground-glass foci in the right upper lobe. Differential includes areas of infection, inflammation or small pulmonary nodules. Assessment and Plan Assessment Anesthesia Assessment: Chart Reviewed Final Anesthetic Review Family History of Problems with Anesthesia: No History of Problems with Anesthesia: No Documented by User: Miranda Benites DO 08/25/24 12:36 [facility] Past Medical History Medical History (Updated 08/23/24 @ 13:32 by Rylee Petit RN) Calculus of kidney Bladder cancer Coronary artery disease Mass of lung Family History Family history of problems with anesthesia: No Surgical History Surgical History (Updated 08/25/24 @ 11:43 by Miranda Zhou RN) Hx of section Hx of appendectomy Hx of cystoscopy History of Problems with Anesthesia: No Social History Social History Household Members: Spouse Housing: House Do you presently have visiting nurse or other home services: No Alcohol intake: never Comment: refused alarms Patient Tobacco Use Status: Former Tobacco user Tobacco use type: Cigarette Use of substances other than those prescribed or required for medical reasons: No Are you DNR?: No Advance Directives: No Advance Directives Information Provided: Yes service: No Meds Allergies Allergy/AdvReac Type Severity Reaction Status Date / Time No Known Allergies Allergy Verified 08/25/24 11:43 Home Medications ?Medication ?Instructions ?Recorded ?Confirmed ?Last Taken ?Type atorvastatin 80 mg tablet 80 mg PO BEDTIME 08/10/24 08/23/24 Unknown History Exam Exam Date and Time: 08/25/24 1220 Height,Weight and Vital Signs: Height 5 ft Weight 57.606 kg Vital Signs Temperature 98.5 F 08/25/24 11:49 Pulse Rate 48 L 08/25/24 11:49 Respiratory Rate 16 08/25/24 11:49 Blood Pressure 163/55 H 08/25/24 11:49 Pulse Oximetry 98 08/25/24 11:49 Oxygen Delivery Method Room Air 08/25/24 11:49 Temperature 98.5 F 08/25/24 11:49 Pulse Rate 48 L 08/25/24 11:49 Respiratory Rate 16 08/25/24 11:49 Blood Pressure 163/55 H 08/25/24 11:49 Pulse Oximetry 98 08/25/24 11:49 Oxygen Delivery Method Room Air 08/25/24 11:49 Airway Mallampati Class: III (small mouth opening) TM Dist: >3cm Neck ROM: Full Loose/Missing/Broken Teeth: No (patient denies any loose or broken teeth) Heart: S1S2 Lungs: CTAB Assessment and Plan Assessment Anesthesia Assessment: Anesthesia Plan Discussed and Chart Reviewed Final Anesthetic Review Family History of Problems with Anesthesia: No History of Problems with Anesthesia: No NPO: Yes ASA Class: III Final Preanesthetic Review: No Changes in Pt Med Stat, Meds/Allgs Chart Reviewed, Consent Obtained/Reviewed and Anes Risks/Benef Reviewed Patient Risk: Intermediate Procedure Risk: Low Anesthetic Plan Anesthetic Plan: MAC: and Agree w/ Assess. and Plan Disposition: Standard PACU
--- NOTE | 2024-08-25 12:49 | P.HPSUR_ITS ---
Pre-Procedural Eval Section A - 24 Hr Update-Section A only Date of Service: 08/25/24 The patient is an INPATIENT: No Changes since office visit: No Cold of Flu in the past 2 weeks, No New Medical Problems, No Changes in Medication and No Patient answered all questions The patient has been examined within 24 hours of the surgical procedure. The History & Physical has been completed within 30 days and I have reviewed it.: No Section B - Complete if H&P > 30 days Chief Complaint: Unspecified hydronephrosis Relevant Social History: None Present Medications: see Short Stay Collaborative assessment Medical History: No relevant PMH History of Previous Operations: Relevant previous surgery/procedure and date(s) Allergies: Allergies Allergy/AdvReac Type Severity Reaction Status Date / Time No Known Allergies Allergy Verified 08/25/24 11:43 Review of Systems Sugical H&P ROS: Negative: Constitution, Cardiovascular, Respiratory, Neurological, Psychiatric, Hem-Onc, Allergic/Immunologic, Gastrointestinal, Gen itourinary, Musculoskeletal, Integumentary, Endocrine and Eyes/Ears/Nose/Throat Exam Surgical H&P Exam: Normal: HEENT, Normal: Heart, Normal: Lungs, Normal: Extremities, Normal: Abdomen, Normal: Skin and Normal: Neurological Plan Diagnosis/Plan: Unchanged (cysto left stent removal, left ESWL) I have reviewed the history and physical and performed a pertinent physical examination on my patient. No changes have occurred unless specified. Time Spent With Patient Time: Total time managing care of this patient today ____ minutes.
--- NOTE | 2024-08-25 13:23 | W.PM.OPN ---
Operative Note Operative Note Date of Service: 08/25/24 Narrative: PreOperative Diagnosis: Left Renal stones with indwelling stent Post Operative Diagnosis: Left Renal stones with indwelling stent Procedure: Cystoscopy with left stent removal, left ESWL Surgeon: Dr Yosi George Anesthesia: mac/sedation Indications for procedure: The patient understands ESWL may be a staged procedure and subsequent intervention may be required based on imaging after ESWL. Quoted stone clearance rates for a solitary procedure are in the 70-80% range based primarily on stone location. They also understand there is a risk of bleeding to the kidney, infection, damage to adjacent organs, and stone migration following the procedure. - Imaging 11 mm x 8 mm on ultrasound today Procedure optimization has been performed with IV acetaminophen given in the holding area and 1 L of lactated Ringer's to be given in order to optimize the fluid-stone interface. 20 mg of IV Lasix will be given in the last 5 minutes of the procedure to optimize stone clearance. Procedure: After informed consent was verified the patient was brought to the operating room and placed in a supine position. Anesthesia was performed per protocol. Safety pause time-out was performed. Imaging was displayed in the room and laterality confirmed. Cystoscopy performed with removal of left stent. Grasped and removed without difficulty. ESWL was performed. The 1st 500 shocks were performed at 60 hertz. These were performed with increasing power. Once maximum power was reached the rate was increased to 180 hertz. A total of 2500 shocks were given. Targeted imaging with ultrasound/fluoroscopy showed stone smudging suggestive of disintegration. The patient tolerated the procedure well and was transferred to the recovery area upon completion. Post procedure imaging will be organized. There was no evidence for flank discoloration.
[2024-08-25 13:52] VITALS: BP 128/43; PULSE 72; RESP 18; TEMP 36.2; O2SAT 98
[2024-08-25 14:07] VITALS: BP 141/57; PULSE 85; RESP 18; TEMP 36.6; O2SAT 98
== END 2024-08-25 14:49 | disposition home or self-care (01) ==
PROVIDERS: PCP Hospitalist; Visit Provider Urology
PROC: (CPT 50590; principal; 2024-08-25 13:10)
DX: N13.2 Hydronephrosis with renal and ureteral calculous obstruction (principal); Z96.0 Presence of urogenital implants; C67.9 Malignant neoplasm of bladder, unspecified; I25.10 Atherosclerotic heart disease of native coronary artery without angina pectoris; R91.8 Other nonspecific abnormal finding of lung field; Z79.899 Other long term (current) drug therapy; Z87.891 Personal history of nicotine dependence
CPT/HCPCS: 50590; 52310; 74018; J0131; J1940; J2003; J2704; J3010

== ENCOUNTER → 2024-08-25 10:54 | Outpatient (BNV) | payer MEDICARE, SELFPAY | PROVIDERS: PCP Hospitalist; Visit Provider Urology | DX: N20.0 Calculus of kidney (principal); Z96.0 Presence of urogenital implants | CPT/HCPCS: 50590; 52310 ==

== ENCOUNTER → 2024-08-25 11:10 | Outpatient (BNV) | payer MEDICARE, SELFPAY | PROVIDERS: PCP Hospitalist; Visit Provider Radiology Diagnostic Radiology | DX: N13.30 Unspecified hydronephrosis (principal); M85.88 Other specified disorders of bone density and structure, other site | CPT/HCPCS: 74018 ==

== ENCOUNTER 2024-10-07 13:34 | Outpatient (REF) | payer MEDICARE, SELFPAY ==
--- NOTE | ~2024-10-07 | US_ITS ---
EXAMINATION: US KIDNEY BILATERAL HISTORY: N13.30 - Unspecified hydronephrosis TECHNIQUE: Real-time grayscale ultrasound imaging of the kidneys was performed and images were reviewed. COMPARISON: Correlation is made with a CT of the abdomen and pelvis without contrast dated 06/29/2024. FINDINGS: Right kidney: The right kidney measures 9.1 x 4.1 x 4.3 cm. Renal parenchymal echotexture and thickness are normal. There are no masses. There is no hydronephrosis or renal calculi. Left Kidney: The left kidney measures 9.7 x 4.1 x 4.2 cm. Renal parenchymal echotexture and thickness are normal. There are no masses. Multiple nonobstructing calculi are identified including a 6 x 3 x 7 mm calculus in the interpolar region, and 8 x 9 x 5 mm and 9 x 6 x 8 mm calculi at the lower pole. There is moderate hydronephrosis. US/US renal BI IMPRESSION: Moderate left hydronephrosis. Left renal calculi as described above. Electronically signed by: Ten Najera MD 10/08/2024 07:03 AM EDT
--- OUTSIDE RECORDS SUMMARY | 2024-10-07 15:53 | XMS_ITS | Clinical Summary ---
Author Organization [address] [place] [address] [place] [phone] Phone Care Team Providers Care Breed To Wean Production Technician Name Role Phone Preet Horan MD Primary Care Provider [phone] Allergies No known active allergies Medications aspirin [...] tablet 40 mg orally daily 06/11/2024 Active Social History Tobacco Use Types Packs/Day Years [...] 06/30/2024 Social Influencers of Health Screening 06/30/2024 COVID-19 Vaccine ( season) 2024 02/22/2024, 02/27/2023, 02/26/2022, Additional history exists Pneumococcal Vaccine: 50+ Years Completed 02/16/2023, 03/26/2018 RSV Immunization Adult Patients Completed 03/02/2023 Influenza Vaccine Completed 02/22/2024, , 02/26/2022, Additional [...] age to complete this topic Meningococcal B Vaccine Aged Out No l onger eligible based on patient's age to complete this topic RSV Immunization Patients Under 20 months Aged Out No longer eligible based on patient's age to complete this topic Varicella Vaccines Aged Out No longer eligible based on patient's age to complete this topic Insurance [facility] MEDICARE ADVANTAGE Care Teams Breed To Wean Production Technician Relationship Specialty Start Date End Date Preet Horan MD [address] [place] [address] [address] [place] [address] PCP - General Internal Medicine 03/31/21
--- OUTSIDE RECORDS SUMMARY | 2024-10-07 15:53 | XMS_ITS | Patient Health Record ---
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) Active confirmed Problem Acute non-ST segment elevation myocardial infarction (804184030) Non-ST elevation (NSTEMI) myocardial infarction (I21.4) Active confirmed Problem Hydronephrosis with renal and ureteral calculous obstruction (N13.2) Active confirmed Problem Calculus of kidney (35987293) Calculus of kidney (N20.0) Active confirmed Problem Essential hypertension (48199431) HTN (hypertension), benign (I10) Active confirmed Vital Signs Heart Rate 56 /min 08/03/2024 Temperature 97.6 degrees Fahrenheit 08/03/2024 Blood pressure diastolic 82 mm Hg 08/03/2024 Oximetry 95 % 08/03/2024 Height 5'0'' in 08/03/2024 Blood pressure systolic 130 mm Hg 08/03/2024 Weight 126.9 lbs 08/03/2024 BMI 24.78 kg/m2 08/03/2024 Encounters Encounter Location Date Provider Diagnosis [address] [place] [address] 08/03/2024 [facility] HTN (hypertension), benign I10 ; Hyperlipidemia, mixed E78.2 ; Calculus of kidney N20.0 ; Malignant neoplasm of upper lobe, right bronchus or lung C34.11 ; Hydronephrosis with renal and ureteral calculous obstruction N13.2 and Non-ST elevation (NSTEMI) myocardial infarction I21.[address] [place] [address] 07/22/[address] [place] [address] 08/03/[address] [place] [address] 08/05/[address] [place] [address] 08/09/[address] [place] [address] 08/10/2024 [facility] GU HTN (hypertension), benign I10 [address] [place] [address] 08/10/2024 [facility] G[facility] HTN (hypertension), benign I10 Assessments Encounter Date Diagnosis (ICD Code) Assessment Notes Treatment Notes Treatment Clinical Notes Section Notes 08/03/2024 HTN (hypertension), benign (ICD-10 - I10) 88-year-old lady with a history of hypertension, recent non-ST elevation TN, obstructive uropathy status post stent placement, right [...] profile last lab work was done at [facility] which is unavailable to us today, she is on atorvastatin 80 mg due to history of non-ST elevation TN in June 2024. We will continue t hat for now History of non-ST elevation TN in the setting of sepsis and acute illness in 2024 echocardiogram was reviewed today which was completed at [facility] showed normal LV function 60-65% she follows [...] she has been following Dr. Porter at [facility] appeared she also saw the oncologist Dr. [...] 08/10/2024 HTN (hypertension), benign (ICD-10 - I10) 08/10/2024 HTN (hypertension), benign (ICD-10 - I10) 08/03/2024 Hyperlipidemia, mixed (ICD-10 - E78.2) 88-year-old lady with a history of hypertension, recent non-ST elevation TN, obstructive uropathy status post stent placement, right [...] profile last lab work was done at [facility] which is unavailable to us today, she is on atorvastatin 80 mg due to history of non-ST elevation TN in June 2024. We will continue t hat for now History of non-ST elevation TN in the setting of sepsis and acute illness in 2024 echocardiogram was reviewed today which was completed at [facility] showed normal LV function 60-65% she follows [...] she has been following Dr. Porter at [facility] appeared she also saw the oncologist Dr. [...] a history of hypertension, recent non-ST elevation TN, obstructive uropathy status post stent placement, right [...] profile last lab work was done at [facility] which is unavailable to us today, she is on atorvastatin 80 mg due to history of non-ST elevation TN in June 2024. We will continue t hat for now History of non-ST elevation TN in the setting of sepsis and acute illness in 2024 echocardiogram was reviewed today which was completed at [facility] showed normal LV function 60-65% she follows [...] she has been following Dr. Porter at [facility] appeared she also saw the oncologist Dr. [...] a history of hypertension, recent non-ST elevation TN, obstructive uropathy status post stent placement, right [...] profile last lab work was done at [facility] which is unavailable to us today, she is on atorvastatin 80 mg due to history of non-ST elevation TN in June 2024. We will continue t hat for now History of non-ST elevation TN in the setting of sepsis and acute illness in 2024 echocardiogram was reviewed today which was completed at [facility] showed normal LV function 60-65% she follows [...] she has been following Dr. Porter at [facility] appeared she also saw the oncologist Dr. [...] a history of hypertension, recent non-ST elevation TN, obstructive uropathy status post stent placement, right [...] profile last lab work was done at [facility] which is unavailable to us today, she is on atorvastatin 80 mg due to history of non-ST elevation TN in June 2024. We will continue t hat for now History of non-ST elevation TN in the setting of sepsis and acute illness in 2024 echocardiogram was reviewed today which was completed at [facility] showed normal LV function 60-65% she follows [...] she has been following Dr. Porter at [facility] appeared she also saw the oncologist Dr. [...] a history of hypertension, recent non-ST elevation TN, obstructive uropathy status post stent placement, right [...] profile last lab work was done at [facility] which is unavailable to us today, she is on atorvastatin 80 mg due to history of non-ST elevation TN in June 2024. We will continue t hat for now History of non-ST elevation TN in the setting of sepsis and acute illness in 2024 echocardiogram was reviewed today which was completed at [facility] showed normal LV function 60-65% she follows [...] she has been following Dr. Porter at [facility] appeared she also saw the oncologist Dr. [...] Name Order Date CBC with Diff, Platelet, [id number] 07/11 Albumin/Creatinine Ratio,[id number] Lipid Panel With LDL/HDL [id number] Comp. Metabolic Panel [id number] 2024 Next Appt Details Provider Name:Ananth Hoffman, Jenny 12/07/2024 02:30:00 PM, [address] [place] [address], [phone], Insurance Providers Payer Name Payer Address Payer Phone Subscriber Number Group Number Insured Name Patient Relationship to Insured Coverage Start Date Coverage End Date [employer] [place] [employer] 1 [facility] [address] [place] [phone] [id number] Darek Melendez Self - patient is the insured 4 Medical (General) History Medical History History ICD Code history of non-ST elevation TN followed by Dr. Tello Christian cardiology in [...]
--- OUTSIDE RECORDS SUMMARY | 2024-10-07 15:53 | XMS_ITS ---
Author Organization [facility] Address [address] [place] [address] Care Team Providers Care R Programmer Name Role Phone SHELLEY FREED Primary Care Provider REASON FOR VISIT Metoprolol Script Medications Medication SIG (Take, Route, Frequency, Duration) Notes Start Date End Date Status Metoprolol Tartrate 25 MG 1/2 tablet wit h food Orally Twice a day for 30 days Active Encounters Encounter Location Date Provider Diagnosis [facility] [address] [address] 08/10/2024 ROSAJOON BURGERChriss HTN (hypertension), benign I10 Assessments Encounter Date [...] Provider Name:Ananth Hoffman, 0 12/07/2024 02:30:00 PM, [address] [place] [address], [place], [phone], Progress Notes * Renetta KUMARILandonOB:[birth year] (88 yo F)Acc No.[id number]:08/10/2024 Patient:?Darek KUMARI :1935???Age:88 Y???Sex:Female Address:[address] [place] [address], [address] * Refills? Refill Metoprolol Tartrate Tablet, 25 MG, Orally, 30, 1/2 tablet with food, Twice a day, 30 days, Refills=5 * true * Date:? Generated for Rosangela bhakta/Marisabel/Cathy on:?10/07/2024 03:53 PM EDT
--- OUTSIDE RECORDS SUMMARY | 2024-10-07 15:53 | XMS_ITS ---
Author Organization [facility] Address [address] [facility] [address] [place] [address] Care Team Providers Care Bark Grinder Name Role Phone SHELLEY FREED Primary Care Provider Encounters Encounter Location Date Provider Diagnosis [facility] [address] [facility] [address] [place] [address] 08/09/2024 SHELLEY FREED Plan Of Treatment Next Appt Details Provider Name:Deniaisai Timothymadisyn, 0 12/07/2024 02:30:00 PM, [address] [place] [address] [address], [place], [phone], Progress Notes * Renetta KUMARIeDOB:[birth year] (88 yo F)Acc No.[id number]:08/09/2024 Patient:?Darek KUMARI :1935???Age:88 Y???Sex:Female Address:[address] [place] [address], [address] * true * Date:? Generated for Rosangela bhakta/Marisabel/eTransmitting on:?10/07/2024 03:53 PM EDT
--- OUTSIDE RECORDS SUMMARY | 2024-10-07 15:53 | XMS_ITS ---
Author Organization [facility] Address [address] [place] [address] Care Team Providers Care Supervisor Rubber Covering Name Role Phone SHELLEY FREED Primary Care Provider REASON FOR VISIT Valsartan (40 MG Tablet) Medications Medication SIG (Take, Route, Fr equency, Duration) Notes Start Date End Date Status Valsartan 40 MG 1 tablet Orally Once a day for 30 days Active Encounters Encounter Location Date Provider Diagnosis [facility] [address] [address] 08/10/2024 ROSA GUChriss HTN (hypertension), benign I10 Assessments Encounter Date Diagnosis (ICD Code) Assessment Notes Treatment Notes Treatment Clinical Notes Section Notes 08/10/2024 HTN (hypertension), benign (ICD-10 - I10) Plan Of Treatment Medication Medication Name Sig Start Date Stop Date Notes Valsartan 40 MG 1 tablet Orally Once a day for 30 days Next Appt Details Provider Name:Ananth Hoffman, 0 12/07/2024 02:30:00 PM, [address] [place] [address], [phone], Progress Notes * Renetta KUMARIeDOB:[birth year] (88 yo F)Acc No.[id number]:08/10/2024 Patient:?Darek KUMARI :1935???Age:88 Y???Sex:Female Address:[address] [place] [address], [address] * Refills? Refill Valsartan Tablet, 40 MG, Orally, 30 Tablet, 1 tablet, Once a day, 30 days, Refills=5 * true * Date:? Generated for Rosangela bhakta/Marisaebl/Cathy on:?10/07/2024 03:53 PM EDT
== END 2024-10-07 13:35 | disposition home or self-care (01) ==
LOC: HO.US 13:34
PROVIDERS: PCP Hospitalist; Visit Provider Urology
DX: N13.30 Unspecified hydronephrosis (principal)
CPT/HCPCS: 76775

== ENCOUNTER → 2024-10-07 13:37 | Outpatient (BNV) | payer MEDICARE, SELFPAY | PROVIDERS: PCP Hospitalist; Visit Provider Radiology Diagnostic Radiology | DX: N13.30 Unspecified hydronephrosis (principal) | CPT/HCPCS: 76775 ==

== ENCOUNTER 2024-10-13 10:47 | Outpatient (AMB) | payer MEDICARE, SELFPAY ==
--- NOTE | 2024-10-13 10:50 | A.OFFVIS_ITS ---
Intake Visit Reasons: ESWL, follow up/US Intake Note: Patient is present for ESWL/US Urology Medication:TAMSULOISIN,TRIMETHOPRIM Antibiotic Allergy:NONE Blood Thinner:ASPIRIN Search Engine Optimization Specialist Required: No Allergies No Known Allergies Allergy (Verified 10/13/24 10:52) HPI Comments Details: Darek is a female. She is a patient of Dr. Bundy. She is seen for the following urologic conditions - nephrolithiasis - bladder cancer low-grade Follow-up from ESWL with stent removal UA today no evidence of inflammation Confirmed small lesion seen and biopsied at time of stent placement was low- grade bladder cancer -plan surveillance December cease daily low-grade antibiotic Nephrolithiasis Emergency room presentation 06/28/2024 Imaging - CT Moderate left hydro nephro ureter with an obstructing 4 mm stone at the ureterovesicular junction. Additional 2 mm stone is also noted at the ureterovesicular junction. Multiple nonobstructing stones are noted within the left kidney measuring up to 1.3 cm. Elevated creatinine on presentation. 1.35. Normal 0.8. Left-sided stent placed Procedure - 10/01 left ESWL with stent removal Bladder Cancer - 07/03 - low-grade superficial less than 1 cm Biopsy and fulguration performed at time of stent placement for stones Bladder, transurethral resection: - Low-grade papillary urothelial carcinoma, noninvasive. - No muscularis propria identified [facility] Medical History (Updated 09/29/24 @ 20:08 by Yosi George MD) Calculus of kidney Bladder cancer Coronary artery disease Mass of lung Surgical History (Updated 08/25/24 @ 11:43 by Miranda Zhou RN) Hx of section Hx of appendectomy Hx of cystoscopy Social History Household Members: Spouse Housing: House Do you presently have visiting nurse or other home services: No Alcohol intake: never Comment: refused alarms Patient Tobacco Use Status: Former Tobacco user Tobacco use type: Cigarette service: No Review of Systems Const Denies chills and Denies fever(s) Card Reports no additional complaints and Denies syncope Resp Denies cough GI Denies abdominal pain and Denies heartburn Reports as per HPI and Denies change in libido Neuro Denies syncope Psych Denies change in libido Endo Denies change in libido Physical Exam Const General: cooperative, healthy appearing, comfortable and no acute distress Orientation/consciousness: patient oriented x3 HEENT Face and sinus: Yes normal facial exam Mouth: moist mucous membranes Neck Neck: Yes normal visual inspection, Yes full ROM and Yes trachea midline Chest Chest palpation & inspection: normal inspection of the chest Resp Effort & Inspection: normal respiratory effort, able to speak in complete sentences and no respiratory distress GI Inspection: Yes normal to inspection Back/Spine/Pelvis Cervical Spine: normal cervical lordosis Thoracic/Lumbar Spine: thoracic and lumbar spine normal to inspection Skin General skin exam: no rashes or lesions noted Neuro General: patient oriented x3, gait normal, tone normal and moves all extremities Extrem General: Yes normal to inspection and Yes capillary refill normal Results AMB Urinalysis, Automated UA Leukoctes 0 Michelle/uL Last Edit by KLAUDIA Morris on 10/13/24 11:14 UA Nitrite Negative Last Edit by KLAUDIA Morris on 10/13/24 11:14 UA Urobilinogen 0.2 mg/dL Last Edit by KLAUDIA Morris on 10/13/24 11:1 4 UA Protein 15 mg/dL Last Edit by KLAUDIA Morris on 10/13/24 11:14 UA pH 6.0 Last Edit by KLAUDIA Morris on 10/13/24 11:14 UA Blood 10 Cornelio/uL Last Edit by KLAUDIA Morris on 10/13/24 11:14 UA Specific Duson 1.030 Last Edit by KLAUDIA Morris on 10/13/24 11: 14 UA Ketone Negative Last Edit by KLAUDIA Morris on 10/13/24 11:14 UA Bilirubin 0 mg/dL Last Edit by KLAUDIA Morris on 10/13/24 11:14 UA Glucose 0 mg/dL Last Edit by KLAUDIA Morris on 10/13/24 11:14 Results Reviewed Results Reviewed: Laboratory Last Values Urine pH (Auto) 6.0 10/13/24 11:13 Specific Duson (Auto) 1.030 10/13/24 11:13 Urine Protein (Auto) 15 mg/dL 10/13/24 11:13 Glucose (UA)(Auto) 0 mg/dL 10/13/24 11:13 Urine Ketones (Auto) Negative 10/13/24 11:13 Urine Blood (Auto) 10 Cornelio/uL 10/13/24 11:13 Urine Nitrite (Auto) Negative 10/13/24 11:13 Urine Bilirubin (Auto) 0 mg/dL 10/13/24 11:13 Urine Urobilinogen (Auto) 0.2 mg/dL 10/13/24 11:13 Leukocyte Esterase (Auto) 0 Michelle/uL 10/13/24 11:13 Assessment & Plan Assessment & Plan (1) Hydronephrosis: Code(s): N13.30 - Unspecified hydronephrosis Category: Medical (2) Bladder cancer: Comment: 07/03 Low-grade superficial Code(s): C67.9 - Malignant neoplasm of bladder, unspecified Category: Medical Plan Two month follow-up check cysto Orders: Orders Urine Cytology Today C67.9 - Malignant neoplasm of bladder, unspecified AMB Urinalysis Automated Today Z13.9 - Encounter for screening, unspecified Patient Instructions: This note is constructed using voice recognition software. While every effort has been made to ensure accuracy quick service technician errors may have been included. Imaging studies, laboratory and physical exam results were discussed and reviewed in detail. No major barriers to patient understanding were identified. An opportunity to ask questions regarding the treatment plan was provided. All questions were answered. The patient expressed understanding and agreement with the above treatment plan. The patient is aware they should contact our office by phone for worsening of their current condition or the appearance of new urologic symptoms. Compliance is encouraged with any medications and followup testing that is ordered. It is a privilege to participate in the urologic care of your patient. If you have any questions or concerns regarding treatment for the above conditions, or other urologic issues, please do not hesitate to contact me. The office telephone contact is [phone]. Sincerely, Dr Yosi George MD, [facility] - Urology Compassionate Specialist Care for the Genitourinary System Coding Level of Care Code Est Pt Level 3 (85759) Diagnoses Hydronephrosis N13.30 Bladder cancer C67.9
--- OUTSIDE RECORDS SUMMARY | 2024-10-13 12:07 | XMS_ITS | Patient Health Record ---
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) Active confirmed Problem Acute non-ST segment elevation myocardial infarction (082790264) Non-ST elevation (NSTEMI) myocardial infarction (I21.4) Active confirmed Problem Hydronephrosis with renal and ureteral calculous obstruction (N13.2) Active confirmed Problem Calculus of kidney (57389466) Calculus of kidney (N20.0) Active confirmed Problem Essential hypertension (43454436) HTN (hypertension), benign (I10) Active confirmed Vital Signs Heart Rate 56 /min 08/03/2024 Temperature 97.6 degrees Fahrenheit 08/03/2024 Blood pressure diastolic 82 mm Hg 08/03/2024 Oximetry 95 % 08/03/2024 Height 5'0'' in 08/03/2024 Blood pressure systolic 130 mm Hg 08/03/2024 Weight 126.9 lbs 08/03/2024 BMI 24.78 kg/m2 08/03/2024 Encounters Encounter Location Date Provider Diagnosis [address] [place] [address] 08/03/2024 [place] Alam HTN (hypertension), benign I10 ; Hyperlipidemia, mixed E78.2 ; Calculus of kidney N20.0 ; Malignant neoplasm of upper lobe, right bronchus or lung C34.11 ; Hydronephrosis with renal and ureteral calculous obstruction N13.2 and Non-ST elevation (NSTEMI) myocardial infarction I21.[address] [place] [address] 07/22/[address] [place] [address] 08/03/[address] [place] [address] 08/05/[address] [place] [address] 08/09/[address] [place] [address] 08/10/2024 ROSA GU HTN (hypertension), benign I10 [address] [place] [address] 08/10/2024 ROSA GUL HTN (hypertension), benign I10 Assessments Encounter Date Diagnosis (ICD Code) Assessment Notes Treatment Notes Treatment Clinical Notes Section Notes 08/03/2024 HTN (hypertension), benign (ICD-10 - I10) 88-year-old lady with a history of hypertension, recent non-ST elevation UT, obstructive uropathy status post stent placement, right [...] profile last lab work was done at [facility] which is unavailable to us today, she is on atorvastatin 80 mg due to history of non-ST elevation UT in June 2024. We will continue t hat for now History of non-ST elevation UT in the setting of sepsis and acute illness in 2024 echocardiogram was reviewed today which was completed at [facility] showed normal LV function 60-65% she follows [...] she has been following Dr. Porter at [facility] appeared she also saw the oncologist Dr. [...] a history of hypertension, recent non-ST elevation UT, obstructive uropathy status post stent placement, right [...] profile last lab work was done at [facility] which is unavailable to us today, she is on atorvastatin 80 mg due to history of non-ST elevation UT in June 2024. We will continue t hat for now History of non-ST elevation UT in the setting of sepsis and acute illness in 2024 echocardiogram was reviewed today which was completed at [facility] showed normal LV function 60-65% she follows [...] she has been following Dr. Porter at [facility] appeared she also saw the oncologist Dr. [...] a history of hypertension, recent non-ST elevation UT, obstructive uropathy status post stent placement, right [...] profile last lab work was done at [facility] which is unavailable to us today, she is on atorvastatin 80 mg due to history of non-ST elevation UT in June 2024. We will continue t hat for now History of non-ST elevation UT in the setting of sepsis and acute illness in 2024 echocardiogram was reviewed today which was completed at [facility] showed normal LV function 60-65% she follows [...] she has been following Dr. Porter at [facility] appeared she also saw the oncologist Dr. [...] a history of hypertension, recent non-ST elevation UT, obstructive uropathy status post stent placement, right [...] profile last lab work was done at [facility] which is unavailable to us today, she is on atorvastatin 80 mg due to history of non-ST elevation UT in June 2024. We will continue t hat for now History of non-ST elevation UT in the setting of sepsis and acute illness in 2024 echocardiogram was reviewed today which was completed at [facility] showed normal LV function 60-65% she follows [...] she has been following Dr. Porter at [facility] appeared she also saw the oncologist Dr. [...] a history of hypertension, recent non-ST elevation UT, obstructive uropathy status post stent placement, right [...] profile last lab work was done at [facility] which is unavailable to us today, she is on atorvastatin 80 mg due to history of non-ST elevation UT in June 2024. We will continue t hat for now History of non-ST elevation UT in the setting of sepsis and acute illness in 2024 echocardiogram was reviewed today which was completed at [facility] showed normal LV function 60-65% she follows [...] she has been following Dr. Porter at [facility] appeared she also saw the oncologist Dr. [...] a history of hypertension, recent non-ST elevation UT, obstructive uropathy status post stent placement, right [...] profile last lab work was done at [facility] which is unavailable to us today, she is on atorvastatin 80 mg due to history of non-ST elevation UT in June 2024. We will continue t hat for now History of non-ST elevation UT in the setting of sepsis and acute illness in 2024 echocardiogram was reviewed today which was completed at [facility] showed normal LV function 60-65% she follows [...] she has been following Dr. Porter at [facility] appeared she also saw the oncologist Dr. [...] Name Order Date CBC with Diff, Platelet, [id number] 07/11 Albumin/Creatinine Ratio,[id number] Lipid Panel With LDL/HDL [id number] Comp. Metabolic Panel [id number] 2024 Next Appt Details Provider Name:Ananth Hoffman, Jenny 12/07/2024 02:30:00 PM, [address] [place] [address], [phone], Insurance Providers Payer Name Payer Address Payer Phone Subscriber Number Group Number Insured Name Patient Relationship to Insured Coverage Start Date Coverage End Date [employer] [place] [employer] 1 [facility] [address] [place] [phone] [id number] Darek Melendez Self - patient is the insured 4 Medical (General) History Medical History History ICD Code history of non-ST elevation UT followed by Dr. Tello Christian cardiology in [...]
--- OUTSIDE RECORDS SUMMARY | 2024-10-13 12:07 | XMS_ITS | Clinical Summary ---
Author Organization [address] [place] [address] [place] [phone] Phone Care Team Providers Care Gallery Or Museum Technician Name Role Phone Preet Horan MD Primary Care Provider [phone] Allergies No known active allergies Medications aspirin [...] patient's age to complete this topic Insurance [facility] MEDICARE ADVANTAGE Care Teams Gallery Or Museum Technician Relationship Specialty Start Date End Date Preet Horan MD [address] [place] [address] [address] [place] [address] PCP - General Internal Medicine 03/31/21
--- OUTSIDE RECORDS SUMMARY | 2024-10-13 12:08 | XMS_ITS ---
Author Organization [facility] Address [address] [place] [address] Care Team Providers Care Triage Licensed Practical Nurse Name Role Phone SHELLEY FREED Primary Care Provider REASON FOR VISIT Metoprolol Script Medications Medication SIG (Take, Route, Frequency, Duration) Notes Start Date End Date Status Metoprolol Tartrate 25 MG 1/2 tablet wit h food Orally Twice a day for 30 days Active Encounters Encounter Location Date Provider Diagnosis [facility] [address] [address] 08/10/2024 ROSAJOON BURGERChriss HTN (hypertension), benign I10 [...] Provider Name:Ananth Hoffman, 0 12/07/2024 02:30:00 PM, [address] [place] [address], [place], [address], Progress Notes * Renetta KUMARILandonOB:[birth year] (88 yo F)Acc No.[id number]:08/10/2024 Patient:?Darek KUMARI :1935???Age:88 Y???Sex:Female Address:[address] [place] [address], [address] * Refills? Refill Metoprolol Tartrate Tablet, 25 MG, Orally, 30, 1/2 tablet with food, Twice a day, 30 days, Refills=5 * true * Date:? Generated for Rosangela bhakta/Marisabel/Cathy on:?10/13/2024 12:08 PM EDT
--- OUTSIDE RECORDS SUMMARY | 2024-10-13 12:08 | XMS_ITS ---
Author Organization [facility] Address [address] [place] [address] Care Team Providers Care Nursing Informatics Analyst Name Role Phone SHELLEY FREED Primary Care Provider [phone] REASON FOR VISIT Valsartan (40 MG Tablet) Medications Medication SIG (Take, Route, Fr equency, Duration) Notes Start Date End Date Status Valsartan 40 MG 1 tablet Orally Once a day for 30 days Active Encounters Encounter Location Date Provider Diagnosis [facility] [address] [address] 08/10/2024 ROSA GUChriss HTN (hypertension), benign I10 Assessments Encounter Date Diagnosis (ICD Code) Assessment Notes Treatment Notes Treatment Clinical Notes Section Notes 08/10/2024 HTN (hypertension), benign (ICD-10 - I10) Plan Of Treatment Medication Medication Name Sig Start Date Stop Date Notes Valsartan 40 MG 1 tablet Orally Once a day for 30 days Next Appt Details Provider Name:Ananth Hoffman, 0 12/07/2024 02:30:00 PM, [address] [place] [address], [phone], Progress Notes * Renetta KUMARIeDOB:[birth year] (88 yo F)Acc No.[id number]:08/10/2024 Patient:?Darek KUMARI :1935???Age:88 Y???Sex:Female Address:[address] [place] [address], [address] * Refills? Refill Valsartan Tablet, 40 MG, Orally, 30 Tablet, 1 tablet, Once a day, 30 days, Refills=5 * true * Date:? Generated for Rosangela bhakta/Marisabel/Cathy on:?10/13/2024 12:08 PM EDT
--- OUTSIDE RECORDS SUMMARY | 2024-10-13 12:08 | XMS_ITS ---
Author Organization [facility] Address [address] [address] Care Team Providers Care City Bus Driver Name Role Phone SHELLEY FREED Primary Care Provider Encounters Encounter Location Date Provider Diagnosis [facility] [address] [facility] [address] [place] [address] 08/09/2024 SHELLEY FREED Plan Of Treatment Next Appt Details Provider Name:Deniaisai Timothymadisyn, 0 12/07/2024 02:30:00 PM, [address] [place] [address] [address], [place], [address], Progress Notes * Renetta KUMARIeDOB:[birth year] (88 yo F)Acc No.[id number]:08/09/2024 Patient:?Darek KUMARI :1935???Age:88 Y???Sex:Female Address:[address] [place] [address], [address] * true * Date:? Generated for Rosangela bhakta/Marisabel/eTransmitting on:?10/13/2024 12:07 PM EDT
== END 2024-10-13 11:37 | disposition home or self-care (01) ==
LOC: HO.HUSH 10:48
PROVIDERS: PCP Hospitalist; Visit Provider Urology
DX: N13.30 Unspecified hydronephrosis (principal); C67.9 Malignant neoplasm of bladder, unspecified; Z13.9 Encounter for screening, unspecified
CPT/HCPCS: 99024

== ENCOUNTER 2024-10-13 10:47 | Outpatient (REF) | payer MEDICARE, SELFPAY ==
[2024-10-13 16:46] LABS: Urine Cytology See Pathology rpt
== END 2024-10-13 10:48 | disposition home or self-care (01) ==
LOC: HO.LAB 10:47
PROVIDERS: PCP Hospitalist; Visit Provider Urology
DX: C67.9 Malignant neoplasm of bladder, unspecified (principal); N20.0 Calculus of kidney; N13.30 Unspecified hydronephrosis; Z13.9 Encounter for screening, unspecified
CPT/HCPCS: 81003; 88112; 99212

== ENCOUNTER 2024-12-21 09:01 | Inpatient (IN) | payer MEDICARE, SELFPAY ==
[2024-12-21] VITALS (11 sets, daily range): BP systolic 116–189; BP diastolic 51–80; PULSE 51–84; RESP 11–20; TEMP 36.4–37; O2SAT 93–99; BMI 26.2
--- NOTE | 2024-12-21 | ECG_ITS ---
Test Reason : cp Blood Pressure : */* mmHG Vent. Rate : 57 BPM Atrial Rate : 57 BPM P-R Int : 142 ms QRS Dur : 94 ms QT Int : 488 ms P-R-T Axes : 74 9 141 degrees QTcB Int : 474 ms Sinus bradycardia Left ventricular hypertrophy with repolarization abnormality ( R in aVL , Sokolow-Anand ) Abnormal ECG When compared with ECG of 08-Jun-2024 20:11, Nonspecific T wave abnormality has replaced inverted T waves in Inferior leads Referred By: Generic ED Physician Electronically Signed By: LICHA ADDISON
--- NOTE | ~2024-12-21 | XR_ITS ---
EXAMINATION: XR CHEST CLINICAL INFORMATION: dyspnea on exertion, chest pressure COMPARISON: June 08, 2024 TECHNIQUE: 2 views of the chest were obtained. FINDINGS: Atherosclerotic calcifications present in the aortic knob. There is convex right curvature of the lower thoracic spine. There is persistent fullness of the right hilum. There is a 1.6 cm nodular density in the left upper lung, just lateral to the AP window. Otherwise, lungs are clear with chronic coarse markings. On lateral, costophrenic angles are obscured likely by pleural effusions. XR/XR chest 2V IMPRESSION: Right hilar fullness is concerning for adenopathy. Suspected left apical pulmonary n nodule concerning for neoplasm. Small to moderate bilateral pleural effusions. Cardiomegaly. Electronically signed by: Manolo Perez MD 12/21/2024 11:41 AM EDT
--- NOTE | ~2024-12-21 | CT_ITS ---
EXAMINATION: CT ANGIOGRAM CHEST CLINICAL INFORMATION: Dyspnea on exertion, chest pain, elevated d-dimer COMPARISON: June 08, 2024 TECHNIQUE: Multiple axial images were obtained through the chest after the administration of 65 mL of Omnipaque 350 intravenous contrast. Extensive vascular post-processing including two-dimensional and three-dimensional reformatted images were created and reviewed on an independent workstation. This CT examination was performed using dose optimization techniques as appropriate, variously including the following: *Automated exposure control *Adjustment of mA and/or kV according to patient size (this includes techniques or standardized protocols for targeted exams where dose is matched to indication/reason for exam; i.e. extremities or head) *Use of iterative reconstruction technique DLP: 215 mGY*cm FINDINGS: QUALITY OF STUDY/CONTRAST BOLUS: Adequate PULMONARY ARTERIES: There is abrupt decrease attenuation in the right upper lobe pulmonary artery (coronal series #8 image 38/75 image) 2 cm cephalad to the right main pulmonary artery. On the prior study, this portion of the vessel was well opacified raising question of a pulmonary embolus. THORACIC AORTA: Moderate atherosclerotic calcifications are present. LUNGS AND PLEURA: Moderate right greater than left pleural effusions are new since the prior. There is moderate centrilobular emphysema. There are groundglass densities and pulmonary vascular enlargement. Image 37/153: Superior segment left lower lobe nodule is 11 mm, previously millimeters. Partially obscured right hilar mass with postobstructive atelectasis of the right middle lobe is again noted. 46/153: Anterior right upper lobe nodule is 8 mm, it appears more solid than on the prior but similar size. 59/153: Posterior segment right upper lobe nodule measuring 7 x 16 mm appears more solid than on the prior exam Other solid and groundglass pulmonary nodules are new. MEDIASTINUM: There are shotty lymph nodes. CORONARY ARTERY CALCIFICATION: Present CHEST WALL/AXILLA: No axillary or internal mammary lymphadenopathy. UPPER ABDOMEN: There is reflux of contrast into the hepatic veins. Again seen are low attenuating lesions in liver, likely simple hepatic cysts. There is stable enlargement of the left adrenal gland. Simple renal cyst is again noted in the medial left kidney. Multifocal high attenuation in the left kidney is probably early contrast excretion. BONES: Multilevel degenerative disc disease and facet arthropathy is again noted. CT/CT angio chest PE protocol IMPRESSION: Right upper lobe pulmonary artery shows abrupt decreased attenuation 2 cm cephalad to the main right pulmonary. This flow abnormality raises question of a pulmonary embolus. Prominent pulmonary vessels and new bilateral pleural effusions raises question of pulmonary vascular congestion. There is also new reflux of contrast into the hepatic veins consistent with right heart failure. Right hilar/mediastinal mass with postobstructive atelectasis of the right middle lobe and multiple enlarging pulmonary nodules is most consistent with progression of lung cancer/metastatic disease. Stable left adrenal gland thickening could be neoplastic in nature. Fleischner guidelines were followed. Electronically signed by: Manolo Perez MD 12/21/2024 05:43 PM EDT
--- NOTE | 2024-12-21 09:52 | PC.NURSE ---
Pt A&O X4 VSS States intermittent chest tightness. Connected to full monitor NAD NSR no ectopy. Awaiting provider.
--- NOTE | 2024-12-21 10:38 | ED_ITS ---
HPI - Chest Pain General Chief Complaint: Chest Pain Stated Complaint: CP , sob Time Seen by Provider: 12/21/24 10:38 History of Present Illness ED Provider: Taurus HERZOG narrative: The patient is an 88-year-old woman who apparently has a history of an episode of takotsubo cardiomyopathy 7 months ago. At that time she had influenza. She lives at home with her . The patient says that ever since her episode of takotsubo cardiomyopathy her overall level of activity and function has been diminished but she continues to live in the community and usually does not use a cane or a walker to get around. Last night the patient developed a pressure-like chest discomfort across her lower chest. She describes it as feeling ?like a belt. ? The discomfort was not variable with breathing. She had some mild nausea. She also burped a lot. The discomfort started around 21:00 last night before she fell asleep. She says she was able to sleep despite the discomfort but the discomfort was still there when she woke up this morning and she called her daughter who brought her to the emergency room. At the moment she has some mild continuing discomfort but it is not as severe as it was last night. No fever, sweats, chills. Related Data Home Medications ?Medication ?Instructions ?Recorded ?Confirmed atorvastatin 80 mg tablet 80 mg PO BEDTIME 08/10/24 Previous Rx's ?Medication ?Instructions ?Recorded aspirin 81 mg tablet,delayed 81 mg PO DAILY #90 tabs 0 06/11/24 release Held on 07/01/24. Instructions: hold for 1 week metoprolol tartrate 25 mg tablet 12.5 mg PO BID #90 ta bs 06/11/24 valsartan 40 mg tablet 40 mg PO DAILY #90 tabs 08/31 tramadol 50 mg tablet 50 mg PO Q6H PRN pain (scale score 08/25/24 1-3) #8 tabs trimethoprim 100 mg tablet 100 mg PO DAILY nephrolithi asis 90 08/25/24 days #90 tabs naproxen 500 mg tablet 500 mg PO BID PRN pain 14 da ys #14 09/22/24 tabs prednisone 20 mg tablet 20 mg PO DAILY 5 days #5 tab s 09/22/24 tamsulosin 0.4 mg capsule 0.4 mg PO BEDTIME 14 days #1 4 caps 09/22/24 ciprofloxacin HCl 250 mg tablet 250 mg PO BID 5 days # 10 tabs 09/29/24 nitrofurantoin 100 mg PO BID 7 days #14 cap s 10/01/24 monohydrate/macrocrystals 100 mg capsule (Macrobid) Allergies Allergy/AdvReac Type Severity Reaction Status Date / Time No Known Allergies Allergy Verified 12/21/24 09:33 Review of Systems 2 Review of Systems: Yes all other systems are reviewed and are negative [facility] Past Medical History Medical History (Updated 12/21/24 @ 18:26 by Mic Condon MD) Calculus of kidney Bladder cancer Coronary artery disease Mass of lung Surgical History (Updated 08/25/24 @ 11:43 by Miranda Zhou RN) Hx of section Hx of appendectomy Hx of cystoscopy Social History Social History Household Members: Spouse Housing: House Do you presently have visiting nurse or other home services: No Alcohol intake: never Comment: refused alarms Patient Tobacco Use Status: Former Tobacco user Tobacco use type: Cigarette Smoked in Last 30 Days: No Use of substances other than those prescribed or required for medical reasons: No Advance Directives: No Advance Directives Information Provided: Yes service: No Physical Exam 2 Vital Signs: Vital Signs: Last Vital Signs Temp 98.6 F 12/21/24 11:51 Pulse 52 12/21/24 17:32 Resp 18 12/21/24 17:32 BP 158/56 H 12/21/24 17:32 Pulse Ox 94 12/21/24 17:32 O2 Del Method Room Air 12/21/24 17:32 BMI result Body Mass Index 26.2 Const: Other: The patient is awake and alert. She did not seem acutely ill. However at times she seemed to get short of breath with the extended talking. Orientation/consciousness: patient oriented x3 HEENT: Other: The face is symmetrical. ?Mucous membranes moist. Eyes: Other: Pupils are round equal, conjunctivae are clear, extraocular movements intact General: appearance normal, both eyes and all related structures Neck: Neck: Yes normal visual inspection and Yes full ROM Resp: Other: No increased work of breathing. There was some end expiratory wheezing bilaterally. No definite crackles. Cardio: Rate: regular rate Rhythm: regular rhythm Heart sounds: S1 normal heart sound present and S2 normal heart sound present GI: Other: Abdomen is soft and nontender Skin: Other: Skin is pale and dry Neuro: General: patient oriented x3, tone normal, moves all extremities, no focal motor deficits and CN's II-XI intact bilaterally Extrem: Other: No peripheral edema. Good pulses in the feet. No calf asymmetry or tenderness. Medications Administered Discontinued Medications Generic Name Dose Route Start Last Admin Trade Name Freq PRN Reason Stop Dose Admin Al Hydroxide/Mg Hydroxide 30 ml 12/21/24 11:01 12/21/24 11:34 Magnesium Hydrox/Alum Hydrox 30 Ml Oral.Susp PO 12/21/24 11:02 30 ml ONCE ONE Administration Iohexol 100 ml 12/21/24 16:38 12/21/24 16:38 Iohexol 350 Mg/Ml 100 Ml Infus..Btl IV 12/21/24 16:39 65 ml ONCE ONE Administration Potassium Chloride 40 meq 12/21/24 17:14 12/21/24 17:46 Potassium Chloride Er 20 Meq Tab.Er.Prt PO 12/21/24 17:15 40 meq ONCE ONE Administration Medical Decision Making Medical Decision Making [facility] [place] Narrative: The patient is an 88-year-old woman who has a history of having had takotsubo cardiomyopathy several months ago in the setting of influenza. She has a long smoking history although she has stopped smoking. She presents with chest pain that started yesterday evening. Her family also says that she has had worsening dyspnea on exertion for the last 2 days. She has not had any fever. She has no peripheral signs of a DVT. She had an EKG that had a very concerning appearance to her anterior leads but her previous EKGs are fairly similar. When I saw her she did not seem to have significant ongoing discomfort. She described her discomfort as a pressure-like discomfort which was not respirophasic. She was saturating well at rest on room air. Her initial troponin was 59.9. Subsequent troponins were 67.4 and 75.4. Given the degree of exertional dyspnea the family was describing I also obtained a D-dimer which was elevated. This led to a CT pulmonary angiogram. The findings of the CT pulmonary angiogram include new bilateral pleural effusions and prominent pulmonary vessels raising the question of pulmonary edema. Additionally there was new reflex of contrast into the hepatic veins consistent with right heart failure. Also there is an abrupt cut off to the right upper lobe pulmonary artery possibly consistent with a pulmonary embolism. Overall it seems as though the patient has new congestive heart failure with the possibility of a pulmonary embolism as well. Her BNP is higher today than it was in June. It was also apparent that the patient gets quite short of breath with fairly minimal exertion. With all these findings it seemed appropriate to hospitalize the patient for further treatment and investigation. The patient was given 40 mg of IV furosemide and a dose of 10 mg of apixaban. The patient will be admitted to telemetry. Lab Data 12/21/24 11:44 12/21/24 11:44 Labs: Lab Results 12/21/24 12/21/24 12/21/24 Range/Units 11:43 11:44 13:30 WBC 10.3 (4.8-10.8) X10*3/uL RBC 4.23 (4.20-5.50) X10*6/uL Hgb 12.1 (12.0-16.0) g/dl Hct 35.3 L (37.0-47.0) % MCV 83.5 (80.0-98.0) fL MCH 28.6 (27.0-33.0) pg MCHC 34.3 (31.0-35.0) g/dl RDW 13.5 (11.0-16.0) % Plt Count 215 (160-400) X10*3/uL MPV 11.0 (9.4-12.3) fL Immature Gran % (Auto) 0.4 (0.0-0.4) % Neut % (Auto) 70.8 (45-73) % Lymph % (Auto) 20.5 (20-40) % [place] % (Auto) 5.8 (2-11) % Eos % (Auto) 2.1 (0-4) % Baso % (Auto) 0.4 (0-2) % Lymph # (Auto) 2.1 (1.2-4.9) X10*3/uL [place] # (Auto) 0.6 (0.1-1.2) X10*3/uL Eos # (Auto) 0.2 (0.0-0.4) X10*3/uL Baso # (Auto) 0.0 (0.0-0.2) X10*3/uL Abs Immat Gran (auto) 0.04 H (0.00-0.03) X10*3/uL Absolute Neuts (auto) 7.3 (2.0-8.3) x10*3/uL Absolute Nucleated RBC 0.000 (0.0-0.012) X10*3/uL Nucleated RBC % (auto) 0.0 (0.0-0.2) /100WBC PT 11.6 (10.9-12.4) SEC INR 1.0 (0.9-1.1) D-Dimer High Sensitivty 581 NG/ML Sodium 144 (135-145) mmol/L Potassium 3.0 L D (3.3-5.1) mmol/L Chloride 108 (96-108) mmol/L Carbon Dioxide 29 (22-29) mmol/L Anion Gap 10 L (12-20) BUN 14 (9-16) mg/dL Creatinine 0.94 (0.5-1.4) mg/dL Estim Creat Clear Calc 34.9 Estimated GFR 56 Random Glucose 96 (60-115) mg/dL Calcium 9.0 D (8.4-10.2) mg/dL Magnesium 1.9 (1.6-2.6) mg/dL Total Bilirubin 0.8 (0.0-1.0) mg/dL Direct Bilirubin 0.3 (0.0-0.5) mg/dL AST 41 H (5-31) U/L ALT 45 H (0-31) U/L Alkaline Phosphatase 122 H (39-117) U/L Troponin I High Sens 59.9 H* D 67.4 H* (<3.5-17.0) ng/L C-Reactive Protein 0.11 (< or = 0.50) mg/dL B-Natriuretic Peptide 1258 H (<100) pg/mL Total Protein 7.9 (6.5-8.0) g/dL Albumin 4.2 (3.5-5.0) g/dL Lipase 43 (8-78) U/L Urine Color Yellow Urine Appearance Cloudy Urine pH 6.0 (5.0-9.0) Ur Specific [place] 1.015 (1.005-1.025) Urine Protein 100 (2+) H (Neg-Trace) mg/dL Urine Glucose (UA) Negative (Negative) mg/dL Urine Ketones Negative (Negative) mg/dL Urine Blood Trace H (Negative) Urine Nitrite Negative (Negative) Ur Leukocyte Esterase Moderate (2+) H (Negative) Urine RBC 0-2 (0-2) /HPF Urine WBC 21-50 H (0-5) /HPF Ur Squamous Epith Cells >20 (0-2) /HPF Urine Bacteria 2+ (None Seen) Hyaline Casts 0-2 (0-2) /LPF Influenza Type A (PCR) NEGATIVE (Negative) Influenza Type B (PCR) NEGATIVE (Negative) RSV RNA Qual (PCR) NEGATIVE (Negative) SARS-CoV-2 RNA (RT-PCR) NEGATIVE (Negative) 12/21/24 Range/Units 17:13 WBC (4.8-10.8) X10*3/uL RBC (4.20-5.50) X10*6/uL Hgb (12.0-16.0) g/dl Hct (37.0-47.0) % MCV (80.0-98.0) fL MCH (27.0-33.0) pg MCHC (31.0-35.0) g/dl RDW (11.0-16.0) % Plt Count (160-400) X10*3/uL MPV (9.4-12.3) fL Immature Gran % (Auto) (0.0-0.4) % Neut % (Auto) (45-73) % Lymph % (Auto) (20-40) % [place] % (Auto) (2-11) % Eos % (Auto) (0-4) % Baso % (Auto) (0-2) % Lymph # (Auto) (1.2-4.9) X10*3/uL [place] # (Auto) (0.1-1.2) X10*3/uL Eos # (Auto) (0.0-0.4) X10*3/uL Baso # (Auto) (0.0-0.2) X10*3/uL Abs Immat Gran (auto) (0.00-0.03) X10*3/uL Absolute Neuts (auto) (2.0-8.3) x10*3/uL Absolute Nucleated RBC (0.0-0.012) X10*3/uL Nucleated RBC % (auto) (0.0-0.2) /100WBC PT (10.9-12.4) SEC INR (0.9-1.1) D-Dimer High Sensitivty NG/ML Sodium (135-145) mmol/L Potassium (3.3-5.1) mmol/L Chloride (96-108) mmol/L Carbon Dioxide (22-29) mmol/L Anion Gap (12-20) BUN (9-16) mg/dL Creatinine (0.5-1.4) mg/dL Estim Creat Clear Calc Estimated GFR Random Glucose (60-115) mg/dL Calcium (8.4-10.2) mg/dL Magnesium (1.6-2.6) mg/dL Total Bilirubin (0.0-1.0) mg/dL Direct Bilirubin (0.0-0.5) mg/dL AST (5-31) U/L ALT (0-31) U/L Alkaline Phosphatase (39-117) U/L Troponin I High Sens 75.4 H* (<3.5-17.0) ng/L C-Reactive Protein (< or = 0.50) mg/dL B-Natriuretic Peptide (<100) pg/mL Total Protein (6.5-8.0) g/dL Albumin (3.5-5.0) g/dL Lipase (8-78) U/L Urine Color Urine Appearance Urine pH (5.0-9.0) Ur Specific [place] (1.005-1.025) Urine Protein (Neg-Trace) mg/dL Urine Glucose (UA) (Negative) mg/dL Urine Ketones (Negative) mg/dL Urine Blood (Negative) Urine Nitrite (Negative) Ur Leukocyte Esterase (Negative) Urine RBC (0-2) /HPF Urine WBC (0-5) /HPF Ur Squamous Epith Cells (0-2) /HPF Urine Bacteria (None Seen) Hyaline Casts (0-2) /LPF Influenza Type A (PCR) (Negative) Influenza Type B (PCR) (Negative) RSV RNA Qual (PCR) (Negative) SARS-CoV-2 RNA (RT-PCR) (Negative) Independent Interpretation I performed an independent interpretation of an: EKG Interpretation: EKG at 0905 shows sinus bradycardia at 57 beats per minute. There are T-wave inversions in the chest leads which have a potentially ischemic appearance. There is Q-wave in lead III. Overall the patient's EKG is fairly similar in appearance to the EKG from 07/08/2023, the most previous EKG. A 2nd EKG was done at 14:48 that showed sinus bradycardia at 54 beats per minute and was very similar to the 1st EKG. Critical Care Time Critical Care Time Critical Care Time: Yes Total Critical Care Time: 35 Attestation: The patient was critically ill with a high probability of imminent or life- threatening deterioration. ?I spent greater than 30 minutes of discontinuous time evaluating the patient, delivering critical care at the bedside, discussing evaluating data with consultants. ?Critical care time does not include time spent performing separately billable procedures or teaching. ?Time spent performing critical care with 35 minutes. Discharge Plan Discharge Patient Disposition: Admitted As Inpatient Print Language: Iranian
--- OUTSIDE RECORDS SUMMARY | 2024-12-21 10:52 | XMS_ITS | Patient Health Record ---
Author Organization [employer] Address [address] [place] [address] Care Team Providers Care Senior Buyer Planner Name Role Phone SHELLEY FREED Primary Care Provider [phone] Ananth Hoffman Unavailable [phone] Allergies No Known Allergies Results Component Value Reference Range Notes CBC with Diff, Platelet, NLR [id number] Reviewed date:12/06/2024 07:49:37 AM Interpretation: Performing Lab:[facility], [address] [place] [address], [place], Phone - [phone], Director - Katharine Notes/Report: WBC 9.4 3.4-10.8 x10E3/uL RBC 4.27 3.77-5.28 x10E6/uL Hemoglobin 11.9 11.1-15.9 g/dL Hematocrit 38.6 34.0-46.6 % MCV 90 79-97 fL MCH 27.9 26.6-33.0 pg MCHC 30.8 31.5-35.7 g/dL RDW 13.5 11.7-15.4 % Platelets 232 150-450 x10E3/uL Neutrophils 56 Not Estab. % Lymphs 31 Not Estab. % Monocytes 9 Not Estab. % Eos 4 Not Estab. % Basos 0 Not Estab. % Neutrophils (Absolute) 5.2 1.4-7.0 x10E3/uL Lymphs (Absolute) 2.9 0.7-3.1 x10E3/uL Neut/Lymph Ratio 1.8 0.0-2.9 ratio Published COVID-19 studies suggest: Low likelihood of severe COVID-19 disease progression 0.0-2.9 High likelihood of severe COVID-19 disease progression >4.9 Monocytes(Absolute) 0.8 0.1-0.9 x10E3/uL Eos (Absolute) 0.3 0.0-0.4 x10E3/uL Baso (Absolute) 0.0 0.0-0.2 x10E3/uL Immature Granulocytes 0 Not Estab. % Immature Grans (Abs) 0.0 0.0-0.1 x10E3/uL Albumin/Creatinine Ratio,Uri [id number] Reviewed date:12/06/2024 07:50:04 AM Interpretation: Performing Lab:[facility] [place], [address], Phone - [phone], Director - MDJodry Notes/Report: Creatinine, Urine 82.2 Not Estab. mg/dL Albumin, Urine 28.9 Not Estab. ug/mL Alb/Creat Ratio 35 0-29 mg/g creat Normal: 0 - 29 Moderately increased: 30 - 300 Severely increased: >300 Lipid Panel With LDL/HDL Rat [id number] Reviewed date:12/06/2024 07:49:44 AM Interpretation: Performing Lab:[facility], [address] [place] [address], Phone - [phone], Director - Olafy Notes/Report: Cholesterol, Total 141 100-199 mg/dL Triglycerides 130 0-149 mg/dL HDL Cholesterol 56 >39 mg/dL VLDL Cholesterol Christopher 23 5-40 mg/dL LDL Chol Calc ([facility]) 62 0-99 mg/dL LDL/HDL Ratio 1.1 0.0-3.2 ratio LDL/HDL Ratio Men Women 1/2 Avg.Risk 1.0 1.5 Avg.Risk 3.6 3.2 2X Avg.Risk 6.2 5.0 3X Avg.Risk 8.0 6.1 Comp. Metabolic Panel [id number] Reviewed date:12/06/2024 07:50:13 AM Interpretation: Performing Lab:[facility], [address] [facility], [place], Phone - [phone], Director - MDJodry Notes/Report: Glucose 99 70-99 mg/dL BUN 28 8-27 mg/dL Creatinine 0.94 0.57-1.00 mg/dL eGFR 59 >59 mL/min/1.73 BUN/Creatinine Ratio 30 12-28 Sodium 139 134-144 mmol/L Potassium 4.4 3.5-5.2 mmol/L Chloride 103 96-106 mmol/L Carbon Dioxide, Total 22 20-29 mmol/L Calcium 9.2 8.7-10.3 mg/dL Protein, Total 7.5 6.0-8.5 g/dL Albumin 4.1 3.7-4.7 g/dL Globulin, Total 3.4 1.5-4.5 g/dL Bilirubin, Total 0.4 0.0-1.2 mg/dL Alkaline Phosphatase 124 44-121 IU/L AST (SGOT) 26 0-40 IU/L Reason For Referral No Information Medications Medication SIG (Take, Route, Frequency, Duration) Notes Start Date End Date Status Atorvastatin Calcium 80 MG 1 tablet Oral ly Once a day; Duration: 90 days Active Metoprolol Tartrate 25 MG 1/2 tablet wit h food Orally Twice a day; Duration: 30 days Active Valsartan 40 MG 1/2 tablet Orally On ce a day; Duration: 30 days Active Aspirin 81 81 MG 1 tab once daily; Duration: 30 days Active Rollator Ultra-Light - Dx: R26; Duration : 90 days 12/14/2024 Active Immunizations Vaccine Route Administration Date Status Comme nts COVID 19 Pfizer Unknown 07/21/2020 Administered COVID 19 Pfizer Unknown 08/11/2020 Administered COVID 19 Pfizer Unknown 03/11/2021 Administered COVID Pfizer Unknown 10/16/2021 Administered COVID Pfizer Unknown 02/26/2022 Administered Shingrix Unknown 01/06/2022 Administered Shingrix Unknown 03/06/2024 Administered Problems Problem Type SNOMED Code ICD Code Onset Dates Problem Status W/U Status Risk Notes Problem Malignant neoplasm of upper lobe, bronchus or lung (040366385) Malignant neoplasm of upper lobe, 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) Active confirmed Problem Acute non-ST segment elevation myocardial infarction (983143478) Non-ST elevation (NSTEMI) myocardial infarction (I21.4) Active confirmed Problem Hydronephrosis with renal and ureteral calculous obstruction (N13.2) Active confirmed Problem Calculus of kidney (56205978) Calculus of kidney (N20.0) Active confirmed Problem 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 (198864016452775) 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) Active confirmed Problem Essential hypertension (17140645) HTN (hypertension), benign (I10) Active confirmed Vital Signs Heart Rate 54 /min 12/07/2024 Temperature 97.2 degrees Fahrenheit 12/07/2024 Oximetry 94 % 12/07/2024 Blood pressure diastolic 80 mm Hg 12/07/2024 Height 5'0'' in 12/07/2024 Blood pressure systolic 120 mm Hg 12/07/2024 Weight 128 lbs 12/07/2024 BMI 25 kg/m2 12/07/2024 Encounters Encounter Location Date Provider Diagnosis [address] [place] [address] 08/03/2024 [facility] HTN (hypertension), benign I10 ; Hyperlipidemia, mixed E78.2 ; Calculus of kidney N20.0 ; Malignant neoplasm of upper lobe, right bronchus or lung C34.11 ; Hydronephrosis with renal and ureteral calculous obstruction N13.2 and Non-ST elevation (NSTEMI) myocardial infarction I21.[address] [place] [address] 12/07/2024 Ananth Aguirre Encounter for genera l adult medical examination without abnormal findings Z00.00 ; HTN (hypertension), benign I10 and 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 I25.[address] [place] [address] 07/22/[address] [place] [address] 08/03/[address] [place] [address] 08/05/[address] [place] [address] 08/09/[address] [place] [address] 08/10/2024 [facility] HTN (hypertension), benign I10 [address] [place] [address] 08/10/2024 SHELLEY FREED HTN (hypertension), benign I10 [facility] [address] [place] [address] 12/08/2024 Ananth Hoffman HTN (hypertension), benign I10 [facility] [address] [place] [address] 12/13/2024 SHELLEY FREED Assessments Encounter Date Diagnosis (ICD Code) Assessment Notes Treatment Notes Treatment Clinical Notes Section Notes 08/10/2024 HTN (hypertension), benign (ICD-10 - I10) 08/10/2024 HTN (hypertension), benign (ICD-10 - I10) 12/07/2024 Encounter for general adult medical examination without abnormal findings (ICD-10 - Z00.00) 88-year-old lady with a history of hypertension, recent non-ST elevation UT, obstructive uropathy status post stent placement, right lung mass, bladder tumor papillary carcinoma is here today for annual wellness visit. Plan as following. Hypertension blood pressure is 120/80, due to dizziness and low blood pressure cardiology recently decrease losartan dose to 20 mg daily she is also on metoprolol 12.5 mg daily. Currently blood pressure is stable. Reviewed lab work including basic metabolic panel and albumin creatinine ratio which is slightly elevated at 35 done on 11/30/24. Patient is on the right medication and will continue the current dose hyperlipidemia she is on atorvastatin lipid profile is within normal limits reviewed today and discussed with patient and daughter History of non-ST elevation UT in June 2024. We will continue that for nowHistory of non-ST elevation UT in the setting of sepsis and acute illness in 2024 echocardiogram was reviewed today which was completed at [facility] showed normal LV function 60-65% she follows with Dr. Javed, patient refused to do a stress test opted for medical therapy. There was also a suggestion of cardiac catheterization however patient does not want any aggressive intervention discussed with patient and daughter that for diagnostic purposes of a cardiac cath would be done however overall she may not be a candidate for bypass surgery patient currently is following with cardiology and will discuss if she wants a cardiac cath and EKG was done today which was reviewed shows heart rate of 47 bpm QTC is 431 there is evidence of LVH and T wave inversion in the anterior and lateral leads indicating the previous UT. She is currently chest pain-free. She is on aspirin metoprolol and statins which she will continue. History of bladder tumor status post biopsy by Dr. Mooer 2024 which showed low-grade papillary carcinoma she has a follow-up in August 2024.Left-sided hydronephrosis renal stones status post and placement she is supposed to be going in August for stent removal.Right lung mass multiple small masses most likely malignant with previous long history of smoking she has been following Dr. Porter at [facility] appeared she also saw the oncologist Dr. Rodriguez per daughter and patient she wants conservative treatment was to keep an eye and closely follow-up does not want any biopsy chemotherapy or any aggressive treatment. Patient did had a PET scan in June 2024 which confirmed right lung mass. Anxiety and depression patient denies any anxiety and depression she sleeps well. BMI is within normal limits Patient is independent with ADLs, she feels safe at home. She had 2 falls in the last few months. Discussed with patient most likely due to gait instability and also due to dizziness probably caused by hypertension medication has been adjusted they will continue to follow and watch blood pressure if the blood pressure runs low we will can discontinue valsartan advanced health planning, her healthcare proxy is confirmed paperwork is signed by the daughter Rosa Maria Lopez she is the healthcare proxy they will bring a copy of it. We also discussed about CODE STATUS daughter and patient agrees to DNR/DNI however they want to rethink it and will let us know. MoLst form was introduced to the patient preventive health measures patient does not want any colonoscopies, other aggressive testing and vaccines. She is not doing Pap smear anymore and does not do any mammogram. Patient states to me since she started to see a doctor she has more medical problems than before Please note that patient has not seen a PCP all her life. 08/03/2024 HTN (hypertension), benign (ICD-10 - I10) [...] profile last lab work was done at [facility] which is unavailable to us today, she is on atorvastatin 80 mg due to history of non-ST elevation UT in June 2024. We will continue t hat for now History of non-ST elevation UT in the setting of sepsis and acute illness in 2024 echocardiogram was reviewed today which was completed at [facility] showed normal LV function 60-65% she follows [...] she has been following Dr. Porter at [facility] appeared she also saw the oncologist Dr. [...] urology follow-up. Lab slip was given today 12/07/2024 HTN (hypertension), benign (ICD-10 - I10) 88-year-old lady with a history of hypertension, recent non-ST elevation UT, obstructive uropathy status post stent placement, right lung mass, bladder tumor papillary carcinoma is here today for annual wellness visit. Plan as following. Hypertension blood pressure is 120/80, due to dizziness and low blood pressure cardiology recently decrease losartan dose to 20 mg daily she is also on metoprolol 12.5 mg daily. Currently blood pressure is stable. Reviewed lab work including basic metabolic panel and albumin creatinine ratio which is slightly elevated at 35 done on 11/30/24. Patient is on the right medication and will continue the current dose hyperlipidemia she is on atorvastatin lipid profile is within normal limits reviewed today and discussed with patient and daughter History of non-ST elevation UT in June 2024. We will continue that for nowHistory of non-ST elevation UT in the setting of sepsis and acute illness in 2024 echocardiogram was reviewed today which was completed at [facility] showed normal LV function 60-65% she follows with Dr. Javed, patient refused to do a stress test opted for medical therapy. There was also a suggestion of cardiac catheterization however patient does not want any aggressive intervention discussed with patient and daughter that for diagnostic purposes of a cardiac cath would be done however overall she may not be a candidate for bypass surgery patient currently is following with cardiology and will discuss if she wants a cardiac cath and EKG was done today which was reviewed shows heart rate of 47 bpm QTC is 431 there is evidence of LVH and T wave inversion in the anterior and lateral leads indicating the previous UT. She is currently chest pain-free. She is on aspirin metoprolol and statins which she will continue. History of bladder tumor status post biopsy by Dr. Moore 2024 which showed low-grade papillary carcinoma she has a follow-up in August 2024.Left-sided hydronephrosis renal stones status post and placement she is supposed to be going in August for stent removal.Right lung mass multiple small masses most likely malignant with previous long history of smoking she has been following Dr. Porter at [facility] appeared she also saw the oncologist Dr. Rodriguez per daughter and patient she wants conservative treatment was to keep an eye and closely follow-up does not want any biopsy chemotherapy or any aggressive treatment. Patient did had a PET scan in June 2024 which confirmed right lung mass. Anxiety and depression patient denies any anxiety and depression she sleeps well. BMI is within normal limits Patient is independent with ADLs, she feels safe at home. She had 2 falls in the last few months. Discussed with patient most likely due to gait instability and also due to dizziness probably caused by hypertension medication has been adjusted they will continue to follow and watch blood pressure if the blood pressure runs low we will can discontinue valsartan advanced health planning, her healthcare proxy is confirmed paperwork is signed by the daughter Rosa Maria Lopez she is the healthcare proxy they will bring a copy of it. We also discussed about CODE STATUS daughter and patient agrees to DNR/DNI however they want to rethink it and will let us know. MoLst form was introduced to the patient preventive health measures patient does not want any colonoscopies, other aggressive testing and vaccines. She is not doing Pap smear anymore and does not do any mammogram. Patient states to me since she started to see a doctor she has more medical problems than before Please note that patient has not seen a PCP all her life. 12/08/2024 HTN (hypertension), benign (ICD-10 - I10) 08/03/2024 [...] profile last lab work was done at [facility] which is unavailable to us today, she is on atorvastatin 80 mg due to history of non-ST elevation UT in June 2024. We will continue t hat for now History of non-ST elevation UT in the setting of sepsis and acute illness in 2024 echocardiogram was reviewed today which was completed at [facility] showed normal LV function 60-65% she follows [...] she has been following Dr. Porter at [facility] appeared she also saw the oncologist Dr. [...] urology follow-up. 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 Plan as following. Hypertension blood pressure is 120/80, due to dizziness and low blood pressure cardiology recently decrease losartan dose to 20 mg daily she is also on metoprolol 12.5 mg daily. Currently blood pressure is stable. Reviewed lab work including basic metabolic panel and albumin creatinine ratio which is slightly elevated at 35 done on 11/30/24. Patient is on the right medication and will continue the current dose hyperlipidemia she is on atorvastatin lipid profile is within normal limits reviewed today and discussed with patient and daughter History of non-ST elevation UT in June 2024. We will continue that for nowHistory of non-ST elevation UT in the setting of sepsis and acute illness in 2024 echocardiogram was reviewed today which was completed at [facility] showed normal LV function 60-65% she follows with Dr. Javed, patient refused to do a stress test opted for medical therapy. There was also a suggestion of cardiac catheterization however patient does not want any aggressive intervention discussed with patient and daughter that for diagnostic purposes of a cardiac cath would be done however overall she may not be a candidate for bypass surgery patient currently is following with cardiology and will discuss if she wants a cardiac cath and EKG was done today which was reviewed shows heart rate of 47 bpm QTC is 431 there is evidence of LVH and T wave inversion in the anterior and lateral leads indicating the previous UT. She is currently chest pain-free. She is on aspirin metoprolol and statins which she will continue. History of bladder tumor status post biopsy by Dr. Moore 2024 which showed low-grade papillary carcinoma she has a follow-up in August 2024.Left-sided hydronephrosis renal stones status post and placement she is supposed to be going in August for stent removal.Right lung mass multiple small masses most likely malignant with previous long history of smoking she has been following Dr. Porter at [facility] appeared she also saw the oncologist Dr. Rodriguez per daughter and patient she wants conservative treatment was to keep an eye and closely follow-up does not want any biopsy chemotherapy or any aggressive treatment. Patient did had a PET scan in June 2024 which confirmed right lung mass. Anxiety and depression patient denies any anxiety and depression she sleeps well. BMI is within normal limits Patient is independent with ADLs, she feels safe at home. She had 2 falls in the last few months. Discussed with patient most likely due to gait instability and also due to dizziness probably caused by hypertension medication has been adjusted they will continue to follow and watch blood pressure if the blood pressure runs low we will can discontinue valsartan advanced health planning, her healthcare proxy is confirmed paperwork is signed by the daughter Rosa Maria Lopez she is the healthcare proxy they will bring a copy of it. We also discussed about CODE STATUS daughter and patient agrees to DNR/DNI however they want to rethink it and will let us know. MoLst form was introduced to the patient preventive health measures patient does not want any colonoscopies, other aggressive testing and vaccines. She is not doing Pap smear anymore and does not do any mammogram. Patient states to me since she started to see a doctor she has more medical problems than before Please note that patient has not seen a PCP all her life. 08/03/2024 Calculus of kidney (ICD-10 - N20.0) [...] profile last lab work was done at [facility] which is unavailable to us today, she is on atorvastatin 80 mg due to history of non-ST elevation UT in June 2024. We will continue t hat for now History of non-ST elevation UT in the setting of sepsis and acute illness in 2024 echocardiogram was reviewed today which was completed at [facility] showed normal LV function 60-65% she follows [...] she has been following Dr. Porter at [facility] appeared she also saw the oncologist Dr. [...] profile last lab work was done at [facility] which is unavailable to us today, she is on atorvastatin 80 mg due to history of non-ST elevation UT in June 2024. We will continue t hat for now History of non-ST elevation UT in the setting of sepsis and acute illness in 2024 echocardiogram was reviewed today which was completed at [facility] showed normal LV function 60-65% she follows [...] she has been following Dr. Porter at [facility] appeared she also saw the oncologist Dr. [...] profile last lab work was done at [facility] which is unavailable to us today, she is on atorvastatin 80 mg due to history of non-ST elevation UT in June 2024. We will continue t hat for now History of non-ST elevation UT in the setting of sepsis and acute illness in 2024 echocardiogram was reviewed today which was completed at [facility] showed normal LV function 60-65% she follows [...] she has been following Dr. Porter at [facility] appeared she also saw the oncologist Dr. [...] profile last lab work was done at [facility] which is unavailable to us today, she is on atorvastatin 80 mg due to history of non-ST elevation UT in June 2024. We will continue t hat for now History of non-ST elevation UT in the setting of sepsis and acute illness in 2024 echocardiogram was reviewed today which was completed at [facility] showed normal LV function 60-65% she follows [...] she has been following Dr. Porter at [facility] appeared she also saw the oncologist Dr. [...] slip was given today Plan Of Treatment Next Appt Details Provider Name:nAanth Hoffman Jenny 06/21/2025 02:15:00 PM, [address], [place], [address], Insurance Providers Payer Name Payer Address Payer Phone Subscriber Number Group Number Insured Name Patient Relationship to Insured Coverage Start Date Coverage End Date [employer] [address] [place] [address] [id number] Darek Melendez Self - patient is the [...]
[2024-12-21] MEDS: Magnesium Hydrox/Alum Hydrox 30 ML ORAL.SUSP PO (11:34)
[2024-12-21 11:51] LABS: MANUAL DIFF FLAG NO
[2024-12-21 11:52] LABS: Hematocrit 35.3 % (37.0-47.0); Hemoglobin 12.1 g/dl (12.0-16.0); Imm Gran Abs Auto 0.04 X10*3/uL (0.00-0.03); Imm Gran Pct Auto 0.4 % (0.0-0.4); Lymphocytes Absolute Auto 2.1 X10*3/uL (1.2-4.9); Mean Corpuscular HGB Conc 34.3 g/dl (31.0-35.0); Mean Corpuscular Hemoglobin 28.6 pg (27.0-33.0); Mean Corpuscular Volume 83.5 fL (80.0-98.0); NRBC Abs Auto 0.000 X10*3/uL (0.0-0.012); NRBC Pct Auto 0.0 /100WBC (0.0-0.2); Platelet Count 215 X10*3/uL (160-400); Red Blood Count 4.23 X10*6/uL (4.20-5.50); White Blood Count 10.3 X10*3/uL (4.8-10.8)
[2024-12-21 11:55] LABS: Appearance Urine Cloudy; Glucose Urine UA Negative (Negative); PH 6.0 (5.0-9.0); Specific Gravity - Urine 1.015 (1.005-1.025); UMIC TRIGGER UACC YES
[2024-12-21 11:57] LABS: UACC Culture Trigger YES
[2024-12-21 11:59] LABS: INTERNATIONAL NORM RATIO 1.0 (0.9-1.1); Prothrombin Time 11.6 SEC (10.9-12.4)
[2024-12-21 12:08] LABS: Alanine Aminotransferase 45 U/L (0-31); Albumin Level 4.2 g/dL (3.5-5.0); Alkaline Phosphatase 122 U/L (39-117); Anion Gap 10 (12-20); Aspartate Amino Transferase 41 U/L (5-31); Blood Urea Nitrogen 14 mg/dL (9-16); Calcium 9.0 mg/dL (8.4-10.2); Carbon Dioxide 29 mmol/L (22-29); Chloride 108 mmol/L (96-108); Creatinine Clr Calc Pharmacy 34.9; Estimated Glomerular Filt Rate 56; Lipase 43 U/L (8-78); Magnesium 1.9 mg/dL (1.6-2.6); Potassium 3.0 mmol/L (3.3-5.1); Sodium 144 mmol/L (135-145); Total Protein 7.9 g/dL (6.5-8.0)
[2024-12-21 12:12] LABS: B Type Natriuretic Peptide 1258 pg/mL (<100)
[2024-12-21 12:31] LABS: Troponin-I High Sensitivity 59.9 ng/L (<3.5-17.0)
[2024-12-21 12:46] LABS: Resp Syncy Virus RNA Qual PCR NEGATIVE (Negative); SARS COV2 PCR INHOUSE NEGATIVE (Negative)
[2024-12-21 14:08] LABS: Troponin-I High Sensitivity 67.4 ng/L (<3.5-17.0)
--- NOTE | 2024-12-21 14:14 | ECG_ITS ---
Test Reason : F/U CP Blood Pressure : */* mmHG Vent. Rate : 54 BPM Atrial Rate : 54 BPM P-R Int : 148 ms QRS Dur : 96 ms QT Int : 494 ms P-R-T Axes : 64 10 147 degrees QTcB Int : 468 ms Sinus bradycardia Minimal voltage criteria for LVH, may be normal variant ( R in aVL ) Marked ST abnormality, possible lateral subendocardial injury Abnormal ECG When compared with ECG of 21-Dec-2024 09:05, No significant change was found Referred By: Mic Condon Electronically Signed By: LICHA ADDISON
[2024-12-21 15:09] LABS: D Dimer High Sensitivity 581 NG/ML
--- NOTE | 2024-12-21 15:45 | PC.NURSE ---
this RN resumed care of pt at this time. pt a&ox4. vss and up to date. nsr on the front desk monitor. pt presents to the ED w/ family reporting chest tightness and MORRISSEY x yesterday. pt reports sx increased this afternoon. labs/ekg/CXR already completed. patient currently pending CT to be completed at this time. on RA w/o difficulty. no sob/wob noted. respirations even/unlabored. plan of care ongoing. call sarmiento placed within reach.
[2024-12-21] MEDS: iohexoL 350 MG/ML 100 ML INFUS..BTL IV (16:38)
[2024-12-21] MEDS: Potassium Chloride ER 20 MEQ TAB.ER.PRT 40 MEQ PO (17:46)
[2024-12-21 17:49] LABS: Troponin-I High Sensitivity 75.4 ng/L (<3.5-17.0)
--- NOTE | 2024-12-21 18:00 | PC.NURSE ---
attempted to go in patient's room to medicate w/ PO medication d/t hypokalemia. patient as well as family member seemingly upset at this time requesting to leave. patient as well as family member educated on importance of staying to complete full workup as labs/scans are still pending at this time. although pt being agreeable to taking medication, patient requesting to speak w/ provider. provider notified/aware.
[2024-12-21] MEDS: Furosemide 40 MG/4 ML VIAL IVPUSH (19:26)
--- NOTE | 2024-12-21 19:49 | PM.IMHP ---
History of Present Illness Date of Service: 12/21/24 Chief Complaint: dyspnea and chest pain This is a 88-year-old female with pertinent history of tobacco use disorder, coronary artery disease, lung mass, urinary incontinence, hypertension who presents to the emergency department for shortness of breath and chest pain. Patient states that last night she had sudden onset of midsternal chest discomfort while she was lying in bed. This was associated with dyspnea. Patient states she was also dyspneic with exertion 2 days prior to presentation. Patient was able to sleep and the chest discomfort lasted until the day of presentation. Unclear orthopnea. Patient lives at home with the and does not use a cane or a walker to move around. Does report increased urinary frequency. She denies fever, chills, palpitations, abdominal pain, changes in bowel habits. In the emergency department, imaging concerning for pulmonary embolus and pulmonary vascular congestion. BNP found to be elevated. Patient was given IV Lasix and p.o. Eliquis in the ER. Review of Systems Constitutional: Constitutional: Reports fatigue, Reports malaise and Reports weakness Cardiovascular: Cardiovascular: Reports dyspnea on exertion Respiratory: Respiratory: Reports dyspnea on exertion Gastrointestinal: Gastrointestinal: Reports no additional gastrointestinal complaints Musculoskeletal: Musculoskeletal: Reports no additional musculoskeletal complaints Neurologic: Reports weakness Endocrine: Endocrine: Reports fatigue [facility] History Calculus of kidney Bladder cancer Coronary artery disease Mass of lung Pertinent family history: Not significant due to age Surgical History Hx of section Hx of appendectomy Hx of cystoscopy Social History Household Members: Spouse Housing: House Do you presently have visiting nurse or other home services: No Alcohol intake: never Comment: refused alarms Patient Tobacco Use Status: Former Tobacco user Tobacco use type: Cigarette Smoked in Last 30 Days: No Use of substances other than those prescribed or required for medical reasons: No Advance Directives: No Advance Directives Information Provided: Yes service: No Meds Allergies Allergy/AdvReac Type Severity Reaction Status Date / Time No Known Allergies Allergy Verified 12/21/24 09:33 Active Medications: Current Medications Acetaminophen (Acetaminophen 325 Mg Tablet) 650 mg PO Q6H PRN PRN Reason: Pain, Mild 1-3,fever,headache Al Hydroxide/Mg Hydroxide (Magnesium Hydrox/Alum Hydrox 30 Ml Oral.Susp) 30 ml PO Q4H PRN PRN Reason: Heartburn Calcium Carbonate (Calcium Carbonate 750 Mg Tab.Chew) 750 mg PO Q4H PRN PRN Reason: Heartburn Enoxaparin Sodium (Enoxaparin Sodium 60 Mg/0.6 Ml Syringe) 60 mg 1 mg/kg (60 mg) SUBCUT Q12H JAYSHREE Furosemide (Furosemide 40 Mg/4 Ml Vial) 40 mg IVPUSH DAILY JAYSHREE; Protocol Magnesium Hydroxide (Milk Of Magnesia 30 Ml Oral.Susp) 30 ml PO DAILY PRN PRN Reason: Constipation Melatonin (Melatonin 3 Mg Tablet) 6 mg PO BEDTIME PRN PRN Reason: Insomnia Ondansetron HCl (Ondansetron Hcl 4 Mg/2 Ml Vial) 4 mg IVPUSH Q8H PRN PRN Reason: Nausea and Vomiting Polyethylene Glycol (Polyethylene Glycol 3350 17 Gm Powd.Pack) 17 gm PO DAILY PRN PRN Reason: Constipation Sodium Chloride (0.9 % Sodium Chloride Flush 3 Ml Syringe) 3 ml IVFLUSH QSHIFT [facility] Home Medications ?Medication ?Instructions ?Recorded ?Confirmed ?Last Taken ?Type atorvastatin 80 mg tablet 80 mg PO BEDTIME 08/10/24 08/23/24 Unknown History metoprolol tartrate 25 mg tablet 25 mg PO BID 12/21/24 12/21/24 Unknown History Physical Exam Vital Signs and Narrative: Vital Signs: Last Vital Signs Temp 98.6 F 12/21/24 11:51 Pulse 52 12/21/24 19:24 Resp 20 12/21/24 19:24 BP 185/76 H 12/21/24 19:26 Pulse Ox 95 12/21/24 19:24 O2 Del Method Nasal Cannula 12/21/24 19:24 BMI result Body Mass Index 26.2 Middle-aged female lying in bed in mild distress Neck supple Regular rate and rhythm, S1-S2 heard Bilateral crackles upon examination Abdomen with left flank tenderness, no guarding, no rigidity Patient is awake, alert and oriented x3 ; no focal motor deficit Psych: Normal mood Mild pitting edema Results Labs 12/21/24 11:44 12/21/24 11:44 Labs: Laboratory Results - last 24 hr 12/21/24 12/21/24 11:43 11:44 MCV 83.5 MCH 28.6 MCHC 34.3 RDW 13.5 Plt Count 215 MPV 11.0 Immature Gran % (Auto) 0.4 Neut % (Auto) 70.8 Lymph % (Auto) 20.5 [place] % (Auto) 5.8 Eos % (Auto) 2.1 Baso % (Auto) 0.4 Lymph # (Auto) 2.1 [place] # (Auto) 0.6 Eos # (Auto) 0.2 Baso # (Auto) 0.0 Abs Immat Gran (auto) 0.04 H Absolute Neuts (auto) 7.3 Absolute Nucleated RBC 0.000 Nucleated RBC % (auto) 0.0 PT 11.6 INR 1.0 D-Dimer High Sensitivty 581 Anion Gap 10 L Estim Creat Clear Calc 34.9 Estimated GFR 56 Random Glucose 96 Calcium 9.0 D Magnesium 1.9 Total Bilirubin 0.8 Direct Bilirubin 0.3 AST 41 H ALT 45 H Alkaline Phosphatase 122 H C-Reactive Protein 0.11 B-Natriuretic Peptide 1258 H Total Protein 7.9 Albumin 4.2 Lipase 43 Urine Color Yellow Urine Appearance Cloudy Urine pH 6.0 Ur Specific [place] 1.015 Urine Protein 100 (2+) H Urine Glucose (UA) Negative Urine Ketones Negative Urine Blood Trace H Urine Nitrite Negative Ur Leukocyte Esterase Moderate (2+) H Urine RBC 0-2 Urine WBC 21-50 H Ur Squamous Epith Cells >20 Urine Bacteria 2+ Hyaline Casts 0-2 Influenza Type A (PCR) NEGATIVE Influenza Type B (PCR) NEGATIVE RSV RNA Qual (PCR) NEGATIVE SARS-CoV-2 RNA (RT-PCR) NEGATIVE Imaging Radiologist's Impressions: Impressions Chest X-Ray 12/21/24 10:32 IMPRESSION: Right hilar fullness is concerning for adenopathy. Suspected left apical pulmonary n nodule concerning for neoplasm. Small to moderate bilateral pleural effusions. Cardiomegaly. Electronically signed by: Manolo Perez MD 12/21/2024 11:41 AM EDT Chest CTA 12/21/24 16:28 IMPRESSION: Right upper lobe pulmonary artery shows abrupt decreased attenuation 2 cm cephalad to the main right pulmonary. This flow abnormality raises question of a pulmonary embolus. Prominent pulmonary vessels and new bilateral pleural effusions raises question of pulmonary vascular congestion. There is also new reflux of contrast into the hepatic veins consistent with right heart failure. Right hilar/mediastinal mass with postobstructive atelectasis of the right middle lobe and multiple enlarging pulmonary nodules is most consistent with progression of lung cancer/metastatic disease. Stable left adrenal gland thickening could be neoplastic in nature. Fleischner guidelines were followed. Electronically signed by: Manolo Perez MD 12/21/2024 05:43 PM EDT Assessment and Plan (1) Congestive heart failure: Status: Acute (2) Pulmonary emboli: Status: Acute Plan This is a 88-year-old female with pertinent history of tobacco use disorder, coronary artery disease, lung mass, urinary incontinence, hypertension who presents to the emergency department for shortness of breath and chest pain. #. Acute congestive heart failure, unspecified EF: Imaging concerning for right heart failure. Will admit patient with IV diuresis. Strict I's and O's. Low-salt diet. Obtaining transthoracic echocardiogram. Consulted Cardiology, appreciate assistance. #. Acute submassive PE: Imaging concerning for PE. Will admit patient with cardiac monitoring. Initiating therapeutic Lovenox while in the hospital. Does have high-risk of VTE due to lung mass #. Hypokalemia: Repleted #. Acute UTI: IV ceftriaxone while in the hospital #. Elevated transaminases in the setting of CHF #. Progression of lung cancer with metastasis: Outpatient Oncology follow-up #. Coronary artery disease: On aspirin, high-intensity statin and beta-digna #. Urinary incontinence: On Flomax #. Hypertension: Continue home antihypertensives Med rec pending DVT prophylaxis: Therapeutic Lovenox Full code. Discussed with patient and daughter at bedside Admit as inpatient and will require two night minimum hospital stay for IV diuresis, close monitoring of hemodynamics (as above), which is not possible in a lesser acute setting. Urology consult pending Quality Stroke Does the patient have a stroke diagnosis?: No VTE Prior VTE?: No VTE Risk Level:: Medical - moderate - high VTE Device Contraindication: Treatment Not Indicated VTE Drug Contraindication: N/A - Med Ordered
--- NOTE | 2024-12-21 20:29 | PHA.MEDREC ---
Addendum entered by Yoon Latham, [facility] 12/22/24 14:05: Spoke to daughter Chris and she confirmed patient takes metoprolol 12.5 mg bid (she confirmed she has to cut the 25 mg tablet in halves). For the valsartan, she confirmed patient takes 20 mg daily. The original order was for 40 mg daily but within the last month, pt has been experiencing dizziness and low blood pressure so labor utilization superintendent agreed to have patient's dose reduced to 20 mg daily (daughter confirmed she has to cut the 40 mg tablets in halves). Med rec was updated. Dr. Robins was notified. Addendum entered by Ronaldo Bush, [facility] 12/21/24 21:41: MED REC CHECKED BY [facility] Original Note: Pharmacy Consult ? Medication Reconciliation Pharmacy has completed the medication reconciliation. Spoke to patient and Family at bedside to confirm med list. Family at bedside confirmed patient only takes Aspirin 81 mg, Atorvastatin 80 mg, Metoprolol 12.5 mg and Valsartan 40 mg.
--- NOTE | 2024-12-21 23:51 | PC.NURSE ---
patient requesting acetaminophen for pain 09/16
[2024-12-21] MEDS: 0.9 % Sodium Chloride Flush 3 ML SYRINGE IVFLUSH (23:58)
[2024-12-22 05:07] LABS: MANUAL DIFF FLAG NO
[2024-12-22 05:10] LABS: Hematocrit 33.6 % (37.0-47.0); Hemoglobin 11.4 g/dl (12.0-16.0); Imm Gran Abs Auto 0.03 X10*3/uL (0.00-0.03); Imm Gran Pct Auto 0.3 % (0.0-0.4); Lymphocytes Absolute Auto 2.3 X10*3/uL (1.2-4.9); Mean Corpuscular HGB Conc 33.9 g/dl (31.0-35.0); Mean Corpuscular Hemoglobin 28.4 pg (27.0-33.0); Mean Corpuscular Volume 83.8 fL (80.0-98.0); NRBC Abs Auto 0.000 X10*3/uL (0.0-0.012); NRBC Pct Auto 0.0 /100WBC (0.0-0.2); Platelet Count 203 X10*3/uL (160-400); Red Blood Count 4.01 X10*6/uL (4.20-5.50); White Blood Count 9.5 X10*3/uL (4.8-10.8)
[2024-12-22 05:26] LABS: Alanine Aminotransferase 34 U/L (0-31); Albumin Level 3.6 g/dL (3.5-5.0); Alkaline Phosphatase 109 U/L (39-117); Anion Gap 12 (12-20); Aspartate Amino Transferase 34 U/L (5-31); Blood Urea Nitrogen 17 mg/dL (9-16); Calcium 8.9 mg/dL (8.4-10.2); Carbon Dioxide 31 mmol/L (22-29); Chloride 105 mmol/L (96-108); Creatinine Clr Calc Pharmacy 26.1; Estimated Glomerular Filt Rate 40; Potassium 3.1 mmol/L (3.3-5.1); Sodium 145 mmol/L (135-145); Total Protein 6.8 g/dL (6.5-8.0)
[2024-12-22 06:05] VITALS: BP 146/55; PULSE 51; RESP 20; TEMP 36.8; O2SAT 93
--- NOTE | 2024-12-22 07:00 | CA_ITS ---
Transthoracic Echocardiogram Patient (Last, First, Middle): Darek Melendez, Gender: Female Date of : 1935 Age: 88 Procedure Date: 12/22/2024 Procedure Type: Transthoracic Echocardiogram Location: [facility] Height: 152.4 cm Weight: 58.97 kg BSA: 1.55 m2 Heart Rate: 61 bpm BP: 146 / 55 mmHg Associate Professor Physician: /RC Referring MD: Ben Mcrae MD Symptoms: CHF Study Quality: Adequate w contrast ECG Rhythm: Sinus Conclusions: - The left ventricular systolic function is normal. The visually estimated ejection fraction is between 60-65%. - There is severe septal asymmetric hypertrophy. - There is moderately increased left ventricular wall thickness. - The apex segment is dyskinetic. - No obvious valvular pathology seen on this study. Findings Procedure Information Contrast agent, definity, is being given per protocol without apparent complications. Left Ventricle Normal left ventricular cavity size. There is moderately increased left ventricular wall thickness. The left ventricular systolic function is normal. The visually estimated ejection fraction is between 60-65%. There is evidence of regional wall motion abnormalities. Evidence suggests grade I (mild) diastolic dysfunction. There is severe septal asymmetric hypertrophy. Wall Motion Rest Echo Findings The apex segment is dyskinetic. Atria Both atria are normal in size. Aortic Valve The aortic valve structure and function is likely normal. There is no aortic valve stenosis. There is no aortic valve regurgitation. Mitral Valve The mitral valve appears normal. There is no mitral valve regurgitation. There is no mitral valve stenosis. Pulmonic Valve The pulmonic valve is likely normal. Tricuspid Valve There is trace tricuspid valve regurgitation. There is no evidence of pulmonary hypertension. Great Vessels The asc aorta is normal in size. Venous The inferior vena cava is normal in size and collapses greater than 50% with inspiration. Pericardium/Pleural There is no evidence of pericardial effusion. Prior Study Comparison No significant change compared to prior study dated: 07/13/2024. Recommendations, Care & Conclusions No obvious valvular pathology seen on this study. Measurements 2D Linear Measurements IVSd: 1.75 0.6-0.9/0.6-1.0 cm LVIDd: 4.01 3.9-5.3/4.2-5.9 cm LVIDd Index: 2.59 2.4-3.2/2.2-3.1 cm/m2 LVIDs: 2.66 2.0-3.6 cm LVPWd: 1.38 0.7-1.1 cm LA Diam: 3.80 2.7-3.8/3.0-4.0 cm LAIDs Index: 2.45 1.5-2.3 cm/m2 LV Mass: 311.49 67-162/88-224 g LV Mass Index: 200.96 43-95/49-115 g/m2 LVOT Diam: 2.00 3.0+(-)1.3 cm Mitral Valve MV Pk E: 0.46 MV PK A: 0.73 MV Decel Time: 165.00 E/A: 0.60 E'Lateral: 3.92 E'Medial: 2.94 E/E' Med: 15.70 E/E' Lat: 11.80 PHT: 48.00 MVA PHT: 4.58 Decel [place]: 2.80 Aortic Valve AoV Pk Tony: 1.42 AoV Mn Tony: 0.98 AoV VTI: 0.34 AoV Pk Grad: 8.00 Aov Mn Grad: 4.00 JAZLYN Cont.VTI: 2.95 LVOT LVOT Pk Tony: 1.36 LVOT Mn Tony: 0.87 LVOT VTI: 0.32 LVOT Pk Grad: 7.00 LVOT Mn Grad: 4.00 LVOT Diam: 2.00 LVOT Area: 3.14 Diastolic Function MV Pk E: 0.46 MV Pk A: 0.73 E/A: 0.60 E'Medial: 2.94 E/E' Med: 15.70 E' Laterial: 3.92 E/E' Lat: 11.80 Right Ventricle TAPSE (mm): 23.80 TVS' Tony: 10.70 Tricuspid Valve RA Press: 3.00 Great Vessels Aorta Sinus of Valsalva: 3.00 2.0-3.5 cm Ao Asc: 3.20 2.1-3.4 cm Updated in Other Vendor System with Status of Final Lucien Davey MD electronically signed on 12/22/2024 2:47:02 PM with status of Final
[2024-12-22 08:20] VITALS: BP 170/70; PULSE 58; RESP 20; TEMP 36.5; O2SAT 95
[2024-12-22 09:12] VITALS: BMI 25.8
--- NOTE | 2024-12-22 09:35 | MHC.CM.PN ---
IMM 12/22/24, Pt. lives with her , PCP is confirmed: Johnathan Bundy MD. HCP is her dtr, copy requested. Pt. has help in the home with cleaning, she does not require assistance with personal care. DME is grab bars in bathroom, and toilet. Family to transport home at DC. DCP: home, self care, CM to follow for DC needs.
[2024-12-22 11:05] VITALS: BP 160/70; PULSE 54; RESP 18; TEMP 36.7; O2SAT 94
[2024-12-22] MEDS: Furosemide 40 MG/4 ML VIAL IVPUSH (11:31)
[2024-12-22] MEDS: 0.9 % Sodium Chloride Flush 3 ML SYRINGE IVFLUSH (11:32)
[2024-12-22 14:32] VITALS: BP 126/58
--- NOTE | 2024-12-22 15:51 | PM.DS ---
DS: Providers Provider Date of Service: 12/22/24 Date of admission: 12/21/24 18:30 Date of discharge: 12/22/24 Primary care physician: Johnathan Bundy MD Consults: 12/22/24 11:55 Consult to Cardiology Routine Consulting Provider: [facility] Reason for consultation: new onset CHF Has provider been notified: Yes DS: Diagnosis Discharge Diagnosis (1) Congestive heart failure: Status: Acute (2) Pulmonary emboli: Status: Acute DS: Summary Time Attestation Discharge Coordination Time (in mins): admission hpi Chief Complaint: dyspnea and chest pain This is a 88-year-old female with pertinent history of tobacco use disorder, coronary artery disease, lung mass, urinary incontinence, hypertension who presents to the emergency department for shortness of breath and chest pain. Patient states that last night she had sudden onset of midsternal chest discomfort while she was lying in bed. This was associated with dyspnea. Patient states she was also dyspneic with exertion 2 days prior to presentation. Patient was able to sleep and the chest discomfort lasted until the day of presentation. Unclear orthopnea. Patient lives at home with the and does not use a cane or a walker to move around. Does report increased urinary frequency. She denies fever, chills, palpitations, abdominal pain, changes in bowel habits. In the emergency department, imaging concerning for pulmonary embolus and pulmonary vascular congestion. BNP found to be elevated. Patient was given IV Lasix and p.o. Eliquis in the ER. hospital course: Patient was admitted for further management. Heart failure was treatd with IV Lasix with rapid improvement in her symptoms and was seen by cardiology and advises lasix at discharge. Pulmonary embolis was treated with Eliquis loading dose of 10 mg twice daily for 7 days, followed by 5 mg twice daily. UTI treated with ceftriaxone and discharge with cefuroxime. For know lungs mass which seemed to have enlarged and likely metastasis. She is still not interested in Bx but open to discussing it further with Dr. Porter in the office. [facility], she wanted to be discharge to be home for her birthday tomorrow DVT prophylaxis: Therapeutic Lovenox Full code. Discussed with patient and daughter at bedside Quality: Safe Use of Opioids Does Pt have an Active Cancer Diagnosis on the Problem List?: No Quality: Stroke Does the patient have a stroke diagnosis?: No Physical Exam Vital Signs: Vital Signs: Last Vital Signs Temp 98.0 F 12/22/24 11:05 Pulse 54 12/22/24 11:05 Resp 18 12/22/24 11:05 BP 126/58 L 12/22/24 14:32 Pulse Ox 94 12/22/24 11:05 O2 Del Method Room Air 12/22/24 11:05 BMI result Body Mass Index 25.8 DS: Data Data Completed and Pending Completed studies during hospitalization [Text1]: Procedures Dilation of Left Ureter with Intraluminal Device, Via Natural or Artificial Opening Endoscopic (06/30/24) Excision of Bladder, Via Natural or Artificial Opening Endoscopic, Diagnostic (06/30/24) Fluoroscopy of Left Kidney, Ureter and Bladder (06/30/24) Labs on day of discharge: Laboratory Results - last 24 hr 12/21/24 12/22/24 17:13 04:23 WBC 9.5 RBC 4.01 L Hgb 11.4 L Hct 33.6 L MCV 83.8 MCH 28.4 MCHC 33.9 RDW 13.2 Plt Count 203 MPV 11.6 Immature Gran % (Auto) 0.3 Neut % (Auto) 63.9 Lymph % (Auto) 24.4 [place] % (Auto) 8.2 Eos % (Auto) 2.9 Baso % (Auto) 0.3 Lymph # (Auto) 2.3 [place] # (Auto) 0.8 Eos # (Auto) 0.3 Baso # (Auto) 0.0 Abs Immat Gran (auto) 0.03 Absolute Neuts (auto) 6.1 Absolute Nucleated RBC 0.000 Nucleated RBC % (auto) 0.0 Sodium 145 Potassium 3.1 L Chloride 105 Carbon Dioxide 31 H Anion Gap 12 BUN 17 H Creatinine 1.26 Estim Creat Clear Calc 26.1 Estimated GFR 40 Random Glucose 91 Calcium 8.9 Total Bilirubin 0.4 AST 34 H ALT 34 H Alkaline Phosphatase 109 Troponin I High Sens 75.4 H* Total Protein 6.8 Albumin 3.6 Discharge Plan Discharge Anticipated Discharge Date/Time: 12/22/24 15:42 Patient Disposition: Home, Self-Care Discharge Diagnosis: Pulmonary embolis, CHF, lung mass Referrals: Johnathan Bundy MD [Primary Care Provider, Primary Care] - 1 Week Thor Porter MD [Physician, Pulmonology] - 2 Weeks Discharge Medications: New cefuroxime axetil 250 mg tablet 250 mg PO BID Qty: 8 0RF furosemide [Lasix] 20 mg tablet 20 mg PO DAILY Qty: 90 0RF Eliquis DVT-PE Treat 30D Start 5 mg (74 tabs) tablets,dose pack 5 mg PO BID Qty: 194 0RF Rx Instructions: take 2 tabs twice daily for 6 more days (or 12 dose), then after that 1 tab twice daily next dose this evening Continued metoprolol tartrate 25 mg tablet 12.5 mg PO BID valsartan 40 mg tablet 20 mg PO DAILY atorvastatin 80 mg tablet 80 mg PO BEDTIME Discontinued aspirin 81 mg Tablet,Delayed Release (Dr/Ec) 81 mg PO DAILY Qty: 90 0RF Discharge Orders: Discharge Order (Routine); Ordered 12/22/24 Ordered By: Harvey Robins Diet: Advance to usual diet Activity on Discharge: As tolerated Stand Alone Forms: Patient Portal Discharge page Print Language: Kazakh Care Plan Goals: recovery from heart failure, pulmonary embolism and uti Health Concerns: lung mass, heart failure, pulmonary embolism and uti Plan of Treatment: take Lasix for heart failure take eliquis 2 tabs twice daily for 6 more days, then 1 tab twice daily thereafter hold ASA take Cefuroxime 250 mg twice daily Follow up with your primary care doctor Follow up with Dr. German adam lung mass Assessment: see above
--- NOTE | 2024-12-22 15:53 | PM.CNCAR ---
History of Present Illness History of Present Illness Date of Service: 12/22/24 Chief complaint: Heart failure, PE Narrative: This is a cardiology consultation regarding question of congestive heart failure. Patient has been admitted for shortness of breath and in this context, she underwent chest CTA showing pulmonary embolism. There has also been a concern for congestive heart failure and hence we are consulted. Few months back, she was in the hospital for NSTEMI in the setting of pneumonia. At that time, there was question of LAD territory ischemia versus takotsubo based on the EKG/echocardiogram. In the same admission, she was also diagnosed to have lung malignancy. She has seen us in follow up in clinic but it seems that with regard to the lung malignancy patient and daughter had decided not to pursue that. Currently, they are concerned about all the above issues. With regard to the question of shortness of breath, she has been put on some diuretics and she actually feels much better. I reviewed the CAT scan results in detail. Review of Systems Review of Systems: Yes all other systems are reviewed and are negative Constitutional: Constitutional: Reports as per HPI and Reports no additional constitutional complaints Eyes: Eyes: Reports as per HPI and Denies no additional eye complaints ENT: Denies system reviewed and no additional complaints, except as documented and Reports as per HPI Cardiovascular: Cardiovascular: Reports as per HPI, Reports no additional cardiovascular complaints, Denies acrocyanosis, Denies cool extremities, Denies chest pain, Denies leg edema, Denies lightheadedness, Denies palpitations and Reports dyspnea Respiratory: Respiratory: Reports as per HPI, Denies no additional respiratory complaints and Reports dyspnea Gastrointestinal: Gastrointestinal: Reports as per HPI and Denies no additional gastrointestinal complaints Genitourinary: Genitourinary: Reports as per HPI Musculoskeletal: Musculoskeletal: Reports no additional musculoskeletal complaints and Reports as per HPI Integumentary/Breasts: Skin/Breast: Reports system reviewed and no additional complaints, except as docu Neurologic: Reports system reviewed and no additional complaints, except as documented and Reports as per HPI Psychiatric: Psychiatric: Reports no additional psychiatric complaints and Reports as per HPI Endocrine: Endocrine: Reports no additional endocrine complaints, Reports as per HPI and Denies palpitations Hematologic/Lymphatic: Hematologic/Lymphatic: Reports no additional hematologic/lymphatic complaints and Reports as per HPI Allergic/Immunologic: Allergic/Immunologic: Reports no additional allergic/immunologic complaints and Reports as per HPI PMF Past Medical History Medical History Calculus of kidney Bladder cancer Coronary artery disease Mass of lung Family History Pertinent family history: No pertinent family history Surgical History Surgical History Hx of section Hx of appendectomy Hx of cystoscopy Social History Social History Household Members: Spouse Housing: House Do you presently have visiting nurse or other home services: Yes ([facility]) Alcohol intake: never Comment: refused alarms Patient Tobacco Use Status: Former Tobacco user Tobacco use type: Cigarette service: No Meds Allergies Allergy/AdvReac Type Severity Reaction Status Date / Time No Known Allergies Allergy Verified 12/21/24 09:33 Active Medications: Current Medications Acetaminophen (Acetaminophen 325 Mg Tablet) 650 mg PO Q6H PRN PRN Reason: Pain, Mild 1-3,fever,headache Last Admin: 12/21/24 23:51 Dose: 650 mg Al Hydroxide/Mg Hydroxide (Magnesium Hydrox/Alum Hydrox 30 Ml Oral.Susp) 30 ml PO Q4H PRN PRN Reason: Heartburn Apixaban (Apixaban 5 Mg Tablet) 10 mg PO BID [facility] Stop: 12/28/24 21:01 Last Admin: 12/22/24 11:31 Dose: 10 mg Aspirin (Aspirin Enteric Coated 81 Mg Tablet.Dr) 81 mg PO DAILY JAYSHREE Atorvastatin Calcium (Atorvastatin Calcium 80 Mg Tablet) 80 mg PO BEDTIME JAYSHREE Calcium Carbonate (Calcium Carbonate 750 Mg Tab.Chew) 750 mg PO Q4H PRN PRN Reason: Heartburn Ceftriaxone Sodium (Ceftriaxone Sodium 1 Gm Vial) 1 gm IVPUSH Q24H JAYSHREE Last Admin: 12/21/24 21:09 Dose: 1 gm Furosemide (Furosemide 40 Mg/4 Ml Vial) 40 mg IVPUSH DAILY [facility]; Protocol Last Admin: 12/22/24 11:31 Dose: 40 mg Magnesium Hydroxide (Milk Of Magnesia 30 Ml Oral.Susp) 30 ml PO DAILY PRN PRN Reason: Constipation Melatonin (Melatonin 3 Mg Tablet) 6 mg PO BEDTIME PRN PRN Reason: Insomnia Metoprolol Tartrate (Metoprolol Tartrate 25 Mg Tablet) 12.5 mg PO BID [facility]; Protocol Last Admin: 12/22/24 15:35 Dose: 12.5 mg Ondansetron HCl (Ondansetron Hcl 4 Mg/2 Ml Vial) 4 mg IVPUSH Q8H PRN PRN Reason: Nausea and Vomiting Polyethylene Glycol (Polyethylene Glycol 3350 17 Gm Powd.Pack) 17 gm PO DAILY PRN PRN Reason: Constipation Sodium Chloride (0.9 % Sodium Chloride Flush 3 Ml Syringe) 3 ml IVFLUSH QSHIFT [facility] Last Admin: 12/22/24 11:32 Dose: 3 ml Valsartan (Valsartan 40 Mg Tablet) 20 mg PO DAILY [facility]; Protocol Last Admin: 12/22/24 15:35 Dose: 20 mg Home Medications ?Medication ?Instructions ?Recorded ?Confirmed ?Last Taken ?Type atorvastatin 80 mg tablet 80 mg PO BEDTIME 08/10/24 12/21/24 12/20/24 History metoprolol tartrate 25 mg tablet 12.5 mg PO BID 12/21/24 12/22/24 12/20/24 History valsartan 40 mg tablet 20 mg PO DAILY 12/22/24 12/22/24 12/20/24 History Physical Exam Vital Signs: Vital Signs: Last Vital Signs Temp 98.0 F 12/22/24 11:05 Pulse 54 12/22/24 11:05 Resp 18 12/22/24 11:05 BP 126/58 L 12/22/24 14:32 Pulse Ox 94 12/22/24 11:05 O2 Del Method Room Air 12/22/24 11:05 BMI result Body Mass Index 25.8 Const: General: comfortable and no acute distress Orientation/consciousness: patient oriented x3 HEENT: Other: Unremarkable Head: Yes normal to inspection Neck: Neck: Yes normal visual inspection Chest: Chest palpation & inspection: normal inspection of the chest Resp: Auscultation: clear to auscultation bilaterally Cardio: Palpation: normal PMI Heart sounds: S1 normal heart sound present, S2 normal heart sound present, no gallops, no murmurs and no rubs GI: Palpation (GI): Soft to palpation Back/Spine/Pelvis: Other: unremarkable Skin: General skin exam: no rashes or lesions noted Neuro: General: patient oriented x3 Extrem: General: Yes normal to inspection Psych: Mental Status: mental status grossly normal Objective Labs and Meds 12/22/24 04:23 12/22/24 04:23 Lab results: Laboratory Results - last 24 hr 12/21/24 12/22/24 17:13 04:23 WBC 9.5 RBC 4.01 L Hgb 11.4 L Hct 33.6 L MCV 83.8 MCH 28.4 MCHC 33.9 RDW 13.2 Plt Count 203 MPV 11.6 Immature Gran % (Auto) 0.3 Neut % (Auto) 63.9 Lymph % (Auto) 24.4 [place] % (Auto) 8.2 Eos % (Auto) 2.9 Baso % (Auto) 0.3 Lymph # (Auto) 2.3 [place] # (Auto) 0.8 Eos # (Auto) 0.3 Baso # (Auto) 0.0 Abs Immat Gran (auto) 0.03 Absolute Neuts (auto) 6.1 Absolute Nucleated RBC 0.000 Nucleated RBC % (auto) 0.0 Sodium 145 Potassium 3.1 L Chloride 105 Carbon Dioxide 31 H Anion Gap 12 BUN 17 H Creatinine 1.26 Estim Creat Clear Calc 26.1 Estimated GFR 40 Random Glucose 91 Calcium 8.9 Total Bilirubin 0.4 AST 34 H ALT 34 H Alkaline Phosphatase 109 Troponin I High Sens 75.4 H* Total Protein 6.8 Albumin 3.6 ECG Interpretation: EKG with sinus rhythm, LVH and anterolateral T inversions but unchanged from prior. Imaging Radiologist's impression: Impressions Chest CTA 12/21/24 16:28 IMPRESSION: Right upper lobe pulmonary artery shows abrupt decreased attenuation 2 cm cephalad to the main right pulmonary. This flow abnormality raises question of a pulmonary embolus. Prominent pulmonary vessels and new bilateral pleural effusions raises question of pulmonary vascular congestion. There is also new reflux of contrast into the hepatic veins consistent with right heart failure. Right hilar/mediastinal mass with postobstructive atelectasis of the right middle lobe and multiple enlarging pulmonary nodules is most consistent with progression of lung cancer/metastatic disease. Stable left adrenal gland thickening could be neoplastic in nature. Fleischner guidelines were followed. Electronically signed by: Manolo Perez MD 12/21/2024 05:43 PM EDT RP Assessment and Plan (1) Congestive heart failure: Status: Acute (2) Pulmonary emboli: Status: Acute (3) Mass of lung: Status: Acute Plan In the echocardiogram, there was preserved LVEF. There is marked left ventricular hypertrophy most prominent in the septum. The apex itself is dyskinetic. It is very similar to prior appearance. It was thought to be possibly takotsubo but I wonder if it is rather hypertrophic cardiomyopathy type picture rather. Any case, considering her age, comorbidities, lung cancer not being treated she is not a suitable candidate for any aggressive cardiac workup. We discussed about this in detail today and both patient and daughter would not want anything aggressive at all. They want only medical care to improve her lifestyle. Hence okay to use diuretics as necessary but may not need too much of it either. With regard to the question of heart failure this admission, suspect more so related to the lung mass/pulmonary emboli which could lead to some right heart dysfunction. Could have some components of left heart diastolic dysfunction adding to this. Otherwise, anticoagulation for the pulmonary embolism per primary team. With regard to the management of lung mass itself, they kept asking about the plan although it seems previously they had decided against it. I deferred this to Dr. Robins to address. Discussed with Dr. Robins. Procedures Date of Service Date of Service: 12/22/24
--- NOTE | 2024-12-22 16:04 | MHC.CM.PN ---
Pt has been cleared for DC, pt. and family asked CM about home care services, said pt. was weak and had falls, asking about a PT eval. No PT eval was ordered, CM asked if they would like provider to be asked about this, they declined because pt. does not want to stay here overnight awaiting PT eval. CM informed them that I could put in referrals for VNA, they agreed, referral out to VNA's that accept HNE. Family to transport pt. home.
== END 2024-12-22 17:00 | disposition home or self-care (01) | DRG 291 ==
LOC: HO.ED 18:26 → HO.EDOVER 18:31 → HO.IMC 12-22 06:57
PROVIDERS: Admitting Provider Internal Medicine; Emergency Provider Emergency Medicine; PCP Hospitalist; Visit Provider Internal Medicine
DX: I11.0 Hypertensive heart disease with heart failure (principal); I26.99 Other pulmonary embolism without acute cor pulmonale; N39.0 Urinary tract infection, site not specified; C34.01 Malignant neoplasm of right main bronchus; I50.9 Heart failure, unspecified; I25.10 Atherosclerotic heart disease of native coronary artery without angina pectoris; R33.9 Retention of urine, unspecified; Z20.822 Contact with and (suspected) exposure to COVID-19; Z87.891 Personal history of nicotine dependence; Z79.899 Other long term (current) drug therapy
CPT/HCPCS: 36415; 71046; 71275; 80048; 80053; 80076; 81001; 83690; 83735; 83880; 84484; 85025; 85379; 85610; 86140; 87086; 87637; 93005; 93306; 99285; J0696; J1938; Q9957; Q9967

== ENCOUNTER → 2024-12-21 09:05 | Outpatient (BNV) | payer MEDICARE, SELFPAY | PROVIDERS: Admitting Provider Internal Medicine; Emergency Provider Emergency Medicine; PCP Hospitalist; Visit Provider Internal Medicine | DX: I51.7 Cardiomegaly (principal); R00.1 Bradycardia, unspecified | CPT/HCPCS: 93010 ==

== ENCOUNTER → 2024-12-21 11:00 | Outpatient (BNV) | payer MEDICARE, SELFPAY | PROVIDERS: Emergency Provider Emergency Medicine; PCP Hospitalist; Visit Provider Radiology Diagnostic Radiology | DX: J90 Pleural effusion, not elsewhere classified (principal); R91.8 Other nonspecific abnormal finding of lung field; I51.7 Cardiomegaly | CPT/HCPCS: 71046; 71275 ==

== ENCOUNTER 2024-12-21 18:30 | Outpatient (BNV) | payer MEDICARE, SELFPAY | END 2024-12-22 07:00 | PROVIDERS: Admitting Provider Internal Medicine; Emergency Provider Emergency Medicine; PCP Hospitalist; Visit Provider Internal Medicine | DX: I42.2 Other hypertrophic cardiomyopathy (principal); I51.89 Other ill-defined heart diseases | CPT/HCPCS: 93306 ==

== ENCOUNTER → 2024-12-21 18:30 | Outpatient (BNV) | payer MEDICARE, SELFPAY | PROVIDERS: Admitting Provider Internal Medicine; Emergency Provider Emergency Medicine; PCP Hospitalist; Visit Provider Student in an Organized Health Care Education/Training Program | DX: I50.9 Heart failure, unspecified (principal); I26.99 Other pulmonary embolism without acute cor pulmonale | CPT/HCPCS: 99223 ==

== ENCOUNTER → 2024-12-21 18:30 | Outpatient (BNV) | payer MEDICARE, SELFPAY | PROVIDERS: Admitting Provider Internal Medicine; Emergency Provider Emergency Medicine; PCP Hospitalist; Visit Provider Internal Medicine | DX: I50.9 Heart failure, unspecified (principal); I26.99 Other pulmonary embolism without acute cor pulmonale; R91.8 Other nonspecific abnormal finding of lung field | CPT/HCPCS: 99223 ==

== ENCOUNTER 2025-01-24 14:48 | Outpatient (AMB) | payer MEDICARE, SELFPAY ==
--- NOTE | 2025-01-24 14:51 | MHC.OFFVIS ---
Vital Signs 01/24/25 14:52 Height 5 ft 5 in Weight 125 lb 10.616 oz BMI 20.9 BP 150/62 H Blood Pressure Location Lt brachial Position Sitting Pulse 49 L Pulse Source Pulse Oximeter Pulse Oximetry (%) 99 Oxygen Delivery Method Room Air Intake Visit Reasons: Lung Mass Cloth Laminating Supervisor Required: No Allergies No Known Allergies Allergy (Verified 01/24/25 14:57) HPI Comments Details: The patient is an 89-year-old female with pertinent history of tobacco use disorder who presents to the emergency department for evaluation of malaise, dyspnea and nonproductive cough. Patient states her daughter prompted her to come to the ER. As per the daughter at bedside, patient has been unwell for the last 1 week. She has been having malaise, easy fatigability and dyspnea on exertion. Also has been having nonproductive cough and upper respiratory symptoms. No sick contacts. No pertinent known past medical history as patient has not seen a PCP in over 40 years. Patient has more than 40 pack-year smoking history but did not smoke for the last 1 week. Denies orthopnea or PND. No chest pain, palpitations, fever, chills, abdominal pain, changes in urinary or bowel habits. In the emergency department, troponin found to be elevated. Imaging with right middle lobe mass and patient tested positive for influenza A. Had a CTA which I personally reviewed with the patients family, demonstrating a RML medial mass with obstruction of the RML airways resulting in atelectasis. Also has moderate emphysema and another ELSY nodule. ALso cardiac enzymes were significantly elevated and cardiology is following. 01/24/2025 the patient is here for an evaluation. She was initially seen while in the hospital back in June 2024. The point she was found to have a mass in the right middle lobe area. Was causing some atelectasis. He did follow-up with Oncology. Subsequently after that she underwent a CTA after having a positive D-dimer demonstrating the possibility of a question about blood clot in the right upper lobe area. Subsequently to that the hilar mass has gotten significantly bigger with more atelectasis of the right middle lobe area in addition to a nodular density now in the contralateral side along with bilateral pleural effusions right more than left. The wondering about a diagnostic intervention. She does have some dilation of the pulmonary vessels suggesting pulmonary hypertension. She also has a cardiac history. Now she is on a anticoagulation regimen for the suspicion of a blood clot specially with her likely cancer history. For all these reasons the patient is high risk for any procedure. I did go be reasonable to see about performing a ultrasound-guided thoracentesis that this time. If she still has fluid there then if this fluid is malignant then that will give us enough information. If not then we can consider bronchoscopy with endobronchial ultrasound to sample the hilar mass for proper identification and seeing the patient is a candidate for any molecular or immune therapy. [facility] Medical History (Updated 01/24/25 @ 23:02 by Thor Porter MD) Atelectasis Pleural effusion Calculus of kidney Bladder cancer Coronary artery disease Mass of lung Surgical History (Updated 01/10/25 @ 15:14 by iXomy Mckeon NP) Hx of section Hx of appendectomy Hx of cystoscopy Social History Household Members: Spouse Housing: House Do you presently have visiting nurse or other home services: Yes ([facility]) Alcohol intake: never Comment: refused alarms Patient Tobacco Use Status: Former Tobacco user Tobacco use type: Cigarette service: No Review of Systems Const Denies chills, Denies fatigue, Denies fever(s), Denies weight gain and Denies weight loss ENT Denies dizziness Card Denies chest pain, Denies leg edema, Denies lightheadedness, Denies palpitations, Denies dyspnea on exertion, Denies orthopnea and Denies other Resp Denies cough and Denies dyspnea on exertion GI Denies hematochezia and Denies change in stool character Musc Denies abnormal gait, Denies muscle weakness, Denies numbness, Denies radiating pain into limb and Denies tingling Neuro Denies abnormal gait, Denies dizziness, Denies numbness and Denies tingling Endo Denies fatigue and Denies palpitations Physical Exam Vital Signs: Last Vital Signs Pulse 49 L 01/24/25 14:52 BP 150/62 H 01/24/25 14:52 Pulse Ox 99 01/24/25 14:52 Oxygen Delivery Method Room Air 01/24/25 14:52 BMI result Body Mass Index 20.9 Last Vital Signs Temp 98.0 F 12/22/24 11:05 Pulse 54 12/22/24 11:05 Resp 18 12/22/24 11:05 BP 126/58 L 12/22/24 14:32 Pulse Ox 94 12/22/24 11:05 O2 Del Method Room Air 12/22/24 11:05 BMI result Body Mass Index 25.8 Const General: comfortable and no acute distress Orientation/consciousness: patient oriented x3 HEENT Other: Unremarkable Head: Yes normal to inspection Neck Neck: Yes normal visual inspection Chest Chest palpation & inspection: normal inspection of the chest Resp Effort & Inspection: normal respiratory effort Auscultation: diminished lung sounds Cardio Palpation: normal PMI Heart sounds: S1 normal heart sound present, S2 normal heart sound present, no gallops, no murmurs and no rubs GI Palpation (GI): Soft to palpation Back/Spine/Pelvis Other: unremarkable Skin General skin exam: no rashes or lesions noted Neuro General: patient oriented x3 Extrem General: Yes normal to inspection Psych Mental Status: mental status grossly normal Assessment & Plan Assessment & Plan (1) Pulmonary emboli: Code(s): I26.99 - Other pulmonary embolism without acute cor pulmonale Category: Medical Qualifiers: Pulmonary embolism type: unspecified Chronicity: unspecified Acute cor pulmonale presence: without acute cor pulmonale Qualified Code(s): I26.99 - Other pulmonary embolism without acute cor pulmonale (2) Mass of lung: Comment: new dx Code(s): R91.8 - Other nonspecific abnormal finding of lung field Category: Medical (3) Pleural effusion: Code(s): J90 - Pleural effusion, not elsewhere classified Category: Medical (4) Atelectasis: Code(s): J98.11 - Atelectasis Category: Medical Plan plan for thoracentesis for cytology If Thoracentesis is not diagnostic then EBUS would be reasonable continue xarelto, will need to hold x 2-3 days prior to procedures continue diuresis as tolerated F/U 3-4 months Orders: Orders Cell Count w Diff Pleural Fld Today J90 - Pleural effusion, not elsewhere classified LDH Pleural Fluid Today J90 - Pleural effusion, not elsewhere classified Other Ref Test - Misc Today J90 - Pleural effusion, not elsewhere classified US drain thoracentesis w image Today J90 - Pleural effusion, not elsewhere classified Total Protein Pleural Fluid Today J90 - Pleural effusion, not elsewhere classified Coding Level of Care Code New Pt Level 5 (62145) Complex EM visit Add On G2211 Diagnoses Pulmonary embolism without acute cor pulmonale, unspecified chronicity, unspecified pulmonary embolism type I26.99 Pulmonary embolism type: unspecified Chronicity: unspecified Acute cor pulmonale presence: without acute cor pulmonale Mass of lung R91.8 Pleural effusion J90 Atelectasis J98.11 Time Spent (min) 60
[2025-01-24 14:52] VITALS: BP 150/62; PULSE 49; O2SAT 99; BMI 20.9
--- OUTSIDE RECORDS SUMMARY | 2025-01-24 15:29 | XMS_ITS | Clinical Summary ---
Author Organization [address] [place] [address] [place] [id number] Phone Care Team Providers Care Business Process Coordinator Name Role Phone Preet Horan MD Primary Care Provider [phone] Allergies No known active allergies Medications aspirin [...] 56 06/29/2024 4:16 PM EST Temperature 36.9 C (98.4 F) 06/29/2024 4:16 PM EST Respiratory Rate - - Oxygen Saturation 97% 06/29/2024 4:16 PM EST Inhaled Oxygen Concentration - - Weight - - Height - - Body Mass Index - - Plan of Treatment Health Maintenance Due Date Last Done Comments DTaP,Tdap,and Td Vaccines (1 - Tdap) 1954 Depression Screening 06/09/2024 Falls Risk Assessment 06/30/2024 Medicare Annual Wellness Visit 06/30/2024 Osteoporosis Screening (Bone Density Screening) 06/30/2024 Social Influencers of Health Screening 06/30/2024 COVID-19 Vaccine ( season) 2024 02/22/2024, 02/27/2023, 02/26/2022, Additional history exists Influenza Vaccine (#1) 2025 , 02/16/2023, 02/26/2022, Additional history exists Pneumococcal Vaccine: 50+ Years Completed 02/16/2023, 03/26/2018 RSV Immunization Adult Patients Completed 03/02/2023 Zoster Vaccines Completed 03/06/2024, 01/06/2022 HIB Vaccines [...] to complete this topic Insurance [facility] [employer]IC[facility] [employer]VANTAGE Care Teams Business Process Coordinator Relationship Specialty Start Date End Date Preet Horan MD [address] [place] [id number] PCP - General Internal Medicine 03/31/21
--- OUTSIDE RECORDS SUMMARY | 2025-01-24 15:29 | XMS_ITS | Patient Health Record ---
Author Organization [employer] Address [address] [place] [address] Care Team Providers Care Arc Cutter Name Role Phone SHELLEY FREED Primary Care Provider TimothyDenia marsisai Unavailable [phone] PatrickRosa Elena blackwell Unavailable [phone] Allergies No Known Allergies Results Component Value Reference Range Notes Albumin/Creatinine Ratio,Uri [id number] Reviewed date:12/06/2024 07:50:04 AM Interpretation: Performing Lab:[facility], [address], Phone - [phone], Director - MDJodry Notes/Report: Creatinine, Urine 82.2 Not Estab. mg/dL Albumin, Urine 28.9 Not Estab. ug/mL Alb/Creat Ratio 35 0-29 mg/g creat Normal: 0 - 29 Moderately increased: 30 - 300 Severely increased: >300 Lipid Panel With LDL/HDL Rat [id number] Reviewed date:12/06/2024 07:49:44 AM Interpretation: Performing Lab:[facility], [address], Phone - [phone], Director - MDJodry Notes/Report: Cholesterol, Total 141 100-199 mg/dL Triglycerides 130 0-149 mg/dL HDL Cholesterol 56 >39 mg/dL VLDL Cholesterol Christopher 23 5-40 mg/dL LDL Chol Calc (NIH) 62 0-99 mg/dL LDL/HDL Ratio 1.1 0.0-3.2 ratio LDL/HDL Ratio Men Women 1/2 Avg.Risk 1.0 1.5 Avg.Risk 3.6 3.2 2X Avg.Risk 6.2 5.0 3X Avg.Risk 8.0 6.1 Comp. Metabolic Panel [id number] Reviewed date:12/06/2024 07:50:13 AM Interpretation: Performing Lab:[facility], [address], [place], Phone - [phone], Director - Katharine Notes/Report: Glucose 99 70-99 mg/dL BUN 28 [...] 44-121 IU/L AST (SGOT) 26 0-40 IU/L CBC with Diff, Platelet, NLR [id number] Reviewed date:12/06/2024 07:49:37 AM Interpretation: Performing Lab:[facility], [address], [place], Phone - [phone], Director - MDChristal Notes/Report: WBC 9.4 3.4-10.8 x10E3/uL RBC 4.27 [...] % Immature Grans (Abs) 0.0 0.0-0.1 x10E3/uL Reason For Referral No Information Medications Medication SIG (Take, Route, Frequency, Duration) Notes Start Date End Date Status Aspirin 81 81 MG 1 tab once daily; Duration: 30 days Active Eliquis 5 MG as directed Orally T wice a day; Duration: 90 days Active Lasix 20 MG 1 tablet Orally Once a day; Duration: 30 days Active Metoprolol Tartrate 25 MG 1/2 tablet wit h food Orally Twice a day; Duration: 30 days Active Atorvastatin Calcium 80 MG 1 tablet Oral ly Once a day; Duration: 90 days Active Rollator Ultra-Light - Dx: R26; [...] neoplasm of upper lobe, bronchus or lung (467140768) Malignant neoplasm of upper lobe, 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) Active confirmed Problem Acute non-ST segment elevation myocardial infarction (061162152) Non-ST elevation (NSTEMI) myocardial infarction (I21.4) Active confirmed Problem Hydronephrosis with renal and ureteral calculous obstruction (N13.2) Active confirmed Problem Calculus of kidney (96177654) Calculus of kidney (N20.0) Active confirmed Problem Right ventricular failure (disorder) (636317117) Right heart failure, unspecified (I50.810) Active confirmed Problem Atherosclerotic heart disease of [place] coronary artery without angina pectoris (837921464449837) 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.10) Active confirmed Problem Essential hypertension (51311728) HTN (hypertension), benign (I10) Active confirmed Vital Signs Heart Rate 56 /min 01/06/2025 Temperature 96.9 degrees Fahrenheit 01/06/2025 Blood pressure diastolic 78 mm Hg 01/06/2025 Oximetry 98 % 01/06/2025 Height 5'0'' in 01/06/2025 Blood pressure systolic 118 mm Hg 01/06/2025 Weight 127.7 lbs 01/06/2025 BMI 24.94 kg/m2 01/06/2025 Encounters Encounter Location Date Provider Diagnosis [address] [address] 08/03/2024 [facility] HTN (hypertension), benign I10 ; Hyperlipidemia, mixed E78.2 ; Calculus of kidney N20.0 ; Malignant neoplasm of upper lobe, right bronchus or lung C34.11 ; Hydronephrosis with renal and ureteral calculous obstruction N13.2 and Non-ST elevation (NSTEMI) myocardial infarction I21.[address] [place] [address] 12/07/2024 Ananth Hoffman Encounter for genera l adult medical examination without abnormal findings Z00.00 ; HTN (hypertension), benign I10 and Coronary artery disease involving [place] coronary artery of [place] heart without angina pectoris I25.[address] [address] 01/06/2025 [facility] discharge follow-up Z09 ; Other pulmonary embolism without acute cor pulmonale I26.99 ; Malignant neoplasm of upper lobe, right bronchus or lung C34.11 ; HTN (hypertension), benign I10 ; Non-ST elevation (NSTEMI) myocardial infarction I21.4 ; Pleural effusion, not elsewhere classified J90 and Right heart failure, unspecified I50.[address] [address] 07/22/[address] [place] [address] 08/03/[address] [place] [address] 08/05/[address] [place] [address] 08/09/[address] [place] [address] 08/10/2024 [facility] HTN (hypertension), benign [address] [place] [address] 08/10/2024 [facility] HTN (hypertension), benign [address] [place] [address] 12/08/2024 [facility] HTN (hypertension), [address] [place] [address] 12/13/[address] [address] 01/06/2025 Rosa Elena Kline Assessments Encounter Date Diagnosis (ICD Code) Assessment Notes Treatment Notes Treatment Clinical Notes Section Notes 08/10/2024 HTN (hypertension), benign (ICD-10 - I10) 08/10/2024 HTN (hypertension), benign (ICD-10 - I10) 12/07/2024 Encounter for general adult medical examination without abnormal findings (ICD-10 - Z00.00) 88-year-old lady with a history of hypertension, recent non-ST elevation MD, obstructive uropathy status post stent placement, right [...] patient and daughter History of non-ST elevation MD in June 2024. We will continue that for nowHistory of non-ST elevation MD in the setting of sepsis and acute illness in 2024 echocardiogram was reviewed today which was completed at [facility] showed normal LV function 60-65% she follows [...] anterior and lateral leads indicating the previous MD. She is currently chest pain-free. She is [...] she has been following Dr. Porter at [facility] appeared she also saw the oncologist Dr. [...] not seen a PCP all her life. 12/07/2024 HTN (hypertension), benign (ICD-10 - I10) 88-year-old lady with a history of hypertension, recent non-ST elevation MD, obstructive uropathy status post stent placement, right [...] patient and daughter History of non-ST elevation MD in June 2024. We will continue that for nowHistory of non-ST elevation MD in the setting of sepsis and acute illness in 2024 echocardiogram was reviewed today which was completed at [facility] showed normal LV function 60-65% she follows [...] anterior and lateral leads indicating the previous MD. She is currently chest pain-free. She is [...] she has been following Dr. Porter at [facility] appeared she also saw the oncologist Dr. [...] HTN (hypertension), benign (ICD-10 - I10) 08/03/2024 HTN (hypertension), benign (ICD-10 - I10) 88-year-old lady with a history of hypertension, recent non-ST elevation MD, obstructive uropathy status post stent placement, right [...] profile last lab work was done at [facility] which is unavailable to us today, she is on atorvastatin 80 mg due to history of non-ST elevation MD in June 2024. We will continue t hat for now History of non-ST elevation MD in the setting of sepsis and acute illness in 2024 echocardiogram was reviewed today which was completed at [facility] showed normal LV function 60-65% she follows [...] she has been following Dr. Porter at [facility] appeared she also saw the oncologist Dr. [...] urology follow-up. Lab slip was given today 01/06/2025 Other pulmonary embolism without acute cor pulmonale (ICD-10 - I26.99) Daerk is an 88-year-old lady who is accompanied by her daughter Chris carries a history of hypertension hyperlipidemia, cardiomyopathy, lung cancer will be seeing a oncologist at [facility] and Lunch [employer] Manager Dr. Porter, Pulmonary embolism on Eliquis is here today for recent hospital admission at [facility]. Plan as follows Malignant neoplasm of the upper lobe Pulmonary embolism - She has a follow-up with the oncologist and ranch manager Dr. Porter to discuss further diagnosis and treatment. Pulmonary embolism most likely secondary in the setting of lung cancer. She is currently on Eliquis 5 mg twice a day. Patient is to follow-up with oncologist on further adjustment of the medication and further workup on secondary causes of pulmonary embolism. Hypertension. Her blood pressure is within normal limits in the office today. Continue with metoprolol half tablet twice a day and furosemide 20 mg daily. Recent comp was done did show GFR at 57 with creatinine within normal limits. We will continue monitoring BMP Continue monitoring blood pressure at home. Reduce salt intake Non-ST elevation. She does follow with a laundry aid. She is currently on aspirin and beta-digna, Atorvastatin 80 mg. Stable at this point. Her previous echo was done through the laundry aid which did show ejection fraction of 60-65% and dyskinetic apical segment. Pleural effusion. She was given 40 mg IV through some of the hospital and patient was discharged with 20 mg of furosemide. We will repeat chest x-ray to ensure resolution Right-sided heart failure. She does follow with a laundry aid. Advised patient to do daily weights, and setting of increased weight 2 pounds a day or 5 pounds in a week then patient is to start taking 2 tablets of the furosemide and we will check BMP the Day she increases Furosemide and after. As for now continue on the same regimen Recent hospital discharge note was discussed with the patient and medication list has been updated Awaiting a full report from [facility] General concerns have been discussed I have rendered the services for this patient under direct supervision of Dr. Freed, who did not see the patient but was available upon requestContent of this note has been dictated using voice recognition software. Despite multiple revisions, Errors may persist 01/06/2025 Hospital discharge follow-up (ICD-10 - Z09) Darek is an 88-year-old lady who is accompanied by her daughter Chris carries a history of hypertension hyperlipidemia, cardiomyopathy, lung cancer will be seeing a oncologist at [facility] and Lunch Counter Manager Dr. Porter, Pulmonary embolism on Eliquis is here today for recent hospital admission at [facility]. Plan as follows Malignant neoplasm of the upper lobe Pulmonary embolism - She has a follow-up with the oncologist and ranch manager Dr. Porter to discuss further diagnosis and treatment. Pulmonary embolism most likely secondary in the setting of lung cancer. She is currently on Eliquis 5 mg twice a day. Patient is to follow-up with oncologist on further adjustment of the medication and further workup on secondary causes of pulmonary embolism. Hypertension. Her blood pressure is within normal limits in the office today. Continue with metoprolol half tablet twice a day and furosemide 20 mg daily. Recent comp was done did show GFR at 57 with creatinine within normal limits. We will continue monitoring BMP Continue monitoring blood pressure at home. Reduce salt intake Non-ST elevation. She does follow with a laundry aid. She is currently on aspirin and beta-digna, Atorvastatin 80 mg. Stable at this point. Her previous echo was done through the laundry aid which did show ejection fraction of 60-65% and dyskinetic apical segment. Pleural effusion. She was given 40 mg IV through some of the hospital and patient was discharged with 20 mg of furosemide. We will repeat chest x-ray to ensure resolution Right-sided heart failure. She does follow with a laundry aid. Advised patient to do daily weights, and setting of increased weight 2 pounds a day or 5 pounds in a week then patient is to start taking 2 tablets of the furosemide and we will check BMP the Day she increases Furosemide and after. As for now continue on the same regimen Recent hospital discharge note was discussed with the patient and medication list has been updated Awaiting a full report from [facility] General concerns have been discussed I have rendered the services for this patient under direct supervision of Dr. Freed, who did not see the patient but was available upon requestContent of this note has been dictated using voice recognition software. Despite multiple revisions, Errors may persist 08/03/2024 Hyperlipidemia, mixed (ICD-10 - E78.2) 88-year-old lady with a history of hypertension, recent non-ST elevation MD, obstructive uropathy status post stent placement, right [...] profile last lab work was done at [facility] which is unavailable to us today, she is on atorvastatin 80 mg due to history of non-ST elevation MD in June 2024. We will continue t hat for now History of non-ST elevation MD in the setting of sepsis and acute illness in 2024 echocardiogram was reviewed today which was completed at [facility] showed normal LV function 60-65% she follows [...] she has been following Dr. Porter at [facility] appeared she also saw the oncologist Dr. [...] urology follow-up. Lab slip was given today 01/06/2025 Malignant neoplasm of upper lobe, right bronchus or lung (ICD-10 - C34.11) Darek is an 88-year-old lady who is accompanied by her daughter Chris carries a history of hypertension hyperlipidemia, cardiomyopathy, lung cancer will be seeing a oncologist at [facility] and Lunch Counter Manager Dr. Porter, Pulmonary embolism on Eliquis is here today for recent hospital admission at [facility]. Plan as follows Malignant neoplasm of the upper lobe Pulmonary embolism - She has a follow-up with the oncologist and ranch manager Dr. Porter to discuss further diagnosis and treatment. Pulmonary embolism most likely secondary in the setting of lung cancer. She is currently on Eliquis 5 mg twice a day. Patient is to follow-up with oncologist on further adjustment of the medication and further workup on secondary causes of pulmonary embolism. Hypertension. Her blood pressure is within normal limits in the office today. Continue with metoprolol half tablet twice a day and furosemide 20 mg daily. Recent comp was done did show GFR at 57 with creatinine within normal limits. We will continue monitoring BMP Continue monitoring blood pressure at home. Reduce salt intake Non-ST elevation. She does follow with a laundry aid. She is currently on aspirin and beta-digna, Atorvastatin 80 mg. Stable at this point. Her previous echo was done through the laundry aid which did show ejection fraction of 60-65% and dyskinetic apical segment. Pleural effusion. She was given 40 mg IV through some of the hospital and patient was discharged with 20 mg of furosemide. We will repeat chest x-ray to ensure resolution Right-sided heart failure. She does follow with a laundry aid. Advised patient to do daily weights, and setting of increased weight 2 pounds a day or 5 pounds in a week then patient is to start taking 2 tablets of the furosemide and we will check BMP the Day she increases Furosemide and after. As for now continue on the same regimen Recent hospital discharge note was discussed with the patient and medication list has been updated Awaiting a full report from [facility] General concerns have been discussed I have rendered the services for this patient under direct supervision of Dr. Freed, who did not see the patient but was available upon requestContent of this note has been dictated using voice recognition software. Despite multiple revisions, Errors may persist 12/07/2024 Coronary artery disease involving [place] coronary artery of [place] heart without angina pectoris (ICD-10 - I25.10) 88-year-old lady with a history of hypertension, recent non-ST elevation MD, obstructive uropathy status post stent placement, right [...] patient and daughter History of non-ST elevation MD in June 2024. We will continue that for nowHistory of non-ST elevation MD in the setting of sepsis and acute illness in 2024 echocardiogram was reviewed today which was completed at [facility] showed normal LV function 60-65% she follows [...] anterior and lateral leads indicating the previous MD. She is currently chest pain-free. She is [...] she has been following Dr. Porter at [facility] appeared she also saw the oncologist Dr. [...] a history of hypertension, recent non-ST elevation MD, obstructive uropathy status post stent placement, right [...] profile last lab work was done at [facility] which is unavailable to us today, she is on atorvastatin 80 mg due to history of non-ST elevation MD in June 2024. We will continue t hat for now History of non-ST elevation MD in the setting of sepsis and acute illness in 2024 echocardiogram was reviewed today which was completed at [facility] showed normal LV function 60-65% she follows [...] she has been following Dr. Porter at [facility] appeared she also saw the oncologist Dr. [...] urology follow-up. Lab slip was given today 01/06/2025 HTN (hypertension), benign (ICD-10 - I10) Darek is an 88-year-old lady who is accompanied by her daughter Chris carries a history of hypertension hyperlipidemia, cardiomyopathy, lung cancer will be seeing a oncologist at [facility] and Lunch Counter Manager Dr. Porter, Pulmonary embolism on Eliquis is here today for recent hospital admission at [facility]. Plan as follows Malignant neoplasm of the upper lobe Pulmonary embolism - She has a follow-up with the oncologist and ranch manager Dr. Porter to discuss further diagnosis and treatment. Pulmonary embolism most likely secondary in the setting of lung cancer. She is currently on Eliquis 5 mg twice a day. Patient is to follow-up with oncologist on further adjustment of the medication and further workup on secondary causes of pulmonary embolism. Hypertension. Her blood pressure is within normal limits in the office today. Continue with metoprolol half tablet twice a day and furosemide 20 mg daily. Recent comp was done did show GFR at 57 with creatinine within normal limits. We will continue monitoring BMP Continue monitoring blood pressure at home. Reduce salt intake Non-ST elevation. She does follow with a laundry aid. She is currently on aspirin and beta-digna, Atorvastatin 80 mg. Stable at this point. Her previous echo was done through the laundry aid which did show ejection fraction of 60-65% and dyskinetic apical segment. Pleural effusion. She was given 40 mg IV through some of the hospital and patient was discharged with 20 mg of furosemide. We will repeat chest x-ray to ensure resolution Right-sided heart failure. She does follow with a laundry aid. Advised patient to do daily weights, and setting of increased weight 2 pounds a day or 5 pounds in a week then patient is to start taking 2 tablets of the furosemide and we will check BMP the Day she increases Furosemide and after. As for now continue on the same regimen Recent hospital discharge note was discussed with the patient and medication list has been updated Awaiting a full report from [facility] General concerns have been discussed I have rendered the services for this patient under direct supervision of Dr. Freed, who did not see the patient but was available upon requestContent of this note has been dictated using voice recognition software. Despite multiple revisions, Errors may persist 08/03/2024 Malignant neoplasm of upper lobe, right bronchus or lung (ICD-10 - C34.11) 88-year-old lady with a history of hypertension, recent non-ST elevation MD, obstructive uropathy status post stent placement, right [...] profile last lab work was done at [facility] which is unavailable to us today, she is on atorvastatin 80 mg due to history of non-ST elevation MD in June 2024. We will continue t hat for now History of non-ST elevation MD in the setting of sepsis and acute illness in 2024 echocardiogram was reviewed today which was completed at [facility] showed normal LV function 60-65% she follows [...] she has been following Dr. Porter at [facility] appeared she also saw the oncologist Dr. [...] urology follow-up. Lab slip was given today 01/06/2025 Non-ST elevation (NSTEMI) myocardial infarction (ICD-10 - I21.4) Darek is an 88-year-old lady who is accompanied by her daughter Chris carries a history of hypertension hyperlipidemia, cardiomyopathy, lung cancer will be seeing a oncologist at [facility] and Lunch Counter Manager Dr. Porter, Pulmonary embolism on Eliquis is here today for recent hospital admission at [facility]. Plan as follows Malignant neoplasm of the upper lobe Pulmonary embolism - She has a follow-up with the oncologist and ranch manager Dr. Porter to discuss further diagnosis and treatment. Pulmonary embolism most likely secondary in the setting of lung cancer. She is currently on Eliquis 5 mg twice a day. Patient is to follow-up with oncologist on further adjustment of the medication and further workup on secondary causes of pulmonary embolism. Hypertension. Her blood pressure is within normal limits in the office today. Continue with metoprolol half tablet twice a day and furosemide 20 mg daily. Recent comp was done did show GFR at 57 with creatinine within normal limits. We will continue monitoring BMP Continue monitoring blood pressure at home. Reduce salt intake Non-ST elevation. She does follow with a laundry aid. She is currently on aspirin and beta-digna, Atorvastatin 80 mg. Stable at this point. Her previous echo was done through the laundry aid which did show ejection fraction of 60-65% and dyskinetic apical segment. Pleural effusion. She was given 40 mg IV through some of the hospital and patient was discharged with 20 mg of furosemide. We will repeat chest x-ray to ensure resolution Right-sided heart failure. She does follow with a laundry aid. Advised patient to do daily weights, and setting of increased weight 2 pounds a day or 5 pounds in a week then patient is to start taking 2 tablets of the furosemide and we will check BMP the Day she increases Furosemide and after. As for now continue on the same regimen Recent hospital discharge note was discussed with the patient and medication list has been updated Awaiting a full report from [facility] General concerns have been discussed I have rendered the services for this patient under direct supervision of Dr. Freed, who did not see the patient but was available upon requestContent of this note has been dictated using voice recognition software. Despite multiple revisions, Errors may persist 01/06/2025 Pleural effusion, not elsewhere classified (ICD-10 - J90) Darek is an 88-year-old lady who is accompanied by her daughter Chris carries a history of hypertension hyperlipidemia, cardiomyopathy, lung cancer will be seeing a oncologist at [facility] and Lunch Counter Manager Dr. Porter, Pulmonary embolism on Eliquis is here today for recent hospital admission at [facility]. Plan as follows Malignant neoplasm of the upper lobe Pulmonary embolism - She has a follow-up with the oncologist and ranch manager Dr. Porter to discuss further diagnosis and treatment. Pulmonary embolism most likely secondary in the setting of lung cancer. She is currently on Eliquis 5 mg twice a day. Patient is to follow-up with oncologist on further adjustment of the medication and further workup on secondary causes of pulmonary embolism. Hypertension. Her blood pressure is within normal limits in the office today. Continue with metoprolol half tablet twice a day and furosemide 20 mg daily. Recent comp was done did show GFR at 57 with creatinine within normal limits. We will continue monitoring BMP Continue monitoring blood pressure at home. Reduce salt intake Non-ST elevation. She does follow with a laundry aid. She is currently on aspirin and beta-digna, Atorvastatin 80 mg. Stable at this point. Her previous echo was done through the laundry aid which did show ejection fraction of 60-65% and dyskinetic apical segment. Pleural effusion. She was given 40 mg IV through some of the hospital and patient was discharged with 20 mg of furosemide. We will repeat chest x-ray to ensure resolution Right-sided heart failure. She does follow with a laundry aid. Advised patient to do daily weights, and setting of increased weight 2 pounds a day or 5 pounds in a week then patient is to start taking 2 tablets of the furosemide and we will check BMP the Day she increases Furosemide and after. As for now continue on the same regimen Recent hospital discharge note was discussed with the patient and medication list has been updated Awaiting a full report from [facility] General concerns have been discussed I have rendered the services for this patient under direct supervision of Dr. Freed, who did not see the patient but was available upon requestContent of this note has been dictated using voice recognition software. Despite multiple revisions, Errors may persist 08/03/2024 Hydronephrosis with renal and ureteral calculous obstruction (ICD-10 - N13.2) 88-year-old lady with a history of hypertension, recent non-ST elevation MD, obstructive uropathy status post stent placement, right [...] profile last lab work was done at [facility] which is unavailable to us today, she is on atorvastatin 80 mg due to history of non-ST elevation MD in June 2024. We will continue t hat for now History of non-ST elevation MD in the setting of sepsis and acute illness in 2024 echocardiogram was reviewed today which was completed at [facility] showed normal LV function 60-65% she follows [...] she has been following Dr. Porter at [facility] appeared she also saw the oncologist Dr. [...] a history of hypertension, recent non-ST elevation MD, obstructive uropathy status post stent placement, right [...] profile last lab work was done at [facility] which is unavailable to us today, she is on atorvastatin 80 mg due to history of non-ST elevation MD in June 2024. We will continue t hat for now History of non-ST elevation MD in the setting of sepsis and acute illness in 2024 echocardiogram was reviewed today which was completed at [facility] showed normal LV function 60-65% she follows [...] she has been following Dr. Porter at [facility] appeared she also saw the oncologist Dr. [...] urology follow-up. Lab slip was given today 01/06/2025 Right heart failure, unspecified (ICD-10 - I50.810) Darek is an 88-year-old lady who is accompanied by her daughter Chris carries a history of hypertension hyperlipidemia, cardiomyopathy, lung cancer will be seeing a oncologist at [facility] and Lunch Counter Manager Dr. Porter, Pulmonary embolism on Eliquis is here today for recent hospital admission at [facility]. Plan as follows Malignant neoplasm of the upper lobe Pulmonary embolism - She has a follow-up with the oncologist and ranch manager Dr. Porter to discuss further diagnosis and treatment. Pulmonary embolism most likely secondary in the setting of lung cancer. She is currently on Eliquis 5 mg twice a day. Patient is to follow-up with oncologist on further adjustment of the medication and further workup on secondary causes of pulmonary embolism. Hypertension. Her blood pressure is within normal limits in the office today. Continue with metoprolol half tablet twice a day and furosemide 20 mg daily. Recent comp was done did show GFR at 57 with creatinine within normal limits. We will continue monitoring BMP Continue monitoring blood pressure at home. Reduce salt intake Non-ST elevation. She does follow with a laundry aid. She is currently on aspirin and beta-digna, Atorvastatin 80 mg. Stable at this point. Her previous echo was done through the laundry aid which did show ejection fraction of 60-65% and dyskinetic apical segment. Pleural effusion. She was given 40 mg IV through some of the hospital and patient was discharged with 20 mg of furosemide. We will repeat chest x-ray to ensure resolution Right-sided heart failure. She does follow with a laundry aid. Advised patient to do daily weights, and setting of increased weight 2 pounds a day or 5 pounds in a week then patient is to start taking 2 tablets of the furosemide and we will check BMP the Day she increases Furosemide and after. As for now continue on the same regimen Recent hospital discharge note was discussed with the patient and medication list has been updated Awaiting a full report from [facility] General concerns have been discussed I have rendered the services for this patient under direct supervision of Dr. Freed, who did not see the patient but was available upon requestContent of this note has been dictated using voice recognition software. Despite multiple revisions, Errors may persist Plan Of Treatment Pending Test Test Name Order Date Xray: Chest-Standard Frontal & Lat 01/06 Comp. Metabolic Panel [id number] 2024 Next Appt Details Provider Name:Rosa Elena mars, 04/07/2025 03:00:00 PM, [address] [place] [address], [place], [address], Provider Name:Ananth Hoffman, 0 06/21/2025 02:15:00 PM, [address] [place] [address], [place], [address], Insurance Providers Payer Name Payer Address Payer Phone Subscriber Number Group Number Insured Name Patient Relationship to Insured Coverage Start Date Coverage End Date [employer] 1 [facility] [address] [place] [phone] [id number] Nora Carlostrish Self - patient is the insured 4 Medical (General) History Medical History History ICD Code history of non-ST elevation MD followed by Dr. Tello Christian cardiology in 2024/sepsis-induced Right lung mass followed by Dr. Porter pulmonology and Dr. Rodriguez oncology conservative treatment Nephrolithiasis with hydrone phrosis and hydroureter status post stent by Dr. 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 Moore is following from [facility], status post bar biopsy papillary carcinoma appendectomy as a child
== END 2025-01-24 15:44 | disposition home or self-care (01) ==
LOC: HO.HPS 14:49
PROVIDERS: PCP Hospitalist; Referring Provider Internal Medicine Medical Oncology; Visit Provider Hospitalist
DX: I26.99 Other pulmonary embolism without acute cor pulmonale (principal); R91.8 Other nonspecific abnormal finding of lung field; J90 Pleural effusion, not elsewhere classified; J98.11 Atelectasis
CPT/HCPCS: 99215; G2211

== ENCOUNTER → 2025-01-24 14:48 | Outpatient (BNVA) | payer MEDICARE, SELFPAY | PROVIDERS: PCP Hospitalist; Referring Provider Internal Medicine Medical Oncology; Visit Provider Hospitalist | DX: R91.8 Other nonspecific abnormal finding of lung field (principal); I26.99 Other pulmonary embolism without acute cor pulmonale; J90 Pleural effusion, not elsewhere classified; J98.11 Atelectasis; Z79.01 Long term (current) use of anticoagulants | CPT/HCPCS: 99212 ==

== ENCOUNTER 2025-02-17 12:44 | Outpatient (REF) | payer MEDICARE, SELFPAY ==
--- NOTE | ~2025-02-17 | XR_ITS ---
EXAMINATION: XR CHEST CLINICAL INFORMATION: J90 - Pleural effusion, not elsewhere classified COMPARISON: December 21, 2024. TECHNIQUE: 2 views of the chest were obtained. FINDINGS: Hyperinflated lungs. Pulmonary reticular pattern. Bilateral apical lung scarring. No consolidation, pleural effusion or pneumothorax. Arty mediastinal silhouette size is normal. Calcified plaque thoracic aorta. S-shaped curvature of the thoracolumbar spine. Osteopenia versus osteoporosis. Multilevel spondylosis. XR/XR chest 2V IMPRESSION: No acute airspace disease. 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 Scoliosis and spondylosis, axial skeleton. Osteopenia versus osteoporosis. Electronically signed by: Andrzej Curiel MD 02/17/2025 02:00 PM EDT
--- OUTSIDE RECORDS SUMMARY | 2025-02-17 16:55 | XMS_ITS | Patient Health Record ---
Author Organization [facility] Address [address] [place] [address] Care Team Providers Care Chemist Helper Name Role Phone SHELLEY FREED Primary Care Provider Ananth Hoffman Unavailable [phone] PatrickRosa Elena blackwell Unavailable [phone] Allergies No Known Allergies Results Component Value Reference Range Notes CBC with Diff, Platelet, NLR [id number] Reviewed date:12/06/2024 07:49:37 AM Interpretation: Performing Lab:[facility], [address] [place] [address], [place], Phone - [phone], Director - Katharine Notes/Report: WBC 9.4 3.4-10.8 [...] Grans (Abs) 0.0 0.0-0.1 x10E3/uL Albumin/Creatinine Ratio,Uri [id number] Reviewed date:12/06/2024 07:50:04 AM Interpretation: Performing Lab:[facility], [facility], Phone - [phone], Director - MDJodry Notes/Report: Creatinine, Urine 82.2 Not Estab. mg/dL Albumin, Urine 28.9 Not Estab. ug/mL Alb/Creat Ratio 35 0-29 mg/g creat Normal: 0 - 29 Moderately increased: 30 - 300 Severely increased: >300 Lipid Panel With LDL/HDL Rat [id number] Reviewed date:12/06/2024 07:49:44 AM Interpretation: Performing Lab:[facility], [address] [place] [address], Phone - [phone], Director - MDJodry Notes/Report: Cholesterol, Total 141 100-199 mg/dL Triglycerides 130 0-149 mg/dL HDL Cholesterol 56 >39 mg/dL VLDL Cholesterol Christopher 23 5-40 mg/dL LDL Chol Calc ([facility]) 62 0-99 mg/dL LDL/HDL Ratio 1.1 0.0-3.2 ratio LDL/HDL Ratio Men Women 1/2 Avg.Risk 1.0 1.5 Avg.Risk 3.6 3.2 2X Avg.Risk 6.2 5.0 3X Avg.Risk 8.0 6.1 Comp. 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) Active confirmed Problem Acute non-ST segment elevation myocardial infarction (749617277) Non-ST elevation (NSTEMI) myocardial infarction (I21.4) Active confirmed Problem Hydronephrosis with renal and ureteral calculous obstruction (N13.2) Active confirmed Problem Calculus of kidney (06417306) Calculus of kidney (N20.0) Active confirmed Problem Right ventricular failure (disorder) (313809538) Right heart failure, unspecified (I50.810) Active confirmed Problem Atherosclerotic heart disease of ely shoshone coronary artery without angina pectoris (268625746484562) 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 (I25.10) Active confirmed Problem Essential hypertension (57188287) HTN (hypertension), benign (I10) Active confirmed Vital Signs Heart Rate 56 /min 01/06/2025 Temperature 96.9 degrees Fahrenheit 01/06/2025 Oximetry 98 % 01/06/2025 Blood pressure diastolic 78 mm Hg 01/06/2025 Height 5'0'' in 01/06/2025 Blood pressure systolic 118 mm Hg 01/06/2025 Weight 127.7 lbs 01/06/2025 BMI 24.94 kg/m2 01/06/2025 Encounters Encounter Location Date Provider Diagnosis [address] [place] [address] 08/03/2024 Aroisai Aguirre HTN (hypertension), benign I10 ; Hyperlipidemia, mixed E78.2 ; Calculus of kidney N20.0 ; Malignant neoplasm of upper lobe, right bronchus or lung C34.11 ; Hydronephrosis with renal and ureteral calculous obstruction N13.2 and Non-ST elevation (NSTEMI) myocardial infarction I21.[address] [place] [address] 12/07/2024 Ananth Hoffman Encounter for genera l adult medical examination without abnormal findings Z00.00 ; HTN (hypertension), benign I10 and 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 I25.[address] [place] [address] 01/06/2025 [facility] discharge follow-up Z09 ; Other pulmonary embolism without acute cor pulmonale I26.99 ; Malignant neoplasm of upper lobe, right bronchus or lung C34.11 ; HTN (hypertension), benign I10 ; Non-ST elevation (NSTEMI) myocardial infarction I21.4 ; Pleural effusion, not elsewhere classified J90 and Right heart failure, unspecified I50.810 [facility] [address] [place] [address] 07/22/2024 [facility] [address] [place] [address] 08/03/[address] [place] [address] 08/05/[address] [place] [address] 08/09/[address] [place] [address] 08/10/2024 [facility] HTN (hypertension), benign [address] [place] [address] 08/10/2024 [facility] HTN (hypertension), benign [address] [place] [address] 12/08/2024 Aroosa Alam HTN (hypertension), [address] [place] [address] 12/13/[address] [place] [address] 01/06/[address] [place] [address] 01/26/[address] [place] [address] 01/28/2025 Aroosa Alam Allergic contact dermatitis due to cosmetics L23.2 Assessments Encounter Date Diagnosis (ICD Code) Assessment Notes Treatment Notes Treatment Clinical Notes Section Notes 01/28/2025 Allergic contact dermatitis due to cosmetics (ICD-10 - L23.2) 01/06/2025 Hospital discharge follow-up (ICD-10 - Z09) Darek is an 88-year-old lady who is accompanied by her daughter Chris carries a history of hypertension hyperlipidemia, cardiomyopathy, lung cancer will be seeing a oncologist at [facility] and [facility] [address] Porter, Pulmonary embolism on Eliquis is here today for recent hospital admission at [facility]. Plan as follows Malignant neoplasm of the upper lobe Pulmonary embolism - She has a follow-up with the oncologist and glass edger Dr. Porter to discuss further diagnosis and [...] Non-ST elevation. She does follow with a waste water operator. She is currently on aspirin and beta-digna, Atorvastatin 80 mg. Stable at this point. Her previous echo was done through the waste water operator which did show ejection fraction of 60-65% and dyskinetic apical segment. Pleural effusion. She was given 40 mg IV through some of the hospital and patient was discharged with 20 mg of furosemide. We will repeat chest x-ray to ensure resolution Right-sided heart failure. She does follow with a waste water operator. Advised patient to do daily weights, and [...] been updated Awaiting a full report from [facility] General concerns have been discussed I have rendered the services for this patient under direct supervision of Dr. Freed, who did not see the patient but was available upon requestContent of this note has been dictated using voice recognition software. Despite multiple revisions, Errors may persist 08/10/2024 HTN (hypertension), benign (ICD-10 - I10) 08/10/2024 HTN (hypertension), benign (ICD-10 - I10) 12/07/2024 Encounter for general adult medical examination without abnormal findings (ICD-10 - Z00.00) 88-year-old lady with a history of hypertension, recent non-ST elevation DE, obstructive uropathy status post stent placement, right [...] patient and daughter History of non-ST elevation DE in June 2024. We will continue that for nowHistory of non-ST elevation DE in the setting of sepsis and acute illness in 2024 echocardiogram was reviewed today which was completed at [facility] showed normal LV function 60-65% she follows [...] anterior and lateral leads indicating the previous DE. She is currently chest pain-free. She is [...] she has been following Dr. Porter at [facility] appeared she also saw the oncologist Dr. [...] a history of hypertension, recent non-ST elevation DE, obstructive uropathy status post stent placement, right [...] patient and daughter History of non-ST elevation DE in June 2024. We will continue that for nowHistory of non-ST elevation DE in the setting of sepsis and acute illness in 2024 echocardiogram was reviewed today which was completed at [facility] showed normal LV function 60-65% she follows [...] anterior and lateral leads indicating the previous DE. She is currently chest pain-free. She is [...] she has been following Dr. Porter at [facility] appeared she also saw the oncologist Dr. [...] a history of hypertension, recent non-ST elevation DE, obstructive uropathy status post stent placement, right [...] profile last lab work was done at [facility] which is unavailable to us today, she is on atorvastatin 80 mg due to history of non-ST elevation DE in June 2024. We will continue t hat for now History of non-ST elevation DE in the setting of sepsis and acute illness in 2024 echocardiogram was reviewed today which was completed at [facility] showed normal LV function 60-65% she follows [...] she has been following Dr. Porter at [facility] appeared she also saw the oncologist Dr. [...] without acute cor pulmonale (ICD-10 - I26.99) Darek is an 88-year-old lady who is accompanied by her daughter Chris carries a history of hypertension hyperlipidemia, cardiomyopathy, lung cancer will be seeing a oncologist at [facility] and [employer] [facility] [address] Porter, Pulmonary embolism on Eliquis is here today for recent hospital admission at [facility]. Plan as follows Malignant neoplasm of the upper lobe Pulmonary embolism - She has a follow-up with the oncologist and glass edger Dr. Porter to discuss further diagnosis and [...] Non-ST elevation. She does follow with a waste water operator. She is currently on aspirin and beta-digna, Atorvastatin 80 mg. Stable at this point. Her previous echo was done through the waste water operator which did show ejection fraction of 60-65% and dyskinetic apical segment. Pleural effusion. She was given 40 mg IV through some of the hospital and patient was discharged with 20 mg of furosemide. We will repeat chest x-ray to ensure resolution Right-sided heart failure. She does follow with a waste water operator. Advised patient to do daily weights, and [...] been updated Awaiting a full report from [facility] General concerns have been discussed I have rendered the services for this patient under direct supervision of Dr. Freed, who did not see the patient but was available upon requestContent of this note has been dictated using voice recognition software. Despite multiple revisions, Errors may persist 08/03/2024 Hyperlipidemia, mixed (ICD-10 - E78.2) 88-year-old lady with a history of hypertension, recent non-ST elevation DE, obstructive uropathy status post stent placement, right [...] profile last lab work was done at [facility] which is unavailable to us today, she is on atorvastatin 80 mg due to history of non-ST elevation DE in June 2024. We will continue t hat for now History of non-ST elevation DE in the setting of sepsis and acute illness in 2024 echocardiogram was reviewed today which was completed at [facility] showed normal LV function 60-65% she follows [...] she has been following Dr. Porter at [facility] appeared she also saw the oncologist Dr. [...] cancer will be seeing a oncologist at [facility] and [facility] [address] Porter, Pulmonary embolism on Eliquis is here today for recent hospital admission at [facility]. Plan as follows Malignant neoplasm of the upper lobe Pulmonary embolism - She has a follow-up with the oncologist and glass edger Dr. Porter to discuss further diagnosis and [...] Non-ST elevation. She does follow with a waste water operator. She is currently on aspirin and beta-digna, Atorvastatin 80 mg. Stable at this point. Her previous echo was done through the waste water operator which did show ejection fraction of 60-65% and dyskinetic apical segment. Pleural effusion. She was given 40 mg IV through some of the hospital and patient was discharged with 20 mg of furosemide. We will repeat chest x-ray to ensure resolution Right-sided heart failure. She does follow with a waste water operator. Advised patient to do daily weights, and [...] been updated Awaiting a full report from [facility] General concerns have been discussed I have rendered the services for this patient under direct supervision of Dr. Freed, who did not see the patient but was available upon requestContent of this note has been dictated using voice recognition software. 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 We will continue that for nowHistory of non-ST elevation DE in the setting of sepsis and acute illness in 2024 echocardiogram was reviewed today which was completed at [facility] showed normal LV function 60-65% she follows [...] anterior and lateral leads indicating the previous DE. She is currently chest pain-free. She is [...] she has been following Dr. Porter at [facility] appeared she also saw the oncologist Dr. [...] a history of hypertension, recent non-ST elevation DE, obstructive uropathy status post stent placement, right [...] profile last lab work was done at [facility] which is unavailable to us today, she is on atorvastatin 80 mg due to history of non-ST elevation DE in June 2024. We will continue t hat for now History of non-ST elevation DE in the setting of sepsis and acute illness in 2024 echocardiogram was reviewed today which was completed at [facility] showed normal LV function 60-65% she follows [...] she has been following Dr. Porter at [facility] appeared she also saw the oncologist Dr. [...] cancer will be seeing a oncologist at [facility] and [facility] [facility] [address] Porter, Pulmonary embolism on Eliquis is here today for recent hospital admission at [facility]. Plan as follows Malignant neoplasm of the upper lobe Pulmonary embolism - She has a follow-up with the oncologist and glass edger Dr. Porter to discuss further diagnosis and [...] Non-ST elevation. She does follow with a waste water operator. She is currently on aspirin and beta-digna, Atorvastatin 80 mg. Stable at this point. Her previous echo was done through the waste water operator which did show ejection fraction of 60-65% and dyskinetic apical segment. Pleural effusion. She was given 40 mg IV through some of the hospital and patient was discharged with 20 mg of furosemide. We will repeat chest x-ray to ensure resolution Right-sided heart failure. She does follow with a waste water operator. Advised patient to do daily weights, and [...] been updated Awaiting a full report from [facility] General concerns have been discussed I [...] a history of hypertension, recent non-ST elevation DE, obstructive uropathy status post stent placement, right [...] profile last lab work was done at [facility] which is unavailable to us today, she is on atorvastatin 80 mg due to history of non-ST elevation DE in June 2024. We will continue t hat for now History of non-ST elevation DE in the setting of sepsis and acute illness in 2024 echocardiogram was reviewed today which was completed at [facility] showed normal LV function 60-65% she follows [...] she has been following Dr. Porter at [facility] appeared she also saw the oncologist Dr. [...] cancer will be seeing a oncologist at [facility] and [facility] [facility] [address] Porter, Pulmonary embolism on Eliquis is here today for recent hospital admission at [facility]. Plan as follows Malignant neoplasm of the upper lobe Pulmonary embolism - She has a follow-up with the oncologist and glass edger Dr. Porter to discuss further diagnosis and [...] Non-ST elevation. She does follow with a waste water operator. She is currently on aspirin and beta-digna, Atorvastatin 80 mg. Stable at this point. Her previous echo was done through the waste water operator which did show ejection fraction of 60-65% and dyskinetic apical segment. Pleural effusion. She was given 40 mg IV through some of the hospital and patient was discharged with 20 mg of furosemide. We will repeat chest x-ray to ensure resolution Right-sided heart failure. She does follow with a waste water operator. Advised patient to do daily weights, and [...] been updated Awaiting a full report from [facility] General concerns have been discussed I [...] cancer will be seeing a oncologist at [facility] and [facility] [facility] [address] Porter, Pulmonary embolism on Eliquis is here today for recent hospital admission at [facility]. Plan as follows Malignant neoplasm of the upper lobe Pulmonary embolism - She has a follow-up with the oncologist and glass edger Dr. Porter to discuss further diagnosis and [...] Non-ST elevation. She does follow with a waste water operator. She is currently on aspirin and beta-digna, Atorvastatin 80 mg. Stable at this point. Her previous echo was done through the waste water operator which did show ejection fraction of 60-65% and dyskinetic apical segment. Pleural effusion. She was given 40 mg IV through some of the hospital and patient was discharged with 20 mg of furosemide. We will repeat chest x-ray to ensure resolution Right-sided heart failure. She does follow with a waste water operator. Advised patient to do daily weights, and [...] been updated Awaiting a full report from [facility] General concerns have been discussed I [...] a history of hypertension, recent non-ST elevation DE, obstructive uropathy status post stent placement, right [...] profile last lab work was done at [facility] which is unavailable to us today, she is on atorvastatin 80 mg due to history of non-ST elevation DE in June 2024. We will continue t hat for now History of non-ST elevation DE in the setting of sepsis and acute illness in 2024 echocardiogram was reviewed today which was completed at [facility] showed normal LV function 60-65% she follows [...] she has been following Dr. Porter at [facility] appeared she also saw the oncologist Dr. [...] a history of hypertension, recent non-ST elevation DE, obstructive uropathy status post stent placement, right [...] profile last lab work was done at [facility] which is unavailable to us today, she is on atorvastatin 80 mg due to history of non-ST elevation DE in June 2024. We will continue t hat for now History of non-ST elevation DE in the setting of sepsis and acute illness in 2024 echocardiogram was reviewed today which was completed at [facility] showed normal LV function 60-65% she follows [...] she has been following Dr. Porter at [facility] appeared she also saw the oncologist Dr. [...] cancer will be seeing a oncologist at [facility] and [employer] [facility] [address] Porter, Pulmonary embolism on Eliquis is here today for recent hospital admission at [facility]. Plan as follows Malignant neoplasm of the upper lobe Pulmonary embolism - She has a follow-up with the oncologist and glass edger Dr. Porter to discuss further diagnosis and [...] Non-ST elevation. She does follow with a waste water operator. She is currently on aspirin and beta-digna, Atorvastatin 80 mg. Stable at this point. Her previous echo was done through the waste water operator which did show ejection fraction of 60-65% and dyskinetic apical segment. Pleural effusion. She was given 40 mg IV through some of the hospital and patient was discharged with 20 mg of furosemide. We will repeat chest x-ray to ensure resolution Right-sided heart failure. She does follow with a waste water operator. Advised patient to do daily weights, and [...] been updated Awaiting a full report from [facility] General concerns have been discussed I [...] Frontal & Lat 01/06 Comp. Metabolic Panel [id number] 2024 Next Appt Details Provider Name:Rosa Elena mars, 04/07/2025 03:00:00 PM, [address] [place] [address], [phone], Provider Name:Ananth Hoffman, 0 06/21/2025 02:15:00 PM, [address] [place] [address], [phone], Insurance Providers Payer Name Payer Address Payer Phone Subscriber Number Group Number Insured Name Patient Relationship to Insured Coverage Start Date Coverage End Date [employer] [address] [facility] [address] [place] [address] [id number] Darek Melendez Self - patient is the insured 4 Medical (General) History Medical History History ICD Code history of non-ST elevation DE followed by Dr. Tello Christian cardiology in 2024/sepsis-induced Right lung mass followed by Dr. Porter pulmonology and Dr. Rodriguez oncology conservative treatment Nephrolithiasis with hydrone phrosis and hydroureter status post stent by Dr. 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
== END 2025-02-17 12:45 | disposition home or self-care (01) ==
LOC: HO.XRAY 12:44
PROVIDERS: PCP Hospitalist; Visit Provider Hospitalist
DX: Z09 Encounter for follow-up examination after completed treatment for conditions other than malignant neoplasm (principal); J90 Pleural effusion, not elsewhere classified; I21.4 Non-ST elevation (NSTEMI) myocardial infarction; I25.10 Atherosclerotic heart disease of native coronary artery without angina pectoris; I50.30 Unspecified diastolic (congestive) heart failure; R29.898 Other symptoms and signs involving the musculoskeletal system
CPT/HCPCS: 71046; 99212

== ENCOUNTER 2025-02-17 12:54 | Outpatient (AMB) | payer MEDICARE, SELFPAY ==
[2025-02-17 12:57] VITALS: BP 122/54; PULSE 61; BMI 21.3
--- NOTE | 2025-02-17 12:57 | A.OFFVIS_ITS ---
Vital Signs 02/17/25 12:57 Height 5 ft 5 in Weight 127 lb 13.89 oz BMI 21.3 BP 122/54 L Blood Pressure Location Lt brachial Position Sitting Pulse 61 Pulse Source Pulse Oximeter Intake Visit Reasons: 6 mth f/up Accompanied by: Daughter Allergies No Known Allergies Allergy (Verified 02/17/25 13:01) Medication List - Last Reconciled 02/17/25 by Kavon Tirado NP apixaban (Eliquis DVT-PE Treat 30D Start) 5 mg PO BID atorvastatin 80 mg PO BEDTIME furosemide (Lasix) 20 mg PO DAILY metoprolol tartrate 12.5 mg PO BID HPI Comments Details: This is an 89-year-old female patient coming in for a follow-up visit, a ccompanied by her daughter. Patient with a history of NSTEMI in the setting of pneumonia back in June at which time there was question about LAD territory ischemia versus takotsubo cardiomyopathy. Patient did not want any further cardiac workup to look for ischemic changes and be managed medically. Patient was also diagnosed with lung cancer at that visit. Recently patient was in the hospital for shortness of breath and chest pain where patient was noted to have PE on chest CT and was treated with Eliquis and IV diuretics. Today, patient reports that she has seen her diesel mechanic recently and is exploring about possible biopsy for her lung mass. Patient is denying chemotherapy but is planning on exploring other options with them. Patient is otherwise denying any cardiac symptoms of exertional chest pain, shortness of breath, palpitations, dizziness, orthopnea, PND, leg edema, presyncope or syncope. Patient is reporting compliance with all her medications. Patient is denying any signs of bleeding or falls. Patient's main complaint today is leg weakness for which she uses a wheeled walker. Patient is requesting clearance for handicap placard from PCP. [facility] Medical History Atelectasis Pleural effusion Calculus of kidney Bladder cancer Coronary artery disease Mass of lung Surgical History Hx of section Hx of appendectomy Hx of cystoscopy Social History Household Members: Spouse Housing: House Do you presently have visiting nurse or other home services: Yes ([facility]) Alcohol intake: never Comment: refused alarms Patient Tobacco Use Status: Former Tobacco user Tobacco use type: Cigarette service: No Review of Systems Const Denies daytime sleepiness, Denies difficulty sleeping, Denies snoring, Denies stops breathing during sleep and Denies weakness Card Denies chest pain, Denies rapid heart rate, Denies irregular heart rhythm, Denies claudication, Denies leg edema, Denies lightheadedness, Denies palpitations, Denies dyspnea, Denies dyspnea on exertion, Denies orthopnea, Denies paroxysmal nocturnal dyspnea and Denies slow heart rate Resp Denies cough, Denies dyspnea, Denies dyspnea on exertion and Denies snoring GI Reports no additional complaints, Denies hematochezia, Denies change in stool character and Denies dyspepsia Musc Denies abnormal gait, Denies muscle weakness and Denies numbness Neuro Denies abnormal gait, Denies numbness and Denies weakness Endo Denies palpitations Physical Exam Vital Signs: Last Vital Signs Pulse 61 02/17/25 12:57 BP 122/54 L 02/17/25 12:57 BMI result Body Mass Index 21.3 Const General: cooperative, healthy appearing, comfortable and no acute distress Orientation/consciousness: patient oriented x3 HEENT Head: Yes normal to inspection Neck Neck: Yes normal visual inspection, Yes trachea midline and Yes supple Chest Chest palpation & inspection: normal inspection of the chest Resp Effort & Inspection: normal respiratory effort Auscultation: clear to auscultation bilaterally, no crackles, no rales, no rhonchi and no wheezes Cardio Jugular venous distension: no JVD Palpation: normal PMI Rate: regular rate Rhythm: regular rhythm Heart sounds: S1 normal heart sound present, S2 normal heart sound present, no click, no gallops, no murmurs and no rubs Peripheral pulses: Peripheral pulses 2+ throughout GI Inspection: Yes normal to inspection Palpation (GI): Soft to palpation Auscultation: normal bowel sounds Skin General skin exam: no rashes or lesions noted Neuro General: patient oriented x3 Extrem General: Yes normal to inspection, No no pedal edema and No calf tenderness Psych Appearance: grossly normal Mental Status: mental status grossly normal Speech and movement: Normal speech and movement present Assessment & Plan Assessment & Plan (1) NSTEMI (non-ST elevated myocardial infarction): Code(s): I21.4 - Non-ST elevation (NSTEMI) myocardial infarction Category: Medical Plan: Elevated troponin back in June of 2024, EKG with ischemic anterior T-wave changes during hospital stay, deemed to be type 2 demand ischemia due to pneumonia. Patient's echo at that time showed wall motion abnormality for which patient did not want to pursue further cardiac workup. Patient continues to refuse ischemic workup. Patient was on aspirin however now patient is on Eliquis for recent hospitalization for PE. Continue the same. Denies any signs of bleeding or falls. Continue statin therapy with an LDL goal less than 70. Patient continue with her metoprolol therapy. (2) Coronary artery disease: Code(s): I25.10 - Atherosclerotic heart disease of [place] coronary artery without angina pectoris Category: Medical Plan: As above. (3) (HFpEF) heart failure with preserved ejection fraction: Code(s): I50.30 - Unspecified diastolic (congestive) heart failure Category: Medical Plan: 12/22/2024- echo study shows a normal ejection fraction of 60-65% and dyskinetic apical segment, severe septal asymmetric hypertrophy, moderate LVH. Clinically stable and euvolemic. Patient on low-dose Lasix therapy. Patient reports that her blood pressure sometimes is softer at home. We will change patient's Lasix therapy to every other day. Signs and symptoms of heart failure discussed with the patient. Patient go back to taking it daily in case of leg edema or worsening shortness of breath. (4) Leg weakness: Code(s): R29.898 - Other symptoms and signs involving the musculoskeletal system Plan: Patient is using a wheeled walker due to her weakness in the legs. Discussed with the patient about getting a handicap parking placard due to mobility limitations as well as her shortness of breath due to lung mass. Patient we will contact her PCP to initiate the process. (5) Hospital discharge follow-up: Code(s): Z09 - Encounter for follow-up examination after completed treatment for conditions other than malignant neoplasm Plan: As above. Advised heart healthy diet, regular exercise as tolerated, aggressive management of vascular risk factors, and med compliance. Follow-up in 6 months, sooner if needed. In the interim, patient will call us with any concerns or change of symptoms. Advised patient to seek ER care in case of exertional chest pain not resolved with rest. This note was generated using voice recognition software. While every effort has been made to ensure accuracy and proper filbert grower, there may be occasional errors that could affect the content or meaning of the described symptoms. Medications: Changed From furosemide (Lasix) 20 mg PO DAILY 90 tabs 0RF To furosemide (Lasix) 20 mg PO Q OTHER DAY 90 tabs 0RF Coding Level of Care Code Est Pt Level 4 (80164) Complex EM visit Add On G2211 Diagnoses NSTEMI (non-ST elevated myocardial infarction) I21.4 Coronary artery disease I25.10 (HFpEF) heart failure with preserved ejection fraction I50.30 Leg weakness R29.898 Hospital discharge follow-up Z09 Time Spent (min) 32 Comment Time spent in reviewing the chart, test results, assessment, counseling and documentation.
== END 2025-02-17 13:25 | disposition home or self-care (01) ==
LOC: HO.HCS 12:55
PROVIDERS: PCP Hospitalist
DX: I21.4 Non-ST elevation (NSTEMI) myocardial infarction (principal); I25.10 Atherosclerotic heart disease of native coronary artery without angina pectoris; I50.30 Unspecified diastolic (congestive) heart failure; R29.898 Other symptoms and signs involving the musculoskeletal system; Z09 Encounter for follow-up examination after completed treatment for conditions other than malignant neoplasm
CPT/HCPCS: 99214; G2211

== ENCOUNTER → 2025-02-17 13:33 | Outpatient (BNV) | payer MEDICARE, SELFPAY | PROVIDERS: PCP Hospitalist; Visit Provider Radiology Diagnostic Radiology | DX: J84.9 Interstitial pulmonary disease, unspecified (principal) | CPT/HCPCS: 71046 ==

== ENCOUNTER 2025-03-17 13:00 | Outpatient (AMB) | payer MEDICARE, SELFPAY ==
[2025-03-17 13:04] VITALS: BP 120/58; PULSE 48; O2SAT 98; BMI 22.0
--- NOTE | 2025-03-17 13:04 | MHC.OFFVIS ---
Vital Signs 03/17/25 13:04 Height 5 ft 5 in Weight 132 lb 4.438 oz BMI 22.0 BP 120/58 L Blood Pressure Location Lt brachial Position Sitting Pulse 48 L Pulse Source Pulse Oximeter Pulse Oximetry (%) 98 Oxygen Delivery Method Room Air Intake Visit Reasons: Lung mass [place] Required: No Allergies No Known Allergies Allergy (Verified 03/17/25 13:08) HPI Comments Details: The patient is an 89-year-old female with pertinent history of tobacco use disorder who presents to the emergency department for evaluation of malaise, dyspnea and nonproductive cough. Patient states her daughter prompted her to come to the ER. As per the daughter at bedside, patient has been unwell for the last 1 week. She has been having malaise, easy fatigability and dyspnea on exertion. Also has been having nonproductive cough and upper respiratory symptoms. No sick contacts. No pertinent known past medical history as patient has not seen a PCP in over 40 years. Patient has more than 40 pack-year smoking history but did not smoke for the last 1 week. Denies orthopnea or PND. No chest pain, palpitations, fever, chills, abdominal pain, changes in urinary or bowel habits. In the emergency department, troponin found to be elevated. Imaging with right middle lobe mass and patient tested positive for influenza A. Had a CTA which I personally reviewed with the patients family, demonstrating a RML medial mass with obstruction of the RML airways resulting in atelectasis. Also has moderate emphysema and another ELSY nodule. ALso cardiac enzymes were significantly elevated and cardiology is following. 01/24/2025 the patient is here for an evaluation. She was initially seen while in the hospital back in June 2024. The point she was found to have a mass in the right middle lobe area. Was causing some atelectasis. He did follow-up with Oncology. Subsequently after that she underwent a CTA after having a positive D-dimer demonstrating the possibility of a question about blood clot in the right upper lobe area. Subsequently to that the hilar mass has gotten significantly bigger with more atelectasis of the right middle lobe area in addition to a nodular density now in the contralateral side along with bilateral pleural effusions right more than left. The wondering about a diagnostic intervention. She does have some dilation of the pulmonary vessels suggesting pulmonary hypertension. She also has a cardiac history. Now she is on a anticoagulation regimen for the suspicion of a blood clot specially with her likely cancer history. For all these reasons the patient is high risk for any procedure. I did go be reasonable to see about performing a ultrasound-guided thoracentesis that this time. If she still has fluid there then if this fluid is malignant then that will give us enough information. If not then we can consider bronchoscopy with endobronchial ultrasound to sample the hilar mass for proper identification and seeing the patient is a candidate for any molecular or immune therapy. 03/17/2025 the patient is here for pulmonary follow-up visit. Overall the patient has been doing okay although she is complaining of dizziness and lightheadedness. Heart rate was only 46 today. She does take multiple medications. This also includes some small dose of metoprolol. I did reach out to Cardiology that she should hold the metoprolol for now. She can not have an EKG and also blood work today. We again talked about her CAT scan from December 2024 and I did personally review it along with the PET scan and previous CAT scan. She has a hilar mass like density that is concerning for malignancy because it is significantly FDG avid in his causing narrowing of the right middle lobe. She is not very symptomatic from that though. In addition to that she has a concerning nodule in the left hemithorax. We did try to undergo a thoracentesis but she really did not have enough fluid there to tap. In the meantime the family's been concerned about undergoing any aggressive interventions specially with her age and comorbidities. Based on the fact the patient has bradycardia will stop the metoprolol and we can have her get evaluated from a cardiac standpoint with an EKG. If her symptoms are better and we can proceed with bronchoscopy with endobronchial ultrasound needle biopsy it will be reasonable options to further assess was going on with her airway and likely malignant process. Therefore, will have her undergo blood work in addition to an EKG and I will speak to the family next week about the diagnostic interventions. [facility] Medical History (Updated 03/17/25 @ 13:40 by Thor Porter MD) Bradycardia Atelectasis Pleural effusion Calculus of kidney Bladder cancer Coronary artery disease Mass of lung Surgical History Hx of section Hx of appendectomy Hx of cystoscopy Social History Household Members: Spouse Housing: House Do you presently have visiting nurse or other home services: Yes ([facility]) Alcohol intake: never Comment: refused alarms Patient Tobacco Use Status: Former Tobacco user Tobacco use type: Cigarette service: No Review of Systems Const Denies chills, Denies fatigue, Denies fever(s), Denies weight gain and Denies weight loss ENT Reports dizziness Card Denies chest pain, Denies leg edema, Reports lightheadedness, Denies palpitations, Denies dyspnea on exertion, Denies orthopnea and Denies other Resp Denies cough and Denies dyspnea on exertion GI Denies hematochezia and Denies change in stool character Musc Denies abnormal gait, Denies muscle weakness, Denies numbness, Denies radiating pain into limb and Denies tingling Neuro Denies abnormal gait, Reports dizziness, Denies numbness and Denies tingling Endo Denies fatigue and Denies palpitations Physical Exam Vital Signs: Last Vital Signs Pulse 48 L 03/17/25 13:04 BP 120/58 L 03/17/25 13:04 Pulse Ox 98 03/17/25 13:04 Oxygen Delivery Method Room Air 03/17/25 13:04 BMI result Body Mass Index 22.0 Last Vital Signs Temp 98.0 F 12/22/24 11:05 Pulse 54 12/22/24 11:05 Resp 18 12/22/24 11:05 BP 126/58 L 12/22/24 14:32 Pulse Ox 94 12/22/24 11:05 O2 Del Method Room Air 12/22/24 11:05 BMI result Body Mass Index 25.8 Const General: comfortable and no acute distress Orientation/consciousness: patient oriented x3 HEENT Other: Unremarkable Head: Yes normal to inspection Neck Neck: Yes normal visual inspection Chest Chest palpation & inspection: normal inspection of the chest Resp Effort & Inspection: normal respiratory effort Auscultation: diminished lung sounds Cardio Rate: bradycardic Heart sounds: S1 normal heart sound present and S2 normal heart sound present GI Palpation (GI): Soft to palpation Back/Spine/Pelvis Other: unremarkable Skin General skin exam: no rashes or lesions noted Neuro General: patient oriented x3 Extrem General: Yes normal to inspection Psych Mental Status: mental status grossly normal Assessment & Plan Assessment & Plan (1) Pulmonary emboli: Code(s): I26.99 - Other pulmonary embolism without acute cor pulmonale Category: Medical Qualifiers: Acute cor pulmonale presence: without acute cor pulmonale Chronicity: unspecified Pulmonary embolism type: unspecified Qualified Code(s): I26.99 - Other pulmonary embolism without acute cor pulmonale (2) Mass of lung: Comment: new dx Code(s): R91.8 - Other nonspecific abnormal finding of lung field Category: Medical (3) Atelectasis: Code(s): J98.11 - Atelectasis Category: Medical (4) Bradycardia: Code(s): R00.1 - Bradycardia, unspecified Category: Medical Plan stop metoprolol EKG and labs EBUS would be reasonable once stable from a cardiac standpoint continue xarelto, will need to hold x 2-3 days prior to procedures continue diuresis as tolerated F/U 3-4 months Orders: Orders ECG 12 lead EKG Today J44.9 - Chronic obstructive pulmonary disease, unspecified, R00.1 - Bradycardia, unspecified Complete Blood Count Auto Diff Today R00.1 - Bradycardia, unspecified Basic Metabolic Panel Today R00.1 - Bradycardia, unspecified Liver Panel Today R00.1 - Bradycardia, unspecified Troponin-I High Sensitivity Today R00.1 - Bradycardia, unspecified Coding Level of Care Code Est Pt Level 5 (08977) Complex EM visit Add On G2211 Diagnoses Pulmonary embolism without acute cor pulmonale, unspecified chronicity, unspecified pulmonary embolism type I26.99 Acute cor pulmonale presence: without acute cor pulmonale Chronicity: unspecified Pulmonary embolism type: unspecified Mass of lung R91.8 Atelectasis J98.11 Bradycardia R00.1 Time Spent (min) 60
== END 2025-03-17 13:41 | disposition home or self-care (01) ==
LOC: HO.HPS 13:00
PROVIDERS: PCP Hospitalist; Visit Provider Hospitalist
DX: I26.99 Other pulmonary embolism without acute cor pulmonale (principal); R91.8 Other nonspecific abnormal finding of lung field; J98.11 Atelectasis; R00.1 Bradycardia, unspecified
CPT/HCPCS: 99215; 99417; G2211

== ENCOUNTER → 2025-03-17 13:00 | Outpatient (REF) | payer MEDICARE, SELFPAY ==
--- NOTE | 2025-03-17 14:02 | ECG_ITS ---
Test Reason : cp Blood Pressure : */* mmHG Vent. Rate : 50 BPM Atrial Rate : 50 BPM P-R Int : 136 ms QRS Dur : 88 ms QT Int : 500 ms P-R-T Axes : 57 23 116 degrees QTcB Int : 455 ms Sinus bradycardia Possible Left atrial enlargement Minimal voltage criteria for LVH, may be normal variant ( R in aVL ) ST & T wave abnormality, consider anterolateral ischemia Abnormal ECG When compared with ECG of 21-Dec-2024 14:18, T wave inversion more evident in Anterior leads Referred By: Thor Porter Electronically Signed By: JULIO CÉSAR OCHOA MD
[2025-03-17 14:11] LABS: MANUAL DIFF FLAG NO
[2025-03-17 14:50] LABS: Hematocrit 40.7 % (37.0-47.0); Hemoglobin 13.5 g/dl (12.0-16.0); Imm Gran Abs Auto 0.03 X10*3/uL (0.00-0.03); Imm Gran Pct Auto 0.4 % (0.0-0.4); Lymphocytes Absolute Auto 2.1 X10*3/uL (1.2-4.9); Mean Corpuscular HGB Conc 33.2 g/dl (31.0-35.0); Mean Corpuscular Hemoglobin 28.5 pg (27.0-33.0); Mean Corpuscular Volume 85.9 fL (80.0-98.0); NRBC Abs Auto 0.000 X10*3/uL (0.0-0.012); NRBC Pct Auto 0.0 /100WBC (0.0-0.2); Platelet Count 206 X10*3/uL (160-400); Red Blood Count 4.74 X10*6/uL (4.20-5.50); White Blood Count 7.8 X10*3/uL (4.8-10.8)
[2025-03-17 16:39] LABS: Troponin-I High Sensitivity 21.1 ng/L (<3.5-17.0)
[2025-03-17 16:52] LABS: Alanine Aminotransferase 36 U/L (0-31); Albumin Level 4.3 g/dL (3.5-5.0); Alkaline Phosphatase 112 U/L (39-117); Anion Gap 12 (12-20); Aspartate Amino Transferase 43 U/L (5-31); Blood Urea Nitrogen 27 mg/dL (9-16); Calcium 9.5 mg/dL (8.4-10.2); Carbon Dioxide 26 mmol/L (22-29); Chloride 106 mmol/L (96-108); Estimated Glomerular Filt Rate 52; Potassium 4.0 mmol/L (3.3-5.1); Sodium 140 mmol/L (135-145); Total Protein 8.2 g/dL (6.5-8.0)
== END ==
LOC: HO.CARD 13:00
PROVIDERS: PCP Hospitalist; Visit Provider Hospitalist
DX: I26.99 Other pulmonary embolism without acute cor pulmonale (principal); J98.11 Atelectasis; R91.8 Other nonspecific abnormal finding of lung field; J44.9 Chronic obstructive pulmonary disease, unspecified; R00.1 Bradycardia, unspecified; Z79.01 Long term (current) use of anticoagulants; Z79.899 Other long term (current) drug therapy; Z87.891 Personal history of nicotine dependence
CPT/HCPCS: 36415; 80048; 80076; 84484; 85025; 93005; 99212

== ENCOUNTER → 2025-03-17 14:02 | Outpatient (BNV) | payer MEDICARE, SELFPAY | PROVIDERS: PCP Hospitalist; Visit Provider Internal Medicine Cardiovascular Disease | DX: R00.1 Bradycardia, unspecified (principal) | CPT/HCPCS: 93010 ==